=== PATIENT | male | born 1945 | race Caucasian/White ===

== ENCOUNTER 2016-12-24 11:57 | Inpatient (IN) | payer MEDICARE ==
[~2016-12-24] VITALS: Ht 180.3 cm; Wt 106.6 kg
[~2016-12-24 11:57] MED LIST: AMLO10TA2 PO; ASPI-630 PO; ATEN100T PO; ATOR20TA58 PO; CARB1TAB44 PO; GABA300S PO; HYDR12.53 PO; LISI40TA PO; SERT100T8 PO; TAMS0.4C2 PO; prilosec PO
[2016-12-24] MEDS ORDERED: MORPHINE SULFATE 10 MG/ML VIAL. IV ONE ×2 (12:30→13:45)
[2016-12-24] MEDS ORDERED: IV NORMAL SALINE 1000ML BAG 1,000 ML IV ONE (12:30)
[2016-12-24 12:38] LABS: BASO # 0.1 x10^3/uL (0.0-0.2); BASO % 1 % (0-3); EOS % 2 % (0-3); HEMATOCRIT 35.8 % (39.0-53.0); HEMOGLOBIN 11.5 g/dL (13.0-17.5); LYMPH # 2.2 x10^3/uL (1.0-4.8); LYMPH % 22 % (24-48); MEAN CORPUSCULAR HEMOGLOBIN 27 pg (25-35); MEAN CORPUSCULAR HGB CONC 32 g/dL (31-37); MEAN CORPUSCULAR VOLUME 83 fL (79-100); MONO % 3 % (0-9); NEUT % 72 % (31-73); PLATELET COUNT 135 x10^3/uL (140-400); RED BLOOD COUNT 4.31 x10^6/uL (4.30-5.70); RED CELL DISTRIBUTION WIDTH 16.3 % (11.5-14.5); WHITE BLOOD COUNT 9.9 x10^3/uL (4.0-11.0)
[2016-12-24 12:50] LABS: INR 1.1 (0.8-1.1); PROTHROMBIN TIME PATIENT 13.5 SEC (11.7-14.0)
[2016-12-24 12:51] LABS: CALCIUM 9.5 mg/dL (8.5-10.1); GFR 73.7; POTASSIUM 3.6 mmol/L (3.5-5.1)
--- NOTE | 2016-12-24 12:52 | PHYS DOC ---
Past Medical History Past Medical History: Cancer, Heart Disease Past Surgical History: Appendectomy, Cancer Surgery, Tonsillectomy Additional Past Surgical Histo: L UPPER LOBE REMOVED, BLADDER, SKIN CA, STENT PLACEMENT Alcohol Use: None Drug Use: None Adult General Chief Complaint Chief Complaint: MECHANICAL FALL HPI HPI Patient is a 71 year old male sustained home while trying to get up from bed to go to the bathroom he fell to his left side against a chair. Patient denies any head, neck, back trauma. His only complaint is pain at the left upper leg. Review of Systems Review of Systems Constitutional: Denies fever or chills [] HENT: Denies injury Respiratory: Denies cough or shortness of breath [] Cardiovascular: No chest pain or injury GI: Denies abdominal pain or injury Musculoskeletal: Pain at the left lower thigh Integument: Denies rash or skin lesions [] Neurologic: Denies headache, focal weakness or sensory changes [] All assistance reviewed and found to be negative unless as stated otherwise Current Medications Current Medications Current Medications Medications (Trade) Dose Ordered Sig/Alverto Start Time Stop Time Status Last Admin Dose Admin Morphine Sulfate 6 mg 1X ONCE 12/24/16 12:30 12/24/16 12:35 DC 12/24/16 12:43 6 MG Sodium Chloride 1,000 ml @ 1,000 mls/hr 1X ONCE 12/24/16 12:30 12/24/16 13:29 DC 12/24/16 12:44 1,000 MLS/HR Allergies Allergies Allergies Coded Allergies Type Severity Reaction Last Updated Verified No Known Drug Allergies 04/12/13 No Physical Exam Physical Exam Constitutional: Well developed, well nourished, mild distress, non-toxic appearance. [] HENT: Normocephalic, atraumatic, bilateral external ears normal, oropharynx dry , no oral exudates, nose normal. [] Eyes: EOMI, conjunctiva normal, no discharge. [] Neck: Normal range of motion, no tenderness, supple, no stridor. No midline tenderness, no step-offs Cardiovascular:Heart rate regular rhythm, no murmur, equal pulses, normal perfusion Lungs & Thorax: Bilateral breath sounds clear to auscultation, no tachypnea Abdomen: Bowel sounds normal, soft, no tenderness, no masses, no pulsatile masses. [] MSK: Deformity at the left lower thigh, no evidence of compartment syndrome, neurovascularly intact distally Skin: Warm, dry, no erythema, no rash. No evidence of open fracture Back: No tenderness, no CVA tenderness. No step-offs Extremities: No tenderness, no cyanosis, no clubbing, ROM intact except left lower extremity secondary to pain, no edema. [] Neurologic: Alert and oriented X 3, normal motor function, no focal deficits noted. [] Psychologic: Affect normal, judgement normal, mood normal. [] Current Patient Data Vital Signs Vital Signs Date Time Temp Pulse Resp B/P (MAP) Pulse Ox O2 Delivery O2 Flow Rate FiO2 12/24/16 12:43 20 94 12/24/16 12:35 62 Room Air 12/24/16 11:58 97.9 132/64 (86) 97.9 Lab Values Laboratory Tests Test 12/24/16 12:30 White Blood Count 9.9 x10^3/uL (4.0-11.0) Red Blood Count 4.31 x10^6/uL (4.30-5.70) Hemoglobin 11.5 g/dL (13.0-17.5) L Hematocrit 35.8 % (39.0-53.0) L Mean Corpuscular Volume 83 fL (79-100) Mean Corpuscular Hemoglobin 27 pg (25-35) Mean Corpuscular Hemoglobin Concent 32 g/dL (31-37) Red Cell Distribution Width 16.3 % (11.5-14.5) H Platelet Count 135 x10^3/uL (140-400) L Neutrophils (%) (Auto) 72 % (31-73) Lymphocytes (%) (Auto) 22 % (24-48) L Monocytes (%) (Auto) 3 % (0-9) Eosinophils (%) (Auto) 2 % (0-3) Basophils (%) (Auto) 1 % (0-3) Neutrophils # (Auto) 7.2 x10^3uL (1.8-7.7) Lymphocytes # (Auto) 2.2 x10^3/uL (1.0-4.8) Monocytes # (Auto) 0.3 x10^3/uL (0.0-1.1) Eosinophils # (Auto) 0.2 x10^3/uL (0.0-0.7) Basophils # (Auto) 0.1 x10^3/uL (0.0-0.2) Prothrombin Time 13.5 SEC (11.7-14.0) Prothrombin Time INR 1.1 (0.8-1.1) Sodium Level 143 mmol/L (136-145) Potassium Level 3.6 mmol/L (3.5-5.1) Chloride Level 106 mmol/L (98-107) Carbon Dioxide Level 29 mmol/L (21-32) Anion Gap 8 (6-14) Blood Urea Nitrogen 19 mg/dL (8-26) Creatinine 1.0 mg/dL (0.7-1.3) Estimated GFR (Cockcroft-Gault) 73.7 Glucose Level 138 mg/dL (70-99) H Calcium Level 9.5 mg/dL (8.5-10.1) Laboratory Tests 12/24/16 12:30 Laboratory Tests 12/24/16 12:30 EKG EKG [] Radiology/Procedures Radiology/Procedures distal femur fracture[] Course & Med Decision Making Course & Med Decision Making Pertinent Labs and Imaging studies reviewed. (See chart for details) 1335 patient and family informal results of imaging and plan for surgery. Patient Dr. Varela has reviewed the x-rays and agrees for need for admission and operational repair. Dr. Rob has been contacted and aware of the admission [] Dragon Disclaimer Dragon Disclaimer This electronic medical record was generated, in whole or in part, using a voice recognition dictation system. Departure Departure Impression: Primary Impression: Fracture, femur, distal Disposition: ADMITTED INPATIENT Admitting Physician: Other Condition: STABLE Referrals: COREEN CLARK MD (PCP) Dom SHABAZZ MD Dec 24, 2016 12:52
--- NOTE | 2016-12-24 13:25 | RAD ---
Examination: 2 views of the left hip History: History of trauma, fall Comparison: None available Findings: Moderate joint space loss identified in the left hip joint likely secondary to degeneration. Partially visualized displaced fracture of the left femoral shaft. Impression: 1. Partially visualized displaced fracture of the left femoral shaft. Graft. Moderate degenerative changes left hip joint.
--- NOTE | 2016-12-24 13:27 | RAD ---
EXAM: 1. Left hip 2 views. 2. Left femur 2 views. 3. Left knee 2 views. HISTORY: Trauma. COMPARISON: None. FINDINGS: There is a questionable nondisplaced fracture of the left superior pubic ramus versus artifact. No fracture is appreciated at the left hip. The joint spaces and alignment of the left hip appear maintained. Atherosclerotic calcifications are noted. There is a posteromedially displaced and anterolaterally angulated oblique fracture of the distal femur. It is shortened by 8 cm. No intra-articular extension of the fractures at the left knee. There is mild to moderate tricompartmental osteoarthritis with patellofemoral predominance. There is a small intra-articular osteophyte laterally. There is a small joint effusion. IMPRESSION: 1. Short and, displaced, angulated fracture of the left distal femur. 2. Questionable nondisplaced fracture of the left superior pubic ramus. 3. Mild to moderate tricompartmental left knee osteoarthritis.
[2016-12-24] MEDS ORDERED: ACETAMINOPHEN 325 MG TABLET. PO PRN (13:30)
[2016-12-24] MEDS ORDERED: ACET325T9 PO (14:07)
[2016-12-24] MEDS ORDERED: CLOP75TA57 PO (14:10)
[2016-12-24] MEDS ORDERED: FINA5TAB4 PO (14:10)
[2016-12-24] MEDS ORDERED: FURO20TA3 PO (14:11)
[2016-12-24] MEDS ORDERED: LANS15CA78 PO (14:13)
[2016-12-24] MEDS ORDERED: PRAM0.25 PO (14:15)
[2016-12-24] MEDS ORDERED: CARB15DR3 EACHEYE (14:16)
[2016-12-24] MEDS ORDERED: CARB1TAB5 PO (16:05)
[2016-12-24] MEDS ORDERED: LANS15CA5 PO (16:05)
[2016-12-24] MEDS ORDERED: GABA-586 PO (16:05)
[2016-12-24] MEDS: MORPHINE SULFATE 4 MG/ML DISP.SYRIN. IV PRN (16:38)
[2016-12-24 16:51] VITALS: BP 139/68
[2016-12-24] MEDS ORDERED: oxyCODONE/APAP 5/325 1 TAB TABLET PO PRN (17:45)
[2016-12-24] MEDS: oxyCODONE/APAP 10/325 1 TAB TABLET PO PRN (18:06)
[2016-12-24 19:20] VITALS: BP 98/55
[2016-12-24] MEDS ORDERED: INFLUENZA VAX SCREEN BY RX. MC PRN (20:15)
[2016-12-24] MEDS: TAMSULOSIN 0.4 MG CAP.ER.24H. PO SCH (21:26)
[2016-12-24] MEDS: PRAMIPEXOLE 0.25 MG TABLET. PO SCH (21:26)
[2016-12-24] MEDS: SERTRALINE 50 MG TABLET. PO SCH (21:26)
[2016-12-24] MEDS: ATENOLOL 50 MG TABLET. PO SCH (21:26)
[2016-12-24] MEDS: ACETAMINOPHEN 325 MG TABLET. PO SCH (21:27)
[2016-12-24] MEDS: CARBIDOPA/LEVODOPA CR 25/100MG TABLET.SA. PO SCH (21:27)
--- NOTE | 2016-12-24 22:04 | HP ---
ADMIT DATE: 12/24/2016 CHIEF COMPLAINT: Fall with femoral fracture. HISTORY OF PRESENT ILLNESS: The patient is a 71-year-old gentleman with history of Parkinson's as well as multiple cancers who presented to the Emergency Room after a trip and fall at home resulting in left-sided hip pain. He relates that he was trying to walk to the bathroom aided by his walker as well as his . Unfortunately, his leg got hung up on the armrest of his recliner and he lost balance, fell backwards, rolling towards his left side. He denies any loss of consciousness, denies any injury to his head or neck or back. His hip, however, is in significant pain even now. In the Emergency Room, x-rays of the femur, knee and hip revealed a short and displaced angulated fracture of the left distal femur, a questionable nondisplaced fracture of the left superior pubic ramus. PAST MEDICAL HISTORY: Parkinson's, lung cancer status post left upper lobe resection, bladder cancer, in remission; multiple skin cancers removed, coronary artery disease status post stent placement. He is status post appendectomy, tonsillectomy. FAMILY HISTORY: Positive for coronary artery disease. SOCIAL HISTORY: Lives with his . Quit smoking 30 years ago. No toxic habits. ALLERGIES: No known drug allergies. MEDICATIONS: MAR reconciled with home medications. REVIEW OF SYSTEMS: The patient still has significant pain. He denies any other areas of pain outside of his leg. Denies any nausea, vomiting, any shortness of breath or chest pain. Rest of organ system review is negative. PHYSICAL EXAMINATION: VITAL SIGNS: From today show a blood pressure of 139/68, heart rate of 70, respiratory rate at 16. He is afebrile. GENERAL: This is a 71-year-old ill-appearing gentleman, alert and oriented, although barely opening his eyes, in mild distress. HEENT: Shows no scleral icterus. NECK: Supple, revealing previous resection scars over neck as well as face and his cranium. LUNGS: Clear to auscultation bilaterally. HEART: Regular rate and rhythm. ABDOMEN: Has positive bowel sounds, soft, nontender. EXTREMITIES: Show no edema. Left thigh mildly swollen. SKIN: Warm, soft and dry. LABORATORY DATA: CBC with a WBC of 9.9, hemoglobin 11.5, platelets of 135. Chemistries with a BUN and creatinine of 19 and 1.0, normal electrolytes, glucose at 138. IMAGING: A comminuted fracture of the distal femur. ASSESSMENT AND PLAN: The patient is a 71-year-old gentleman with multiple medical issues, now presenting with a distal femoral fracture. Dr. Varela from Ortho has been consulted to evaluate for fixation. The patient has a history of heart disease, but no acute issues. Home medications will be continued. EKG will be obtained to evaluate for risk stratification. Pain at this time is poorly controlled. We will try and switch him to p.o. medications for now with Percocet 1-2 tabs, morphine as last resort intravenous. He will continue on all his home medications including medications for Parkinson's and restless leg syndrome as well as benign prostatic hypertrophy. CHAITANYA DOBBS MD DR: UR/nts JOB#: [id number] / [id number] Rekha Singh MD MTDD
[2016-12-24 23:16] VITALS: BP 117/65
[2016-12-25] VITALS (14 sets, daily range): BP systolic 94–123; BP diastolic 50–84
[2016-12-25] MEDS: ACETAMINOPHEN 325 MG TABLET. PO SCH ×6 (00:23→21:12)
[2016-12-25 06:46] LABS: BASO % 0 % (0-3); EOS % 1 % (0-3); HEMATOCRIT 33.3 % (39.0-53.0); LYMPH # 2.1 x10^3/uL (1.0-4.8); LYMPH % 19 % (24-48); MEAN CORPUSCULAR HEMOGLOBIN 27 pg (25-35); MEAN CORPUSCULAR HGB CONC 33 g/dL (31-37); MEAN CORPUSCULAR VOLUME 82 fL (79-100); MONO % 6 % (0-9); NEUT % 74 % (31-73); PLATELET COUNT 142 x10^3/uL (140-400); RED BLOOD COUNT 4.07 x10^6/uL (4.30-5.70); RED CELL DISTRIBUTION WIDTH 16.4 % (11.5-14.5); WHITE BLOOD COUNT 10.7 x10^3/uL (4.0-11.0)
[2016-12-25] MEDS ORDERED: PROCHLORPERAZINE 10 MG/2 ML VIAL. IV PRN (07:00)
[2016-12-25] MEDS ORDERED: fentaNYL PF VIAL 100 MCG/2 ML VIAL IV PRN ×2 (07:00)
[2016-12-25] MEDS ORDERED: IV RINGERS,LACTATED 1000ML 1,000 ML IV SCH (07:00)
[2016-12-25] MEDS ORDERED: ONDANSETRON PF 4 MG/2 ML VIAL. IV PRN (07:00)
[2016-12-25] MEDS ORDERED: LIDOCAINE 1% PF 2 ML VIAL. ID PRN (07:00)
[2016-12-25] MEDS ORDERED: MORPHINE SULFATE 4 MG/ML DISP.SYRIN. IV PRN (07:00)
[2016-12-25] MEDS ORDERED: HYDROmorphone 2 MG/ML VIAL IV PRN (07:00)
[2016-12-25 07:10] LABS: CALCIUM 8.9 mg/dL (8.5-10.1); CREATININE 0.9 mg/dL (0.7-1.3); GFR 83.2; POTASSIUM 3.5 mmol/L (3.5-5.1)
[2016-12-25] MEDS: MORPHINE SULFATE 4 MG/ML DISP.SYRIN. IV PRN (08:43)
[2016-12-25] MEDS ORDERED: FLU VACC QS2017-18 (36MOS+)/PF 0.5 ML SYRINGE. VAX IM ONE (09:00)
[2016-12-25] MEDS: amLODIPine BESYLATE 10 MG TABLET PO SCH (09:08)
[2016-12-25] MEDS: PANTOPRAZOLE 40 MG TABLET.DR. PO SCH (09:08)
[2016-12-25] MEDS: CARBIDOPA/LEVODOPA CR 25/100MG TABLET.SA. PO SCH ×4 (09:09→21:12)
[2016-12-25] MEDS: FUROSEMIDE 20 MG TABLET PO SCH (09:09)
[2016-12-25] MEDS: PRAMIPEXOLE 0.25 MG TABLET. PO SCH ×3 (09:09→21:12)
[2016-12-25] MEDS: ATORVASTATIN CALCIUM 20 MG TABLET PO SCH (09:21)
[2016-12-25] MEDS: CLOPIDOGREL BISULFATE 75 MG TABLET PO SCH (09:21)
[2016-12-25] MEDS: SERTRALINE 50 MG TABLET. PO SCH ×2 (09:21→21:12)
[2016-12-25] MEDS: FINASTERIDE 5 MG TABLET. PO SCH (09:21)
--- NOTE | 2016-12-25 11:56 | PDOC ---
PROGRESS NOTES Chief Complaint Chief Complaint L distal femur fx ASSESSMENT AND PLAN: 1. Femur fx: ortho following 2. Pain control: adequate. switch to PO post op. 3. CAD: no acute issues. continue 2ary prevention meds 4. Parkinson's: on Sinemet 5. RLS: has ropirinile 6. BPH: on alpha almaz 7. Prophylaxis: start lovenox in AM History of Present Illness History of Present Illness pain fairly well controlled. OR soon Vitals Vitals Vital Signs Date Time Temp Pulse Resp B/P (MAP) Pulse Ox O2 Delivery O2 Flow Rate FiO2 12/25/16 11:00 97.7 69 18 116/61 (79) 97 Room Air 97.7 12/25/16 07:50 2.0 Physical Exam General: Alert, Cooperative, No acute distress Heart: Regular rate Lungs: Clear Abdomen: Normal bowel sounds, No tenderness Extremities: No edema, Other Labs LABS Laboratory Tests Test 12/24/16 12:30 12/24/16 15:50 12/25/16 05:40 White Blood Count 9.9 x10^3/uL (4.0-11.0) 10.7 x10^3/uL (4.0-11.0) Red Blood Count 4.31 x10^6/uL (4.30-5.70) 4.07 x10^6/uL (4.30-5.70) Hemoglobin 11.5 g/dL (13.0-17.5) 11.0 g/dL (13.0-17.5) Hematocrit 35.8 % (39.0-53.0) 33.3 % (39.0-53.0) Mean Corpuscular Volume 83 fL (79-100) 82 fL (79-100) Mean Corpuscular Hemoglobin 27 pg (25-35) 27 pg (25-35) Mean Corpuscular Hemoglobin Concent 32 g/dL (31-37) 33 g/dL (31-37) Red Cell Distribution Width 16.3 % (11.5-14.5) 16.4 % (11.5-14.5) Platelet Count 135 x10^3/uL (140-400) 142 x10^3/uL (140-400) Neutrophils (%) (Auto) 72 % (31-73) 74 % (31-73) Lymphocytes (%) (Auto) 22 % (24-48) 19 % (24-48) Monocytes (%) (Auto) 3 % (0-9) 6 % (0-9) Eosinophils (%) (Auto) 2 % (0-3) 1 % (0-3) Basophils (%) (Auto) 1 % (0-3) 0 % (0-3) Neutrophils # (Auto) 7.2 x10^3uL (1.8-7.7) 8.0 x10^3uL (1.8-7.7) Lymphocytes # (Auto) 2.2 x10^3/uL (1.0-4.8) 2.1 x10^3/uL (1.0-4.8) Monocytes # (Auto) 0.3 x10^3/uL (0.0-1.1) 0.6 x10^3/uL (0.0-1.1) Eosinophils # (Auto) 0.2 x10^3/uL (0.0-0.7) 0.1 x10^3/uL (0.0-0.7) Basophils # (Auto) 0.1 x10^3/uL (0.0-0.2) 0.0 x10^3/uL (0.0-0.2) Prothrombin Time 13.5 SEC (11.7-14.0) Prothromb Time International Ratio 1.1 (0.8-1.1) Sodium Level 143 mmol/L (136-145) 143 mmol/L (136-145) Potassium Level 3.6 mmol/L (3.5-5.1) 3.5 mmol/L (3.5-5.1) Chloride Level 106 mmol/L (98-107) 107 mmol/L (98-107) Carbon Dioxide Level 29 mmol/L (21-32) 29 mmol/L (21-32) Anion Gap 8 (6-14) 7 (6-14) Blood Urea Nitrogen 19 mg/dL (8-26) 16 mg/dL (8-26) Creatinine 1.0 mg/dL (0.7-1.3) 0.9 mg/dL (0.7-1.3) Estimated GFR (Cockcroft-Gault) 73.7 83.2 Glucose Level 138 mg/dL (70-99) 103 mg/dL (70-99) Calcium Level 9.5 mg/dL (8.5-10.1) 8.9 mg/dL (8.5-10.1) Nasal Screen MRSA (PCR) Negative (Negative) CHAITANYA DOBBS MD Dec 25, 2016 11:56
[2016-12-25] MEDS ORDERED: FAMOTIDINE 20 MG/2 ML VIAL ONE (13:00)
[2016-12-25] MEDS ORDERED: ONDANSETRON PF 4 MG/2 ML VIAL. ONE (13:00)
[2016-12-25] MEDS ORDERED: PROPOFOL 20 ML IV ONE ×2 (13:00→14:08)
[2016-12-25] MEDS ORDERED: DEXAMETHASONE SOD PHOS 20 MG/5 ML VIAL. ONE (13:00)
[2016-12-25] MEDS ORDERED: LIDOCAINE 2% PF Vial for OR 5 ML VIAL. ONE (13:00)
[2016-12-25] MEDS ORDERED: MIDAZOLAM HCL/PF 2 MG/2 ML VIAL. ONE (13:15)
[2016-12-25] MEDS ORDERED: fentaNYL PF VIAL 100 MCG/2 ML VIAL ONE (13:16)
[2016-12-25] MEDS ORDERED: LIDOCAINE 1% PF 5 ML VIAL. ONE (14:08)
[2016-12-25] MEDS ORDERED: PHENYLEPHRINE in 0.9% NACL PF 1 MG/10 ML DISP.SYRIN. IV ONE (14:15)
[2016-12-25] MEDS ORDERED: SEVOFLURANE > 120 MINUTES. IH ONE (16:05)
--- NOTE | 2016-12-25 16:45 | PDOC4 ---
Operative Note Operative Note Date of surgery: 12/25/2016 Preoperative diagnosis displaced left distal femoral shaft fracture Postoperative diagnosis: Same Procedure: Open reduction internal fixation with plate and screw fixation of distal femoral shaft fracture Surgeon: Nichole Anesthesia: Gen. endotracheal Estimated blood loss 300 mL Complications: None Operative indications: Patient is a 71-year-old male sustained a left femur shaft fracture in a fall I gone over with the patient and his family operative and nonoperative treatment options, the immobility related concerns with nonoperative management and operative concerns of possibility of infection nerve or blood vessel damage medical or other anesthetic complications among others and the ability to do some gentle motion and mobilization without weightbearing. All family's questions were answered consent was obtained and they agree to proceed with operative evaluation and treatment. Operative text: Patient was identified procedure verified. After adequate amounts of general endotracheal anesthesia were administered the left lower extremity was prepped and draped in standard sterile fashion and after timeout was performed patient procedure identified and verified and incision was made over the lateral aspect of the distal femoral shaft dissection carried out subperiosteally and the comminuted fracture was reduced acceptably under fluoroscopic guidance. A Sylvia large fragment plate was contoured to the lateral femur which was reduced near anatomically with bone reduction forceps and bicortical screws were placed both across the fracture site and proximally and distally with acceptable reduction having been obtained there was some comminution preventing absolute anatomic reduction especially with the proximal edge of the distal fragment however except reduction verified under multiple fluoroscopic views as well as satisfactory hardware placement. Leg was clinically aligned as well thorough irrigation carried out normal saline solution fascia closure with #1 Vicryl in a running fashion subcutaneous closure with read Vicryl skin closure with natalia sterile soft dressings were applied patient was extubated transferred to postop holding in stable condition having tolerated procedure well BRENNAN STALEY MD Dec 25, 2016 16:45
[2016-12-25] MEDS: TAMSULOSIN 0.4 MG CAP.ER.24H. PO SCH (21:00)
[2016-12-25] MEDS: ATENOLOL 50 MG TABLET. PO SCH (21:11)
[2016-12-26 03:48] VITALS: BP 107/52
[2016-12-26] MEDS: ACETAMINOPHEN 325 MG TABLET. PO SCH ×7 (03:50→23:50)
[2016-12-26 05:04] LABS: BASO % 0 % (0-3); EOS % 0 % (0-3); HEMATOCRIT 29.1 % (39.0-53.0); HEMOGLOBIN 9.4 g/dL (13.0-17.5); LYMPH # 2.3 x10^3/uL (1.0-4.8); LYMPH % 19 % (24-48); MEAN CORPUSCULAR HEMOGLOBIN 27 pg (25-35); MEAN CORPUSCULAR HGB CONC 32 g/dL (31-37); MEAN CORPUSCULAR VOLUME 83 fL (79-100); MONO % 6 % (0-9); NEUT % 76 % (31-73); PLATELET COUNT 133 x10^3/uL (140-400); RED BLOOD COUNT 3.51 x10^6/uL (4.30-5.70); RED CELL DISTRIBUTION WIDTH 16.2 % (11.5-14.5); WHITE BLOOD COUNT 12.2 x10^3/uL (4.0-11.0)
[2016-12-26 05:20] LABS: CALCIUM 8.2 mg/dL (8.5-10.1); CREATININE 0.9 mg/dL (0.7-1.3); GFR 83.2; POTASSIUM 3.6 mmol/L (3.5-5.1)
[2016-12-26 07:00] VITALS: BP 123/60
[2016-12-26] MEDS: CLOPIDOGREL BISULFATE 75 MG TABLET PO SCH (09:06)
[2016-12-26] MEDS: CARBIDOPA/LEVODOPA CR 25/100MG TABLET.SA. PO SCH ×4 (09:06→20:53)
[2016-12-26] MEDS: FINASTERIDE 5 MG TABLET. PO SCH (09:07)
[2016-12-26] MEDS: SERTRALINE 50 MG TABLET. PO SCH ×2 (09:07→20:52)
[2016-12-26] MEDS: PANTOPRAZOLE 40 MG TABLET.DR. PO SCH (09:07)
[2016-12-26] MEDS: ATORVASTATIN CALCIUM 20 MG TABLET PO SCH (09:07)
[2016-12-26] MEDS: FUROSEMIDE 20 MG TABLET PO SCH (09:07)
[2016-12-26] MEDS: PRAMIPEXOLE 0.25 MG TABLET. PO SCH ×3 (09:07→20:52)
[2016-12-26] MEDS: amLODIPine BESYLATE 10 MG TABLET PO SCH (09:08)
[2016-12-26 11:00] VITALS: BP 97/60
--- NOTE | 2016-12-26 13:41 | PDOC ---
PROGRESS NOTES Chief Complaint Chief Complaint L distal femur fx ASSESSMENT AND PLAN: 1. Femur fx: POD # 1 (12/25/16) 2. Pain control: adequate. switch to PO post op. 3. CAD: no acute issues. continue 2ary prevention meds 4. Parkinson's: on Sinemet 5. RLS: has ropirinile 6. BPH: on alpha almaz 7. Prophylaxis: start lovenox in AM History of Present Illness History of Present Illness NO issues Left eye closed is old for him he says Needs SNU on dc LAbs post op is good NO overnight calls PLAN: SNU on Dc SW PT/OT SUpprtoive care Target dc wednesday to SNU Vitals Vitals Vital Signs Date Time Temp Pulse Resp B/P (MAP) Pulse Ox O2 Delivery O2 Flow Rate FiO2 12/26/16 11:00 97.6 69 22 97/60 (72) 99 Nasal Cannula 2.0 97.6 Physical Exam General: Alert, Cooperative, No acute distress Heart: Regular rate Lungs: Clear Abdomen: Normal bowel sounds, No tenderness Extremities: No edema, Other Labs LABS Laboratory Tests Test 12/26/16 04:15 White Blood Count 12.2 x10^3/uL (4.0-11.0) Red Blood Count 3.51 x10^6/uL (4.30-5.70) Hemoglobin 9.4 g/dL (13.0-17.5) Hematocrit 29.1 % (39.0-53.0) Mean Corpuscular Volume 83 fL (79-100) Mean Corpuscular Hemoglobin 27 pg (25-35) Mean Corpuscular Hemoglobin Concent 32 g/dL (31-37) Red Cell Distribution Width 16.2 % (11.5-14.5) Platelet Count 133 x10^3/uL (140-400) Neutrophils (%) (Auto) 76 % (31-73) Lymphocytes (%) (Auto) 19 % (24-48) Monocytes (%) (Auto) 6 % (0-9) Eosinophils (%) (Auto) 0 % (0-3) Basophils (%) (Auto) 0 % (0-3) Neutrophils # (Auto) 9.3 x10^3uL (1.8-7.7) Lymphocytes # (Auto) 2.3 x10^3/uL (1.0-4.8) Monocytes # (Auto) 0.7 x10^3/uL (0.0-1.1) Eosinophils # (Auto) 0.0 x10^3/uL (0.0-0.7) Basophils # (Auto) 0.0 x10^3/uL (0.0-0.2) Sodium Level 141 mmol/L (136-145) Potassium Level 3.6 mmol/L (3.5-5.1) Chloride Level 104 mmol/L (98-107) Carbon Dioxide Level 30 mmol/L (21-32) Anion Gap 7 (6-14) Blood Urea Nitrogen 14 mg/dL (8-26) Creatinine 0.9 mg/dL (0.7-1.3) Estimated GFR (Cockcroft-Gault) 83.2 Glucose Level 101 mg/dL (70-99) Calcium Level 8.2 mg/dL (8.5-10.1) Review of Systems Review of Systems denies 14 pt reviewed Comment Review of Relevant I have reviewed the following items patricia (where applicable) has been applied. Labs Laboratory Tests Test 12/24/16 15:50 12/25/16 05:40 12/26/16 04:15 Nasal Screen MRSA (PCR) Negative (Negative) White Blood Count 10.7 x10^3/uL (4.0-11.0) 12.2 x10^3/uL (4.0-11.0) Red Blood Count 4.07 x10^6/uL (4.30-5.70) 3.51 x10^6/uL (4.30-5.70) Hemoglobin 11.0 g/dL (13.0-17.5) 9.4 g/dL (13.0-17.5) Hematocrit 33.3 % (39.0-53.0) 29.1 % (39.0-53.0) Mean Corpuscular Volume 82 fL (79-100) 83 fL (79-100) Mean Corpuscular Hemoglobin 27 pg (25-35) 27 pg (25-35) Mean Corpuscular Hemoglobin Concent 33 g/dL (31-37) 32 g/dL (31-37) Red Cell Distribution Width 16.4 % (11.5-14.5) 16.2 % (11.5-14.5) Platelet Count 142 x10^3/uL (140-400) 133 x10^3/uL (140-400) Neutrophils (%) (Auto) 74 % (31-73) 76 % (31-73) Lymphocytes (%) (Auto) 19 % (24-48) 19 % (24-48) Monocytes (%) (Auto) 6 % (0-9) 6 % (0-9) Eosinophils (%) (Auto) 1 % (0-3) 0 % (0-3) Basophils (%) (Auto) 0 % (0-3) 0 % (0-3) Neutrophils # (Auto) 8.0 x10^3uL (1.8-7.7) 9.3 x10^3uL (1.8-7.7) Lymphocytes # (Auto) 2.1 x10^3/uL (1.0-4.8) 2.3 x10^3/uL (1.0-4.8) Monocytes # (Auto) 0.6 x10^3/uL (0.0-1.1) 0.7 x10^3/uL (0.0-1.1) Eosinophils # (Auto) 0.1 x10^3/uL (0.0-0.7) 0.0 x10^3/uL (0.0-0.7) Basophils # (Auto) 0.0 x10^3/uL (0.0-0.2) 0.0 x10^3/uL (0.0-0.2) Sodium Level 143 mmol/L (136-145) 141 mmol/L (136-145) Potassium Level 3.5 mmol/L (3.5-5.1) 3.6 mmol/L (3.5-5.1) Chloride Level 107 mmol/L (98-107) 104 mmol/L (98-107) Carbon Dioxide Level 29 mmol/L (21-32) 30 mmol/L (21-32) Anion Gap 7 (6-14) 7 (6-14) Blood Urea Nitrogen 16 mg/dL (8-26) 14 mg/dL (8-26) Creatinine 0.9 mg/dL (0.7-1.3) 0.9 mg/dL (0.7-1.3) Estimated GFR (Cockcroft-Gault) 83.2 83.2 Glucose Level 103 mg/dL (70-99) 101 mg/dL (70-99) Calcium Level 8.9 mg/dL (8.5-10.1) 8.2 mg/dL (8.5-10.1) Laboratory Tests Test 12/26/16 04:15 White Blood Count 12.2 x10^3/uL (4.0-11.0) Red Blood Count 3.51 x10^6/uL (4.30-5.70) Hemoglobin 9.4 g/dL (13.0-17.5) Hematocrit 29.1 % (39.0-53.0) Mean Corpuscular Volume 83 fL (79-100) Mean Corpuscular Hemoglobin 27 pg (25-35) Mean Corpuscular Hemoglobin Concent 32 g/dL (31-37) Red Cell Distribution Width 16.2 % (11.5-14.5) Platelet Count 133 x10^3/uL (140-400) Neutrophils (%) (Auto) 76 % (31-73) Lymphocytes (%) (Auto) 19 % (24-48) Monocytes (%) (Auto) 6 % (0-9) Eosinophils (%) (Auto) 0 % (0-3) Basophils (%) (Auto) 0 % (0-3) Neutrophils # (Auto) 9.3 x10^3uL (1.8-7.7) Lymphocytes # (Auto) 2.3 x10^3/uL (1.0-4.8) Monocytes # (Auto) 0.7 x10^3/uL (0.0-1.1) Eosinophils # (Auto) 0.0 x10^3/uL (0.0-0.7) Basophils # (Auto) 0.0 x10^3/uL (0.0-0.2) Sodium Level 141 mmol/L (136-145) Potassium Level 3.6 mmol/L (3.5-5.1) Chloride Level 104 mmol/L (98-107) Carbon Dioxide Level 30 mmol/L (21-32) Anion Gap 7 (6-14) Blood Urea Nitrogen 14 mg/dL (8-26) Creatinine 0.9 mg/dL (0.7-1.3) Estimated GFR (Cockcroft-Gault) 83.2 Glucose Level 101 mg/dL (70-99) Calcium Level 8.2 mg/dL (8.5-10.1) Medications Current Medications Morphine Sulfate 6 mg 1X ONCE IV Last administered on 12/24/16 12:43; Start 12/24/16 at 12:30; Stop 12/24/16 at 12:35; Status DC Sodium Chloride 1,000 ml @ 1,000 mls/hr 1X ONCE IV Last administered on 12:44; Start 12/24/16 at 12:30; Stop 12/24/16 at 13:29; Status DC Morphine Sulfate 2 mg PRN Q2HR PRN IV severe pain, 2nd choice Last administered on 12/25/16 08:43; Start 12/24/16 at 13:45 Acetaminophen (Tylenol) 650 mg PRN Q4HRS PRN PO FEVER; Start 12/24/16 at 13:30 ; Stop 12/25/16 at 13:29; Status DC Morphine Sulfate 6 mg 1X ONCE IV Last administered on 12/24/16 13:39; Start 12/24/16 at 13:45; Stop 12/24/16 at 13:46; Status DC Ondansetron HCl (Zofran) 4 mg PRN Q6HRS PRN IV NAUSEA/VOMITING; Start 12/25/16 at 07:00; Stop 12/26/16 at 06:59; Status DC Fentanyl Citrate (Fentanyl 2ml Vial) 25 mcg PRN Q5MIN PRN IV MILD PAIN; Start 12/25/16 at 07:00; Stop 12/25/16 at 07:00; Status DC Fentanyl Citrate (Fentanyl 2ml Vial) 50 mcg PRN Q5MIN PRN IV MODERATE PAIN; Start 12/25/16 at 07:00; Stop 12/25/16 at 07:00; Status DC Morphine Sulfate 1 mg PRN Q10MIN PRN IV SEVERE PAIN; Start 12/25/16 at 07:00; Stop 12/25/16 at 07:00; Status DC Ringer's Solution 1,000 ml @ 30 mls/hr Q24H IV Last administered on 12/25/16 12:36; Start 12/25/16 at 07:00; Stop 12/25/16 at 18:59; Status DC Lidocaine HCl (Xylocaine-Mpf 1% Vial) 2 ml PRN 1X PRN ID IV START; Start at 07:00; Stop 12/26/16 at 06:59; Status DC Hydromorphone HCl (Dilaudid) 0.5 mg PRN Q10MIN PRN IV SEV PAIN, Second choice; Start 12/25/16 at 07:00; Stop 12/26/16 at 06:59; Status DC Prochlorperazine Edisylate (Compazine) 5 mg PACU PRN PRN IV NAUSEA, MRX1; Start 12/25/16 at 07:00; Stop 12/26/16 at 06:59; Status DC Acetaminophen (Tylenol) 650 mg Q4HRS PO Last administered on 12/26/16 12:29; Start 12/24/16 at 20:00 Amlodipine Besylate (Norvasc) 10 mg DAILY PO Last administered on 12/26/16 09: 08; Start 12/25/16 at 09:00 Atorvastatin Calcium (Lipitor) 20 mg DAILY PO Last administered on 12/26/16 09 :07; Start 12/25/16 at 09:00 Clopidogrel Bisulfate (Plavix) 75 mg DAILY PO Last administered on 12/26/16 09 :06; Start 12/25/16 at 09:00 Finasteride (Proscar) 5 mg DAILY PO Last administered on 12/26/16 09:07; Start 12/25/16 at 09:00 Furosemide (Lasix) 20 mg DAILY PO Last administered on 12/26/16 09:07; Start 12/25/16 at 09:00 Pramipexole Dihydrochloride (miraPEX) 0.25 mg TID PO Last administered on 09:07; Start 12/24/16 at 21:00 Tamsulosin HCl (Flomax) 0.8 mg QHS PO Last administered on 12/25/16 21:00; Start 12/24/16 at 21:00 Atenolol (Tenormin) 100 mg HS PO Last administered on 12/25/16 21:11; Start at 21:00 Carbidopa/Levodopa (Sinemet Cr) 2 tab.sa QID PO Last administered on 12/26/16 12:31; Start 12/24/16 at 21:00 Pantoprazole Sodium (Protonix) 40 mg DAILYAC PO Last administered on 12/26/16 09:07; Start 12/25/16 at 07:30 Sertraline HCl (Zoloft) 100 mg BID PO Last administered on 12/26/16 09:07; Start 12/24/16 at 21:00 Oxycodone/ Acetaminophen (Percocet 5/325) 1 tab PRN Q4HRS PRN PO pain 5-7; Start 12/24/16 at 17:45 Oxycodone/ Acetaminophen (Percocet 10/325) 1 tab PRN Q4HRS PRN PO pain 8-10 Last administered on 12/24/16 18:06; Start 12/24/16 at 17:45 Info (Do NOT chart on this placeholder) 1 each PRN 1X PRN MC SEE COMMENTS; Start 12/24/16 at 20:15; Status UNV Influenza Virus Vaccine Quadrival (Fluarix Quad [id number] Syringe) 0.5 ml ONCE ONCE VAX IM Last administered on 12/26/16 09:11; Start 12/25/16 at 09:00; Stop 12/25/16 at 09:01; Status DC Cefazolin Sodium/ Dextrose 50 ml @ As Directed STK-MED ONCE IV ; Start 12/25/16 at 12:18; Stop 12/25/16 at 12:19; Status DC Cefazolin Sodium/ Dextrose 50 ml @ 100 mls/hr 1X PREOP IV Last administered on 12/25/16 14:14; Start 12/25/16 at 12:30 Propofol 20 ml @ As Directed STK-MED ONCE IV ; Start 12/25/16 at 13:00; Stop at 13:01; Status DC Dexamethasone Sodium Phosphate (Decadron) 20 mg STK-MED ONCE .ROUTE ; Start at 13:00; Stop 12/25/16 at 13:01; Status DC Famotidine (Pepcid) 20 mg STK-MED ONCE .ROUTE ; Start 12/25/16 at 13:00; Stop at 13:01; Status DC Lidocaine HCl (Lidocaine Pf 2% Vial) 5 ml STK-MED ONCE .ROUTE ; Start 12/25/16 at 13:00; Stop 12/25/16 at 13:01; Status DC Ondansetron HCl (Zofran) 4 mg STK-MED ONCE .ROUTE ; Start 12/25/16 at 13:00; Stop 12/25/16 at 13:01; Status DC Active Scripts Active Reported Gabapentin 300 Mg Capsule 600 Mg PO QHS Sinemet Cr 50-200 Tablet (Carbidopa/Levodopa) 1 Each Tablet.er 1 Tab PO QID Lansoprazole 15 Mg Capsule.dr 15 Mg PO QODAY Pramipexole Dihydrochloride (Pramipexole Di-Hcl) 0.25 Mg Tablet 0.25 Mg PO TID Furosemide 20 Mg Tablet 20 Mg PO DAILY Plavix (Clopidogrel Bisulfate) 75 Mg Tablet 75 Mg PO DAILY Finasteride 5 Mg Tablet 5 Mg PO DAILY Tylenol (Acetaminophen) 325 Mg Tablet 650 Mg PO Q4HRS Tamsulosin Hcl 0.4 Mg Cap.er.24h 0.8 Mg PO QHS Sertraline Hcl 100 Mg Tablet 100 Mg PO BID Amlodipine Besylate 10 Mg Tablet 10 Mg PO DAILY Atenolol 100 Mg Tablet 100 Mg PO QHS Atorvastatin Calcium 20 Mg Tablet 20 Mg PO DAILY Vitals/I & O Vital Sign - Last 24 Hours 12/25/16 12/25/16 12/25/16 12/25/16 16:14 16:14 16:30 16:45 Temp 98.1 98.1 Pulse 71 70 68 Resp 16 20 20 B/P (MAP) 90/56 89/54 97/48 Pulse Ox 96 96 92 O2 Delivery Simple Mask Mask Simple Mask Nasal Cannula O2 Flow Rate 10 10 10 2 12/25/16 12/25/16 12/25/16 12/25/16 17:00 17:15 17:45 17:49 Temp 98.8 98.8 Pulse 70 66 68 Resp 20 20 18 B/P (MAP) 89/46 89/46 99/51 (67) 94/55 (68) Pulse Ox 93 93 O2 Delivery Nasal Cannula Nasal Cannula Nasal Cannula Nasal Cannula O2 Flow Rate 3 3 3.0 3.0 12/25/16 12/25/16 12/25/16 12/25/16 18:00 18:15 18:30 19:00 Pulse 67 66 67 68 B/P (MAP) 100/54 (69) 103/53 (70) 100/54 (69) 109/50 (69) O2 Delivery Nasal Cannula Nasal Cannula Nasal Cannula Nasal Cannula O2 Flow Rate 3.0 3.0 3.0 3.0 12/25/16 12/25/16 12/25/16 12/25/16 19:25 19:30 19:45 20:00 Temp 98.0 98.0 Pulse 68 67 68 Resp 18 B/P (MAP) 108/53 (71) 100/54 (69) 113/56 (75) Pulse Ox 96 O2 Delivery Nasal Cannula Nasal Cannula Nasal Cannula Nasal Cannula O2 Flow Rate 3.0 3.0 3.0 12/25/16 12/25/16 12/25/16 12/26/16 21:00 21:11 23:21 03:48 Temp 98.6 97.9 98.6 97.9 Pulse 70 67 73 65 Resp 18 18 B/P (MAP) 110/57 (74) 100/54 107/84 (92) 107/52 (70) Pulse Ox 97 98 O2 Delivery Nasal Cannula Nasal Cannula Nasal Cannula O2 Flow Rate 3.0 3.0 3.0 12/26/16 12/26/16 12/26/16 12/26/16 07:00 07:40 09:08 11:00 Temp 97.9 97.6 97.9 97.6 Pulse 72 72 69 Resp 20 22 B/P (MAP) 123/60 (81) 123/60 97/60 (72) Pulse Ox 96 99 O2 Delivery Nasal Cannula Nasal Cannula O2 Flow Rate 3.0 2.0 Intake and Output 12/26/16 12/26/16 12/27/16 15:00 23:00 07:00 Intake Total 180 ml Balance 180 ml SANDRA JAMES MD Dec 26, 2016 13:41
--- NOTE | 2016-12-26 14:15 | CONS ---
DATE OF CONSULTATION: 12/25/2016 REQUESTING PHYSICIAN: Dr. Alysa Vines. REASON FOR CONSULTATION: Left femur fracture. HISTORY OF PRESENT ILLNESS: The patient is a 71-year-old male with Parkinson disease, tripped and fell at home resulting in left-sided thigh pain and inability to ambulate. His legs hung up on the armrest of his recliner, lost his balance, fell backwards and rolled on to his left side. Denies any loss of consciousness, but has significant pain, deformity, and inability to bear weight on his left lower extremity. PAST MEDICAL HISTORY: Significant for Parkinson disease and lung cancer, status post resection of his upper lobe, bladder cancer and multiple skin cancers, and coronary artery disease. PAST SURGICAL HISTORY: Includes left upper lobectomy, removal of skin cancers, a stent placement for coronary artery disease, appendectomy and tonsillectomy. FAMILY HISTORY: Significant for heart disease. SOCIAL HISTORY: Lives with his . Denies smoking, alcohol or drug use. He actually quit smoking about 30 years ago. ALLERGIES: He has no known drug allergies. MEDICATIONS: List is reviewed. REVIEW OF SYSTEMS: Significant for thigh pain with any motion. Denies any radiating pain, numbness, tingling, neck or back pain. No loss of consciousness or head injury. No visual changes. Denies any chest pain, shortness of breath, recent fever or chills. PHYSICAL EXAMINATION: GENERAL: Pleasant, cooperative 71-year-old male, alert and oriented, no acute distress. EXTREMITIES: Left thigh area has obvious deformity, pain with any motion of his hip and knee. No knee effusion on either side. He has normal motion and alignment stability of the contralateral right hip, knee and ankle. Normal motion in the left ankle as well with intact motor function, distal pulses, sensation in both lower extremities. IMAGING: X-rays show comminuted fracture of the distal femoral shaft. TREATMENT PLAN: I have gone over with the patient and his family operative and nonoperative treatment options, the immobility related concerns with nonoperative treatment options and the possibility of operative treatment with planned plate and screw fixation due to the obliquity of the fracture. Risks, benefits, postoperative course were reviewed with the family who wants to proceed with surgical evaluation and treatment, which will occur later today. BRENNAN STALEY MD DR: ANTONIO/calos JOB#: [id number] / [id number]
[2016-12-26 15:00] VITALS: BP 124/68
[2016-12-26 19:00] VITALS: BP 95/48
[2016-12-26] MEDS: TAMSULOSIN 0.4 MG CAP.ER.24H. PO SCH (20:52)
[2016-12-26] MEDS: ATENOLOL 50 MG TABLET. PO SCH (21:00)
[2016-12-26 23:00] VITALS: BP 96/52
[2016-12-27] MEDS: oxyCODONE/APAP 10/325 1 TAB TABLET PO PRN ×2 (02:54→04:22)
[2016-12-27 03:00] VITALS: BP 102/52
[2016-12-27] MEDS: ACETAMINOPHEN 325 MG TABLET. PO SCH ×5 (04:00→20:11)
[2016-12-27 07:00] VITALS: BP 124/59
[2016-12-27] MEDS: SERTRALINE 50 MG TABLET. PO SCH ×2 (08:44→21:29)
[2016-12-27] MEDS: amLODIPine BESYLATE 10 MG TABLET PO SCH (08:44)
[2016-12-27] MEDS: FINASTERIDE 5 MG TABLET. PO SCH (08:44)
[2016-12-27] MEDS: CLOPIDOGREL BISULFATE 75 MG TABLET PO SCH (08:44)
[2016-12-27] MEDS: PRAMIPEXOLE 0.25 MG TABLET. PO SCH ×3 (08:44→20:16)
[2016-12-27] MEDS: CARBIDOPA/LEVODOPA CR 25/100MG TABLET.SA. PO SCH ×4 (08:44→20:11)
[2016-12-27] MEDS: ATORVASTATIN CALCIUM 20 MG TABLET PO SCH (08:44)
[2016-12-27] MEDS: PANTOPRAZOLE 40 MG TABLET.DR. PO SCH (08:45)
[2016-12-27] MEDS: FUROSEMIDE 20 MG TABLET PO SCH (08:45)
[2016-12-27 11:21] LABS: BASO % 0 % (0-3); EOS % 1 % (0-3); HEMATOCRIT 28.8 % (39.0-53.0); HEMOGLOBIN 9.5 g/dL (13.0-17.5); LYMPH # 2.3 x10^3/uL (1.0-4.8); LYMPH % 21 % (24-48); MEAN CORPUSCULAR HEMOGLOBIN 27 pg (25-35); MEAN CORPUSCULAR HGB CONC 33 g/dL (31-37); MEAN CORPUSCULAR VOLUME 81 fL (79-100); MONO % 5 % (0-9); NEUT % 73 % (31-73); PLATELET COUNT 160 x10^3/uL (140-400); RED BLOOD COUNT 3.54 x10^6/uL (4.30-5.70); RED CELL DISTRIBUTION WIDTH 16.2 % (11.5-14.5); WHITE BLOOD COUNT 10.9 x10^3/uL (4.0-11.0)
[2016-12-27 11:24] VITALS: BP 93/46
[2016-12-27 11:36] LABS: CALCIUM 8.6 mg/dL (8.5-10.1); GFR 73.7; POTASSIUM 3.3 mmol/L (3.5-5.1)
--- NOTE | 2016-12-27 13:35 | PDOC ---
PROGRESS NOTES Chief Complaint Chief Complaint ASSESSMENT AND PLAN: 1. Femur fx: POD # 2 (12/25/16) 2. Hypokalemia 3. CAD: no acute issues. 4. Parkinson's: on Sinemet 5. RLS: has ropirinile 6. BPH: on alpha almaz 7. Geriatric, high fallr isk History of Present Illness History of Present Illness Up in chair PAin ok NO labs today so i did order K 3,3 rest of labs post hip fx - good PLAn: Wednesday SNU on dc Re[place K 40 x 1 now then start 20 PO qD- on lasix here Dc to SNU wednesday hopefully once bed ready Vitals Vitals Vital Signs Date Time Temp Pulse Resp B/P (MAP) Pulse Ox O2 Delivery O2 Flow Rate FiO2 12/27/16 11:24 97.9 80 20 93/46 (62) 97 Room Air 97.9 12/27/16 07:15 2.0 Physical Exam General: Alert, Cooperative, No acute distress Heart: Regular rate Lungs: Clear Abdomen: Normal bowel sounds, No tenderness Extremities: No edema, Other Labs LABS Laboratory Tests Test 12/27/16 10:50 White Blood Count 10.9 x10^3/uL (4.0-11.0) Red Blood Count 3.54 x10^6/uL (4.30-5.70) Hemoglobin 9.5 g/dL (13.0-17.5) Hematocrit 28.8 % (39.0-53.0) Mean Corpuscular Volume 81 fL (79-100) Mean Corpuscular Hemoglobin 27 pg (25-35) Mean Corpuscular Hemoglobin Concent 33 g/dL (31-37) Red Cell Distribution Width 16.2 % (11.5-14.5) Platelet Count 160 x10^3/uL (140-400) Neutrophils (%) (Auto) 73 % (31-73) Lymphocytes (%) (Auto) 21 % (24-48) Monocytes (%) (Auto) 5 % (0-9) Eosinophils (%) (Auto) 1 % (0-3) Basophils (%) (Auto) 0 % (0-3) Neutrophils # (Auto) 8.0 x10^3uL (1.8-7.7) Lymphocytes # (Auto) 2.3 x10^3/uL (1.0-4.8) Monocytes # (Auto) 0.5 x10^3/uL (0.0-1.1) Eosinophils # (Auto) 0.1 x10^3/uL (0.0-0.7) Basophils # (Auto) 0.0 x10^3/uL (0.0-0.2) Sodium Level 140 mmol/L (136-145) Potassium Level 3.3 mmol/L (3.5-5.1) Chloride Level 103 mmol/L (98-107) Carbon Dioxide Level 31 mmol/L (21-32) Anion Gap 6 (6-14) Blood Urea Nitrogen 16 mg/dL (8-26) Creatinine 1.0 mg/dL (0.7-1.3) Estimated GFR (Cockcroft-Gault) 73.7 Glucose Level 127 mg/dL (70-99) Calcium Level 8.6 mg/dL (8.5-10.1) Review of Systems Review of Systems denies 14 pt reviewed Comment Review of Relevant I have reviewed the following items patricia (where applicable) has been applied. Labs Laboratory Tests Test 12/26/16 04:15 12/27/16 10:50 White Blood Count 12.2 x10^3/uL (4.0-11.0) 10.9 x10^3/uL (4.0-11.0) Red Blood Count 3.51 x10^6/uL (4.30-5.70) 3.54 x10^6/uL (4.30-5.70) Hemoglobin 9.4 g/dL (13.0-17.5) 9.5 g/dL (13.0-17.5) Hematocrit 29.1 % (39.0-53.0) 28.8 % (39.0-53.0) Mean Corpuscular Volume 83 fL (79-100) 81 fL (79-100) Mean Corpuscular Hemoglobin 27 pg (25-35) 27 pg (25-35) Mean Corpuscular Hemoglobin Concent 32 g/dL (31-37) 33 g/dL (31-37) Red Cell Distribution Width 16.2 % (11.5-14.5) 16.2 % (11.5-14.5) Platelet Count 133 x10^3/uL (140-400) 160 x10^3/uL (140-400) Neutrophils (%) (Auto) 76 % (31-73) 73 % (31-73) Lymphocytes (%) (Auto) 19 % (24-48) 21 % (24-48) Monocytes (%) (Auto) 6 % (0-9) 5 % (0-9) Eosinophils (%) (Auto) 0 % (0-3) 1 % (0-3) Basophils (%) (Auto) 0 % (0-3) 0 % (0-3) Neutrophils # (Auto) 9.3 x10^3uL (1.8-7.7) 8.0 x10^3uL (1.8-7.7) Lymphocytes # (Auto) 2.3 x10^3/uL (1.0-4.8) 2.3 x10^3/uL (1.0-4.8) Monocytes # (Auto) 0.7 x10^3/uL (0.0-1.1) 0.5 x10^3/uL (0.0-1.1) Eosinophils # (Auto) 0.0 x10^3/uL (0.0-0.7) 0.1 x10^3/uL (0.0-0.7) Basophils # (Auto) 0.0 x10^3/uL (0.0-0.2) 0.0 x10^3/uL (0.0-0.2) Sodium Level 141 mmol/L (136-145) 140 mmol/L (136-145) Potassium Level 3.6 mmol/L (3.5-5.1) 3.3 mmol/L (3.5-5.1) Chloride Level 104 mmol/L (98-107) 103 mmol/L (98-107) Carbon Dioxide Level 30 mmol/L (21-32) 31 mmol/L (21-32) Anion Gap 7 (6-14) 6 (6-14) Blood Urea Nitrogen 14 mg/dL (8-26) 16 mg/dL (8-26) Creatinine 0.9 mg/dL (0.7-1.3) 1.0 mg/dL (0.7-1.3) Estimated GFR (Cockcroft-Gault) 83.2 73.7 Glucose Level 101 mg/dL (70-99) 127 mg/dL (70-99) Calcium Level 8.2 mg/dL (8.5-10.1) 8.6 mg/dL (8.5-10.1) Laboratory Tests Test 12/27/16 10:50 White Blood Count 10.9 x10^3/uL (4.0-11.0) Red Blood Count 3.54 x10^6/uL (4.30-5.70) Hemoglobin 9.5 g/dL (13.0-17.5) Hematocrit 28.8 % (39.0-53.0) Mean Corpuscular Volume 81 fL (79-100) Mean Corpuscular Hemoglobin 27 pg (25-35) Mean Corpuscular Hemoglobin Concent 33 g/dL (31-37) Red Cell Distribution Width 16.2 % (11.5-14.5) Platelet Count 160 x10^3/uL (140-400) Neutrophils (%) (Auto) 73 % (31-73) Lymphocytes (%) (Auto) 21 % (24-48) Monocytes (%) (Auto) 5 % (0-9) Eosinophils (%) (Auto) 1 % (0-3) Basophils (%) (Auto) 0 % (0-3) Neutrophils # (Auto) 8.0 x10^3uL (1.8-7.7) Lymphocytes # (Auto) 2.3 x10^3/uL (1.0-4.8) Monocytes # (Auto) 0.5 x10^3/uL (0.0-1.1) Eosinophils # (Auto) 0.1 x10^3/uL (0.0-0.7) Basophils # (Auto) 0.0 x10^3/uL (0.0-0.2) Sodium Level 140 mmol/L (136-145) Potassium Level 3.3 mmol/L (3.5-5.1) Chloride Level 103 mmol/L (98-107) Carbon Dioxide Level 31 mmol/L (21-32) Anion Gap 6 (6-14) Blood Urea Nitrogen 16 mg/dL (8-26) Creatinine 1.0 mg/dL (0.7-1.3) Estimated GFR (Cockcroft-Gault) 73.7 Glucose Level 127 mg/dL (70-99) Calcium Level 8.6 mg/dL (8.5-10.1) Medications Current Medications Morphine Sulfate 6 mg 1X ONCE IV Last administered on 12/24/16 12:43; Start 12/24/16 at 12:30; Stop 12/24/16 at 12:35; Status DC Sodium Chloride 1,000 ml @ 1,000 mls/hr 1X ONCE IV Last administered on 12:44; Start 12/24/16 at 12:30; Stop 12/24/16 at 13:29; Status DC Morphine Sulfate 2 mg PRN Q2HR PRN IV severe pain, 2nd choice Last administered on 12/25/16 08:43; Start 12/24/16 at 13:45 Acetaminophen (Tylenol) 650 mg PRN Q4HRS PRN PO FEVER; Start 12/24/16 at 13:30 ; Stop 12/25/16 at 13:29; Status DC Morphine Sulfate 6 mg 1X ONCE IV Last administered on 12/24/16 13:39; Start 12/24/16 at 13:45; Stop 12/24/16 at 13:46; Status DC Ondansetron HCl (Zofran) 4 mg PRN Q6HRS PRN IV NAUSEA/VOMITING; Start 12/25/16 at 07:00; Stop 12/26/16 at 06:59; Status DC Fentanyl Citrate (Fentanyl 2ml Vial) 25 mcg PRN Q5MIN PRN IV MILD PAIN; Start 12/25/16 at 07:00; Stop 12/25/16 at 07:00; Status DC Fentanyl Citrate (Fentanyl 2ml Vial) 50 mcg PRN Q5MIN PRN IV MODERATE PAIN; Start 12/25/16 at 07:00; Stop 12/25/16 at 07:00; Status DC Morphine Sulfate 1 mg PRN Q10MIN PRN IV SEVERE PAIN; Start 12/25/16 at 07:00; Stop 12/25/16 at 07:00; Status DC Ringer's Solution 1,000 ml @ 30 mls/hr Q24H IV Last administered on 12/25/16 12:36; Start 12/25/16 at 07:00; Stop 12/25/16 at 18:59; Status DC Lidocaine HCl (Xylocaine-Mpf 1% Vial) 2 ml PRN 1X PRN ID IV START; Start at 07:00; Stop 12/26/16 at 06:59; Status DC Hydromorphone HCl (Dilaudid) 0.5 mg PRN Q10MIN PRN IV SEV PAIN, Second choice; Start 12/25/16 at 07:00; Stop 12/26/16 at 06:59; Status DC Prochlorperazine Edisylate (Compazine) 5 mg PACU PRN PRN IV NAUSEA, MRX1; Start 12/25/16 at 07:00; Stop 12/26/16 at 06:59; Status DC Acetaminophen (Tylenol) 650 mg Q4HRS PO Last administered on 12/27/16 11:47; Start 12/24/16 at 20:00 Amlodipine Besylate (Norvasc) 10 mg DAILY PO Last administered on 12/27/16 08: 44; Start 12/25/16 at 09:00 Atorvastatin Calcium (Lipitor) 20 mg DAILY PO Last administered on 12/27/16 08 :44; Start 12/25/16 at 09:00 Clopidogrel Bisulfate (Plavix) 75 mg DAILY PO Last administered on 12/27/16 08 :44; Start 12/25/16 at 09:00 Finasteride (Proscar) 5 mg DAILY PO Last administered on 12/27/16 08:44; Start 12/25/16 at 09:00 Furosemide (Lasix) 20 mg DAILY PO Last administered on 12/27/16 08:45; Start 12/25/16 at 09:00 Pramipexole Dihydrochloride (miraPEX) 0.25 mg TID PO Last administered on 13:18; Start 12/24/16 at 21:00 Tamsulosin HCl (Flomax) 0.8 mg QHS PO Last administered on 12/26/16 20:52; Start 12/24/16 at 21:00 Atenolol (Tenormin) 100 mg HS PO Last administered on 12/25/16 21:11; Start at 21:00 Carbidopa/Levodopa (Sinemet Cr) 2 tab.sa QID PO Last administered on 12/27/16 13:18; Start 12/24/16 at 21:00 Pantoprazole Sodium (Protonix) 40 mg DAILYAC PO Last administered on 12/27/16 08:45; Start 12/25/16 at 07:30 Sertraline HCl (Zoloft) 100 mg BID PO Last administered on 12/27/16 08:44; Start 12/24/16 at 21:00 Oxycodone/ Acetaminophen (Percocet 5/325) 1 tab PRN Q4HRS PRN PO pain 5-7; Start 12/24/16 at 17:45 Oxycodone/ Acetaminophen (Percocet 10/325) 1 tab PRN Q4HRS PRN PO pain 8-10 Last administered on 12/27/16 02:54; Start 12/24/16 at 17:45 Info (Do NOT chart on this placeholder) 1 each PRN 1X PRN MC SEE COMMENTS; Start 12/24/16 at 20:15; Status UNV Influenza Virus Vaccine Quadrival (Fluarix Quad [id number] Syringe) 0.5 ml ONCE ONCE VAX IM Last administered on 12/26/16 09:11; Start 12/25/16 at 09:00; Stop 12/25/16 at 09:01; Status DC Cefazolin Sodium/ Dextrose 50 ml @ As Directed STK-MED ONCE IV ; Start 12/25/16 at 12:18; Stop 12/25/16 at 12:19; Status DC Cefazolin Sodium/ Dextrose 50 ml @ 100 mls/hr 1X PREOP IV Last administered on 12/25/16 14:14; Start 12/25/16 at 12:30 Propofol 20 ml @ As Directed STK-MED ONCE IV ; Start 12/25/16 at 13:00; Stop at 13:01; Status DC Dexamethasone Sodium Phosphate (Decadron) 20 mg STK-MED ONCE .ROUTE ; Start at 13:00; Stop 12/25/16 at 13:01; Status DC Famotidine (Pepcid) 20 mg STK-MED ONCE .ROUTE ; Start 12/25/16 at 13:00; Stop at 13:01; Status DC Lidocaine HCl (Lidocaine Pf 2% Vial) 5 ml STK-MED ONCE .ROUTE ; Start 12/25/16 at 13:00; Stop 12/25/16 at 13:01; Status DC Ondansetron HCl (Zofran) 4 mg STK-MED ONCE .ROUTE ; Start 12/25/16 at 13:00; Stop 12/25/16 at 13:01; Status DC Active Scripts Active Reported Gabapentin 300 Mg Capsule 600 Mg PO QHS Sinemet Cr 50-200 Tablet (Carbidopa/Levodopa) 1 Each Tablet.er 1 Tab PO QID Lansoprazole 15 Mg Capsule.dr 15 Mg PO QODAY Pramipexole Dihydrochloride (Pramipexole Di-Hcl) 0.25 Mg Tablet 0.25 Mg PO TID Furosemide 20 Mg Tablet 20 Mg PO DAILY Plavix (Clopidogrel Bisulfate) 75 Mg Tablet 75 Mg PO DAILY Finasteride 5 Mg Tablet 5 Mg PO DAILY Tylenol (Acetaminophen) 325 Mg Tablet 650 Mg PO Q4HRS Tamsulosin Hcl 0.4 Mg Cap.er.24h 0.8 Mg PO QHS Sertraline Hcl 100 Mg Tablet 100 Mg PO BID Amlodipine Besylate 10 Mg Tablet 10 Mg PO DAILY Atenolol 100 Mg Tablet 100 Mg PO QHS Atorvastatin Calcium 20 Mg Tablet 20 Mg PO DAILY Vitals/I & O Vital Sign - Last 24 Hours 12/26/16 12/26/16 12/26/16 12/26/16 15:00 19:00 20:00 21:00 Temp 97.8 97.7 97.8 97.7 Pulse 80 72 72 Resp 22 B/P (MAP) 124/68 (86) 95/48 (64) 95/48 Pulse Ox 96 94 O2 Delivery Room Air Nasal Cannula Nasal Cannula O2 Flow Rate 2.0 2.0 12/26/16 12/27/16 12/27/16 12/27/16 23:00 02:54 03:00 03:54 Temp 98.8 98.8 Pulse 75 77 Resp 24 20 20 18 B/P (MAP) 96/52 (67) 102/52 (69) Pulse Ox 88 92 97 97 O2 Delivery Room Air Nasal Cannula Nasal Cannula Nasal Cannula O2 Flow Rate 2.0 2.0 2.0 12/27/16 12/27/16 12/27/16 12/27/16 07:00 07:15 08:44 11:24 Temp 98.2 97.9 98.2 97.9 Pulse 73 73 80 Resp 22 20 B/P (MAP) 124/59 (80) 124/59 93/46 (62) Pulse Ox 98 97 O2 Delivery Nasal Cannula Nasal Cannula Room Air O2 Flow Rate 2.0 2.0 Intake and Output 12/27/16 12/27/16 12/28/16 15:00 23:00 07:00 Intake Total 520 ml Balance 520 ml SANDRA JAMES MD Dec 27, 2016 13:35
[2016-12-27] MEDS ORDERED: POTASSIUM CHLORIDE 20 MEQ TABLET.ER. PO ONE (13:45)
[2016-12-27 15:00] VITALS: BP 117/59
[2016-12-27 19:00] VITALS: BP 112/59
[2016-12-27] MEDS: TAMSULOSIN 0.4 MG CAP.ER.24H. PO SCH (20:11)
[2016-12-27] MEDS: ATENOLOL 50 MG TABLET. PO SCH (20:17)
[2016-12-27 23:00] VITALS: BP 119/43
[2016-12-28 03:20] VITALS: BP 109/37
[2016-12-28] MEDS: ACETAMINOPHEN 325 MG TABLET. PO SCH ×4 (04:00→11:53)
[2016-12-28] MEDS: PANTOPRAZOLE 40 MG TABLET.DR. PO SCH (06:21)
[2016-12-28 07:00] VITALS: BP 109/54
[2016-12-28] MEDS ORDERED: POTASSIUM CHLORIDE 20 MEQ TABLET.ER. PO SCH (08:00)
[2016-12-28] MEDS: SERTRALINE 50 MG TABLET. PO SCH (08:27)
[2016-12-28] MEDS: amLODIPine BESYLATE 10 MG TABLET PO SCH (08:27)
[2016-12-28] MEDS: FINASTERIDE 5 MG TABLET. PO SCH (08:27)
[2016-12-28] MEDS: PRAMIPEXOLE 0.25 MG TABLET. PO SCH (08:28)
[2016-12-28] MEDS: CLOPIDOGREL BISULFATE 75 MG TABLET PO SCH (08:28)
[2016-12-28] MEDS: FUROSEMIDE 20 MG TABLET PO SCH (08:28)
[2016-12-28] MEDS: ATORVASTATIN CALCIUM 20 MG TABLET PO SCH (08:28)
[2016-12-28] MEDS: CARBIDOPA/LEVODOPA CR 25/100MG TABLET.SA. PO SCH ×2 (08:28→11:53)
[2016-12-28 11:00] VITALS: BP 98/53
[2016-12-28] MEDS ORDERED: OXYC1TAB7 PO (13:54)
--- NOTE | 2016-12-28 13:57 | PDOC3 ---
Discharge Summary [facility] Date of Admission: Dec 24, 2016 Discharge Date: Dec 28, 2016 Admitting Diagnosis 1. Femur fx: P 2/p ORIF 12/25 2. Hypokalemia 3. CAD: no acute issues. 4. Parkinson's: on Sinemet 5. RLS: has ropirinile 6. BPH: on alpha almaz 7. Geriatric, high fall risk acute anemia expected post op Problems: CONSULTS dr. gomez Procedures ORIF Brief Hospital Course Mr. Lund is a 71 old M, fell, in ER was found left femur fx, s/p ORIF on 12/25 , stable. dc to rehab dvt ppx dc time 35min General: Alert, Cooperative, No acute distress Heart: Regular rate Lungs: Clear Abdomen: Normal bowel sounds, No tenderness Extremities: No edema, Other Problems: Disposition rehab CONDITION AT DISCHARGE: Improved Diet regular Scheduled Acetaminophen (Tylenol), 650 MG PO Q4HRS, (Reported) Amlodipine Besylate (Amlodipine Besylate), 10 MG PO DAILY, (Reported) Atenolol (Atenolol), 100 MG PO QHS, (Reported) Atorvastatin Calcium (Atorvastatin Calcium), 20 MG PO DAILY, (Reported) Carbidopa/Levodopa (Sinemet Cr 50-200 Tablet), 1 TAB PO QID, (Reported) Clopidogrel Bisulfate (Plavix), 75 MG PO DAILY, (Reported) Finasteride (Finasteride), 5 MG PO DAILY, (Reported) Furosemide (Furosemide), 20 MG PO DAILY, (Reported) Gabapentin (Gabapentin), 600 MG PO QHS, (Reported) Lansoprazole (Lansoprazole), 15 MG PO QODAY, (Reported) Pramipexole Di-Hcl (Pramipexole Dihydrochloride), 0.25 MG PO TID, (Reported) Sertraline Hcl (Sertraline Hcl), 100 MG PO BID, (Reported) Tamsulosin Hcl (Tamsulosin Hcl), 0.8 MG PO QHS, (Reported) Scheduled PRN Oxycodone Hcl/Acetaminophen (Oxycodone-Acetaminophen 5-325), 1 TAB PO PRN Q4HRS PRN for pain 5-7 Discontinued Medications Gabapentin (Gabapentin Oral Solution), 300 MG PO BID, (Reported) Discontinued Reason: DISCONTINU Hydrochlorothiazide (Hydrochlorothiazide Capsule ), 12.5 MG PO DAILY, ( Reported) Discontinued Reason: DISCOTINU [prilosec], PO every other day, (Reported) Discontinued Reason: DISCONTINU Follow Up ortho in 2 weeks JASWINDER SPICER MD Dec 28, 2016 13:57
== END 2016-12-28 16:49 | DRG 481 ==
LOC: ER 11:57 → 4 NORTH 13:25
PROVIDERS: ADMIT Internal Medicine Hematology & Oncology; ATTEND Internal Medicine Hematology & Oncology
PROC: 0QS904Z Reposition Left Femoral Shaft with Internal Fixation Device, Open Approach (ICD-10-PCS; principal; 2016-12-25 14:00)
DX: S72.302A Unspecified fracture of shaft of left femur, initial encounter for closed fracture (principal); D62 Acute posthemorrhagic anemia; G20 Parkinson's disease; E87.6 Hypokalemia; G25.81 Restless legs syndrome; I25.10 Atherosclerotic heart disease of native coronary artery without angina pectoris; N40.0 Benign prostatic hyperplasia without lower urinary tract symptoms; W01.0XXA Fall on same level from slipping, tripping and stumbling without subsequent striking against object, initial encounter; Z85.118 Personal history of other malignant neoplasm of bronchus and lung; Z85.51 Personal history of malignant neoplasm of bladder; Z85.828 Personal history of other malignant neoplasm of skin; Z87.891 Personal history of nicotine dependence; Z90.49 Acquired absence of other specified parts of digestive tract; Z95.5 Presence of coronary angioplasty implant and graft; Z90.89 Acquired absence of other organs; Y93.01 Activity, walking, marching and hiking; Y92.002 Bathroom of unspecified non-institutional (private) residence as the place of occurrence of the external cause; Y99.8 Other external cause status
CPT/HCPCS: 36415; 51702; 73502; 73552; 73560; 76000; 80048; 85025; 85610; 87641; 90686; 96361; 96374; 96376; J0690; J1100; J2250; J2270; J2370; J2405; J2704; J3010; J7030; J7120; S0028; 99285-25; J2001

== ENCOUNTER → 2017-01-05 | Outpatient (CLI) | payer MEDICARE ==
[2016-12-28 11:00] VITALS: BP 98/53
[~2017-01-05] MED LIST changes: +ACET325T9 PO; +CARB15DR3 EACHEYE; +CARB1TAB5 PO; +CLOP75TA57 PO; +FINA5TAB4 PO; +FURO20TA3 PO; +GABA-586 PO; +LANS15CA5 PO; +LANS15CA78 PO; +OXYC1TAB7 PO; +PRAM0.25 PO
== END | disposition home or self-care (01) ==
LOC: PMGWOUND 09:31
PROVIDERS: ATTEND Emergency Medicine Undersea and Hyperbaric Medicine
DX: L89.323 Pressure ulcer of left buttock, stage 3 (principal); I25.10 Atherosclerotic heart disease of native coronary artery without angina pectoris; G20 Parkinson's disease; Z85.51 Personal history of malignant neoplasm of bladder; Z85.118 Personal history of other malignant neoplasm of bronchus and lung; Z87.891 Personal history of nicotine dependence; Z90.49 Acquired absence of other specified parts of digestive tract
CPT/HCPCS: 99214

== ENCOUNTER 2017-01-10 11:10 | Inpatient (IN) | payer MEDICARE ==
[~2017-01-10] VITALS: Ht 177.8 cm; Wt 92.7 kg
[~2017-01-10 11:10] MED LIST changes: -ATRO2DRO3 SL; -CIPR250T30 PO; -ENOX40DI3 SQ; -FERR325T72 PO; -LORA2ORA7 SL; -METR500T PO; -OXYC20OR SL
--- NOTE | 2017-01-10 11:20 | PHYS DOC ---
Past Medical History Past Medical History: Cancer, Heart Disease Past Surgical History: Appendectomy, Cancer Surgery, Tonsillectomy Additional Past Surgical Histo: L UPPER LOBE REMOVED, BLADDER, SKIN CA, STENT PLACEMENT Alcohol Use: None Drug Use: None Adult General Chief Complaint Chief Complaint: falls and left leg pain with possible fracture [facility] HPI Patient is a 71 year old male who presents with falls at his rehabilitation facility. According to the facility and Dr. Sood who spoke with me this morning he's been having several falls at his rehabilitation facility and possibly has a distal femur fracture. He does complain about left leg pain. Family is at bedside states he's being more confused since his initial fall when he broke his leg over a week ago. Review of Systems Review of Systems Constitutional: Denies fever or chills [] Eyes: Denies change in visual acuity, redness, or eye pain [] HENT: Denies nasal congestion or sore throat [] Respiratory: Denies cough or shortness of breath [] Cardiovascular: No additional information not addressed in HPI [] GI: Denies abdominal pain, nausea, vomiting, bloody stools or diarrhea [] : Denies dysuria or hematuria [] Musculoskeletal: Denies back pain or joint pain [] Integument: Denies rash or skin lesions [] Neurologic: Denies headache, focal weakness or sensory changes [] Endocrine: Denies polyuria or polydipsia [] Allergies Allergies Allergies Coded Allergies Type Severity Reaction Last Updated Verified No Known Drug Allergies 04/12/13 No Physical Exam Physical Exam Constitutional: Well developed, well nourished, no acute distress, non-toxic appearance. HENT: Normocephalic, bilateral external ears normal, oropharynx moist, no oral exudates, nose normal. Ecchymosis over the left temporal area Eyes: PERRLA, EOMI, conjunctiva normal, no discharge. Neck: Normal range of motion, no tenderness, supple, no stridor. Cardiovascular:Heart rate regular rhythm, no murmur Lungs & Thorax: Bilateral breath sounds clear to auscultation Abdomen: Bowel sounds normal, soft, no tenderness, no masses, no pulsatile masses. Skin: Warm, dry, no erythema, no rash. Back: No tenderness, no CVA tenderness. Extremities: Tender to palpation over left distal femur, patient's unwilling to move extremity, dorsal pedis pulse intact distally, with sensation intact the same, no cyanosis, no clubbing, no edema. Neurologic: Alert and oriented X 3, normal motor function, normal sensory function, no focal deficits noted. Psychologic: Affect normal, judgement normal, mood normal. Current Patient Data Vital Signs Vital Signs Date Time Temp Pulse Resp B/P (MAP) Pulse Ox O2 Delivery O2 Flow Rate FiO2 01/10/17 12:30 70 18 128/58 (81) 96 Room Air 01/10/17 11:11 98.5 98.5 Lab Values Laboratory Tests Test 01/10/17 11:30 01/10/17 12:10 White Blood Count 11.1 x10^3/uL (4.0-11.0) H Red Blood Count 3.82 x10^6/uL (4.30-5.70) L Hemoglobin 10.0 g/dL (13.0-17.5) L Hematocrit 31.6 % (39.0-53.0) L Mean Corpuscular Volume 83 fL (79-100) Mean Corpuscular Hemoglobin 26 pg (25-35) Mean Corpuscular Hemoglobin Concent 32 g/dL (31-37) Red Cell Distribution Width 17.6 % (11.5-14.5) H Platelet Count 311 x10^3/uL (140-400) Neutrophils (%) (Auto) 70 % (31-73) Lymphocytes (%) (Auto) 24 % (24-48) Monocytes (%) (Auto) 4 % (0-9) Eosinophils (%) (Auto) 2 % (0-3) Basophils (%) (Auto) 0 % (0-3) Neutrophils # (Auto) 7.7 x10^3uL (1.8-7.7) Lymphocytes # (Auto) 2.7 x10^3/uL (1.0-4.8) Monocytes # (Auto) 0.4 x10^3/uL (0.0-1.1) Eosinophils # (Auto) 0.2 x10^3/uL (0.0-0.7) Basophils # (Auto) 0.0 x10^3/uL (0.0-0.2) Prothrombin Time 18.9 SEC (11.7-14.0) H Prothrombin Time INR 1.7 (0.8-1.1) H PTT 64 SEC (24-38) H Sodium Level 145 mmol/L (136-145) Potassium Level 2.9 mmol/L (3.5-5.1) *L Chloride Level 106 mmol/L (98-107) Carbon Dioxide Level 27 mmol/L (21-32) Anion Gap 12 (6-14) Blood Urea Nitrogen 20 mg/dL (8-26) Creatinine 0.9 mg/dL (0.7-1.3) Estimated GFR (Cockcroft-Gault) 83.2 Glucose Level 105 mg/dL (70-99) H Calcium Level 8.9 mg/dL (8.5-10.1) Magnesium Level 2.3 mg/dL (1.8-2.4) Total Bilirubin 0.8 mg/dL (0.2-1.0) Direct Bilirubin 0.2 mg/dL (0.0-0.2) Aspartate Amino Transferase (AST) 20 U/L (15-37) Alanine Aminotransferase (ALT) 12 U/L (16-63) L Alkaline Phosphatase 353 U/L (46-116) H Ammonia < 10 mcmol/L (11-34) L Creatine Kinase 51 U/L (39-308) Creatine Kinase MB (Mass) 1.0 ng/mL (0.0-3.6) Creatine Kinase MB Relative Index % (0-4) Troponin I Quantitative < 0.017 ng/mL (0.000-0.055) RD-Mjm-N-Type Natriuretic Peptide 1299 pg/mL (0-124) H Total Protein 7.1 g/dL (6.4-8.2) Albumin 2.8 g/dL (3.4-5.0) L Urine Collection Type U cath Urine Color Allie Urine Clarity Cloudy Urine pH 6.0 Urine Specific [place] 1.025 Urine Protein 30 mg/dL (NEG-TRACE) Urine Glucose (UA) Negative mg/dL (NEG) Urine Ketones (Stick) Trace mg/dL (NEG) Urine Blood Small (NEG) Urine Nitrite Negative (NEG) Urine Bilirubin Moderate (NEG) Urine Urobilinogen Dipstick 1.0 mg/dL (0.2 mg/dL) Urine Leukocyte Esterase Moderate (NEG) Urine RBC 11-20 /HPF (0-2) Urine WBC 20-40 /HPF (0-4) Urine Squamous Epithelial Cells Few /LPF Urine Renal Epithelial Cells Mod /LPF Urine Amorphous Sediment Present /HPF Urine Bacteria Few /HPF (0-FEW) Urine Mucus Marked /LPF Urine Opiates Screen Pos (NEG) Urine Methadone Screen Neg (NEG) Urine Barbiturates Neg (NEG) Urine Phencyclidine Screen Neg (NEG) Urine Amphetamine/Methamphetamine Neg (NEG) Urine Benzodiazepines Screen Neg (NEG) Urine Cocaine Screen Neg (NEG) Urine Cannabinoids Screen Neg (NEG) Urine Ethyl Alcohol Neg (NEG) Laboratory Tests 01/10/17 11:30 Laboratory Tests 01/10/17 11:30 Microbiology 01/10/17 Blood Culture - Preliminary, Resulted NO GROWTH AFTER 2 DAYS 01/10/17 Urine Culture - Final, Complete 01/10/17 Urine Culture Result 1 (ESTRELLA) - Final, Complete Microbiology 01/10/17 Blood Culture - Preliminary, Resulted NO GROWTH AFTER 2 DAYS 01/10/17 Urine Culture - Preliminary, Resulted 01/10/17 Urine Culture Result 1 (ESTRELLA) - Preliminary, Resulted EKG EKG EKG shows normal sinus rhythm with rate of 66 8 beats per minute without any ST elevations, left axis deviation noted, non-concerning T-wave inversions noted, QTC 457 ms, as interpreted by me. Radiology/Procedures Radiology/Procedures Radiology films located in the PACS shows a distal left femur fracture with previous hardware in place. [facility] [address] [place] [address] IMAGING REPORT Signed PATIENT: DENISHA SHANE ACCOUNT: [id number] : 1945 LOCATION: ER AGE: 71 SEX: M EXAM STATUS: REG ER ORD. PHYSICIAN: FAWN TRUJILLO MD REASON: fall with AMS PROCEDURE: CT CERVICAL SPINE WO CONTRAST CT STUDY OF THE CERVICAL SPINE WITHOUT CONTRAST History: Fall with altered mental status. Neck pain. Technique: Noncontrast helical CT scanning of the cervical spine was performed. Multiplanar 2-D reconstructions were generated. PQRS Compliance Statement: One or more of the following individualized dose reduction techniques were utilized for this examination: 1. Automated exposure control 2. Adjustment of the mA and/or kV according to patient size 3. Use of iterative reconstruction technique Findings: No acute fracture or discitis or osteolytic process or anterolisthesis is seen. The facets are normally aligned without perching. Degenerative facet arthropathy is evident. There is degenerative endplate spurring and disc space narrowing at C4-5 and C5-6 and C6-7. IMPRESSION: No acute fracture. Degenerative cervical spondylosis. DICTATED and SIGNED BY: BRYANNA HERNANDEZ MD DATE: 01/10/17 1224 [facility] [address] [place] [address] IMAGING REPORT Signed PATIENT: DENISHA SHANE ACCOUNT: [id number] : 1945 LOCATION: ER AGE: 71 SEX: M EXAM STATUS: PRE ER ORD. PHYSICIAN: FAWN TRUJILLO MD REASON: AMS PROCEDURE: PORTABLE CHEST 1V Portable semiupright chest x-ray performed at 1139 History: Altered mental status. Preoperative study. Femur fracture. Comparison: April 12, 2013. Findings: Right infrahilar lung infiltrate is seen. A left infrahilar lung infiltrate is seen. Findings may reflect aspiration pneumonitis or bilateral pneumonia. No pleural effusion or pneumothorax is seen. The heart size and mediastinum are stable. IMPRESSION: Bilateral lung infiltrates which could represent aspiration pneumonitis or pneumonia. DICTATED and SIGNED BY: BRYANNA HERNANDEZ MD DATE: 01/10/17 1213 CC: FAWN TRUJILLO MD; COREEN CLARK MD ~ PATIENT: DENISHA SHANE ACCOUNT: [id number] : 1945 LOCATION: ER AGE: 71 SEX: M EXAM STATUS: REG ER ORD. PHYSICIAN: FAWN TRUJILLO MD REASON: fall with AMS PROCEDURE: CT HEAD AND MAXILLOFACIAL WO Clinical indications: Fall with altered mental status. Facial injury and head injury.. NONCONTRAST HEAD CT Technique: Noncontrast axial cross sectional scanning of the head was performed. PQRS Compliance Statement: One or more of the following individualized dose reduction techniques were utilized for this examination: 1. Automated exposure control 2. Adjustment of the mA and/or kV according to patient size 3. Use of iterative reconstruction technique Comparison: None available. Findings: No acute intracranial hemorrhage or midline shift or mass-effect or hydrocephalus or extra-axial fluid collection is seen. No focal hypodense area or sulci effacement is seen to indicate an acute infarct or edema radiographically. No skull fracture or pneumocephalus is seen. No opacification of the mastoid sinuses or the middle ear cavities is seen. Impression: No acute intracranial abnormality is seen. NONCONTRAST MAXILLOFACIAL BONE CT Technique: Noncontrast helical CT scanning of the maxillofacial bones was performed. Multiplanar 2-D reconstructions were generated. PQRS Compliance Statement: One or more of the following individualized dose reduction techniques were utilized for this examination: 1. Automated exposure control 2. Adjustment of the mA and/or kV according to patient size 3. Use of iterative reconstruction technique Findings: The mandible is not completely seen in this study. The temporomandibular joints are normally aligned. The maxilla and pterygoid plates are intact. The nasal bones are intact. Moderate nasal septal deviation is seen with the convexity pointed towards the left side. The zygoma and zygomatic arch is intact on both sides. The orbits are intact on both sides. No orbital floor fracture is evident. No opacification or air-fluid levels are seen within the paranasal sinuses. IMPRESSION: The mandible is not completely seen in this study. No acute fracture of the facial bones is seen otherwise. DICTATED and SIGNED BY: BRYANNA HERNANDEZ MD DATE: 01/10/17 1217 CC: FAWN TRUJILLO MD; COREEN CLARK MD ~ Impressions: Left distal femur fracture Altered mental status UTI Course & Med Decision Making Course & Med Decision Making Pertinent Labs and Imaging studies reviewed. (See chart for details) Patient presents with worsening altered mental status over the last week. Basic labs performed, UA does show signs of possible UTI. He's been started on Rocephin. X-rays confirm a distal femur fracture with sensation pulses intact distally. Spoke with Dr. Varela regarding the new fracture. Patient is being admitted by . Patient's in stable condition at this time being admitted. Dragon Disclaimer Dragon Disclaimer This electronic medical record was generated, in whole or in part, using a voice recognition dictation system. Departure Departure Impression: Primary Impression: Fracture, femur, distal Disposition: ADMITTED INPATIENT Admitting Physician: Dayanna Winters Condition: STABLE Referrals: COREEN CLARK MD (PCP) Problem Qualifiers Primary Impression: Fracture, femur, distal Encounter type: initial encounter Fracture type: closed Fracture morphology : unspecified fracture morphology Laterality: left Qualified Codes: S72.402A - Unspecified fracture of lower end of left femur, initial encounter for closed fracture FAWN TRUJILLO MD Jan 10, 2017 11:20
[2017-01-10 11:51] LABS: BASO % 0 % (0-3); EOS % 2 % (0-3); HEMATOCRIT 31.6 % (39.0-53.0); LYMPH # 2.7 x10^3/uL (1.0-4.8); LYMPH % 24 % (24-48); MEAN CORPUSCULAR HEMOGLOBIN 26 pg (25-35); MEAN CORPUSCULAR HGB CONC 32 g/dL (31-37); MEAN CORPUSCULAR VOLUME 83 fL (79-100); MONO % 4 % (0-9); NEUT % 70 % (31-73); PLATELET COUNT 311 x10^3/uL (140-400); RED BLOOD COUNT 3.82 x10^6/uL (4.30-5.70); RED CELL DISTRIBUTION WIDTH 17.6 % (11.5-14.5); WHITE BLOOD COUNT 11.1 x10^3/uL (4.0-11.0)
--- NOTE | 2017-01-10 11:53 | EKG ---
[facility] [address] [place] [address] Test Date: 2017-01-10 Test Time: 11:25:34 Pat Name: DENISHA SHANE Department: Room: Gender: M [employer]: : 1945 Requested By: FAWN TRUJILLO Order Number: [id number] Reading MD: Conchita Martinez Measurements Intervals Kiana Rate: 68 P: 0 HI: 144 QRS: -22 QRSD: 94 T: 5 QT: 434 QTc: 467 Interpretive Statements SINUS RHYTHM LEFTWARD AXIS NON SPECIFIC ST T WAVE CHANGES Electronically Signed On 01-10-2017 19:37:57 CDT by Conchita Martinez
[2017-01-10 12:03] LABS: INR 1.7 (0.8-1.1); PROTHROMBIN TIME PATIENT 18.9 SEC (11.7-14.0)
[2017-01-10 12:05] LABS: ALBUMIN 2.8 g/dL (3.4-5.0); CALCIUM 8.9 mg/dL (8.5-10.1); CREATININE 0.9 mg/dL (0.7-1.3); DIRECT BILIRUBIN 0.2 mg/dL (0.0-0.2); GFR 83.2; MAGNESIUM 2.3 mg/dL (1.8-2.4); TOTAL BILIRUBIN 0.8 mg/dL (0.2-1.0); TOTAL PROTEIN 7.1 g/dL (6.4-8.2)
[2017-01-10 12:07] LABS: POTASSIUM 2.9 mmol/L (3.5-5.1)
[2017-01-10 12:11] LABS: CREATINE KINASE 51 U/L (39-308)
--- NOTE | 2017-01-10 12:17 | RAD ---
Portable semiupright chest x-ray performed at 1139 History: Altered mental status. Preoperative study. Femur fracture. Comparison: April 12, 2013. Findings: Right infrahilar lung infiltrate is seen. A left infrahilar lung infiltrate is seen. Findings may reflect aspiration pneumonitis or bilateral pneumonia. No pleural effusion or pneumothorax is seen. The heart size and mediastinum are stable. IMPRESSION: Bilateral lung infiltrates which could represent aspiration pneumonitis or pneumonia.
[2017-01-10 12:19] LABS: BILIRUBIN,URINE MODERATE (NEG); GLUCOSE,URINE NEGATIVE (NEG); NITRITE,URINE NEGATIVE (NEG); PROTEIN,URINE 30 mg/dL (NEG-TRACE)
--- NOTE | 2017-01-10 12:26 | RAD ---
Clinical indications: Fall with altered mental status. Facial injury and head injury.. NONCONTRAST HEAD CT Technique: Noncontrast axial cross sectional scanning of the head was performed. PQRS Compliance Statement: One or more of the following individualized dose reduction techniques were utilized for this examination: 1. Automated exposure control 2. Adjustment of the mA and/or kV according to patient size 3. Use of iterative reconstruction technique Comparison: None available. Findings: No acute intracranial hemorrhage or midline shift or mass-effect or hydrocephalus or extra-axial fluid collection is seen. No focal hypodense area or sulci effacement is seen to indicate an acute infarct or edema radiographically. No skull fracture or pneumocephalus is seen. No opacification of the mastoid sinuses or the middle ear cavities is seen. Impression: No acute intracranial abnormality is seen. NONCONTRAST MAXILLOFACIAL BONE CT Technique: Noncontrast helical CT scanning of the maxillofacial bones was performed. Multiplanar 2-D reconstructions were generated. PQRS Compliance Statement: One or more of the following individualized dose reduction techniques were utilized for this examination: 1. Automated exposure control 2. Adjustment of the mA and/or kV according to patient size 3. Use of iterative reconstruction technique Findings: The mandible is not completely seen in this study. The temporomandibular joints are normally aligned. The maxilla and pterygoid plates are intact. The nasal bones are intact. Moderate nasal septal deviation is seen with the convexity pointed towards the left side. The zygoma and zygomatic arch is intact on both sides. The orbits are intact on both sides. No orbital floor fracture is evident. No opacification or air-fluid levels are seen within the paranasal sinuses. IMPRESSION: The mandible is not completely seen in this study. No acute fracture of the facial bones is seen otherwise.
[2017-01-10 12:27] LABS: SQUAMOUS EPITHELIAL CELL,UR FEW /LPF
[2017-01-10 12:28] LABS: WBC,URINE 20-40 /HPF (0-4)
[2017-01-10 12:29] LABS: BACTERIA,URINE FEW /HPF (0-FEW)
[2017-01-10 12:32] LABS: BARBITURATES NEG (NEG); BENZODIAZEPINES NEG (NEG); CANNABINOIDS NEG (NEG); COCAINE NEG (NEG); METHADONE NEG (NEG); OPIATES POS (NEG); PHENCYCLIDINE NEG (NEG)
--- NOTE | 2017-01-10 12:33 | RAD ---
CT STUDY OF THE CERVICAL SPINE WITHOUT CONTRAST History: Fall with altered mental status. Neck pain. Technique: Noncontrast helical CT scanning of the cervical spine was performed. Multiplanar 2-D reconstructions were generated. PQRS Compliance Statement: One or more of the following individualized dose reduction techniques were utilized for this examination: 1. Automated exposure control 2. Adjustment of the mA and/or kV according to patient size 3. Use of iterative reconstruction technique Findings: No acute fracture or discitis or osteolytic process or anterolisthesis is seen. The facets are normally aligned without perching. Degenerative facet arthropathy is evident. There is degenerative endplate spurring and disc space narrowing at C4-5 and C5-6 and C6-7. IMPRESSION: No acute fracture. Degenerative cervical spondylosis.
[2017-01-10] MEDS ORDERED: fentaNYL PF VIAL 100 MCG/2 ML VIAL ONE (12:39)
[2017-01-10] MEDS ORDERED: fentaNYL PF VIAL 100 MCG/2 ML VIAL IV PRN (12:45)
[2017-01-10] MEDS: POTASSIUM CHLORIDE 10MEQ 100 ML IV SCH ×4 (13:06→16:32)
[2017-01-10 14:00] VITALS: BP 107/54
--- NOTE | 2017-01-10 14:55 | PDOC1 ---
History and Physical Date of Admission Date of Admission DATE: 01/10/17 TIME: 14:46 Identification/Chief Complaint Chief Complaint leg pain after a fall in SNU Problems: Source Source: Caregiver, Chart review, Patient History of Present Illness History of Present Illness 71 y.o male had fallen twice in the last 2 days since being at SNU [facility],. HE was here PMC 8 days ago for femur fx, operated on by Dr. Shukla, sent to U, HE is on Plavix for 1 stent in heart distant past,, HAd fallen twice th weekend, Today, leg xray same leg shows a new fracture DISTAL to the recent leg fx he had, HE is DNR DNI, Advanced parkinsonism, difficulty understanding his words, DNR DNI by family at bedside, CXR shows likely he has been chronically aspirating, ON dysphagia diet at SNU, Was trying to get toilet paper in SNU bathrooom today then he fall. Prior to the leg fx operated on recently, he could walk with a walker, NOw, mostly wheelchair bound, PArkinsons has advanced in a great deal in my opinion causing these FTT sxs, i,e , aspirating, falling many times. Family and pt not wanting PEG etc as of my initial encounter - which is also an appropriate decision, Awaiting ortho rounds, will hold plavix in meantime. Past Medical History Cardiovascular: HTN, Hyperlipidemia CENTRAL NERVOUS SYSTEM: Dementia, Other (parkinsons) Heme/Onc: Anemia NOS Psych: Depression Past Surgical History Past Surgical History: Other (leg sx 8 days ago) Family History Family History: No Significant Social History Smoke: No ALCOHOL: none Drugs: None Current Medications Current Medications Current Medications Fentanyl Citrate (Fentanyl 2ml Vial) 25 mcg PRN Q15MIN PRN IV PAIN GREATER THAN 3/10 Last administered on 01/10/17 12:42; Start 01/10/17 at 12:45; Stop 01/11/17 at 12:44 Fentanyl Citrate (Fentanyl 2ml Vial) 100 mcg STK-MED ONCE .ROUTE ; Start at 12:39; Stop 01/10/17 at 12:40; Status DC Potassium Chloride 100 ml @ 100 mls/hr Q1H IV Last administered on 01/10/17 13:06; Start 01/10/17 at 13:00; Stop 01/10/17 at 16:59 Ceftriaxone Sodium 50 ml @ 100 mls/hr 1X ONCE IV Last administered on t 13:03; Start 01/10/17 at 13:00; Stop 01/10/17 at 13:29; Status DC Fentanyl Citrate (Fentanyl 2ml Vial) 50 mcg PRN Q2HR PRN IV PAIN; Start at 14:45 Acetaminophen (Tylenol) 650 mg Q4HRS PO ; Start 01/10/17 at 16:00; Status UNV Amlodipine Besylate (Norvasc) 10 mg DAILY PO ; Start 01/10/17 at 15:00 Atorvastatin Calcium (Lipitor) 20 mg DAILY PO ; Start 01/10/17 at 15:00 Finasteride (Proscar) 5 mg DAILY PO ; Start 01/11/17 at 09:00 Furosemide (Lasix) 20 mg DAILY PO ; Start 01/10/17 at 15:00 Oxycodone/ Acetaminophen (Percocet 5/325) 1 tab PRN Q4HRS PRN PO pain 5-7; Start 01/10/17 at 14:45 Pramipexole Dihydrochloride (miraPEX) 0.25 mg TID PO ; Start 01/10/17 at 15:00 Tamsulosin HCl (Flomax) 0.8 mg QHS PO ; Start 01/10/17 at 21:00 Atenolol (Tenormin) 100 mg HS PO ; Start 01/10/17 at 21:00 Non-Formulary Medication 1 tab QID PO ; Start 01/10/17 at 17:00; Status UNV Gabapentin (Neurontin) 600 mg HS PO ; Start 01/10/17 at 21:00 Pantoprazole Sodium (Protonix) 40 mg QODAY PO ; Start 01/11/17 at 07:30 Sertraline HCl (Zoloft) 100 mg BID PO ; Start 01/10/17 at 21:00 Amino Acids/ Glycerin/ Electrolytes 1,000 ml @ 80 mls/hr [id number] IV ; Start at 15:00 Active Scripts Active Oxycodone-Acetaminophen 5-325 (Oxycodone Hcl/Acetaminophen) 1 Each Tablet 1 Tab PO PRN Q4HRS PRN Reported Gabapentin 300 Mg Capsule 600 Mg PO QHS Sinemet Cr 50-200 Tablet (Carbidopa/Levodopa) 1 Each Tablet.er 1 Tab PO QID Lansoprazole 15 Mg Capsule.dr 15 Mg PO QODAY Pramipexole Dihydrochloride (Pramipexole Di-Hcl) 0.25 Mg Tablet 0.25 Mg PO TID Furosemide 20 Mg Tablet 20 Mg PO DAILY Plavix (Clopidogrel Bisulfate) 75 Mg Tablet 75 Mg PO DAILY Finasteride 5 Mg Tablet 5 Mg PO DAILY Tylenol (Acetaminophen) 325 Mg Tablet 650 Mg PO Q4HRS Tamsulosin Hcl 0.4 Mg Cap.er.24h 0.8 Mg PO QHS Sertraline Hcl 100 Mg Tablet 100 Mg PO BID Amlodipine Besylate 10 Mg Tablet 10 Mg PO DAILY Atenolol 100 Mg Tablet 100 Mg PO QHS Atorvastatin Calcium 20 Mg Tablet 20 Mg PO DAILY Allergies Allergies: Coded Allergies: No Known Drug Allergies (Unverified , 04/12/13) ROS Review of System hard to get dementia, parkinons Physical Exam General: No acute distress, Other (mouth breather, shakes, ) HEENT: Atraumatic, EOMI Lungs: Normal air movement, Other (some cracakles right side, no wheezes) Heart: S1S2, RRR, no thrills, no gallops, no murmurs Cardiovascular: S1, S2 Breasts: Normal, Rt breast nml w/o mass, Lt breast nml w/o mass, Nipples normal Abdomen: Normal bowel sounds, Soft, No tenderness, No hepatosplenomegaly, No masses Rectal Exam: not examined Extremities: Other (RT leg straightened) Skin: No rashes, No breakdown, No significant lesion Neuro: Normal gait, Normal speech, Strength at 5/5 X4 ext, Normal tone, Sensation intact, Cranial nerves 3-12 NL, Reflexes 2+ Vitals Vitals Vital Signs Date Time Temp Pulse Resp B/P (MAP) Pulse Ox O2 Delivery O2 Flow Rate FiO2 01/10/17 13:30 72 16 118/58 (78) 99 Nasal Cannula 2.0 01/10/17 11:11 98.5 98.5 Labs Labs Laboratory Tests Test 01/10/17 11:30 01/10/17 12:10 White Blood Count 11.1 x10^3/uL (4.0-11.0) Red Blood Count 3.82 x10^6/uL (4.30-5.70) Hemoglobin 10.0 g/dL (13.0-17.5) Hematocrit 31.6 % (39.0-53.0) Mean Corpuscular Volume 83 fL (79-100) Mean Corpuscular Hemoglobin 26 pg (25-35) Mean Corpuscular Hemoglobin Concent 32 g/dL (31-37) Red Cell Distribution Width 17.6 % (11.5-14.5) Platelet Count 311 x10^3/uL (140-400) Neutrophils (%) (Auto) 70 % (31-73) Lymphocytes (%) (Auto) 24 % (24-48) Monocytes (%) (Auto) 4 % (0-9) Eosinophils (%) (Auto) 2 % (0-3) Basophils (%) (Auto) 0 % (0-3) Neutrophils # (Auto) 7.7 x10^3uL (1.8-7.7) Lymphocytes # (Auto) 2.7 x10^3/uL (1.0-4.8) Monocytes # (Auto) 0.4 x10^3/uL (0.0-1.1) Eosinophils # (Auto) 0.2 x10^3/uL (0.0-0.7) Basophils # (Auto) 0.0 x10^3/uL (0.0-0.2) Prothrombin Time 18.9 SEC (11.7-14.0) Prothromb Time International Ratio 1.7 (0.8-1.1) Activated Partial Thromboplast Time 64 SEC (24-38) Sodium Level 145 mmol/L (136-145) Potassium Level 2.9 mmol/L (3.5-5.1) Chloride Level 106 mmol/L (98-107) Carbon Dioxide Level 27 mmol/L (21-32) Anion Gap 12 (6-14) Blood Urea Nitrogen 20 mg/dL (8-26) Creatinine 0.9 mg/dL (0.7-1.3) Estimated GFR (Cockcroft-Gault) 83.2 Glucose Level 105 mg/dL (70-99) Calcium Level 8.9 mg/dL (8.5-10.1) Magnesium Level 2.3 mg/dL (1.8-2.4) Total Bilirubin 0.8 mg/dL (0.2-1.0) Direct Bilirubin 0.2 mg/dL (0.0-0.2) Aspartate Amino Transf (AST/SGOT) 20 U/L (15-37) Alanine Aminotransferase (ALT/SGPT) 12 U/L (16-63) Alkaline Phosphatase 353 U/L (46-116) Ammonia < 10 mcmol/L (11-34) Creatine Kinase 51 U/L (39-308) Creatine Kinase MB (Mass) 1.0 ng/mL (0.0-3.6) Creatine Kinase MB Relative Index % (0-4) Troponin I Quantitative < 0.017 ng/mL (0.000-0.055) SI-Mqq-T-Type Natriuretic Peptide 1299 pg/mL (0-124) Total Protein 7.1 g/dL (6.4-8.2) Albumin 2.8 g/dL (3.4-5.0) Urine Collection Type U cath Urine Color Allie Urine Clarity Cloudy Urine pH 6.0 Urine Specific [place] 1.025 Urine Protein 30 mg/dL (NEG-TRACE) Urine Glucose (UA) Negative mg/dL (NEG) Urine Ketones (Stick) Trace mg/dL (NEG) Urine Blood Small (NEG) Urine Nitrite Negative (NEG) Urine Bilirubin Moderate (NEG) Urine Urobilinogen Dipstick 1.0 mg/dL (0.2 mg/dL) Urine Leukocyte Esterase Moderate (NEG) Urine RBC 11-20 /HPF (0-2) Urine WBC 20-40 /HPF (0-4) Urine Squamous Epithelial Cells Few /LPF Urine Renal Epithelial Cells Mod /LPF Urine Amorphous Sediment Present /HPF Urine Bacteria Few /HPF (0-FEW) Urine Mucus Marked /LPF Urine Opiates Screen Pos (NEG) Urine Methadone Screen Neg (NEG) Urine Barbiturates Neg (NEG) Urine Phencyclidine Screen Neg (NEG) Urine Amphetamine/Methamphetamine Neg (NEG) Urine Benzodiazepines Screen Neg (NEG) Urine Cocaine Screen Neg (NEG) Urine Cannabinoids Screen Neg (NEG) Urine Ethyl Alcohol Neg (NEG) Laboratory Tests Test 01/10/17 11:30 01/10/17 12:10 White Blood Count 11.1 x10^3/uL (4.0-11.0) Red Blood Count 3.82 x10^6/uL (4.30-5.70) Hemoglobin 10.0 g/dL (13.0-17.5) Hematocrit 31.6 % (39.0-53.0) Mean Corpuscular Volume 83 fL (79-100) Mean Corpuscular Hemoglobin 26 pg (25-35) Mean Corpuscular Hemoglobin Concent 32 g/dL (31-37) Red Cell Distribution Width 17.6 % (11.5-14.5) Platelet Count 311 x10^3/uL (140-400) Neutrophils (%) (Auto) 70 % (31-73) Lymphocytes (%) (Auto) 24 % (24-48) Monocytes (%) (Auto) 4 % (0-9) Eosinophils (%) (Auto) 2 % (0-3) Basophils (%) (Auto) 0 % (0-3) Neutrophils # (Auto) 7.7 x10^3uL (1.8-7.7) Lymphocytes # (Auto) 2.7 x10^3/uL (1.0-4.8) Monocytes # (Auto) 0.4 x10^3/uL (0.0-1.1) Eosinophils # (Auto) 0.2 x10^3/uL (0.0-0.7) Basophils # (Auto) 0.0 x10^3/uL (0.0-0.2) Prothrombin Time 18.9 SEC (11.7-14.0) Prothromb Time International Ratio 1.7 (0.8-1.1) Activated Partial Thromboplast Time 64 SEC (24-38) Sodium Level 145 mmol/L (136-145) Potassium Level 2.9 mmol/L (3.5-5.1) Chloride Level 106 mmol/L (98-107) Carbon Dioxide Level 27 mmol/L (21-32) Anion Gap 12 (6-14) Blood Urea Nitrogen 20 mg/dL (8-26) Creatinine 0.9 mg/dL (0.7-1.3) Estimated GFR (Cockcroft-Gault) 83.2 Glucose Level 105 mg/dL (70-99) Calcium Level 8.9 mg/dL (8.5-10.1) Magnesium Level 2.3 mg/dL (1.8-2.4) Total Bilirubin 0.8 mg/dL (0.2-1.0) Direct Bilirubin 0.2 mg/dL (0.0-0.2) Aspartate Amino Transf (AST/SGOT) 20 U/L (15-37) Alanine Aminotransferase (ALT/SGPT) 12 U/L (16-63) Alkaline Phosphatase 353 U/L (46-116) Ammonia < 10 mcmol/L (11-34) Creatine Kinase 51 U/L (39-308) Creatine Kinase MB (Mass) 1.0 ng/mL (0.0-3.6) Creatine Kinase MB Relative Index % (0-4) Troponin I Quantitative < 0.017 ng/mL (0.000-0.055) PM-Dkq-I-Type Natriuretic Peptide 1299 pg/mL (0-124) Total Protein 7.1 g/dL (6.4-8.2) Albumin 2.8 g/dL (3.4-5.0) Urine Collection Type U cath Urine Color Allie Urine Clarity Cloudy Urine pH 6.0 Urine Specific [place] 1.025 Urine Protein 30 mg/dL (NEG-TRACE) Urine Glucose (UA) Negative mg/dL (NEG) Urine Ketones (Stick) Trace mg/dL (NEG) Urine Blood Small (NEG) Urine Nitrite Negative (NEG) Urine Bilirubin Moderate (NEG) Urine Urobilinogen Dipstick 1.0 mg/dL (0.2 mg/dL) Urine Leukocyte Esterase Moderate (NEG) Urine RBC 11-20 /HPF (0-2) Urine WBC 20-40 /HPF (0-4) Urine Squamous Epithelial Cells Few /LPF Urine Renal Epithelial Cells Mod /LPF Urine Amorphous Sediment Present /HPF Urine Bacteria Few /HPF (0-FEW) Urine Mucus Marked /LPF Urine Opiates Screen Pos (NEG) Urine Methadone Screen Neg (NEG) Urine Barbiturates Neg (NEG) Urine Phencyclidine Screen Neg (NEG) Urine Amphetamine/Methamphetamine Neg (NEG) Urine Benzodiazepines Screen Neg (NEG) Urine Cocaine Screen Neg (NEG) Urine Cannabinoids Screen Neg (NEG) Urine Ethyl Alcohol Neg (NEG) VTE Prophylaxis Ordered VTE Prophylaxis Devices: Yes VTE Pharmacological Prophylaxi: Yes Assessment/Plan Assessment/Plan 1. Distal femur fx, left 2. Advanced parkinsons with dementia 3. Acute on Chronic aspiration 4. Dysphagia on dyasphagia diet in SNU 5. Severe PCM 6. HX CAD with 1 stent on plavix 7. Easy bruisability 8. 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
[2017-01-10 15:00] VITALS: BP 107/54
[2017-01-10] MEDS: amLODIPine BESYLATE 10 MG TABLET PO SCH (15:00)
[2017-01-10] MEDS: FUROSEMIDE 20 MG TABLET PO SCH (15:00)
[2017-01-10] MEDS: ENOXAPARIN 40 MG/0.4 ML SYRINGE. SQ SCH (15:00)
[2017-01-10] MEDS ORDERED: PRAMIPEXOLE 0.25 MG TABLET. PO SCH (15:00)
[2017-01-10] MEDS: ATORVASTATIN CALCIUM 20 MG TABLET PO SCH (15:00)
[2017-01-10] MEDS ORDERED: ACETAMINOPHEN 325 MG TABLET. PO SCH (16:00)
[2017-01-10] MEDS: AMINO AC 3%/ELECTROLYTE/GLYCER 1,000 ML IV SCH (16:20)
[2017-01-10] MEDS: fentaNYL PF VIAL 100 MCG/2 ML VIAL IV PRN ×2 (16:30→20:18)
--- NOTE | 2017-01-10 16:49 | PDOC2 ---
NEUROLOGY CONSULT Date of Admission Date of Admission DATE: 01/10/17 TIME: 16:24 Reason for Consult Reason for Consult: IMPRESSION: PD, worsening Metabolic encephalopathy. Bilateral pulmonary infiltrates. HTN HLD CAD s/p stent placement. Left distal femur fracture in 12/13. Bladder cancer? Skin cancer. Dementia features. RECOMMENDATIONS/PLAN: Continue Sinemet 50/200 mg q6h. Increase Pramipexole to 0.375 mg tid. Treat medical and surgical diseases. Nutrition support. OT/PT. Discussed with his and other family members at bedside HISTORY OF THE PRESENT ILLNESS: 71-y-old male patient with PD and above medical diseases had left distal femur fracture and was hospitalized in 11/2016. His PD has become worse since. He has beenhaving PD first noted about 10 years rivas and has been treated. Pramipexole was addred recently which helped in some degree per his . His stated that the tremors in his hands and stiffness all became worse. Past Medical History Cardiovascular: HTN, Hyperlipidemia CENTRAL NERVOUS SYSTEM: Dementia, Other (parkinsons) Heme/Onc: Anemia NOS Psych: Depression Past Surgical History Left LE surgery 8 days ago. Skin surgery for cancer. Family History No Significant Social History Smoke: No ALCOHOL: none Drugs: None ALLERGY: Reviewed. MEDICATIONS: Refer to MAR REVIEW OF SYSTEMS: Constitutional: Dementia features. Head: No traumatic brain or head injury. Skin: No edema, or rash. Ear: No infection.. Eyes: No vision loss or color blindness. Nose: No bleeding or purulent discharges. Hearing: Hearing decrease. Neck: No injury. Cardiac: CAD, s/p stents placement, HTN, HLD. Pulmonary: Left upper lobe cancer?. GI: No GI ulcer, GI bleeding. Urinary/genital: UTI. Endocrinologic: No cousin face, craniofacial dysmorphism, polydactyly,. Skeletomuscular: Generalized weakness. Neurological: see HP. Psychiatric: Denies drug use/abuse. Otherwise, not [id number] review of systems. PHYSICAL EXAMINATION: General appearance is in subacute distress. HEENT: Multiple scalp scars from skin cancer surgeries. Eyes, nose, ears, and throat are unremarkable. Neck is supple. No lymphadenopathy. No crepitus. Cardiovascular: S1, S2, regular rate and rhythm. Pulmonary: Mildly decreased to auscultation bilaterally. Abdomen: Bowel sounds are positive. Extremities: No rash, lesions, or edema. Left LE restriction of range of motion due to fracture. NEUROLOGICAL EXAMINATION: Sleepiness but arousable. Not oriented to time, place and person. PERRL. EOMI. CN: no focal findings. Muscle tone: increased in al extremities. Muscle strength: 4+ UE and right LE. Left LE fracture. DTR: 2 UE, 1 at knee. Plantar reflex: Neutral response bilaterally Gait: Unable to walk. Sensory exam: no abnormal findings. Not able to access cerebellar signs due to not follow commands.. F-T-N test not operformed due to not follow commands. Current Medications Current Medications Current Medications Fentanyl Citrate (Fentanyl 2ml Vial) 25 mcg PRN Q15MIN PRN IV PAIN GREATER THAN 3/10 Last administered on 01/10/17 12:42; Start 01/10/17 at 12:45; Stop 01/11/17 at 12:44 Fentanyl Citrate (Fentanyl 2ml Vial) 100 mcg STK-MED ONCE .ROUTE ; Start at 12:39; Stop 01/10/17 at 12:40; Status DC Potassium Chloride 100 ml @ 100 mls/hr Q1H IV Last administered on 01/10/17 13:06; Start 01/10/17 at 13:00; Stop 01/10/17 at 16:59 Ceftriaxone Sodium 50 ml @ 100 mls/hr 1X ONCE IV Last administered on 13:03; Start 01/10/17 at 13:00; Stop 01/10/17 at 13:29; Status DC Fentanyl Citrate (Fentanyl 2ml Vial) 50 mcg PRN Q2HR PRN IV PAIN; Start at 14:45 Acetaminophen (Tylenol) 650 mg Q4HRS PO ; Start 01/10/17 at 16:00; Status UNV Amlodipine Besylate (Norvasc) 10 mg DAILY PO ; Start 01/10/17 at 15:00 Atorvastatin Calcium (Lipitor) 20 mg DAILY PO ; Start 01/10/17 at 15:00 Finasteride (Proscar) 5 mg DAILY PO ; Start 01/11/17 at 09:00 Furosemide (Lasix) 20 mg DAILY PO ; Start 01/10/17 at 15:00 Oxycodone/ Acetaminophen (Percocet 5/325) 1 tab PRN Q4HRS PRN PO pain 5-7; Start 01/10/17 at 14:45 Pramipexole Dihydrochloride (miraPEX) 0.25 mg TID PO ; Start 01/10/17 at 15:00 Tamsulosin HCl (Flomax) 0.8 mg QHS PO ; Start 01/10/17 at 21:00 Atenolol (Tenormin) 100 mg HS PO ; Start 01/10/17 at 21:00 Non-Formulary Medication 1 tab QID PO ; Start 01/10/17 at 17:00; Status UNV Gabapentin (Neurontin) 600 mg HS PO ; Start 01/10/17 at 21:00 Pantoprazole Sodium (Protonix) 40 mg QODAY PO ; Start 01/11/17 at 07:30 Sertraline HCl (Zoloft) 100 mg BID PO ; Start 01/10/17 at 21:00 Amino Acids/ Glycerin/ Electrolytes 1,000 ml @ 80 mls/hr [id number] IV ; Start at 15:00 Enoxaparin Sodium (Lovenox 40mg Syringe) 40 mg Q24H SQ ; Start 01/10/17 at 15: 00 Famotidine (Pepcid) 20 mg QHS IVP ; Start 01/10/17 at 21:00 Active Scripts Active Oxycodone-Acetaminophen 5-325 (Oxycodone Hcl/Acetaminophen) 1 Each Tablet 1 Tab PO PRN Q4HRS PRN Reported Gabapentin 300 Mg Capsule 600 Mg PO QHS Sinemet Cr 50-200 Tablet (Carbidopa/Levodopa) 1 Each Tablet.er 1 Tab PO QID Lansoprazole 15 Mg Capsule.dr 15 Mg PO QODAY Pramipexole Dihydrochloride (Pramipexole Di-Hcl) 0.25 Mg Tablet 0.25 Mg PO TID Furosemide 20 Mg Tablet 20 Mg PO DAILY Plavix (Clopidogrel Bisulfate) 75 Mg Tablet 75 Mg PO DAILY Finasteride 5 Mg Tablet 5 Mg PO DAILY Tylenol (Acetaminophen) 325 Mg Tablet 650 Mg PO Q4HRS Tamsulosin Hcl 0.4 Mg Cap.er.24h 0.8 Mg PO QHS Sertraline Hcl 100 Mg Tablet 100 Mg PO BID Amlodipine Besylate 10 Mg Tablet 10 Mg PO DAILY Atenolol 100 Mg Tablet 100 Mg PO QHS Atorvastatin Calcium 20 Mg Tablet 20 Mg PO DAILY Allergies Allergies: Coded Allergies: No Known Drug Allergies (Unverified , 04/12/13) Vitals VITALS Vital Signs Date Time Temp Pulse Resp B/P (MAP) Pulse Ox O2 Delivery O2 Flow Rate FiO2 01/10/17 15:00 72 118/58 01/10/17 14:25 99 Room Air 2.0 01/10/17 13:30 16 01/10/17 11:11 98.5 98.5 Labs Labs Laboratory Tests Test 01/10/17 11:30 01/10/17 12:10 White Blood Count 11.1 x10^3/uL (4.0-11.0) Red Blood Count 3.82 x10^6/uL (4.30-5.70) Hemoglobin 10.0 g/dL (13.0-17.5) Hematocrit 31.6 % (39.0-53.0) Mean Corpuscular Volume 83 fL (79-100) Mean Corpuscular Hemoglobin 26 pg (25-35) Mean Corpuscular Hemoglobin Concent 32 g/dL (31-37) Red Cell Distribution Width 17.6 % (11.5-14.5) Platelet Count 311 x10^3/uL (140-400) Neutrophils (%) (Auto) 70 % (31-73) Lymphocytes (%) (Auto) 24 % (24-48) Monocytes (%) (Auto) 4 % (0-9) Eosinophils (%) (Auto) 2 % (0-3) Basophils (%) (Auto) 0 % (0-3) Neutrophils # (Auto) 7.7 x10^3uL (1.8-7.7) Lymphocytes # (Auto) 2.7 x10^3/uL (1.0-4.8) Monocytes # (Auto) 0.4 x10^3/uL (0.0-1.1) Eosinophils # (Auto) 0.2 x10^3/uL (0.0-0.7) Basophils # (Auto) 0.0 x10^3/uL (0.0-0.2) Prothrombin Time 18.9 SEC (11.7-14.0) Prothromb Time International Ratio 1.7 (0.8-1.1) Activated Partial Thromboplast Time 64 SEC (24-38) Sodium Level 145 mmol/L (136-145) Potassium Level 2.9 mmol/L (3.5-5.1) Chloride Level 106 mmol/L (98-107) Carbon Dioxide Level 27 mmol/L (21-32) Anion Gap 12 (6-14) Blood Urea Nitrogen 20 mg/dL (8-26) Creatinine 0.9 mg/dL (0.7-1.3) Estimated GFR (Cockcroft-Gault) 83.2 Glucose Level 105 mg/dL (70-99) Calcium Level 8.9 mg/dL (8.5-10.1) Magnesium Level 2.3 mg/dL (1.8-2.4) Total Bilirubin 0.8 mg/dL (0.2-1.0) Direct Bilirubin 0.2 mg/dL (0.0-0.2) Aspartate Amino Transf (AST/SGOT) 20 U/L (15-37) Alanine Aminotransferase (ALT/SGPT) 12 U/L (16-63) Alkaline Phosphatase 353 U/L (46-116) Ammonia < 10 mcmol/L (11-34) Creatine Kinase 51 U/L (39-308) Creatine Kinase MB (Mass) 1.0 ng/mL (0.0-3.6) Creatine Kinase MB Relative Index % (0-4) Troponin I Quantitative < 0.017 ng/mL (0.000-0.055) OH-Lqm-K-Type Natriuretic Peptide 1299 pg/mL (0-124) Total Protein 7.1 g/dL (6.4-8.2) Albumin 2.8 g/dL (3.4-5.0) Urine Collection Type U cath Urine Color Allie Urine Clarity Cloudy Urine pH 6.0 Urine Specific [place] 1.025 Urine Protein 30 mg/dL (NEG-TRACE) Urine Glucose (UA) Negative mg/dL (NEG) Urine Ketones (Stick) Trace mg/dL (NEG) Urine Blood Small (NEG) Urine Nitrite Negative (NEG) Urine Bilirubin Moderate (NEG) Urine Urobilinogen Dipstick 1.0 mg/dL (0.2 mg/dL) Urine Leukocyte Esterase Moderate (NEG) Urine RBC 11-20 /HPF (0-2) Urine WBC 20-40 /HPF (0-4) Urine Squamous Epithelial Cells Few /LPF Urine Renal Epithelial Cells Mod /LPF Urine Amorphous Sediment Present /HPF Urine Bacteria Few /HPF (0-FEW) Urine Mucus Marked /LPF Urine Opiates Screen Pos (NEG) Urine Methadone Screen Neg (NEG) Urine Barbiturates Neg (NEG) Urine Phencyclidine Screen Neg (NEG) Urine Amphetamine/Methamphetamine Neg (NEG) Urine Benzodiazepines Screen Neg (NEG) Urine Cocaine Screen Neg (NEG) Urine Cannabinoids Screen Neg (NEG) Urine Ethyl Alcohol Neg (NEG) Laboratory Tests Test 01/10/17 11:30 01/10/17 12:10 White Blood Count 11.1 x10^3/uL (4.0-11.0) Red Blood Count 3.82 x10^6/uL (4.30-5.70) Hemoglobin 10.0 g/dL (13.0-17.5) Hematocrit 31.6 % (39.0-53.0) Mean Corpuscular Volume 83 fL (79-100) Mean Corpuscular Hemoglobin 26 pg (25-35) Mean Corpuscular Hemoglobin Concent 32 g/dL (31-37) Red Cell Distribution Width 17.6 % (11.5-14.5) Platelet Count 311 x10^3/uL (140-400) Neutrophils (%) (Auto) 70 % (31-73) Lymphocytes (%) (Auto) 24 % (24-48) Monocytes (%) (Auto) 4 % (0-9) Eosinophils (%) (Auto) 2 % (0-3) Basophils (%) (Auto) 0 % (0-3) Neutrophils # (Auto) 7.7 x10^3uL (1.8-7.7) Lymphocytes # (Auto) 2.7 x10^3/uL (1.0-4.8) Monocytes # (Auto) 0.4 x10^3/uL (0.0-1.1) Eosinophils # (Auto) 0.2 x10^3/uL (0.0-0.7) Basophils # (Auto) 0.0 x10^3/uL (0.0-0.2) Prothrombin Time 18.9 SEC (11.7-14.0) Prothromb Time International Ratio 1.7 (0.8-1.1) Activated Partial Thromboplast Time 64 SEC (24-38) Sodium Level 145 mmol/L (136-145) Potassium Level 2.9 mmol/L (3.5-5.1) Chloride Level 106 mmol/L (98-107) Carbon Dioxide Level 27 mmol/L (21-32) Anion Gap 12 (6-14) Blood Urea Nitrogen 20 mg/dL (8-26) Creatinine 0.9 mg/dL (0.7-1.3) Estimated GFR (Cockcroft-Gault) 83.2 Glucose Level 105 mg/dL (70-99) Calcium Level 8.9 mg/dL (8.5-10.1) Magnesium Level 2.3 mg/dL (1.8-2.4) Total Bilirubin 0.8 mg/dL (0.2-1.0) Direct Bilirubin 0.2 mg/dL (0.0-0.2) Aspartate Amino Transf (AST/SGOT) 20 U/L (15-37) Alanine Aminotransferase (ALT/SGPT) 12 U/L (16-63) Alkaline Phosphatase 353 U/L (46-116) Ammonia < 10 mcmol/L (11-34) Creatine Kinase 51 U/L (39-308) Creatine Kinase MB (Mass) 1.0 ng/mL (0.0-3.6) Creatine Kinase MB Relative Index % (0-4) Troponin I Quantitative < 0.017 ng/mL (0.000-0.055) ZL-Kkn-B-Type Natriuretic Peptide 1299 pg/mL (0-124) Total Protein 7.1 g/dL (6.4-8.2) Albumin 2.8 g/dL (3.4-5.0) Urine Collection Type U cath Urine Color Allie Urine Clarity Cloudy Urine pH 6.0 Urine Specific [place] 1.025 Urine Protein 30 mg/dL (NEG-TRACE) Urine Glucose (UA) Negative mg/dL (NEG) Urine Ketones (Stick) Trace mg/dL (NEG) Urine Blood Small (NEG) Urine Nitrite Negative (NEG) Urine Bilirubin Moderate (NEG) Urine Urobilinogen Dipstick 1.0 mg/dL (0.2 mg/dL) Urine Leukocyte Esterase Moderate (NEG) Urine RBC 11-20 /HPF (0-2) Urine WBC 20-40 /HPF (0-4) Urine Squamous Epithelial Cells Few /LPF Urine Renal Epithelial Cells Mod /LPF Urine Amorphous Sediment Present /HPF Urine Bacteria Few /HPF (0-FEW) Urine Mucus Marked /LPF Urine Opiates Screen Pos (NEG) Urine Methadone Screen Neg (NEG) Urine Barbiturates Neg (NEG) Urine Phencyclidine Screen Neg (NEG) Urine Amphetamine/Methamphetamine Neg (NEG) Urine Benzodiazepines Screen Neg (NEG) Urine Cocaine Screen Neg (NEG) Urine Cannabinoids Screen Neg (NEG) Urine Ethyl Alcohol Neg (NEG) LOUANN PITTMAN MD Jan 10, 2017 16:49
[2017-01-10] MEDS ORDERED: LEVODOPA PO SCH (17:00)
[2017-01-10] MEDS ORDERED: CARBIDOPA PO SCH (17:00)
[2017-01-10] MEDS: CARBIDOPA/LEVODOPA 25/100MG TABLET PO SCH ×2 (18:00→23:36)
[2017-01-10 19:20] VITALS: BP 132/67
[2017-01-10] MEDS: FAMOTIDINE 20 MG/2 ML VIAL IVP SCH (20:20)
[2017-01-10] MEDS: ATENOLOL 50 MG TABLET. PO SCH (21:00)
[2017-01-10] MEDS: SERTRALINE 50 MG TABLET. PO SCH (21:00)
[2017-01-10] MEDS: PRAMIPEXOLE 0.25 MG TABLET. PO SCH (21:00)
[2017-01-10] MEDS: TAMSULOSIN 0.4 MG CAP.ER.24H. PO SCH (21:00)
[2017-01-10] MEDS: GABAPENTIN 300 MG CAPSULE. PO SCH (21:00)
[2017-01-10 23:17] VITALS: BP 130/68
[2017-01-11] MEDS: fentaNYL PF VIAL 100 MCG/2 ML VIAL IV PRN ×4 (01:11→23:52)
[2017-01-11 03:17] VITALS: BP 132/68
[2017-01-11] MEDS: AMINO AC 3%/ELECTROLYTE/GLYCER 1,000 ML IV SCH ×2 (04:40→16:32)
[2017-01-11 05:02] LABS: BASO % 0 % (0-3); EOS % 2 % (0-3); HEMATOCRIT 28.7 % (39.0-53.0); HEMOGLOBIN 9.2 g/dL (13.0-17.5); LYMPH # 2.3 x10^3/uL (1.0-4.8); LYMPH % 20 % (24-48); MEAN CORPUSCULAR HEMOGLOBIN 26 pg (25-35); MEAN CORPUSCULAR HGB CONC 32 g/dL (31-37); MEAN CORPUSCULAR VOLUME 82 fL (79-100); MONO % 5 % (0-9); NEUT % 74 % (31-73); PLATELET COUNT 276 x10^3/uL (140-400); RED BLOOD COUNT 3.52 x10^6/uL (4.30-5.70); RED CELL DISTRIBUTION WIDTH 17.6 % (11.5-14.5); WHITE BLOOD COUNT 11.4 x10^3/uL (4.0-11.0)
[2017-01-11 05:14] LABS: CALCIUM 8.6 mg/dL (8.5-10.1); CREATININE 0.8 mg/dL (0.7-1.3); GFR 95.3; POTASSIUM 3.2 mmol/L (3.5-5.1)
[2017-01-11] MEDS: CARBIDOPA/LEVODOPA 25/100MG TABLET PO SCH ×4 (06:00→23:51)
[2017-01-11 07:00] VITALS: BP 137/71
[2017-01-11] MEDS: PANTOPRAZOLE 40 MG TABLET.DR. PO SCH ×2 (07:30→09:00)
[2017-01-11] MEDS: amLODIPine BESYLATE 10 MG TABLET PO SCH (09:00)
[2017-01-11] MEDS: FINASTERIDE 5 MG TABLET. PO SCH (09:00)
[2017-01-11] MEDS: PRAMIPEXOLE 0.25 MG TABLET. PO SCH ×3 (09:00→20:56)
[2017-01-11] MEDS: SERTRALINE 50 MG TABLET. PO SCH ×2 (09:00→20:56)
[2017-01-11] MEDS: FUROSEMIDE 20 MG TABLET PO SCH (09:00)
[2017-01-11] MEDS: ATORVASTATIN CALCIUM 20 MG TABLET PO SCH (09:00)
[2017-01-11] MEDS: POTASSIUM CHLORIDE 10MEQ 100 ML IV SCH ×4 (09:36→13:11)
--- NOTE | 2017-01-11 10:24 | PDOC ---
PROGRESS NOTES Chief Complaint Chief Complaint 1. Distal femur fx, left 2. Advanced parkinsons with dementia 3. Acute on Chronic aspiration 4. Dysphagia on dyasphagia diet in SNU 5. Severe PCM 6. HX CAD with 1 stent on plavix 7. Easy bruisability 8. DNR DNI History of Present Illness History of Present Illness Was just turned by RN so not too good when I visited [facility] ok DNR DNI Ortho plans to talk to family re surgical vs surgical given over all prognosis and current condition of pt\ LOoks like he is chronically aspirating, NPO for now till [facility] Was on dysphagia diet in [facility]: Await family meet Palliative consulted over weekend Family not inclining to PEG etc and seems very realistic SUpprotive care DNR DNI Vitals Vitals Vital Signs Date Time Temp Pulse Resp B/P (MAP) Pulse Ox O2 Delivery O2 Flow Rate FiO2 01/11/17 09:39 93 Nasal Cannula 2.0 01/11/17 09:00 75 137/71 01/11/17 07:00 99.0 18 99.0 Physical Exam General: No acute distress, Other (mouth breather, shakes, ) Lungs: Clear Abdomen: Normal bowel sounds, Soft, No tenderness, No hepatosplenomegaly, No masses Extremities: Other (RT leg straightened) Skin: No rashes, No breakdown, No significant lesion Labs LABS Laboratory Tests Test 01/10/17 11:30 01/10/17 12:10 01/11/17 04:30 White Blood Count 11.1 x10^3/uL (4.0-11.0) 11.4 x10^3/uL (4.0-11.0) Red Blood Count 3.82 x10^6/uL (4.30-5.70) 3.52 x10^6/uL (4.30-5.70) Hemoglobin 10.0 g/dL (13.0-17.5) 9.2 g/dL (13.0-17.5) Hematocrit 31.6 % (39.0-53.0) 28.7 % (39.0-53.0) Mean Corpuscular Volume 83 fL (79-100) 82 fL (79-100) Mean Corpuscular Hemoglobin 26 pg (25-35) 26 pg (25-35) Mean Corpuscular Hemoglobin Concent 32 g/dL (31-37) 32 g/dL (31-37) Red Cell Distribution Width 17.6 % (11.5-14.5) 17.6 % (11.5-14.5) Platelet Count 311 x10^3/uL (140-400) 276 x10^3/uL (140-400) Neutrophils (%) (Auto) 70 % (31-73) 74 % (31-73) Lymphocytes (%) (Auto) 24 % (24-48) 20 % (24-48) Monocytes (%) (Auto) 4 % (0-9) 5 % (0-9) Eosinophils (%) (Auto) 2 % (0-3) 2 % (0-3) Basophils (%) (Auto) 0 % (0-3) 0 % (0-3) Neutrophils # (Auto) 7.7 x10^3uL (1.8-7.7) 8.4 x10^3uL (1.8-7.7) Lymphocytes # (Auto) 2.7 x10^3/uL (1.0-4.8) 2.3 x10^3/uL (1.0-4.8) Monocytes # (Auto) 0.4 x10^3/uL (0.0-1.1) 0.5 x10^3/uL (0.0-1.1) Eosinophils # (Auto) 0.2 x10^3/uL (0.0-0.7) 0.2 x10^3/uL (0.0-0.7) Basophils # (Auto) 0.0 x10^3/uL (0.0-0.2) 0.0 x10^3/uL (0.0-0.2) Prothrombin Time 18.9 SEC (11.7-14.0) Prothromb Time International Ratio 1.7 (0.8-1.1) Activated Partial Thromboplast Time 64 SEC (24-38) Sodium Level 145 mmol/L (136-145) 144 mmol/L (136-145) Potassium Level 2.9 mmol/L (3.5-5.1) 3.2 mmol/L (3.5-5.1) Chloride Level 106 mmol/L (98-107) 109 mmol/L (98-107) Carbon Dioxide Level 27 mmol/L (21-32) 24 mmol/L (21-32) Anion Gap 12 (6-14) 11 (6-14) Blood Urea Nitrogen 20 mg/dL (8-26) 19 mg/dL (8-26) Creatinine 0.9 mg/dL (0.7-1.3) 0.8 mg/dL (0.7-1.3) Estimated GFR (Cockcroft-Gault) 83.2 95.3 Glucose Level 105 mg/dL (70-99) 109 mg/dL (70-99) Calcium Level 8.9 mg/dL (8.5-10.1) 8.6 mg/dL (8.5-10.1) Magnesium Level 2.3 mg/dL (1.8-2.4) Total Bilirubin 0.8 mg/dL (0.2-1.0) Direct Bilirubin 0.2 mg/dL (0.0-0.2) Aspartate Amino Transf (AST/SGOT) 20 U/L (15-37) Alanine Aminotransferase (ALT/SGPT) 12 U/L (16-63) Alkaline Phosphatase 353 U/L (46-116) Ammonia < 10 mcmol/L (11-34) Creatine Kinase 51 U/L (39-308) Creatine Kinase MB (Mass) 1.0 ng/mL (0.0-3.6) Creatine Kinase MB Relative Index % (0-4) Troponin I Quantitative < 0.017 ng/mL (0.000-0.055) BX-[id number]-[id number]-Type Natriuretic Peptide 1299 pg/mL (0-124) Total Protein 7.1 g/dL (6.4-8.2) Albumin 2.8 g/dL (3.4-5.0) Urine Collection Type U cath Urine Color Allie Urine Clarity Cloudy Urine pH 6.0 Urine Specific [place] 1.025 Urine Protein 30 mg/dL (NEG-TRACE) Urine Glucose (UA) Negative mg/dL (NEG) Urine Ketones (Stick) Trace mg/dL (NEG) Urine Blood Small (NEG) Urine Nitrite Negative (NEG) Urine Bilirubin Moderate (NEG) Urine Urobilinogen Dipstick 1.0 mg/dL (0.2 mg/dL) Urine Leukocyte Esterase Moderate (NEG) Urine RBC 11-20 /HPF (0-2) Urine WBC 20-40 /HPF (0-4) Urine Squamous Epithelial Cells Few /LPF Urine Renal Epithelial Cells Mod /LPF Urine Amorphous Sediment Present /HPF Urine Bacteria Few /HPF (0-FEW) Urine Mucus Marked /LPF Urine Opiates Screen Pos (NEG) Urine Methadone Screen Neg (NEG) Urine Barbiturates Neg (NEG) Urine Phencyclidine Screen Neg (NEG) Urine Amphetamine/Methamphetamine Neg (NEG) Urine Benzodiazepines Screen Neg (NEG) Urine Cocaine Screen Neg (NEG) Urine Cannabinoids Screen Neg (NEG) Urine Ethyl Alcohol Neg (NEG) Review of Systems Review of Systems dementia, advanced from advanced parkinsons Comment Review of Relevant I have reviewed the following items patricia (where applicable) has been applied. Labs Laboratory Tests Test 01/10/17 11:30 01/10/17 12:10 01/11/17 04:30 White Blood Count 11.1 x10^3/uL (4.0-11.0) 11.4 x10^3/uL (4.0-11.0) Red Blood Count 3.82 x10^6/uL (4.30-5.70) 3.52 x10^6/uL (4.30-5.70) Hemoglobin 10.0 g/dL (13.0-17.5) 9.2 g/dL (13.0-17.5) Hematocrit 31.6 % (39.0-53.0) 28.7 % (39.0-53.0) Mean Corpuscular Volume 83 fL (79-100) 82 fL (79-100) Mean Corpuscular Hemoglobin 26 pg (25-35) 26 pg (25-35) Mean Corpuscular Hemoglobin Concent 32 g/dL (31-37) 32 g/dL (31-37) Red Cell Distribution Width 17.6 % (11.5-14.5) 17.6 % (11.5-14.5) Platelet Count 311 x10^3/uL (140-400) 276 x10^3/uL (140-400) Neutrophils (%) (Auto) 70 % (31-73) 74 % (31-73) Lymphocytes (%) (Auto) 24 % (24-48) 20 % (24-48) Monocytes (%) (Auto) 4 % (0-9) 5 % (0-9) Eosinophils (%) (Auto) 2 % (0-3) 2 % (0-3) Basophils (%) (Auto) 0 % (0-3) 0 % (0-3) Neutrophils # (Auto) 7.7 x10^3uL (1.8-7.7) 8.4 x10^3uL (1.8-7.7) Lymphocytes # (Auto) 2.7 x10^3/uL (1.0-4.8) 2.3 x10^3/uL (1.0-4.8) Monocytes # (Auto) 0.4 x10^3/uL (0.0-1.1) 0.5 x10^3/uL (0.0-1.1) Eosinophils # (Auto) 0.2 x10^3/uL (0.0-0.7) 0.2 x10^3/uL (0.0-0.7) Basophils # (Auto) 0.0 x10^3/uL (0.0-0.2) 0.0 x10^3/uL (0.0-0.2) Prothrombin Time 18.9 SEC (11.7-14.0) Prothromb Time International Ratio 1.7 (0.8-1.1) Activated Partial Thromboplast Time 64 SEC (24-38) Sodium Level 145 mmol/L (136-145) 144 mmol/L (136-145) Potassium Level 2.9 mmol/L (3.5-5.1) 3.2 mmol/L (3.5-5.1) Chloride Level 106 mmol/L (98-107) 109 mmol/L (98-107) Carbon Dioxide Level 27 mmol/L (21-32) 24 mmol/L (21-32) Anion Gap 12 (6-14) 11 (6-14) Blood Urea Nitrogen 20 mg/dL (8-26) 19 mg/dL (8-26) Creatinine 0.9 mg/dL (0.7-1.3) 0.8 mg/dL (0.7-1.3) Estimated GFR (Cockcroft-Gault) 83.2 95.3 Glucose Level 105 mg/dL (70-99) 109 mg/dL (70-99) Calcium Level 8.9 mg/dL (8.5-10.1) 8.6 mg/dL (8.5-10.1) Magnesium Level 2.3 mg/dL (1.8-2.4) Total Bilirubin 0.8 mg/dL (0.2-1.0) Direct Bilirubin 0.2 mg/dL (0.0-0.2) Aspartate Amino Transf (AST/SGOT) 20 U/L (15-37) Alanine Aminotransferase (ALT/SGPT) 12 U/L (16-63) Alkaline Phosphatase 353 U/L (46-116) Ammonia < 10 mcmol/L (11-34) Creatine Kinase 51 U/L (39-308) Creatine Kinase MB (Mass) 1.0 ng/mL (0.0-3.6) Creatine Kinase MB Relative Index % (0-4) Troponin I Quantitative < 0.017 ng/mL (0.000-0.055) WQ-Qib-G-Type Natriuretic Peptide 1299 pg/mL (0-124) Total Protein 7.1 g/dL (6.4-8.2) Albumin 2.8 g/dL (3.4-5.0) Urine Collection Type U cath Urine Color Allie Urine Clarity Cloudy Urine pH 6.0 Urine Specific [place] 1.025 Urine Protein 30 mg/dL (NEG-TRACE) Urine Glucose (UA) Negative mg/dL (NEG) Urine Ketones (Stick) Trace mg/dL (NEG) Urine Blood Small (NEG) Urine Nitrite Negative (NEG) Urine Bilirubin Moderate (NEG) Urine Urobilinogen Dipstick 1.0 mg/dL (0.2 mg/dL) Urine Leukocyte Esterase Moderate (NEG) Urine RBC 11-20 /HPF (0-2) Urine WBC 20-40 /HPF (0-4) Urine Squamous Epithelial Cells Few /LPF Urine Renal Epithelial Cells Mod /LPF Urine Amorphous Sediment Present /HPF Urine Bacteria Few /HPF (0-FEW) Urine Mucus Marked /LPF Urine Opiates Screen Pos (NEG) Urine Methadone Screen Neg (NEG) Urine Barbiturates Neg (NEG) Urine Phencyclidine Screen Neg (NEG) Urine Amphetamine/Methamphetamine Neg (NEG) Urine Benzodiazepines Screen Neg (NEG) Urine Cocaine Screen Neg (NEG) Urine Cannabinoids Screen Neg (NEG) Urine Ethyl Alcohol Neg (NEG) Laboratory Tests Test 01/10/17 11:30 01/10/17 12:10 01/11/17 04:30 White Blood Count 11.1 x10^3/uL (4.0-11.0) 11.4 x10^3/uL (4.0-11.0) Red Blood Count 3.82 x10^6/uL (4.30-5.70) 3.52 x10^6/uL (4.30-5.70) Hemoglobin 10.0 g/dL (13.0-17.5) 9.2 g/dL (13.0-17.5) Hematocrit 31.6 % (39.0-53.0) 28.7 % (39.0-53.0) Mean Corpuscular Volume 83 fL (79-100) 82 fL (79-100) Mean Corpuscular Hemoglobin 26 pg (25-35) 26 pg (25-35) Mean Corpuscular Hemoglobin Concent 32 g/dL (31-37) 32 g/dL (31-37) Red Cell Distribution Width 17.6 % (11.5-14.5) 17.6 % (11.5-14.5) Platelet Count 311 x10^3/uL (140-400) 276 x10^3/uL (140-400) Neutrophils (%) (Auto) 70 % (31-73) 74 % (31-73) Lymphocytes (%) (Auto) 24 % (24-48) 20 % (24-48) Monocytes (%) (Auto) 4 % (0-9) 5 % (0-9) Eosinophils (%) (Auto) 2 % (0-3) 2 % (0-3) Basophils (%) (Auto) 0 % (0-3) 0 % (0-3) Neutrophils # (Auto) 7.7 x10^3uL (1.8-7.7) 8.4 x10^3uL (1.8-7.7) Lymphocytes # (Auto) 2.7 x10^3/uL (1.0-4.8) 2.3 x10^3/uL (1.0-4.8) Monocytes # (Auto) 0.4 x10^3/uL (0.0-1.1) 0.5 x10^3/uL (0.0-1.1) Eosinophils # (Auto) 0.2 x10^3/uL (0.0-0.7) 0.2 x10^3/uL (0.0-0.7) Basophils # (Auto) 0.0 x10^3/uL (0.0-0.2) 0.0 x10^3/uL (0.0-0.2) Prothrombin Time 18.9 SEC (11.7-14.0) Prothromb Time International Ratio 1.7 (0.8-1.1) Activated Partial Thromboplast Time 64 SEC (24-38) Sodium Level 145 mmol/L (136-145) 144 mmol/L (136-145) Potassium Level 2.9 mmol/L (3.5-5.1) 3.2 mmol/L (3.5-5.1) Chloride Level 106 mmol/L (98-107) 109 mmol/L (98-107) Carbon Dioxide Level 27 mmol/L (21-32) 24 mmol/L (21-32) Anion Gap 12 (6-14) 11 (6-14) Blood Urea Nitrogen 20 mg/dL (8-26) 19 mg/dL (8-26) Creatinine 0.9 mg/dL (0.7-1.3) 0.8 mg/dL (0.7-1.3) Estimated GFR (Cockcroft-Gault) 83.2 95.3 Glucose Level 105 mg/dL (70-99) 109 mg/dL (70-99) Calcium Level 8.9 mg/dL (8.5-10.1) 8.6 mg/dL (8.5-10.1) Magnesium Level 2.3 mg/dL (1.8-2.4) Total Bilirubin 0.8 mg/dL (0.2-1.0) Direct Bilirubin 0.2 mg/dL (0.0-0.2) Aspartate Amino Transf (AST/SGOT) 20 U/L (15-37) Alanine Aminotransferase (ALT/SGPT) 12 U/L (16-63) Alkaline Phosphatase 353 U/L (46-116) Ammonia < 10 mcmol/L (11-34) Creatine Kinase 51 U/L (39-308) Creatine Kinase MB (Mass) 1.0 ng/mL (0.0-3.6) Creatine Kinase MB Relative Index % (0-4) Troponin I Quantitative < 0.017 ng/mL (0.000-0.055) TY-Bvq-Q-Type Natriuretic Peptide 1299 pg/mL (0-124) Total Protein 7.1 g/dL (6.4-8.2) Albumin 2.8 g/dL (3.4-5.0) Urine Collection Type U cath Urine Color Allie Urine Clarity Cloudy Urine pH 6.0 Urine Specific [place] 1.025 Urine Protein 30 mg/dL (NEG-TRACE) Urine Glucose (UA) Negative mg/dL (NEG) Urine Ketones (Stick) Trace mg/dL (NEG) Urine Blood Small (NEG) Urine Nitrite Negative (NEG) Urine Bilirubin Moderate (NEG) Urine Urobilinogen Dipstick 1.0 mg/dL (0.2 mg/dL) Urine Leukocyte Esterase Moderate (NEG) Urine RBC 11-20 /HPF (0-2) Urine WBC 20-40 /HPF (0-4) Urine Squamous Epithelial Cells Few /LPF Urine Renal Epithelial Cells Mod /LPF Urine Amorphous Sediment Present /HPF Urine Bacteria Few /HPF (0-FEW) Urine Mucus Marked /LPF Urine Opiates Screen Pos (NEG) Urine Methadone Screen Neg (NEG) Urine Barbiturates Neg (NEG) Urine Phencyclidine Screen Neg (NEG) Urine Amphetamine/Methamphetamine Neg (NEG) Urine Benzodiazepines Screen Neg (NEG) Urine Cocaine Screen Neg (NEG) Urine Cannabinoids Screen Neg (NEG) Urine Ethyl Alcohol Neg (NEG) Medications Current Medications Fentanyl Citrate (Fentanyl 2ml Vial) 25 mcg PRN Q15MIN PRN IV PAIN GREATER THAN 3/10 Last administered on 01/10/17 12:42; Start 01/10/17 at 12:45; Stop 01/11/17 at 12:44 Fentanyl Citrate (Fentanyl 2ml Vial) 100 mcg STK-MED ONCE .ROUTE ; Start at 12:39; Stop 01/10/17 at 12:40; Status DC Potassium Chloride 100 ml @ 100 mls/hr Q1H IV Last administered on 01/10/17 16:32; Start 01/10/17 at 13:00; Stop 01/10/17 at 16:59; Status DC Ceftriaxone Sodium 50 ml @ 100 mls/hr 1X ONCE IV Last administered on 13:03; Start 01/10/17 at 13:00; Stop 01/10/17 at 13:29; Status DC Fentanyl Citrate (Fentanyl 2ml Vial) 50 mcg PRN Q2HR PRN IV PAIN Last administered on 01/11/17 09:39; Start 01/10/17 at 14:45 Acetaminophen (Tylenol) 650 mg Q4HRS PO ; Start 01/10/17 at 16:00; Status UNV Amlodipine Besylate (Norvasc) 10 mg DAILY PO ; Start 01/10/17 at 15:00 Atorvastatin Calcium (Lipitor) 20 mg DAILY PO ; Start 01/10/17 at 15:00 Finasteride (Proscar) 5 mg DAILY PO ; Start 01/11/17 at 09:00 Furosemide (Lasix) 20 mg DAILY PO ; Start 01/10/17 at 15:00 Oxycodone/ Acetaminophen (Percocet 5/325) 1 tab PRN Q4HRS PRN PO pain 5-7; Start 01/10/17 at 14:45 Pramipexole Dihydrochloride (miraPEX) 0.25 mg TID PO ; Start 01/10/17 at 15:00 ; Stop 01/10/17 at 16:31; Status DC Tamsulosin HCl (Flomax) 0.8 mg QHS PO ; Start 01/10/17 at 21:00 Atenolol (Tenormin) 100 mg HS PO ; Start 01/10/17 at 21:00 Non-Formulary Medication 1 tab QID PO ; Start 01/10/17 at 17:00; Status UNV Gabapentin (Neurontin) 600 mg HS PO ; Start 01/10/17 at 21:00 Pantoprazole Sodium (Protonix) 40 mg QODAY PO ; Start 01/11/17 at 07:30 Sertraline HCl (Zoloft) 100 mg BID PO ; Start 01/10/17 at 21:00 Amino Acids/ Glycerin/ Electrolytes 1,000 ml @ 80 mls/hr [id number] IV Last administered on 01/11/17 04:40; Start 01/10/17 at 15:00 Enoxaparin Sodium (Lovenox 40mg Syringe) 40 mg Q24H SQ ; Start 01/10/17 at 15: 00 Famotidine (Pepcid) 20 mg QHS IVP Last administered on 01/10/17 20:20; Start 01/10/17 at 21:00 Pramipexole Dihydrochloride (miraPEX) 0.375 mg TID PO ; Start 01/10/17 at 21:00 Carbidopa/Levodopa (Sinemet 25/100) 2 tab [id number] PO ; Start 01/10/17 at 18: 00 Potassium Chloride 100 ml @ 100 mls/hr Q1H IV Last administered on 01/11/17t 09:36; Start 01/11/17 at 09:30; Stop 01/11/17 at 13:29 Active Scripts Active Oxycodone-Acetaminophen 5-325 (Oxycodone Hcl/Acetaminophen) 1 Each Tablet 1 Tab PO PRN Q4HRS PRN Reported Gabapentin 300 Mg Capsule 600 Mg PO QHS Sinemet Cr 50-200 Tablet (Carbidopa/Levodopa) 1 Each Tablet.er 1 Tab PO QID Lansoprazole 15 Mg Capsule.dr 15 Mg PO QODAY Pramipexole Dihydrochloride (Pramipexole Di-Hcl) 0.25 Mg Tablet 0.25 Mg PO TID Furosemide 20 Mg Tablet 20 Mg PO DAILY Plavix (Clopidogrel Bisulfate) 75 Mg Tablet 75 Mg PO DAILY Finasteride 5 Mg Tablet 5 Mg PO DAILY Tylenol (Acetaminophen) 325 Mg Tablet 650 Mg PO Q4HRS Tamsulosin Hcl 0.4 Mg Cap.er.24h 0.8 Mg PO QHS Sertraline Hcl 100 Mg Tablet 100 Mg PO BID Amlodipine Besylate 10 Mg Tablet 10 Mg PO DAILY Atenolol 100 Mg Tablet 100 Mg PO QHS Atorvastatin Calcium 20 Mg Tablet 20 Mg PO DAILY Vitals/I & O Vital Sign - Last 24 Hours 01/10/17 01/10/17 01/10/17 01/10/17 11:11 11:18 11:26 11:30 Temp 98.5 98.5 Pulse 66 71 67 66 Resp 18 20 18 18 B/P (MAP) 117/60 (79) 118/62 (80) 106/57 (73) Pulse Ox 96 96 96 O2 Delivery Room Air Room Air Room Air 01/10/17 01/10/17 01/10/17 01/10/17 11:53 12:00 12:15 12:30 Pulse 66 74 72 70 Resp 20 20 18 18 B/P (MAP) 114/56 (75) 108/57 (74) 117/61 (79) 128/58 (81) Pulse Ox 95 95 96 96 O2 Delivery Room Air Room Air 01/10/17 01/10/17 01/10/17 01/10/17 12:42 12:45 13:00 13:30 Pulse 70 70 72 Resp 20 16 16 16 B/P (MAP) 117/58 (77) 131/58 (82) 118/58 (78) Pulse Ox 97 97 99 99 O2 Delivery Nasal Cannula Nasal Cannula Nasal Cannula Nasal Cannula O2 Flow Rate 2.0 2.0 2.0 2.0 01/10/17 01/10/17 01/10/17 01/10/17 14:00 14:25 15:00 15:00 Temp 98.1 98.1 98.1 98.1 Pulse 71 72 71 Resp 16 16 B/P (MAP) 107/54 (71) 118/58 107/54 (71) Pulse Ox 97 99 97 O2 Delivery Nasal Cannula Room Air Nasal Cannula O2 Flow Rate 2.0 2.0 2.0 01/10/17 01/10/17 01/10/17 01/10/17 16:30 19:20 20:00 20:18 Temp 98.4 98.4 Pulse 81 Resp 18 20 B/P (MAP) 132/67 (88) Pulse Ox 99 97 99 O2 Delivery Room Air Nasal Cannula Nasal Cannula Room Air O2 Flow Rate 2.0 2.0 2.0 2.0 01/10/17 01/10/17 01/11/17 01/11/17 21:00 23:17 01:11 01:41 Temp 98.4 98.4 Pulse 80 80 Resp 18 20 18 B/P (MAP) 130/68 130/68 (88) Pulse Ox 98 98 98 O2 Delivery Room Air Nasal Cannula Nasal Cannula O2 Flow Rate 2.0 2.0 2.0 01/11/17 01/11/17 01/11/17 01/11/17 03:17 07:00 09:00 09:39 Temp 98.4 99.0 98.4 99.0 Pulse 78 75 75 Resp 18 18 B/P (MAP) 132/68 (89) 137/71 (93) 137/71 Pulse Ox 98 93 93 O2 Delivery Nasal Cannula Nasal Cannula Nasal Cannula O2 Flow Rate 2.0 2.0 2.0 SANDRA JAMES MD Jan 11, 2017 10:24
[2017-01-11 11:00] VITALS: BP 141/69
--- NOTE | 2017-01-11 11:13 | PDOC ---
PROGRESS NOTES Assessment PD, worsening. I have followed him in the office for 5 years. He also has diabetic neuropathy Metabolic encephalopathy. Bilateral pulmonary infiltrates. HTN HLD CAD s/p stent placement. Left distal femur fracture in 12/13. Bladder cancer? Skin cancer. Dementia features. Plan Continue Sinemet 50/200 mg q6h. Increased Pramipexole to 0.375 mg tid. Treat medical and surgical diseases. Nutrition support. OT/PT. Subjective None Objective Vital Signs Date Time Temp Pulse Resp B/P (MAP) Pulse Ox O2 Delivery O2 Flow Rate FiO2 01/11/17 10:09 93 Nasal Cannula 2.0 01/11/17 09:00 75 137/71 01/11/17 07:00 99.0 18 99.0 PHYSICAL EXAM Alert. Speech is not intelligible, does follow some commands PERRL. EOMI. CN: no focal findings. Muscle tone: normal. No tremors noted Muscle strength: 4/5, has left lower extremity fracture DTR: 1+ Plantar reflex: flexor Gait: not examined in bed. Sensory exam: no abnormal findings. No cerebellar signs elicited. Review of Relevant I have reviewed the following items patricia (where applicable) has been applied. Labs Laboratory Tests Test 01/10/17 11:30 01/10/17 12:10 01/11/17 04:30 White Blood Count 11.1 x10^3/uL (4.0-11.0) 11.4 x10^3/uL (4.0-11.0) Red Blood Count 3.82 x10^6/uL (4.30-5.70) 3.52 x10^6/uL (4.30-5.70) Hemoglobin 10.0 g/dL (13.0-17.5) 9.2 g/dL (13.0-17.5) Hematocrit 31.6 % (39.0-53.0) 28.7 % (39.0-53.0) Mean Corpuscular Volume 83 fL (79-100) 82 fL (79-100) Mean Corpuscular Hemoglobin 26 pg (25-35) 26 pg (25-35) Mean Corpuscular Hemoglobin Concent 32 g/dL (31-37) 32 g/dL (31-37) Red Cell Distribution Width 17.6 % (11.5-14.5) 17.6 % (11.5-14.5) Platelet Count 311 x10^3/uL (140-400) 276 x10^3/uL (140-400) Neutrophils (%) (Auto) 70 % (31-73) 74 % (31-73) Lymphocytes (%) (Auto) 24 % (24-48) 20 % (24-48) Monocytes (%) (Auto) 4 % (0-9) 5 % (0-9) Eosinophils (%) (Auto) 2 % (0-3) 2 % (0-3) Basophils (%) (Auto) 0 % (0-3) 0 % (0-3) Neutrophils # (Auto) 7.7 x10^3uL (1.8-7.7) 8.4 x10^3uL (1.8-7.7) Lymphocytes # (Auto) 2.7 x10^3/uL (1.0-4.8) 2.3 x10^3/uL (1.0-4.8) Monocytes # (Auto) 0.4 x10^3/uL (0.0-1.1) 0.5 x10^3/uL (0.0-1.1) Eosinophils # (Auto) 0.2 x10^3/uL (0.0-0.7) 0.2 x10^3/uL (0.0-0.7) Basophils # (Auto) 0.0 x10^3/uL (0.0-0.2) 0.0 x10^3/uL (0.0-0.2) Prothrombin Time 18.9 SEC (11.7-14.0) Prothromb Time International Ratio 1.7 (0.8-1.1) Activated Partial Thromboplast Time 64 SEC (24-38) Sodium Level 145 mmol/L (136-145) 144 mmol/L (136-145) Potassium Level 2.9 mmol/L (3.5-5.1) 3.2 mmol/L (3.5-5.1) Chloride Level 106 mmol/L (98-107) 109 mmol/L (98-107) Carbon Dioxide Level 27 mmol/L (21-32) 24 mmol/L (21-32) Anion Gap 12 (6-14) 11 (6-14) Blood Urea Nitrogen 20 mg/dL (8-26) 19 mg/dL (8-26) Creatinine 0.9 mg/dL (0.7-1.3) 0.8 mg/dL (0.7-1.3) Estimated GFR (Cockcroft-Gault) 83.2 95.3 Glucose Level 105 mg/dL (70-99) 109 mg/dL (70-99) Calcium Level 8.9 mg/dL (8.5-10.1) 8.6 mg/dL (8.5-10.1) Magnesium Level 2.3 mg/dL (1.8-2.4) Total Bilirubin 0.8 mg/dL (0.2-1.0) Direct Bilirubin 0.2 mg/dL (0.0-0.2) Aspartate Amino Transf (AST/SGOT) 20 U/L (15-37) Alanine Aminotransferase (ALT/SGPT) 12 U/L (16-63) Alkaline Phosphatase 353 U/L (46-116) Ammonia < 10 mcmol/L (11-34) Creatine Kinase 51 U/L (39-308) Creatine Kinase MB (Mass) 1.0 ng/mL (0.0-3.6) Creatine Kinase MB Relative Index % (0-4) Troponin I Quantitative < 0.017 ng/mL (0.000-0.055) FZ-Osd-H-Type Natriuretic Peptide 1299 pg/mL (0-124) Total Protein 7.1 g/dL (6.4-8.2) Albumin 2.8 g/dL (3.4-5.0) Urine Collection Type U cath Urine Color Allie Urine Clarity Cloudy Urine pH 6.0 Urine Specific [place] 1.025 Urine Protein 30 mg/dL (NEG-TRACE) Urine Glucose (UA) Negative mg/dL (NEG) Urine Ketones (Stick) Trace mg/dL (NEG) Urine Blood Small (NEG) Urine Nitrite Negative (NEG) Urine Bilirubin Moderate (NEG) Urine Urobilinogen Dipstick 1.0 mg/dL (0.2 mg/dL) Urine Leukocyte Esterase Moderate (NEG) Urine RBC 11-20 /HPF (0-2) Urine WBC 20-40 /HPF (0-4) Urine Squamous Epithelial Cells Few /LPF Urine Renal Epithelial Cells Mod /LPF Urine Amorphous Sediment Present /HPF Urine Bacteria Few /HPF (0-FEW) Urine Mucus Marked /LPF Urine Opiates Screen Pos (NEG) Urine Methadone Screen Neg (NEG) Urine Barbiturates Neg (NEG) Urine Phencyclidine Screen Neg (NEG) Urine Amphetamine/Methamphetamine Neg (NEG) Urine Benzodiazepines Screen Neg (NEG) Urine Cocaine Screen Neg (NEG) Urine Cannabinoids Screen Neg (NEG) Urine Ethyl Alcohol Neg (NEG) Laboratory Tests Test 01/10/17 11:30 01/10/17 12:10 01/11/17 04:30 White Blood Count 11.1 x10^3/uL (4.0-11.0) 11.4 x10^3/uL (4.0-11.0) Red Blood Count 3.82 x10^6/uL (4.30-5.70) 3.52 x10^6/uL (4.30-5.70) Hemoglobin 10.0 g/dL (13.0-17.5) 9.2 g/dL (13.0-17.5) Hematocrit 31.6 % (39.0-53.0) 28.7 % (39.0-53.0) Mean Corpuscular Volume 83 fL (79-100) 82 fL (79-100) Mean Corpuscular Hemoglobin 26 pg (25-35) 26 pg (25-35) Mean Corpuscular Hemoglobin Concent 32 g/dL (31-37) 32 g/dL (31-37) Red Cell Distribution Width 17.6 % (11.5-14.5) 17.6 % (11.5-14.5) Platelet Count 311 x10^3/uL (140-400) 276 x10^3/uL (140-400) Neutrophils (%) (Auto) 70 % (31-73) 74 % (31-73) Lymphocytes (%) (Auto) 24 % (24-48) 20 % (24-48) Monocytes (%) (Auto) 4 % (0-9) 5 % (0-9) Eosinophils (%) (Auto) 2 % (0-3) 2 % (0-3) Basophils (%) (Auto) 0 % (0-3) 0 % (0-3) Neutrophils # (Auto) 7.7 x10^3uL (1.8-7.7) 8.4 x10^3uL (1.8-7.7) Lymphocytes # (Auto) 2.7 x10^3/uL (1.0-4.8) 2.3 x10^3/uL (1.0-4.8) Monocytes # (Auto) 0.4 x10^3/uL (0.0-1.1) 0.5 x10^3/uL (0.0-1.1) Eosinophils # (Auto) 0.2 x10^3/uL (0.0-0.7) 0.2 x10^3/uL (0.0-0.7) Basophils # (Auto) 0.0 x10^3/uL (0.0-0.2) 0.0 x10^3/uL (0.0-0.2) Prothrombin Time 18.9 SEC (11.7-14.0) Prothromb Time International Ratio 1.7 (0.8-1.1) Activated Partial Thromboplast Time 64 SEC (24-38) Sodium Level 145 mmol/L (136-145) 144 mmol/L (136-145) Potassium Level 2.9 mmol/L (3.5-5.1) 3.2 mmol/L (3.5-5.1) Chloride Level 106 mmol/L (98-107) 109 mmol/L (98-107) Carbon Dioxide Level 27 mmol/L (21-32) 24 mmol/L (21-32) Anion Gap 12 (6-14) 11 (6-14) Blood Urea Nitrogen 20 mg/dL (8-26) 19 mg/dL (8-26) Creatinine 0.9 mg/dL (0.7-1.3) 0.8 mg/dL (0.7-1.3) Estimated GFR (Cockcroft-Gault) 83.2 95.3 Glucose Level 105 mg/dL (70-99) 109 mg/dL (70-99) Calcium Level 8.9 mg/dL (8.5-10.1) 8.6 mg/dL (8.5-10.1) Magnesium Level 2.3 mg/dL (1.8-2.4) Total Bilirubin 0.8 mg/dL (0.2-1.0) Direct Bilirubin 0.2 mg/dL (0.0-0.2) Aspartate Amino Transf (AST/SGOT) 20 U/L (15-37) Alanine Aminotransferase (ALT/SGPT) 12 U/L (16-63) Alkaline Phosphatase 353 U/L (46-116) Ammonia < 10 mcmol/L (11-34) Creatine Kinase 51 U/L (39-308) Creatine Kinase MB (Mass) 1.0 ng/mL (0.0-3.6) Creatine Kinase MB Relative Index % (0-4) Troponin I Quantitative < 0.017 ng/mL (0.000-0.055) BK-Ceq-K-Type Natriuretic Peptide 1299 pg/mL (0-124) Total Protein 7.1 g/dL (6.4-8.2) Albumin 2.8 g/dL (3.4-5.0) Urine Collection Type U cath Urine Color Allie Urine Clarity Cloudy Urine pH 6.0 Urine Specific [place] 1.025 Urine Protein 30 mg/dL (NEG-TRACE) Urine Glucose (UA) Negative mg/dL (NEG) Urine Ketones (Stick) Trace mg/dL (NEG) Urine Blood Small (NEG) Urine Nitrite Negative (NEG) Urine Bilirubin Moderate (NEG) Urine Urobilinogen Dipstick 1.0 mg/dL (0.2 mg/dL) Urine Leukocyte Esterase Moderate (NEG) Urine RBC 11-20 /HPF (0-2) Urine WBC 20-40 /HPF (0-4) Urine Squamous Epithelial Cells Few /LPF Urine Renal Epithelial Cells Mod /LPF Urine Amorphous Sediment Present /HPF Urine Bacteria Few /HPF (0-FEW) Urine Mucus Marked /LPF Urine Opiates Screen Pos (NEG) Urine Methadone Screen Neg (NEG) Urine Barbiturates Neg (NEG) Urine Phencyclidine Screen Neg (NEG) Urine Amphetamine/Methamphetamine Neg (NEG) Urine Benzodiazepines Screen Neg (NEG) Urine Cocaine Screen Neg (NEG) Urine Cannabinoids Screen Neg (NEG) Urine Ethyl Alcohol Neg (NEG) Medications Current Medications Fentanyl Citrate (Fentanyl 2ml Vial) 25 mcg PRN Q15MIN PRN IV PAIN GREATER THAN 3/10 Last administered on 01/10/17t 12:42; Start 01/10/17 at 12:45; Stop 01/11/17 at 12:44 Fentanyl Citrate (Fentanyl 2ml Vial) 100 mcg STK-MED ONCE .ROUTE ; Start at 12:39; Stop 01/10/17 at 12:40; Status DC Potassium Chloride 100 ml @ 100 mls/hr Q1H IV Last administered on 01/10/17 16:32; Start 01/10/17 at 13:00; Stop 01/10/17 at 16:59; Status DC Ceftriaxone Sodium 50 ml @ 100 mls/hr 1X ONCE IV Last administered on 13:03; Start 01/10/17 at 13:00; Stop 01/10/17 at 13:29; Status DC Fentanyl Citrate (Fentanyl 2ml Vial) 50 mcg PRN Q2HR PRN IV PAIN Last administered on 01/11/17 09:39; Start 01/10/17 at 14:45 Acetaminophen (Tylenol) 650 mg Q4HRS PO ; Start 01/10/17 at 16:00; Status UNV Amlodipine Besylate (Norvasc) 10 mg DAILY PO ; Start 01/10/17 at 15:00 Atorvastatin Calcium (Lipitor) 20 mg DAILY PO ; Start 01/10/17 at 15:00 Finasteride (Proscar) 5 mg DAILY PO ; Start 01/11/17 at 09:00 Furosemide (Lasix) 20 mg DAILY PO ; Start 01/10/17 at 15:00 Oxycodone/ Acetaminophen (Percocet 5/325) 1 tab PRN Q4HRS PRN PO pain 5-7; Start 01/10/17 at 14:45 Pramipexole Dihydrochloride (miraPEX) 0.25 mg TID PO ; Start 01/10/17 at 15:00 ; Stop 01/10/17 at 16:31; Status DC Tamsulosin HCl (Flomax) 0.8 mg QHS PO ; Start 01/10/17 at 21:00 Atenolol (Tenormin) 100 mg HS PO ; Start 01/10/17 at 21:00 Non-Formulary Medication 1 tab QID PO ; Start 01/10/17 at 17:00; Status UNV Gabapentin (Neurontin) 600 mg HS PO ; Start 01/10/17 at 21:00 Pantoprazole Sodium (Protonix) 40 mg QODAY PO ; Start 01/11/17 at 07:30 Sertraline HCl (Zoloft) 100 mg BID PO ; Start 01/10/17 at 21:00 Amino Acids/ Glycerin/ Electrolytes 1,000 ml @ 80 mls/hr [id number] IV Last administered on 01/11/17 04:40; Start 01/10/17 at 15:00 Enoxaparin Sodium (Lovenox 40mg Syringe) 40 mg Q24H SQ ; Start 01/10/17 at 15: 00 Famotidine (Pepcid) 20 mg QHS IVP Last administered on 01/10/17 20:20; Start 01/10/17 at 21:00 Pramipexole Dihydrochloride (miraPEX) 0.375 mg TID PO ; Start 01/10/17 at 21:00 Carbidopa/Levodopa (Sinemet 25/100) 2 tab [id number] PO ; Start 01/10/17 at 18: 00 Potassium Chloride 100 ml @ 100 mls/hr Q1H IV Last administered on 01/11/17 09:36; Start 01/11/17 at 09:30; Stop 01/11/17 at 13:29 Active Scripts Active Oxycodone-Acetaminophen 5-325 (Oxycodone Hcl/Acetaminophen) 1 Each Tablet 1 Tab PO PRN Q4HRS PRN Reported Gabapentin 300 Mg Capsule 600 Mg PO QHS Sinemet Cr 50-200 Tablet (Carbidopa/Levodopa) 1 Each Tablet.er 1 Tab PO QID Lansoprazole 15 Mg Capsule.dr 15 Mg PO QODAY Pramipexole Dihydrochloride (Pramipexole Di-Hcl) 0.25 Mg Tablet 0.25 Mg PO TID Furosemide 20 Mg Tablet 20 Mg PO DAILY Plavix (Clopidogrel Bisulfate) 75 Mg Tablet 75 Mg PO DAILY Finasteride 5 Mg Tablet 5 Mg PO DAILY Tylenol (Acetaminophen) 325 Mg Tablet 650 Mg PO Q4HRS Tamsulosin Hcl 0.4 Mg Cap.er.24h 0.8 Mg PO QHS Sertraline Hcl 100 Mg Tablet 100 Mg PO BID Amlodipine Besylate 10 Mg Tablet 10 Mg PO DAILY Atenolol 100 Mg Tablet 100 Mg PO QHS Atorvastatin Calcium 20 Mg Tablet 20 Mg PO DAILY Vitals/I & O Vital Sign - Last 24 Hours 01/10/17 01/10/17 01/10/17 01/10/17 11:11 11:18 11:26 11:30 Temp 98.5 98.5 Pulse 66 71 67 66 Resp 18 20 18 18 B/P (MAP) 117/60 (79) 118/62 (80) 106/57 (73) Pulse Ox 96 96 96 O2 Delivery Room Air Room Air Room Air 01/10/17 01/10/17 01/10/17 01/10/17 11:53 12:00 12:15 12:30 Pulse 66 74 72 70 Resp 20 20 18 18 B/P (MAP) 114/56 (75) 108/57 (74) 117/61 (79) 128/58 (81) Pulse Ox 95 95 96 96 O2 Delivery Room Air Room Air 01/10/17 01/10/17 01/10/17 01/10/17 12:42 12:45 13:00 13:30 Pulse 70 70 72 Resp 20 16 16 16 B/P (MAP) 117/58 (77) 131/58 (82) 118/58 (78) Pulse Ox 97 97 99 99 O2 Delivery Nasal Cannula Nasal Cannula Nasal Cannula Nasal Cannula O2 Flow Rate 2.0 2.0 2.0 2.0 01/10/17 01/10/17 01/10/17 01/10/17 14:00 14:25 15:00 15:00 Temp 98.1 98.1 98.1 98.1 Pulse 71 72 71 Resp 16 16 B/P (MAP) 107/54 (71) 118/58 107/54 (71) Pulse Ox 97 99 97 O2 Delivery Nasal Cannula Room Air Nasal Cannula O2 Flow Rate 2.0 2.0 2.0 01/10/17 01/10/17 01/10/17 01/10/17 16:30 19:20 20:00 20:18 Temp 98.4 98.4 Pulse 81 Resp 18 20 B/P (MAP) 132/67 (88) Pulse Ox 99 97 99 O2 Delivery Room Air Nasal Cannula Nasal Cannula Room Air O2 Flow Rate 2.0 2.0 2.0 2.0 01/10/17 01/10/17 01/11/17 01/11/17 21:00 23:17 01:11 01:41 Temp 98.4 98.4 Pulse 80 80 Resp 18 20 18 B/P (MAP) 130/68 130/68 (88) Pulse Ox 98 98 O2 Delivery Room Air Nasal Cannula O2 Flow Rate 2.0 2.0 01/11/17 01/11/17 01/11/17/16/17 03:17 07:00 09:00 09:39 Temp 98.4 99.0 98.4 99.0 Pulse 78 75 75 Resp 18 18 B/P (MAP) 132/68 (89) 137/71 (93) 137/71 Pulse Ox 98 93 93 O2 Delivery Nasal Cannula Nasal Cannula Nasal Cannula O2 Flow Rate 2.0 2.0 2.0 01/11/17 10:09 Pulse Ox 93 O2 Delivery Nasal Cannula O2 Flow Rate 2.[address] Comparison: None available. Findings: No acute intracranial hemorrhage or midline shift or mass-effect or hydrocephalus or extra-axial fluid collection is seen. No focal hypodense area or sulci effacement is seen to indicate an acute infarct or edema radiographically. No skull fracture or pneumocephalus is seen. No opacification of the mastoid sinuses or the middle ear cavities is seen. Impression: No acute intracranial abnormality is seen. NONCONTRAST MAXILLOFACIAL BONE CT Findings: The mandible is not completely seen in this study. The temporomandibular joints are normally aligned. The maxilla and pterygoid plates are intact. The nasal bones are intact. Moderate nasal septal deviation is seen with the convexity pointed towards the left side. The zygoma and zygomatic arch is intact on both sides. The orbits are intact on both sides. No orbital floor fracture is evident. No opacification or air-fluid levels are seen within the paranasal sinuses. IMPRESSION: The mandible is not completely seen in this study. No acute fracture of the facial bones is seen otherwise. CT STUDY OF THE CERVICAL SPINE WITHOUT CONTRAST History: Fall with altered mental status. Neck pain. Technique: Noncontrast helical CT scanning of the cervical spine was performed. Multiplanar 2-D reconstructions were generated. Findings: No acute fracture or discitis or osteolytic process or anterolisthesis is seen. The facets are normally aligned without perching. Degenerative facet arthropathy is evident. There is degenerative endplate spurring and disc space narrowing at C4-5 and C5-6 and C6-7. IMPRESSION: No acute fracture. Degenerative cervical spondylosis. AURE BURDICK MD Jan 11, 2017 11:13
[2017-01-11 15:00] VITALS: BP 132/62
[2017-01-11] MEDS: ENOXAPARIN 40 MG/0.4 ML SYRINGE. SQ SCH (15:00)
--- NOTE | 2017-01-11 17:35 | PDOC2 ---
PALLIATIVE CARE Palliative Care Note Palliative Care Consult requested by Dr. Winters to address goals of care. Information obtained from medical record, . [facility]. post-op fracture femur ORIF Diagnosis: Distal femur fracture left; Advanced Parkinson Disease with Dementia ; Dysphagia--A/C aspiration; CAD with 1 stent; Code Status; DNR/DNI Patient awake-did not participate in conversation Per --plan surgery to repair distal fracture of femur tomorrow afternoon. Plan Meeting on Wednesday STEPHANY BUSTAMANTE Jan 11, 2017 17:35
[2017-01-11 19:00] VITALS: BP 135/59
[2017-01-11] MEDS: GABAPENTIN 300 MG CAPSULE. PO SCH (20:56)
[2017-01-11] MEDS: TAMSULOSIN 0.4 MG CAP.ER.24H. PO SCH (20:56)
[2017-01-11] MEDS: ATENOLOL 50 MG TABLET. PO SCH (20:56)
[2017-01-11] MEDS: FAMOTIDINE 20 MG/2 ML VIAL IVP SCH (21:26)
[2017-01-11 23:00] VITALS: BP 137/68
[2017-01-12] VITALS (13 sets, daily range): BP systolic 101–144; BP diastolic 58–72
[2017-01-12] MEDS: AMINO AC 3%/ELECTROLYTE/GLYCER 1,000 ML IV SCH ×2 (04:38→18:39)
[2017-01-12] MEDS: fentaNYL PF VIAL 100 MCG/2 ML VIAL IV PRN (04:39)
[2017-01-12 05:16] LABS: BASO % 0 % (0-3); EOS % 2 % (0-3); HEMATOCRIT 30.6 % (39.0-53.0); HEMOGLOBIN 9.8 g/dL (13.0-17.5); LYMPH # 2.5 x10^3/uL (1.0-4.8); LYMPH % 21 % (24-48); MEAN CORPUSCULAR HEMOGLOBIN 26 pg (25-35); MEAN CORPUSCULAR HGB CONC 32 g/dL (31-37); MEAN CORPUSCULAR VOLUME 82 fL (79-100); MONO % 5 % (0-9); NEUT % 71 % (31-73); PLATELET COUNT 289 x10^3/uL (140-400); RED BLOOD COUNT 3.75 x10^6/uL (4.30-5.70); RED CELL DISTRIBUTION WIDTH 17.4 % (11.5-14.5)
[2017-01-12] MEDS: CARBIDOPA/LEVODOPA 25/100MG TABLET PO SCH ×3 (05:39→18:40)
[2017-01-12 05:46] LABS: CALCIUM 8.7 mg/dL (8.5-10.1); CREATININE 0.8 mg/dL (0.7-1.3); GFR 95.3
[2017-01-12] MEDS ORDERED: ONDANSETRON PF 4 MG/2 ML VIAL. IV PRN (07:00)
[2017-01-12] MEDS ORDERED: IV RINGERS,LACTATED 1000ML 1,000 ML IV SCH (07:00)
[2017-01-12] MEDS ORDERED: LIDOCAINE 1% PF 2 ML VIAL. ID PRN (07:00)
[2017-01-12] MEDS ORDERED: HYDROmorphone 2 MG/ML VIAL IV PRN (07:00)
[2017-01-12] MEDS ORDERED: fentaNYL PF VIAL 100 MCG/2 ML VIAL IV PRN ×2 (07:00)
[2017-01-12] MEDS ORDERED: PROCHLORPERAZINE 10 MG/2 ML VIAL. IV PRN (07:00)
[2017-01-12] MEDS ORDERED: MORPHINE SULFATE 2 MG/ML DISP.SYRIN. IV PRN (07:00)
--- NOTE | 2017-01-12 08:33 | CONS ---
DATE OF CONSULTATION: 01/11/2017 REASON FOR CONSULTATION: Left femur fracture. HISTORY OF PRESENT ILLNESS: The patient is a 71-year-old male who underwent recent ORIF of an oblique comminuted left distal femoral shaft fracture little over about 2 weeks ago. He was in rehabilitation facility and apparently was on the commode, reached forward and tumbled to the floor. He was put back on the commode and fell off again this time with the sudden onset of pain and deformity to his left leg that had nonweightbearing instructions. Unfortunately, x-rays showed a fracture distal to the area of fixation and initially on his admission was noted to have severe mental status changes and was concerning for aspiration and is therefore n.p.o. at the time of examination with TPN. PAST MEDICAL HISTORY: Significant for hypertension, hyperlipidemia, and Parkinson's, also with dementia, anemia and depression. PAST SURGICAL HISTORY: Significant for the previous ORIF of the left femur fracture. FAMILY HISTORY: No significant family history. SOCIAL HISTORY: Again, was at a nursing facility. Denies smoking, alcohol or drug use. Family is at his bedside currently. MEDICATIONS: List is reviewed. ALLERGIES: He has no known drug allergies. REVIEW OF SYSTEMS: At this point, he seems much more alert than previously reported and is pleasant, conversational, sometimes not completely understandable but does complain of severe left leg pain with any movement, is otherwise comfortable. He denies any neck or back pain, numbness, tingling in the extremities or radiating pain. I am not able to get much more out of him than that in terms of review of systems, however. PHYSICAL EXAMINATION: GENERAL: This is a 71-year-old male, again is pleasant, cooperative, conversational. HEENT: Clearly hit the left side of his head, has some swelling. He is able to open his eyes and track. MUSCULOSKELETAL: There is no neck pain or back pain on palpation over the midline, has obvious deformity to the left distal femur. He can wiggle his toes, but has pain again with any attempted range of motion of the leg, even in the current immobilizer. No tenderness over the hip or ankle. Normal examination of the contralateral right hip, knee and ankle. He moves his shoulder, elbow and wrist spontaneously with no evidence of swelling, tenderness on palpation or instability. IMAGING: X-rays of the left femur show a fracture distal to the previous site of fixation. No intraarticular extension is noted. IMPRESSION: 1. Distal femur fracture. 2. History of previous plate fixation of a more proximal femur fracture. TREATMENT PLAN: I went over with the patient and his family the treatment options. Nonoperative treatment makes control of the fracture difficult and introduces immobility concerns, in addition to pain with any movement and even minimal daily activities. Surgical fixation would require removal of the current plate as the fracture is just distal to the current plate and some type of internal fixation I would prefer, probably plate fixation given his recent surgery and the need to come in to take out the current plate anyway. All their questions were answered. He does wish to proceed with surgical fixation of the fracture despite the current DNR status selected and the palliative care evaluation that was performed. All of his questions again were answered regarding this process and we did discuss possibility of nonhealing, medical or other anesthetic complications among others. Surgery is expected to occur tomorrow. BRENNAN STALEY MD DR: ANTONIO/calos JOB#: [id number] / [id number]
[2017-01-12] MEDS: SERTRALINE 50 MG TABLET. PO SCH ×2 (09:00→21:54)
[2017-01-12] MEDS: FUROSEMIDE 20 MG TABLET PO SCH (09:00)
[2017-01-12] MEDS: FINASTERIDE 5 MG TABLET. PO SCH (09:00)
[2017-01-12] MEDS: ATORVASTATIN CALCIUM 20 MG TABLET PO SCH (09:00)
[2017-01-12] MEDS: PRAMIPEXOLE 0.25 MG TABLET. PO SCH ×3 (09:00→21:52)
[2017-01-12] MEDS: amLODIPine BESYLATE 10 MG TABLET PO SCH (09:00)
--- NOTE | 2017-01-12 10:10 | PDOC ---
PROGRESS NOTES Assessment PD, worsening. I have followed him in the office for 5 years. Swallowing evaluation noted He also has diabetic neuropathy Metabolic encephalopathy. Bilateral pulmonary infiltrates. HTN HLD CAD s/p stent placement. Left distal femur fracture in 12/13. Bladder cancer? Skin cancer. Dementia features. Plan I ordered a Dobhoff tube to to give medication Continue Sinemet and Pramipexole to 0.375 mg tid. Treat medical and surgical diseases. Nutrition support. Subjective Denies pain Objective Vital Signs Date Time Temp Pulse Resp B/P (MAP) Pulse Ox O2 Delivery O2 Flow Rate FiO2 01/12/17 07:00 98.0 88 20 144/66 (92) 96 Room Air 98.0 01/12/17 05:10 2.0 PHYSICAL EXAM Alert. Speech clearer, does follow commands PERRL. EOMI. CN: no focal findings. Muscle tone: normal. No tremors noted Muscle strength: 4/5, has left lower extremity fracture DTR: 1+ Plantar reflex: flexor Gait: not examined in bed. Sensory exam: no abnormal findings. No cerebellar signs elicited. Review of Relevant I have reviewed the following items patricia (where applicable) has been applied. Labs Laboratory Tests Test 01/10/17 11:30 01/10/17 12:10 01/10/17 20:40 01/11/17 04:30 White Blood Count 11.1 x10^3/uL (4.0-11.0) 11.4 x10^3/uL (4.0-11.0) Red Blood Count 3.82 x10^6/uL (4.30-5.70) 3.52 x10^6/uL (4.30-5.70) Hemoglobin 10.0 g/dL (13.0-17.5) 9.2 g/dL (13.0-17.5) Hematocrit 31.6 % (39.0-53.0) 28.7 % (39.0-53.0) Mean Corpuscular Volume 83 fL (79-100) 82 fL (79-100) Mean Corpuscular Hemoglobin 26 pg (25-35) 26 pg (25-35) Mean Corpuscular Hemoglobin Concent 32 g/dL (31-37) 32 g/dL (31-37) Red Cell Distribution Width 17.6 % (11.5-14.5) 17.6 % (11.5-14.5) Platelet Count 311 x10^3/uL (140-400) 276 x10^3/uL (140-400) Neutrophils (%) (Auto) 70 % (31-73) 74 % (31-73) Lymphocytes (%) (Auto) 24 % (24-48) 20 % (24-48) Monocytes (%) (Auto) 4 % (0-9) 5 % (0-9) Eosinophils (%) (Auto) 2 % (0-3) 2 % (0-3) Basophils (%) (Auto) 0 % (0-3) 0 % (0-3) Neutrophils # (Auto) 7.7 x10^3uL (1.8-7.7) 8.4 x10^3uL (1.8-7.7) Lymphocytes # (Auto) 2.7 x10^3/uL (1.0-4.8) 2.3 x10^3/uL (1.0-4.8) Monocytes # (Auto) 0.4 x10^3/uL (0.0-1.1) 0.5 x10^3/uL (0.0-1.1) Eosinophils # (Auto) 0.2 x10^3/uL (0.0-0.7) 0.2 x10^3/uL (0.0-0.7) Basophils # (Auto) 0.0 x10^3/uL (0.0-0.2) 0.0 x10^3/uL (0.0-0.2) Prothrombin Time 18.9 SEC (11.7-14.0) Prothromb Time International Ratio 1.7 (0.8-1.1) Activated Partial Thromboplast Time 64 SEC (24-38) Sodium Level 145 mmol/L (136-145) 144 mmol/L (136-145) Potassium Level 2.9 mmol/L (3.5-5.1) 3.2 mmol/L (3.5-5.1) Chloride Level 106 mmol/L (98-107) 109 mmol/L (98-107) Carbon Dioxide Level 27 mmol/L (21-32) 24 mmol/L (21-32) Anion Gap 12 (6-14) 11 (6-14) Blood Urea Nitrogen 20 mg/dL (8-26) 19 mg/dL (8-26) Creatinine 0.9 mg/dL (0.7-1.3) 0.8 mg/dL (0.7-1.3) Estimated GFR (Cockcroft-Gault) 83.2 95.3 Glucose Level 105 mg/dL (70-99) 109 mg/dL (70-99) Calcium Level 8.9 mg/dL (8.5-10.1) 8.6 mg/dL (8.5-10.1) Magnesium Level 2.3 mg/dL (1.8-2.4) Total Bilirubin 0.8 mg/dL (0.2-1.0) Direct Bilirubin 0.2 mg/dL (0.0-0.2) Aspartate Amino Transf (AST/SGOT) 20 U/L (15-37) Alanine Aminotransferase (ALT/SGPT) 12 U/L (16-63) Alkaline Phosphatase 353 U/L (46-116) Ammonia < 10 mcmol/L (11-34) Creatine Kinase 51 U/L (39-308) Creatine Kinase MB (Mass) 1.0 ng/mL (0.0-3.6) Creatine Kinase MB Relative Index % (0-4) Troponin I Quantitative < 0.017 ng/mL (0.000-0.055) XN-Bhk-G-Type Natriuretic Peptide 1299 pg/mL (0-124) Total Protein 7.1 g/dL (6.4-8.2) Albumin 2.8 g/dL (3.4-5.0) Urine Collection Type U cath Urine Color Allie Urine Clarity Cloudy Urine pH 6.0 Urine Specific [place] 1.025 Urine Protein 30 mg/dL (NEG-TRACE) Urine Glucose (UA) Negative mg/dL (NEG) Urine Ketones (Stick) Trace mg/dL (NEG) Urine Blood Small (NEG) Urine Nitrite Negative (NEG) Urine Bilirubin Moderate (NEG) Urine Urobilinogen Dipstick 1.0 mg/dL (0.2 mg/dL) Urine Leukocyte Esterase Moderate (NEG) Urine RBC 11-20 /HPF (0-2) Urine WBC 20-40 /HPF (0-4) Urine Squamous Epithelial Cells Few /LPF Urine Renal Epithelial Cells Mod /LPF Urine Amorphous Sediment Present /HPF Urine Bacteria Few /HPF (0-FEW) Urine Mucus Marked /LPF Urine Opiates Screen Pos (NEG) Urine Methadone Screen Neg (NEG) Urine Barbiturates Neg (NEG) Urine Phencyclidine Screen Neg (NEG) Urine Amphetamine/Methamphetamine Neg (NEG) Urine Benzodiazepines Screen Neg (NEG) Urine Cocaine Screen Neg (NEG) Urine Cannabinoids Screen Neg (NEG) Urine Ethyl Alcohol Neg (NEG) Nasal Screen MRSA (PCR) Negative (Negative) Test 01/12/17 04:20 White Blood Count 12.0 x10^3/uL (4.0-11.0) Red Blood Count 3.75 x10^6/uL (4.30-5.70) Hemoglobin 9.8 g/dL (13.0-17.5) Hematocrit 30.6 % (39.0-53.0) Mean Corpuscular Volume 82 fL (79-100) Mean Corpuscular Hemoglobin 26 pg (25-35) Mean Corpuscular Hemoglobin Concent 32 g/dL (31-37) Red Cell Distribution Width 17.4 % (11.5-14.5) Platelet Count 289 x10^3/uL (140-400) Neutrophils (%) (Auto) 71 % (31-73) Lymphocytes (%) (Auto) 21 % (24-48) Monocytes (%) (Auto) 5 % (0-9) Eosinophils (%) (Auto) 2 % (0-3) Basophils (%) (Auto) 0 % (0-3) Neutrophils # (Auto) 8.6 x10^3uL (1.8-7.7) Lymphocytes # (Auto) 2.5 x10^3/uL (1.0-4.8) Monocytes # (Auto) 0.6 x10^3/uL (0.0-1.1) Eosinophils # (Auto) 0.2 x10^3/uL (0.0-0.7) Basophils # (Auto) 0.0 x10^3/uL (0.0-0.2) Sodium Level 143 mmol/L (136-145) Potassium Level 4.0 mmol/L (3.5-5.1) Chloride Level 108 mmol/L (98-107) Carbon Dioxide Level 25 mmol/L (21-32) Anion Gap 10 (6-14) Blood Urea Nitrogen 19 mg/dL (8-26) Creatinine 0.8 mg/dL (0.7-1.3) Estimated GFR (Cockcroft-Gault) 95.3 Glucose Level 106 mg/dL (70-99) Calcium Level 8.7 mg/dL (8.5-10.1) Laboratory Tests Test 01/12/17 04:20 White Blood Count 12.0 x10^3/uL (4.0-11.0) Red Blood Count 3.75 x10^6/uL (4.30-5.70) Hemoglobin 9.8 g/dL (13.0-17.5) Hematocrit 30.6 % (39.0-53.0) Mean Corpuscular Volume 82 fL (79-100) Mean Corpuscular Hemoglobin 26 pg (25-35) Mean Corpuscular Hemoglobin Concent 32 g/dL (31-37) Red Cell Distribution Width 17.4 % (11.5-14.5) Platelet Count 289 x10^3/uL (140-400) Neutrophils (%) (Auto) 71 % (31-73) Lymphocytes (%) (Auto) 21 % (24-48) Monocytes (%) (Auto) 5 % (0-9) Eosinophils (%) (Auto) 2 % (0-3) Basophils (%) (Auto) 0 % (0-3) Neutrophils # (Auto) 8.6 x10^3uL (1.8-7.7) Lymphocytes # (Auto) 2.5 x10^3/uL (1.0-4.8) Monocytes # (Auto) 0.6 x10^3/uL (0.0-1.1) Eosinophils # (Auto) 0.2 x10^3/uL (0.0-0.7) Basophils # (Auto) 0.0 x10^3/uL (0.0-0.2) Sodium Level 143 mmol/L (136-145) Potassium Level 4.0 mmol/L (3.5-5.1) Chloride Level 108 mmol/L (98-107) Carbon Dioxide Level 25 mmol/L (21-32) Anion Gap 10 (6-14) Blood Urea Nitrogen 19 mg/dL (8-26) Creatinine 0.8 mg/dL (0.7-1.3) Estimated GFR (Cockcroft-Gault) 95.3 Glucose Level 106 mg/dL (70-99) Calcium Level 8.7 mg/dL (8.5-10.1) Microbiology 01/10/17 Blood Culture - Preliminary, Resulted NO GROWTH AFTER 1 DAY 01/10/17 Urine Culture - Preliminary, Resulted 01/10/17 Urine Culture Result 1 (ESTRELLA) - Preliminary, Resulted Medications Current Medications Fentanyl Citrate (Fentanyl 2ml Vial) 25 mcg PRN Q15MIN PRN IV PAIN GREATER THAN 3/10 Last administered on 01/10/17 12:42; Start 01/10/17 at 12:45; Stop 01/11/17 at 12:44; Status DC Fentanyl Citrate (Fentanyl 2ml Vial) 100 mcg STK-MED ONCE .ROUTE ; Start at 12:39; Stop 01/10/17 at 12:40; Status DC Potassium Chloride 100 ml @ 100 mls/hr Q1H IV Last administered on 01/10/17 16:32; Start 01/10/17 at 13:00; Stop 01/10/17 at 16:59; Status DC Ceftriaxone Sodium 50 ml @ 100 mls/hr 1X ONCE IV Last administered on 13:03; Start 01/10/17 at 13:00; Stop 01/10/17 at 13:29; Status DC Fentanyl Citrate (Fentanyl 2ml Vial) 50 mcg PRN Q2HR PRN IV PAIN Last administered on 01/12/17 04:39; Start 01/10/17 at 14:45 Acetaminophen (Tylenol) 650 mg Q4HRS PO ; Start 01/10/17 at 16:00; Status UNV Amlodipine Besylate (Norvasc) 10 mg DAILY PO ; Start 01/10/17 at 15:00 Atorvastatin Calcium (Lipitor) 20 mg DAILY PO ; Start 01/10/17 at 15:00 Finasteride (Proscar) 5 mg DAILY PO ; Start 01/11/17 at 09:00 Furosemide (Lasix) 20 mg DAILY PO ; Start 01/10/17 at 15:00 Oxycodone/ Acetaminophen (Percocet 5/325) 1 tab PRN Q4HRS PRN PO pain 5-7; Start 01/10/17 at 14:45 Pramipexole Dihydrochloride (miraPEX) 0.25 mg TID PO ; Start 01/10/17 at 15:00 ; Stop 01/10/17 at 16:31; Status DC Tamsulosin HCl (Flomax) 0.8 mg QHS PO ; Start 01/10/17 at 21:00 Atenolol (Tenormin) 100 mg HS PO ; Start 01/10/17 at 21:00 Non-Formulary Medication 1 tab QID PO ; Start 01/10/17 at 17:00; Status UNV Gabapentin (Neurontin) 600 mg HS PO ; Start 01/10/17 at 21:00 Pantoprazole Sodium (Protonix) 40 mg QODAY PO ; Start 01/11/17 at 07:30 Sertraline HCl (Zoloft) 100 mg BID PO ; Start 01/10/17 at 21:00 Amino Acids/ Glycerin/ Electrolytes 1,000 ml @ 80 mls/hr [id number] IV Last administered on 01/12/17 04:38; Start 01/10/17 at 15:00 Enoxaparin Sodium (Lovenox 40mg Syringe) 40 mg Q24H SQ ; Start 01/10/17 at 15: 00 Famotidine (Pepcid) 20 mg QHS IVP Last administered on 01/11/17 21:26; Start 01/10/17 at 21:00 Pramipexole Dihydrochloride (miraPEX) 0.375 mg TID PO ; Start 01/10/17 at 21:00 Carbidopa/Levodopa (Sinemet 25/100) 2 tab [id number] PO ; Start 01/10/17 at 18: 00 Potassium Chloride 100 ml @ 100 mls/hr Q1H IV Last administered on 01/11/17 13:11; Start 01/11/17 at 09:30; Stop 01/11/17 at 13:29; Status DC Ondansetron HCl (Zofran) 4 mg PRN Q6HRS PRN IV NAUSEA/VOMITING; Start at 07:00; Stop 01/13/17 at 06:59 Fentanyl Citrate (Fentanyl 2ml Vial) 25 mcg PRN Q5MIN PRN IV MILD PAIN; Start 01/12/17 at 07:00; Stop 01/13/17 at 06:59 Fentanyl Citrate (Fentanyl 2ml Vial) 50 mcg PRN Q5MIN PRN IV MODERATE PAIN; Start 01/12/17 at 07:00; Stop 01/13/17 at 06:59 Morphine Sulfate 1 mg PRN Q10MIN PRN IV SEVERE PAIN; Start 01/12/17 at 07:00; Stop 01/13/17 at 06:59 Ringer's Solution 1,000 ml @ 30 mls/hr Q24H IV ; Start 01/12/17 at 07:00; Stop 01/12/17 at 18:59 Lidocaine HCl (Xylocaine-Mpf 1% Vial) 2 ml PRN 1X PRN ID IV START; Start 01/12 at 07:00; Stop 01/13/17 at 06:59 Hydromorphone HCl (Dilaudid) 0.5 mg PRN Q10MIN PRN IV SEV PAIN, Second choice; Start 01/12/17 at 07:00; Stop 01/13/17 at 06:59 Prochlorperazine Edisylate (Compazine) 5 mg PACU PRN PRN IV NAUSEA, MRX1; Start 01/12/17 at 07:00; Stop 01/13/17 at 06:59 Active Scripts Active Oxycodone-Acetaminophen 5-325 (Oxycodone Hcl/Acetaminophen) 1 Each Tablet 1 Tab PO PRN Q4HRS PRN Reported Gabapentin 300 Mg Capsule 600 Mg PO QHS Sinemet Cr 50-200 Tablet (Carbidopa/Levodopa) 1 Each Tablet.er 1 Tab PO QID Lansoprazole 15 Mg Capsule.dr 15 Mg PO QODAY Pramipexole Dihydrochloride (Pramipexole Di-Hcl) 0.25 Mg Tablet 0.25 Mg PO TID Furosemide 20 Mg Tablet 20 Mg PO DAILY Plavix (Clopidogrel Bisulfate) 75 Mg Tablet 75 Mg PO DAILY Finasteride 5 Mg Tablet 5 Mg PO DAILY Tylenol (Acetaminophen) 325 Mg Tablet 650 Mg PO Q4HRS Tamsulosin Hcl 0.4 Mg Cap.er.24h 0.8 Mg PO QHS Sertraline Hcl 100 Mg Tablet 100 Mg PO BID Amlodipine Besylate 10 Mg Tablet 10 Mg PO DAILY Atenolol 100 Mg Tablet 100 Mg PO QHS Atorvastatin Calcium 20 Mg Tablet 20 Mg PO DAILY Vitals/I & O Vital Sign - Last 24 Hours 01/11/17 01/11/17 01/11/17 01/11/17 11:00 15:00 16:36 19:00 Temp 98.9 98.8 99.6 98.9 98.8 99.6 Pulse 69 78 79 Resp 18 18 20 B/P (MAP) 141/69 (93) 132/62 (85) 135/59 (84) Pulse Ox 94 95 95 90 O2 Delivery Nasal Cannula Room Air Nasal Cannula Room Air O2 Flow Rate 2.0 2.0 01/11/17 01/11/17 01/11/17 01/11/17 20:00 20:56 23:00 23:52 Temp 99.0 99.0 Pulse 79 83 Resp 22 20 B/P (MAP) 135/59 137/68 (91) Pulse Ox 95 95 O2 Delivery Nasal Cannula Nasal Cannula Nasal Cannula O2 Flow Rate 2.0 2.0 2.0 01/12/17 01/12/17 01/12/17 01/12/17 03:00 04:39 05:10 07:00 Temp 99.1 98.0 99.1 98.0 Pulse 79 88 Resp 22 20 20 20 B/P (MAP) 131/72 (91) 144/66 (92) Pulse Ox 95 95 95 96 O2 Delivery Nasal Cannula Nasal Cannula Nasal Cannula Room Air O2 Flow Rate 2.0 2.0 2.0 AURE BURDICK MD Jan 12, 2017 10:10
--- NOTE | 2017-01-12 11:21 | PDOC ---
PROGRESS NOTES Chief Complaint Chief Complaint 1. Distal femur fx, left 2. Advanced parkinsons with dementia 3. Acute on Chronic aspiration 4. Dysphagia on dyasphagia diet in SNU 5. Severe PCM 6. HX CAD with 1 stent on plavix 7. Easy bruisability 8. DNR DNI History of Present Illness History of Present Illness For OR later today 6;30 PM NEuro has ordered tc so he wont miss his parkinson's pills PPLace will not take back tc pts Famly in my 2 meets was not wanting PEG - unsure of this decision will change with the decision to tc him PAlliative on case Dw RN Em PT otherwise has no complaints PLAN: Will touch base with palliative re the above Vitals Vitals Vital Signs Date Time Temp Pulse Resp B/P (MAP) Pulse Ox O2 Delivery O2 Flow Rate FiO2 01/12/17 07:00 98.0 88 20 144/66 (92) 96 Room Air 98.0 01/12/17 05:10 2.0 Physical Exam General: No acute distress, Other (mouth breather, shakes, ) Lungs: Clear Abdomen: Normal bowel sounds, Soft, No tenderness, No hepatosplenomegaly, No masses Extremities: Other (RT leg straightened) Skin: No rashes, No breakdown, No significant lesion Labs LABS Laboratory Tests Test 01/12/17 04:20 White Blood Count 12.0 x10^3/uL (4.0-11.0) Red Blood Count 3.75 x10^6/uL (4.30-5.70) Hemoglobin 9.8 g/dL (13.0-17.5) Hematocrit 30.6 % (39.0-53.0) Mean Corpuscular Volume 82 fL (79-100) Mean Corpuscular Hemoglobin 26 pg (25-35) Mean Corpuscular Hemoglobin Concent 32 g/dL (31-37) Red Cell Distribution Width 17.4 % (11.5-14.5) Platelet Count 289 x10^3/uL (140-400) Neutrophils (%) (Auto) 71 % (31-73) Lymphocytes (%) (Auto) 21 % (24-48) Monocytes (%) (Auto) 5 % (0-9) Eosinophils (%) (Auto) 2 % (0-3) Basophils (%) (Auto) 0 % (0-3) Neutrophils # (Auto) 8.6 x10^3uL (1.8-7.7) Lymphocytes # (Auto) 2.5 x10^3/uL (1.0-4.8) Monocytes # (Auto) 0.6 x10^3/uL (0.0-1.1) Eosinophils # (Auto) 0.2 x10^3/uL (0.0-0.7) Basophils # (Auto) 0.0 x10^3/uL (0.0-0.2) Sodium Level 143 mmol/L (136-145) Potassium Level 4.0 mmol/L (3.5-5.1) Chloride Level 108 mmol/L (98-107) Carbon Dioxide Level 25 mmol/L (21-32) Anion Gap 10 (6-14) Blood Urea Nitrogen 19 mg/dL (8-26) Creatinine 0.8 mg/dL (0.7-1.3) Estimated GFR (Cockcroft-Gault) 95.3 Glucose Level 106 mg/dL (70-99) Calcium Level 8.7 mg/dL (8.5-10.1) Review of Systems Review of Systems shakes,leg pains, no cp, soa, diarrhea, emesis Comment Review of Relevant I have reviewed the following items patricia (where applicable) has been applied. Labs Laboratory Tests Test 01/10/17 11:30 01/10/17 12:10 01/10/17 20:40 01/11/17 04:30 White Blood Count 11.1 x10^3/uL (4.0-11.0) 11.4 x10^3/uL (4.0-11.0) Red Blood Count 3.82 x10^6/uL (4.30-5.70) 3.52 x10^6/uL (4.30-5.70) Hemoglobin 10.0 g/dL (13.0-17.5) 9.2 g/dL (13.0-17.5) Hematocrit 31.6 % (39.0-53.0) 28.7 % (39.0-53.0) Mean Corpuscular Volume 83 fL (79-100) 82 fL (79-100) Mean Corpuscular Hemoglobin 26 pg (25-35) 26 pg (25-35) Mean Corpuscular Hemoglobin Concent 32 g/dL (31-37) 32 g/dL (31-37) Red Cell Distribution Width 17.6 % (11.5-14.5) 17.6 % (11.5-14.5) Platelet Count 311 x10^3/uL (140-400) 276 x10^3/uL (140-400) Neutrophils (%) (Auto) 70 % (31-73) 74 % (31-73) Lymphocytes (%) (Auto) 24 % (24-48) 20 % (24-48) Monocytes (%) (Auto) 4 % (0-9) 5 % (0-9) Eosinophils (%) (Auto) 2 % (0-3) 2 % (0-3) Basophils (%) (Auto) 0 % (0-3) 0 % (0-3) Neutrophils # (Auto) 7.7 x10^3uL (1.8-7.7) 8.4 x10^3uL (1.8-7.7) Lymphocytes # (Auto) 2.7 x10^3/uL (1.0-4.8) 2.3 x10^3/uL (1.0-4.8) Monocytes # (Auto) 0.4 x10^3/uL (0.0-1.1) 0.5 x10^3/uL (0.0-1.1) Eosinophils # (Auto) 0.2 x10^3/uL (0.0-0.7) 0.2 x10^3/uL (0.0-0.7) Basophils # (Auto) 0.0 x10^3/uL (0.0-0.2) 0.0 x10^3/uL (0.0-0.2) Prothrombin Time 18.9 SEC (11.7-14.0) Prothromb Time International Ratio 1.7 (0.8-1.1) Activated Partial Thromboplast Time 64 SEC (24-38) Sodium Level 145 mmol/L (136-145) 144 mmol/L (136-145) Potassium Level 2.9 mmol/L (3.5-5.1) 3.2 mmol/L (3.5-5.1) Chloride Level 106 mmol/L (98-107) 109 mmol/L (98-107) Carbon Dioxide Level 27 mmol/L (21-32) 24 mmol/L (21-32) Anion Gap 12 (6-14) 11 (6-14) Blood Urea Nitrogen 20 mg/dL (8-26) 19 mg/dL (8-26) Creatinine 0.9 mg/dL (0.7-1.3) 0.8 mg/dL (0.7-1.3) Estimated GFR (Cockcroft-Gault) 83.2 95.3 Glucose Level 105 mg/dL (70-99) 109 mg/dL (70-99) Calcium Level 8.9 mg/dL (8.5-10.1) 8.6 mg/dL (8.5-10.1) Magnesium Level 2.3 mg/dL (1.8-2.4) Total Bilirubin 0.8 mg/dL (0.2-1.0) Direct Bilirubin 0.2 mg/dL (0.0-0.2) Aspartate Amino Transf (AST/SGOT) 20 U/L (15-37) Alanine Aminotransferase (ALT/SGPT) 12 U/L (16-63) Alkaline Phosphatase 353 U/L (46-116) Ammonia < 10 mcmol/L (11-34) Creatine Kinase 51 U/L (39-308) Creatine Kinase MB (Mass) 1.0 ng/mL (0.0-3.6) Creatine Kinase MB Relative Index % (0-4) Troponin I Quantitative < 0.017 ng/mL (0.000-0.055) RO-Gto-T-Type Natriuretic Peptide 1299 pg/mL (0-124) Total Protein 7.1 g/dL (6.4-8.2) Albumin 2.8 g/dL (3.4-5.0) Urine Collection Type U cath Urine Color Allie Urine Clarity Cloudy Urine pH 6.0 Urine Specific [place] 1.025 Urine Protein 30 mg/dL (NEG-TRACE) Urine Glucose (UA) Negative mg/dL (NEG) Urine Ketones (Stick) Trace mg/dL (NEG) Urine Blood Small (NEG) Urine Nitrite Negative (NEG) Urine Bilirubin Moderate (NEG) Urine Urobilinogen Dipstick 1.0 mg/dL (0.2 mg/dL) Urine Leukocyte Esterase Moderate (NEG) Urine RBC 11-20 /HPF (0-2) Urine WBC 20-40 /HPF (0-4) Urine Squamous Epithelial Cells Few /LPF Urine Renal Epithelial Cells Mod /LPF Urine Amorphous Sediment Present /HPF Urine Bacteria Few /HPF (0-FEW) Urine Mucus Marked /LPF Urine Opiates Screen Pos (NEG) Urine Methadone Screen Neg (NEG) Urine Barbiturates Neg (NEG) Urine Phencyclidine Screen Neg (NEG) Urine Amphetamine/Methamphetamine Neg (NEG) Urine Benzodiazepines Screen Neg (NEG) Urine Cocaine Screen Neg (NEG) Urine Cannabinoids Screen Neg (NEG) Urine Ethyl Alcohol Neg (NEG) Nasal Screen MRSA (PCR) Negative (Negative) Test 01/12/17 04:20 White Blood Count 12.0 x10^3/uL (4.0-11.0) Red Blood Count 3.75 x10^6/uL (4.30-5.70) Hemoglobin 9.8 g/dL (13.0-17.5) Hematocrit 30.6 % (39.0-53.0) Mean Corpuscular Volume 82 fL (79-100) Mean Corpuscular Hemoglobin 26 pg (25-35) Mean Corpuscular Hemoglobin Concent 32 g/dL (31-37) Red Cell Distribution Width 17.4 % (11.5-14.5) Platelet Count 289 x10^3/uL (140-400) Neutrophils (%) (Auto) 71 % (31-73) Lymphocytes (%) (Auto) 21 % (24-48) Monocytes (%) (Auto) 5 % (0-9) Eosinophils (%) (Auto) 2 % (0-3) Basophils (%) (Auto) 0 % (0-3) Neutrophils # (Auto) 8.6 x10^3uL (1.8-7.7) Lymphocytes # (Auto) 2.5 x10^3/uL (1.0-4.8) Monocytes # (Auto) 0.6 x10^3/uL (0.0-1.1) Eosinophils # (Auto) 0.2 x10^3/uL (0.0-0.7) Basophils # (Auto) 0.0 x10^3/uL (0.0-0.2) Sodium Level 143 mmol/L (136-145) Potassium Level 4.0 mmol/L (3.5-5.1) Chloride Level 108 mmol/L (98-107) Carbon Dioxide Level 25 mmol/L (21-32) Anion Gap 10 (6-14) Blood Urea Nitrogen 19 mg/dL (8-26) Creatinine 0.8 mg/dL (0.7-1.3) Estimated GFR (Cockcroft-Gault) 95.3 Glucose Level 106 mg/dL (70-99) Calcium Level 8.7 mg/dL (8.5-10.1) Laboratory Tests Test 01/12/17 04:20 White Blood Count 12.0 x10^3/uL (4.0-11.0) Red Blood Count 3.75 x10^6/uL (4.30-5.70) Hemoglobin 9.8 g/dL (13.0-17.5) Hematocrit 30.6 % (39.0-53.0) Mean Corpuscular Volume 82 fL (79-100) Mean Corpuscular Hemoglobin 26 pg (25-35) Mean Corpuscular Hemoglobin Concent 32 g/dL (31-37) Red Cell Distribution Width 17.4 % (11.5-14.5) Platelet Count 289 x10^3/uL (140-400) Neutrophils (%) (Auto) 71 % (31-73) Lymphocytes (%) (Auto) 21 % (24-48) Monocytes (%) (Auto) 5 % (0-9) Eosinophils (%) (Auto) 2 % (0-3) Basophils (%) (Auto) 0 % (0-3) Neutrophils # (Auto) 8.6 x10^3uL (1.8-7.7) Lymphocytes # (Auto) 2.5 x10^3/uL (1.0-4.8) Monocytes # (Auto) 0.6 x10^3/uL (0.0-1.1) Eosinophils # (Auto) 0.2 x10^3/uL (0.0-0.7) Basophils # (Auto) 0.0 x10^3/uL (0.0-0.2) Sodium Level 143 mmol/L (136-145) Potassium Level 4.0 mmol/L (3.5-5.1) Chloride Level 108 mmol/L (98-107) Carbon Dioxide Level 25 mmol/L (21-32) Anion Gap 10 (6-14) Blood Urea Nitrogen 19 mg/dL (8-26) Creatinine 0.8 mg/dL (0.7-1.3) Estimated GFR (Cockcroft-Gault) 95.3 Glucose Level 106 mg/dL (70-99) Calcium Level 8.7 mg/dL (8.5-10.1) Microbiology 01/10/17 Blood Culture - Preliminary, Resulted NO GROWTH AFTER 1 DAY 01/10/17 Urine Culture - Preliminary, Resulted 01/10/17 Urine Culture Result 1 (ESTRELLA) - Preliminary, Resulted Medications Current Medications Fentanyl Citrate (Fentanyl 2ml Vial) 25 mcg PRN Q15MIN PRN IV PAIN GREATER THAN 3/10 Last administered on 01/10/17 12:42; Start 01/10/17 at 12:45; Stop 01/11/17 at 12:44; Status DC Fentanyl Citrate (Fentanyl 2ml Vial) 100 mcg STK-MED ONCE .ROUTE ; Start at 12:39; Stop 01/10/17 at 12:40; Status DC Potassium Chloride 100 ml @ 100 mls/hr Q1H IV Last administered on 01/10/17 16:32; Start 01/10/17 at 13:00; Stop 01/10/17 at 16:59; Status DC Ceftriaxone Sodium 50 ml @ 100 mls/hr 1X ONCE IV Last administered on 13:03; Start 01/10/17 at 13:00; Stop 01/10/17 at 13:29; Status DC Fentanyl Citrate (Fentanyl 2ml Vial) 50 mcg PRN Q2HR PRN IV PAIN Last administered on 01/12/17 04:39; Start 01/10/17 at 14:45 Acetaminophen (Tylenol) 650 mg Q4HRS PO ; Start 01/10/17 at 16:00; Status UNV Amlodipine Besylate (Norvasc) 10 mg DAILY PO ; Start 01/10/17 at 15:00 Atorvastatin Calcium (Lipitor) 20 mg DAILY PO ; Start 01/10/17 at 15:00 Finasteride (Proscar) 5 mg DAILY PO ; Start 01/11/17 at 09:00 Furosemide (Lasix) 20 mg DAILY PO ; Start 01/10/17 at 15:00 Oxycodone/ Acetaminophen (Percocet 5/325) 1 tab PRN Q4HRS PRN PO pain 5-7; Start 01/10/17 at 14:45 Pramipexole Dihydrochloride (miraPEX) 0.25 mg TID PO ; Start 01/10/17 at 15:00 ; Stop 01/10/17 at 16:31; Status DC Tamsulosin HCl (Flomax) 0.8 mg QHS PO ; Start 01/10/17 at 21:00 Atenolol (Tenormin) 100 mg HS PO ; Start 01/10/17 at 21:00 Non-Formulary Medication 1 tab QID PO ; Start 01/10/17 at 17:00; Status UNV Gabapentin (Neurontin) 600 mg HS PO ; Start 01/10/17 at 21:00 Pantoprazole Sodium (Protonix) 40 mg QODAY PO ; Start 01/11/17 at 07:30 Sertraline HCl (Zoloft) 100 mg BID PO ; Start 01/10/17 at 21:00 Amino Acids/ Glycerin/ Electrolytes 1,000 ml @ 80 mls/hr [id number] IV Last administered on 01/12/17 04:38; Start 01/10/17 at 15:00 Enoxaparin Sodium (Lovenox 40mg Syringe) 40 mg Q24H SQ ; Start 01/10/17 at 15: 00 Famotidine (Pepcid) 20 mg QHS IVP Last administered on 01/11/17 21:26; Start 01/10/17 at 21:00 Pramipexole Dihydrochloride (miraPEX) 0.375 mg TID PO ; Start 01/10/17 at 21:00 Carbidopa/Levodopa (Sinemet 25/100) 2 tab [id number] PO ; Start 01/10/17 at 18: 00 Potassium Chloride 100 ml @ 100 mls/hr Q1H IV Last administered on 01/11/17 13:11; Start 01/11/17 at 09:30; Stop 01/11/17 at 13:29; Status DC Ondansetron HCl (Zofran) 4 mg PRN Q6HRS PRN IV NAUSEA/VOMITING; Start at 07:00; Stop 01/13/17 at 06:59 Fentanyl Citrate (Fentanyl 2ml Vial) 25 mcg PRN Q5MIN PRN IV MILD PAIN; Start 01/12/17 at 07:00; Stop 01/13/17 at 06:59 Fentanyl Citrate (Fentanyl 2ml Vial) 50 mcg PRN Q5MIN PRN IV MODERATE PAIN; Start 01/12/17 at 07:00; Stop 01/13/17 at 06:59 Morphine Sulfate 1 mg PRN Q10MIN PRN IV SEVERE PAIN; Start 01/12/17 at 07:00; Stop 01/13/17 at 06:59 Ringer's Solution 1,000 ml @ 30 mls/hr Q24H IV ; Start 01/12/17 at 07:00; Stop 01/12/17 at 18:59 Lidocaine HCl (Xylocaine-Mpf 1% Vial) 2 ml PRN 1X PRN ID IV START; Start 01/12 at 07:00; Stop 01/13/17 at 06:59 Hydromorphone HCl (Dilaudid) 0.5 mg PRN Q10MIN PRN IV SEV PAIN, Second choice; Start 01/12/17 at 07:00; Stop 01/13/17 at 06:59 Prochlorperazine Edisylate (Compazine) 5 mg PACU PRN PRN IV NAUSEA, MRX1; Start 01/12/17 at 07:00; Stop 01/13/17 at 06:59 Active Scripts Active Oxycodone-Acetaminophen 5-325 (Oxycodone Hcl/Acetaminophen) 1 Each Tablet 1 Tab PO PRN Q4HRS PRN Reported Gabapentin 300 Mg Capsule 600 Mg PO QHS Sinemet Cr 50-200 Tablet (Carbidopa/Levodopa) 1 Each Tablet.er 1 Tab PO QID Lansoprazole 15 Mg Capsule.dr 15 Mg PO QODAY Pramipexole Dihydrochloride (Pramipexole Di-Hcl) 0.25 Mg Tablet 0.25 Mg PO TID Furosemide 20 Mg Tablet 20 Mg PO DAILY Plavix (Clopidogrel Bisulfate) 75 Mg Tablet 75 Mg PO DAILY Finasteride 5 Mg Tablet 5 Mg PO DAILY Tylenol (Acetaminophen) 325 Mg Tablet 650 Mg PO Q4HRS Tamsulosin Hcl 0.4 Mg Cap.er.24h 0.8 Mg PO QHS Sertraline Hcl 100 Mg Tablet 100 Mg PO BID Amlodipine Besylate 10 Mg Tablet 10 Mg PO DAILY Atenolol 100 Mg Tablet 100 Mg PO QHS Atorvastatin Calcium 20 Mg Tablet 20 Mg PO DAILY Vitals/I & O Vital Sign - Last 24 Hours 01/11/17 01/11/17 01/11/17 01/11/17 15:00 16:36 19:00 20:00 Temp 98.8 99.6 98.8 99.6 Pulse 78 79 Resp 18 20 B/P (MAP) 132/62 (85) 135/59 (84) Pulse Ox 95 95 90 O2 Delivery Room Air Nasal Cannula Room Air Nasal Cannula O2 Flow Rate 2.0 2.0 01/11/17 01/11/17 01/11/17 01/12/17 20:56 23:00 23:52 03:00 Temp 99.0 99.1 99.0 99.1 Pulse 79 83 79 Resp 22 20 22 B/P (MAP) 135/59 137/68 (91) 131/72 (91) Pulse Ox 95 95 95 O2 Delivery Nasal Cannula Nasal Cannula Nasal Cannula O2 Flow Rate 2.0 2.0 2.0 01/12/17 01/12/17 01/12/17 04:39 05:10 07:00 Temp 98.0 98.0 Pulse 88 Resp 20 20 20 B/P (MAP) 144/66 (92) Pulse Ox 95 95 96 O2 Delivery Nasal Cannula Nasal Cannula Room Air O2 Flow Rate 2.0 2.0 Nutrition Consultation Dietary Evaluation: Recommendations by RD: Increase Calorie Intake, Protein supplementation, PPN/ TPN Comments: REC diet per [employer], possible need for halfway tube feedings would continue ppn for short term nutrition at this time Expected Outcomes/Goals: to meet > 75% est nutr needs Interpretation of weight loss: >5% in 1 month Malnutrition Findings: Weight Status: Underweight SANDRA JAMES MD Jan 12, 2017 11:21
--- NOTE | 2017-01-12 11:59 | RAD ---
Indication assess Dobbhoff feeding tube placement. A single view of the abdomen was obtained. The abdominal gas pattern has a nonobstructive appearance. Some gas and minimally dilated loops of small bowel is nonspecific. A Dobbhoff feeding tube has its tip in the body and fundus of the stomach. IMPRESSION: Dobbhoff feeding tube in the stomach
[2017-01-12] MEDS ORDERED: PROPOFOL 20 ML IV ONE (12:54)
[2017-01-12] MEDS ORDERED: fentaNYL PF VIAL 100 MCG/2 ML VIAL ONE (12:54)
[2017-01-12] MEDS ORDERED: LIDOCAINE 2% PF Vial for OR 5 ML VIAL. ONE (12:54)
[2017-01-12] MEDS ORDERED: DEXAMETHASONE SOD PHOS 20 MG/5 ML VIAL. ONE (12:54)
[2017-01-12] MEDS ORDERED: DESFLURANE 61 TO 120 MINUTES IH ONE (12:54)
[2017-01-12] MEDS ORDERED: ONDANSETRON PF 4 MG/2 ML VIAL. ONE (13:12)
[2017-01-12] MEDS ORDERED: METOPROLOL TARTRATE 5 MG/5 ML VIAL. ONE (13:30)
[2017-01-12] MEDS ORDERED: ALBUMIN HUMAN 5% 500 ML IV ONE (13:34)
[2017-01-12] MEDS: ENOXAPARIN 40 MG/0.4 ML SYRINGE. SQ SCH (13:35)
[2017-01-12] MEDS ORDERED: MORPHINE SULFATE 10 MG/ML VIAL. ONE (13:54)
[2017-01-12] MEDS ORDERED: NEOSTIGMINE METHYLSULFATE 5 MG/5 ML SYRINGE. ONE (14:50)
[2017-01-12] MEDS ORDERED: GLYCOPYRROLATE 1 MG/5 ML VIAL. ONE (14:50)
--- NOTE | 2017-01-12 15:35 | PDOC4 ---
Operative Note Operative Note Date of surgery: 01/12/2017 Preoperative diagnosis: Distal femur fracture below previous fixation Postoperative diagnosis: Same Operative procedure: Removal plate and screws with open reduction and placement long distal femoral locking plate with cable and cerclage fixation Surgeon: Nichole Assist: Lisa Anesthesia: Gen. endotracheal Estimated blood loss: 300 mL plus hematoma at fracture site Complications: None Operative indications: Patient is a 71-year-old male who underwent previous fixation of a femur fracture and was in rehabilitation and apparently fell off the commode sustaining a fracture distal to his previous fixation. I had covered with the patient and his family different treatment options at length in his formal consultation and he agrees to proceed with surgical evaluation and treatment. He is aware of the risks of possible nonhealing infection medical or other anesthetic complications among others and the need for strict nonweightbearing. Operative text patient was identified procedure verified patient placed in supine position on the operating table after adequate amounts of general endotracheal anesthesia were administered the left lower extremity was prepped and draped in standard sterile fashion. After timeout was performed patient procedure identified and verified, and incision was carried out along the previous suture line and subperiosteal dissection carried out to the femoral shaft and fracture site. Previous hardware was removed was well fixed proximally and for all but the most distal screw. A 12 hole Sylvia distal femoral locking plate was placed under fluoroscopic guidance and a single screw placed through the epicondylar axis and with the plate aligned proximally on the femoral shaft a cerclage wire was placed to provide adequate reduction at the most comminuted portion of the fracture site. A single fixation screw placed in the proximal femoral shaft and screws were placed under fluoroscopic guidance in the distal femur along the proximal femoral shaft and in areas where reasonable fixation could be carried out based on the comminution and fracture fragment pattern. Acceptable near anatomic reduction was carried out under multiple fluoroscopic views which checked hardware length and placement. Good alignment stability was preserved of the knee. Thorough irrigation was carried out with pulse lavage normal saline solution deep tissue was closed with #1 Vicryl in a buried fashion and reinforced with #1 PDS strata fix. Subcutaneous closure with buried 2-0 Vicryl skin closure with natalia sterile dressings were applied patient was returned recovery room in stable condition having tolerated procedure well BRENNAN STALEY MD Jan 12, 2017 15:33
[2017-01-12] MEDS: FAMOTIDINE 20 MG/2 ML VIAL IVP SCH (21:51)
[2017-01-12] MEDS: TAMSULOSIN 0.4 MG CAP.ER.24H. PO SCH (21:51)
[2017-01-12] MEDS: GABAPENTIN 300 MG CAPSULE. PO SCH (21:53)
[2017-01-12] MEDS: ATENOLOL 50 MG TABLET. PO SCH (21:53)
[2017-01-12] MEDS ORDERED: ACETAMINOPHEN 650 MG SUPP.RECT. PR PRN (22:45)
[2017-01-13] MEDS: CARBIDOPA/LEVODOPA 25/100MG TABLET PO SCH ×6 (00:28→22:54)
[2017-01-13 03:00] VITALS: BP 117/66
[2017-01-13 05:44] LABS: BASO % 0 % (0-3); EOS % 0 % (0-3); HEMATOCRIT 23.2 % (39.0-53.0); HEMOGLOBIN 7.3 g/dL (13.0-17.5); LYMPH # 2.7 x10^3/uL (1.0-4.8); LYMPH % 23 % (24-48); MEAN CORPUSCULAR HEMOGLOBIN 26 pg (25-35); MEAN CORPUSCULAR HGB CONC 32 g/dL (31-37); MEAN CORPUSCULAR VOLUME 81 fL (79-100); MONO % 5 % (0-9); NEUT % 71 % (31-73); PLATELET COUNT 236 x10^3/uL (140-400); RED BLOOD COUNT 2.87 x10^6/uL (4.30-5.70); RED CELL DISTRIBUTION WIDTH 17.5 % (11.5-14.5); WHITE BLOOD COUNT 11.7 x10^3/uL (4.0-11.0)
[2017-01-13] MEDS: AMINO AC 3%/ELECTROLYTE/GLYCER 1,000 ML IV SCH ×2 (06:02→13:51)
[2017-01-13 06:06] LABS: CALCIUM 8.3 mg/dL (8.5-10.1); CREATININE 0.7 mg/dL (0.7-1.3); GFR 111.2; POTASSIUM 4.2 mmol/L (3.5-5.1)
[2017-01-13 07:00] VITALS: BP 114/59
[2017-01-13 10:30] VITALS: BP 101/52
--- NOTE | 2017-01-13 10:52 | PDOC ---
PROGRESS NOTES Assessment PD, worsening. I have followed him in the office for 5 years. Swallowing evaluation noted He also has diabetic neuropathy Metabolic encephalopathy. Bilateral pulmonary infiltrates. HTN HLD CAD s/p stent placement. Left distal femur fracture in 12/13, had surgery 01/12. Bladder cancer? Skin cancer. Dementia features. Plan Dobhoff tube to to give medication Continue Sinemet and Pramipexole Treat medical and surgical diseases. Nutrition support. Subjective Feels better Objective Vital Signs Date Time Temp Pulse Resp B/P (MAP) Pulse Ox O2 Delivery O2 Flow Rate FiO2 01/13/17 07:00 98.7 71 20 114/59 (77) 94 Nasal Cannula 4.0 98.7 PHYSICAL EXAM Alert. Speech clear, does follow commands PERRL. EOMI. CN: no focal findings. Muscle tone: normal. No tremors noted Muscle strength: 4/5, has left lower extremity fracture DTR: 1+ Plantar reflex: flexor Gait: not examined in bed. Sensory exam: no abnormal findings. No cerebellar signs elicited. Review of Relevant I have reviewed the following items patricia (where applicable) has been applied. Labs Laboratory Tests Test 01/12/17 04:20 01/13/17 04:10 White Blood Count 12.0 x10^3/uL (4.0-11.0) 11.7 x10^3/uL (4.0-11.0) Red Blood Count 3.75 x10^6/uL (4.30-5.70) 2.87 x10^6/uL (4.30-5.70) Hemoglobin 9.8 g/dL (13.0-17.5) 7.3 g/dL (13.0-17.5) Hematocrit 30.6 % (39.0-53.0) 23.2 % (39.0-53.0) Mean Corpuscular Volume 82 fL (79-100) 81 fL (79-100) Mean Corpuscular Hemoglobin 26 pg (25-35) 26 pg (25-35) Mean Corpuscular Hemoglobin Concent 32 g/dL (31-37) 32 g/dL (31-37) Red Cell Distribution Width 17.4 % (11.5-14.5) 17.5 % (11.5-14.5) Platelet Count 289 x10^3/uL (140-400) 236 x10^3/uL (140-400) Neutrophils (%) (Auto) 71 % (31-73) 71 % (31-73) Lymphocytes (%) (Auto) 21 % (24-48) 23 % (24-48) Monocytes (%) (Auto) 5 % (0-9) 5 % (0-9) Eosinophils (%) (Auto) 2 % (0-3) 0 % (0-3) Basophils (%) (Auto) 0 % (0-3) 0 % (0-3) Neutrophils # (Auto) 8.6 x10^3uL (1.8-7.7) 8.3 x10^3uL (1.8-7.7) Lymphocytes # (Auto) 2.5 x10^3/uL (1.0-4.8) 2.7 x10^3/uL (1.0-4.8) Monocytes # (Auto) 0.6 x10^3/uL (0.0-1.1) 0.6 x10^3/uL (0.0-1.1) Eosinophils # (Auto) 0.2 x10^3/uL (0.0-0.7) 0.0 x10^3/uL (0.0-0.7) Basophils # (Auto) 0.0 x10^3/uL (0.0-0.2) 0.0 x10^3/uL (0.0-0.2) Sodium Level 143 mmol/L (136-145) 142 mmol/L (136-145) Potassium Level 4.0 mmol/L (3.5-5.1) 4.2 mmol/L (3.5-5.1) Chloride Level 108 mmol/L (98-107) 108 mmol/L (98-107) Carbon Dioxide Level 25 mmol/L (21-32) 27 mmol/L (21-32) Anion Gap 10 (6-14) 7 (6-14) Blood Urea Nitrogen 19 mg/dL (8-26) 22 mg/dL (8-26) Creatinine 0.8 mg/dL (0.7-1.3) 0.7 mg/dL (0.7-1.3) Estimated GFR (Cockcroft-Gault) 95.3 111.2 Glucose Level 106 mg/dL (70-99) 104 mg/dL (70-99) Calcium Level 8.7 mg/dL (8.5-10.1) 8.3 mg/dL (8.5-10.1) Laboratory Tests Test 01/13/17 04:10 White Blood Count 11.7 x10^3/uL (4.0-11.0) Red Blood Count 2.87 x10^6/uL (4.30-5.70) Hemoglobin 7.3 g/dL (13.0-17.5) Hematocrit 23.2 % (39.0-53.0) Mean Corpuscular Volume 81 fL (79-100) Mean Corpuscular Hemoglobin 26 pg (25-35) Mean Corpuscular Hemoglobin Concent 32 g/dL (31-37) Red Cell Distribution Width 17.5 % (11.5-14.5) Platelet Count 236 x10^3/uL (140-400) Neutrophils (%) (Auto) 71 % (31-73) Lymphocytes (%) (Auto) 23 % (24-48) Monocytes (%) (Auto) 5 % (0-9) Eosinophils (%) (Auto) 0 % (0-3) Basophils (%) (Auto) 0 % (0-3) Neutrophils # (Auto) 8.3 x10^3uL (1.8-7.7) Lymphocytes # (Auto) 2.7 x10^3/uL (1.0-4.8) Monocytes # (Auto) 0.6 x10^3/uL (0.0-1.1) Eosinophils # (Auto) 0.0 x10^3/uL (0.0-0.7) Basophils # (Auto) 0.0 x10^3/uL (0.0-0.2) Sodium Level 142 mmol/L (136-145) Potassium Level 4.2 mmol/L (3.5-5.1) Chloride Level 108 mmol/L (98-107) Carbon Dioxide Level 27 mmol/L (21-32) Anion Gap 7 (6-14) Blood Urea Nitrogen 22 mg/dL (8-26) Creatinine 0.7 mg/dL (0.7-1.3) Estimated GFR (Cockcroft-Gault) 111.2 Glucose Level 104 mg/dL (70-99) Calcium Level 8.3 mg/dL (8.5-10.1) Microbiology 01/10/17 Blood Culture - Preliminary, Resulted NO GROWTH AFTER 2 DAYS 01/10/17 Urine Culture - Final, Complete 01/10/17 Urine Culture Result 1 (ESTRELLA) - Final, Complete Medications Current Medications Fentanyl Citrate (Fentanyl 2ml Vial) 25 mcg PRN Q15MIN PRN IV PAIN GREATER THAN 3/10 Last administered on 01/10/17 12:42; Start 01/10/17 at 12:45; Stop 01/11/17 at 12:44; Status DC Fentanyl Citrate (Fentanyl 2ml Vial) 100 mcg STK-MED ONCE .ROUTE ; Start at 12:39; Stop 01/10/17 at 12:40; Status DC Potassium Chloride 100 ml @ 100 mls/hr Q1H IV Last administered on 01/10/17 16:32; Start 01/10/17 at 13:00; Stop 01/10/17 at 16:59; Status DC Ceftriaxone Sodium 50 ml @ 100 mls/hr 1X ONCE IV Last administered on 13:03; Start 01/10/17 at 13:00; Stop 01/10/17 at 13:29; Status DC Fentanyl Citrate (Fentanyl 2ml Vial) 50 mcg PRN Q2HR PRN IV PAIN Last administered on 01/12/17 04:39; Start 01/10/17 at 14:45 Acetaminophen (Tylenol) 650 mg Q4HRS PO ; Start 01/10/17 at 16:00; Status UNV Amlodipine Besylate (Norvasc) 10 mg DAILY PO ; Start 01/10/17 at 15:00 Atorvastatin Calcium (Lipitor) 20 mg DAILY PO ; Start 01/10/17 at 15:00; Stop 01/13/17 at 10:02; Status DC Finasteride (Proscar) 5 mg DAILY PO ; Start 01/11/17 at 09:00 Furosemide (Lasix) 20 mg DAILY PO ; Start 01/10/17 at 15:00 Oxycodone/ Acetaminophen (Percocet 5/325) 1 tab PRN Q4HRS PRN PO pain 5-7; Start 01/10/17 at 14:45 Pramipexole Dihydrochloride (miraPEX) 0.25 mg TID PO ; Start 01/10/17 at 15:00 ; Stop 01/10/17 at 16:31; Status DC Tamsulosin HCl (Flomax) 0.8 mg QHS PO Last administered on 01/12/17 21:51; Start 01/10/17 at 21:00 Atenolol (Tenormin) 100 mg HS PO Last administered on 01/12/17 21:53; Start 01/10/17 at 21:00 Non-Formulary Medication 1 tab QID PO ; Start 01/10/17 at 17:00; Status UNV Gabapentin (Neurontin) 600 mg HS PO Last administered on 01/12/17 21:53; Start 01/10/17 at 21:00 Pantoprazole Sodium (Protonix) 40 mg QODAY PO ; Start 01/11/17 at 07:30 Sertraline HCl (Zoloft) 100 mg BID PO Last administered on 01/12/17 21:54; Start 01/10/17 at 21:00 Amino Acids/ Glycerin/ Electrolytes 1,000 ml @ 80 mls/hr [id number] IV Last administered on 01/12/17 18:39; Start 01/10/17 at 15:00 Enoxaparin Sodium (Lovenox 40mg Syringe) 40 mg Q24H SQ ; Start 01/10/17 at 15: 00 Famotidine (Pepcid) 20 mg QHS IVP Last administered on 01/12/17 21:51; Start 01/10/17 at 21:00 Pramipexole Dihydrochloride (miraPEX) 0.375 mg TID PO Last administered on 21:52; Start 01/10/17 at 21:00 Carbidopa/Levodopa (Sinemet 25/100) 2 tab [id number] PO Last administered on 18:40; Start 01/10/17 at 18:00 Potassium Chloride 100 ml @ 100 mls/hr Q1H IV Last administered on 01/11/17 13:11; Start 01/11/17 at 09:30; Stop 01/11/17 at 13:29; Status DC Ondansetron HCl (Zofran) 4 mg PRN Q6HRS PRN IV NAUSEA/VOMITING; Start at 07:00; Stop 01/13/17 at 06:59; Status DC Fentanyl Citrate (Fentanyl 2ml Vial) 25 mcg PRN Q5MIN PRN IV MILD PAIN; Start 01/12/17 at 07:00; Stop 01/13/17 at 06:59; Status DC Fentanyl Citrate (Fentanyl 2ml Vial) 50 mcg PRN Q5MIN PRN IV MODERATE PAIN; Start 01/12/17 at 07:00; Stop 01/13/17 at 06:59; Status DC Morphine Sulfate 1 mg PRN Q10MIN PRN IV SEVERE PAIN; Start 01/12/17 at 07:00; Stop 01/13/17 at 06:59; Status DC Ringer's Solution 1,000 ml @ 30 mls/hr Q24H IV ; Start 01/12/17 at 07:00; Stop 01/12/17 at 18:59; Status DC Lidocaine HCl (Xylocaine-Mpf 1% Vial) 2 ml PRN 1X PRN ID IV START; Start 01/12 at 07:00; Stop 01/13/17 at 06:59; Status DC Hydromorphone HCl (Dilaudid) 0.5 mg PRN Q10MIN PRN IV SEV PAIN, Second choice; Start 01/12/17 at 07:00; Stop 01/13/17 at 06:59; Status DC Prochlorperazine Edisylate (Compazine) 5 mg PACU PRN PRN IV NAUSEA, MRX1; Start 01/12/17 at 07:00; Stop 01/13/17 at 06:59; Status DC Cefazolin Sodium/ Dextrose 50 ml @ As Directed STK-MED ONCE IV ; Start at 12:32; Stop 01/12/17 at 12:33; Status DC Propofol 20 ml @ As Directed STK-MED ONCE IV ; Start 01/12/17 at 12:54; Stop 01/12/17 at 12:55; Status DC Dexamethasone Sodium Phosphate (Decadron) 20 mg STK-MED ONCE .ROUTE ; Start at 12:54; Stop 01/12/17 at 12:55; Status DC Lidocaine HCl (Lidocaine Pf 2% Vial) 5 ml STK-MED ONCE .ROUTE ; Start 01/12/17 at 12:54; Stop 01/12/17 at 12:55; Status DC Desflurane (Suprane) 60 ml STK-MED ONCE IH ; Start 01/12/17 at 12:54; Stop at 12:55; Status DC Fentanyl Citrate (Fentanyl 2ml Vial) 100 mcg STK-MED ONCE .ROUTE ; Start at 12:54; Stop 01/12/17 at 12:55; Status DC Ondansetron HCl (Zofran) 4 mg STK-MED ONCE .ROUTE ; Start 01/12/17 at 13:12; Stop 01/12/17 at 13:13; Status DC Metoprolol Tartrate (Lopressor) 5 mg STK-MED ONCE .ROUTE ; Start 01/12/17 at 13 :30; Stop 01/12/17 at 13:31; Status DC Albumin Human 500 ml @ As Directed STK-MED ONCE IV ; Start 01/12/17 at 13:34; Stop 01/12/17 at 13:35; Status DC Morphine Sulfate 10 mg STK-MED ONCE .ROUTE ; Start 01/12/17 at 13:54; Stop at 13:55; Status DC Neostigmine Methylsulfate 5 mg STK-MED ONCE .ROUTE ; Start 01/12/17 at 14:50; Stop 01/12/17 at 14:51; Status DC Glycopyrrolate (Robinul) 1 mg STK-MED ONCE .ROUTE ; Start 01/12/17 at 14:50; Stop 01/12/17 at 14:51; Status DC Acetaminophen (Acetaminophen Supp) 650 mg PRN Q6HRS PRN [place] MILD PAIN / TEMP Last administered on 01/12/17t 23:20; Start 01/12/17 at 22:45 Atorvastatin Calcium (Lipitor) 20 mg QHS PO ; Start 01/13/17 at 21:00 Active Scripts Active Oxycodone-Acetaminophen 5-325 (Oxycodone Hcl/Acetaminophen) 1 Each Tablet 1 Tab PO PRN Q4HRS PRN Reported Gabapentin 300 Mg Capsule 600 Mg PO QHS Sinemet Cr 50-200 Tablet (Carbidopa/Levodopa) 1 Each Tablet.er 1 Tab PO QID Lansoprazole 15 Mg Capsule.dr 15 Mg PO QODAY Pramipexole Dihydrochloride (Pramipexole Di-Hcl) 0.25 Mg Tablet 0.25 Mg PO TID Furosemide 20 Mg Tablet 20 Mg PO DAILY Plavix (Clopidogrel Bisulfate) 75 Mg Tablet 75 Mg PO DAILY Finasteride 5 Mg Tablet 5 Mg PO DAILY Tylenol (Acetaminophen) 325 Mg Tablet 650 Mg PO Q4HRS Tamsulosin Hcl 0.4 Mg Cap.er.24h 0.8 Mg PO QHS Sertraline Hcl 100 Mg Tablet 100 Mg PO BID Amlodipine Besylate 10 Mg Tablet 10 Mg PO DAILY Atenolol 100 Mg Tablet 100 Mg PO QHS Atorvastatin Calcium 20 Mg Tablet 20 Mg PO DAILY Vitals/I & O Vital Sign - Last 24 Hours 01/12/17 01/12/17 01/12/17 01/12/17 11:00 12:32 15:26 15:26 Temp 98.6 97.4 98.6 97.4 Pulse 92 86 82 Resp 20 16 22 B/P (MAP) 101/68 (79) 127/63 109/59 Pulse Ox 94 94 92 O2 Delivery Nasal Cannula Mask Simple Mask O2 Flow Rate 3.0 2 10 10 01/12/17 01/12/17 01/12/17 01/12/17 15:40 15:55 16:12 16:27 Temp 99.5 99.5 Pulse 86 82 84 84 Resp 20 20 20 20 B/P (MAP) 103/81 122/67 109/59 115/65 Pulse Ox 97 97 90 O2 Delivery Simple Mask Nasal Cannula Nasal Cannula Nasal Cannula O2 Flow Rate 10 3 2 4 01/12/17 01/12/17 01/12/17 01/12/17 17:16 17:30 17:45 18:00 Temp 98.5 98.5 Pulse 84 83 84 84 Resp 16 16 B/P (MAP) 106/62 (77) 102/62 (75) 107/62 (77) 113/64 (80) Pulse Ox 96 97 97 O2 Delivery Nasal Cannula Nasal Cannula Nasal Cannula Nasal Cannula O2 Flow Rate 4.0 4.0 4.0 4.0 01/12/17 01/12/17 01/12/17 01/12/17 18:15 18:30 19:00 20:00 Temp 98.1 98.1 Pulse 83 78 84 Resp 16 18 18 B/P (MAP) 101/58 (72) 107/61 (76) 112/67 (82) 116/64 (81) Pulse Ox 99 99 90 O2 Delivery Nasal Cannula Nasal Cannula Nasal Cannula O2 Flow Rate 4.0 4.0 4.0 01/12/17 01/12/17 01/12/17 01/12/17 20:00 21:00 21:53 23:00 Temp 100.9 100.9 Pulse 78 83 80 Resp 18 18 B/P (MAP) 107/65 (79) 107/61 113/67 (82) Pulse Ox 90 97 O2 Delivery Nasal Cannula Nasal Cannula Nasal Cannula O2 Flow Rate 2.0 4.0 4.0 01/13/17 01/13/17 03:00 07:00 Temp 97.8 98.7 97.8 98.7 Pulse 72 71 Resp 18 20 B/P (MAP) 117/66 (83) 114/59 (77) Pulse Ox 96 94 O2 Delivery Nasal Cannula Nasal Cannula O2 Flow Rate 4.0 4.0 AURE BURDICK MD Jan 13, 2017 10:52
--- NOTE | 2017-01-13 11:12 | PDOC ---
PROGRESS NOTES Chief Complaint Chief Complaint 1. Distal femur fx, left s/p sx (01/12) 2. Advanced parkinsons with dementia 3. Acute on Chronic aspiration 4. Dysphagia on dyasphagia diet in SNU 5. Severe PCM 6. HX CAD with 1 stent on plavix 7. Easy bruisability 8. DNR DNI 9,. SIRS Post op, reactive? History of Present Illness History of Present Illness Awake post op! 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 1 with honey thickened - dw Denise PLAN: LIkely will be able to dc hoof Dysphagia 1 with honey thick REcheck labs tmr Transfuse if hgb further drops IS PT/OT Will go back to pplace on DC Vitals Vitals Vital Signs Date Time Temp Pulse Resp B/P (MAP) Pulse Ox O2 Delivery O2 Flow Rate FiO2 01/13/17 07:00 98.7 71 20 114/59 (77) 94 Nasal Cannula 4.0 98.7 Physical Exam General: Alert, No acute distress, Other (mouth breather, shakes, ) Heart: Regular rate Lungs: Clear Abdomen: Normal bowel sounds, Soft, No tenderness, No hepatosplenomegaly, No masses Extremities: Other (RT leg straightened) Skin: No rashes, No breakdown, No significant lesion Labs LABS Laboratory Tests Test 01/13/17 04:10 White Blood Count 11.7 x10^3/uL (4.0-11.0) Red Blood Count 2.87 x10^6/uL (4.30-5.70) Hemoglobin 7.3 g/dL (13.0-17.5) Hematocrit 23.2 % (39.0-53.0) Mean Corpuscular Volume 81 fL (79-100) Mean Corpuscular Hemoglobin 26 pg (25-35) Mean Corpuscular Hemoglobin Concent 32 g/dL (31-37) Red Cell Distribution Width 17.5 % (11.5-14.5) Platelet Count 236 x10^3/uL (140-400) Neutrophils (%) (Auto) 71 % (31-73) Lymphocytes (%) (Auto) 23 % (24-48) Monocytes (%) (Auto) 5 % (0-9) Eosinophils (%) (Auto) 0 % (0-3) Basophils (%) (Auto) 0 % (0-3) Neutrophils # (Auto) 8.3 x10^3uL (1.8-7.7) Lymphocytes # (Auto) 2.7 x10^3/uL (1.0-4.8) Monocytes # (Auto) 0.6 x10^3/uL (0.0-1.1) Eosinophils # (Auto) 0.0 x10^3/uL (0.0-0.7) Basophils # (Auto) 0.0 x10^3/uL (0.0-0.2) Sodium Level 142 mmol/L (136-145) Potassium Level 4.2 mmol/L (3.5-5.1) Chloride Level 108 mmol/L (98-107) Carbon Dioxide Level 27 mmol/L (21-32) Anion Gap 7 (6-14) Blood Urea Nitrogen 22 mg/dL (8-26) Creatinine 0.7 mg/dL (0.7-1.3) Estimated GFR (Cockcroft-Gault) 111.2 Glucose Level 104 mg/dL (70-99) Calcium Level 8.3 mg/dL (8.5-10.1) Review of Systems Review of Systems post op pain an dleg swelling, no CP, SOA, abd pain Comment Review of Relevant I have reviewed the following items patricia (where applicable) has been applied. Labs Laboratory Tests Test 01/12/17 04:20 01/13/17 04:10 White Blood Count 12.0 x10^3/uL (4.0-11.0) 11.7 x10^3/uL (4.0-11.0) Red Blood Count 3.75 x10^6/uL (4.30-5.70) 2.87 x10^6/uL (4.30-5.70) Hemoglobin 9.8 g/dL (13.0-17.5) 7.3 g/dL (13.0-17.5) Hematocrit 30.6 % (39.0-53.0) 23.2 % (39.0-53.0) Mean Corpuscular Volume 82 fL (79-100) 81 fL (79-100) Mean Corpuscular Hemoglobin 26 pg (25-35) 26 pg (25-35) Mean Corpuscular Hemoglobin Concent 32 g/dL (31-37) 32 g/dL (31-37) Red Cell Distribution Width 17.4 % (11.5-14.5) 17.5 % (11.5-14.5) Platelet Count 289 x10^3/uL (140-400) 236 x10^3/uL (140-400) Neutrophils (%) (Auto) 71 % (31-73) 71 % (31-73) Lymphocytes (%) (Auto) 21 % (24-48) 23 % (24-48) Monocytes (%) (Auto) 5 % (0-9) 5 % (0-9) Eosinophils (%) (Auto) 2 % (0-3) 0 % (0-3) Basophils (%) (Auto) 0 % (0-3) 0 % (0-3) Neutrophils # (Auto) 8.6 x10^3uL (1.8-7.7) 8.3 x10^3uL (1.8-7.7) Lymphocytes # (Auto) 2.5 x10^3/uL (1.0-4.8) 2.7 x10^3/uL (1.0-4.8) Monocytes # (Auto) 0.6 x10^3/uL (0.0-1.1) 0.6 x10^3/uL (0.0-1.1) Eosinophils # (Auto) 0.2 x10^3/uL (0.0-0.7) 0.0 x10^3/uL (0.0-0.7) Basophils # (Auto) 0.0 x10^3/uL (0.0-0.2) 0.0 x10^3/uL (0.0-0.2) Sodium Level 143 mmol/L (136-145) 142 mmol/L (136-145) Potassium Level 4.0 mmol/L (3.5-5.1) 4.2 mmol/L (3.5-5.1) Chloride Level 108 mmol/L (98-107) 108 mmol/L (98-107) Carbon Dioxide Level 25 mmol/L (21-32) 27 mmol/L (21-32) Anion Gap 10 (6-14) 7 (6-14) Blood Urea Nitrogen 19 mg/dL (8-26) 22 mg/dL (8-26) Creatinine 0.8 mg/dL (0.7-1.3) 0.7 mg/dL (0.7-1.3) Estimated GFR (Cockcroft-Gault) 95.3 111.2 Glucose Level 106 mg/dL (70-99) 104 mg/dL (70-99) Calcium Level 8.7 mg/dL (8.5-10.1) 8.3 mg/dL (8.5-10.1) Laboratory Tests Test 01/13/17 04:10 White Blood Count 11.7 x10^3/uL (4.0-11.0) Red Blood Count 2.87 x10^6/uL (4.30-5.70) Hemoglobin 7.3 g/dL (13.0-17.5) Hematocrit 23.2 % (39.0-53.0) Mean Corpuscular Volume 81 fL (79-100) Mean Corpuscular Hemoglobin 26 pg (25-35) Mean Corpuscular Hemoglobin Concent 32 g/dL (31-37) Red Cell Distribution Width 17.5 % (11.5-14.5) Platelet Count 236 x10^3/uL (140-400) Neutrophils (%) (Auto) 71 % (31-73) Lymphocytes (%) (Auto) 23 % (24-48) Monocytes (%) (Auto) 5 % (0-9) Eosinophils (%) (Auto) 0 % (0-3) Basophils (%) (Auto) 0 % (0-3) Neutrophils # (Auto) 8.3 x10^3uL (1.8-7.7) Lymphocytes # (Auto) 2.7 x10^3/uL (1.0-4.8) Monocytes # (Auto) 0.6 x10^3/uL (0.0-1.1) Eosinophils # (Auto) 0.0 x10^3/uL (0.0-0.7) Basophils # (Auto) 0.0 x10^3/uL (0.0-0.2) Sodium Level 142 mmol/L (136-145) Potassium Level 4.2 mmol/L (3.5-5.1) Chloride Level 108 mmol/L (98-107) Carbon Dioxide Level 27 mmol/L (21-32) Anion Gap 7 (6-14) Blood Urea Nitrogen 22 mg/dL (8-26) Creatinine 0.7 mg/dL (0.7-1.3) Estimated GFR (Cockcroft-Gault) 111.2 Glucose Level 104 mg/dL (70-99) Calcium Level 8.3 mg/dL (8.5-10.1) Microbiology 01/10/17 Blood Culture - Preliminary, Resulted NO GROWTH AFTER 2 DAYS 01/10/17 Urine Culture - Final, Complete 01/10/17 Urine Culture Result 1 (ESTRELLA) - Final, Complete Medications Current Medications Fentanyl Citrate (Fentanyl 2ml Vial) 25 mcg PRN Q15MIN PRN IV PAIN GREATER THAN 3/10 Last administered on 01/10/17 12:42; Start 01/10/17 at 12:45; Stop 01/11/17 at 12:44; Status DC Fentanyl Citrate (Fentanyl 2ml Vial) 100 mcg STK-MED ONCE .ROUTE ; Start at 12:39; Stop 01/10/17 at 12:40; Status DC Potassium Chloride 100 ml @ 100 mls/hr Q1H IV Last administered on 01/10/17 16:32; Start 01/10/17 at 13:00; Stop 01/10/17 at 16:59; Status DC Ceftriaxone Sodium 50 ml @ 100 mls/hr 1X ONCE IV Last administered on 13:03; Start 01/10/17 at 13:00; Stop 01/10/17 at 13:29; Status DC Fentanyl Citrate (Fentanyl 2ml Vial) 50 mcg PRN Q2HR PRN IV PAIN Last administered on 01/12/17 04:39; Start 01/10/17 at 14:45 Acetaminophen (Tylenol) 650 mg Q4HRS PO ; Start 01/10/17 at 16:00; Status UNV Amlodipine Besylate (Norvasc) 10 mg DAILY PO ; Start 01/10/17 at 15:00 Atorvastatin Calcium (Lipitor) 20 mg DAILY PO ; Start 01/10/17 at 15:00; Stop 01/13/17 at 10:02; Status DC Finasteride (Proscar) 5 mg DAILY PO ; Start 01/11/17 at 09:00 Furosemide (Lasix) 20 mg DAILY PO ; Start 01/10/17 at 15:00 Oxycodone/ Acetaminophen (Percocet 5/325) 1 tab PRN Q4HRS PRN PO pain 5-7; Start 01/10/17 at 14:45 Pramipexole Dihydrochloride (miraPEX) 0.25 mg TID PO ; Start 01/10/17 at 15:00 ; Stop 01/10/17 at 16:31; Status DC Tamsulosin HCl (Flomax) 0.8 mg QHS PO Last administered on 01/12/17 21:51; Start 01/10/17 at 21:00 Atenolol (Tenormin) 100 mg HS PO Last administered on 01/12/17 21:53; Start 01/10/17 at 21:00 Non-Formulary Medication 1 tab QID PO ; Start 01/10/17 at 17:00; Status UNV Gabapentin (Neurontin) 600 mg HS PO Last administered on 01/12/17 21:53; Start 01/10/17 at 21:00 Pantoprazole Sodium (Protonix) 40 mg QODAY PO ; Start 01/11/17 at 07:30 Sertraline HCl (Zoloft) 100 mg BID PO Last administered on 01/12/17 21:54; Start 01/10/17 at 21:00 Amino Acids/ Glycerin/ Electrolytes 1,000 ml @ 80 mls/hr [id number] IV Last administered on 01/12/17 18:39; Start 01/10/17 at 15:00 Enoxaparin Sodium (Lovenox 40mg Syringe) 40 mg Q24H SQ ; Start 01/10/17 at 15: 00 Famotidine (Pepcid) 20 mg QHS IVP Last administered on 01/12/17 21:51; Start 01/10/17 at 21:00 Pramipexole Dihydrochloride (miraPEX) 0.375 mg TID PO Last administered on 21:52; Start 01/10/17 at 21:00 Carbidopa/Levodopa (Sinemet 25/100) 2 tab [id number] PO Last administered on 18:40; Start 01/10/17 at 18:00 Potassium Chloride 100 ml @ 100 mls/hr Q1H IV Last administered on 10/16/17at 13:11; Start 01/11/17 at 09:30; Stop 01/11/17 at 13:29; Status DC Ondansetron HCl (Zofran) 4 mg PRN Q6HRS PRN IV NAUSEA/VOMITING; Start at 07:00; Stop 01/13/17 at 06:59; Status DC Fentanyl Citrate (Fentanyl 2ml Vial) 25 mcg PRN Q5MIN PRN IV MILD PAIN; Start 01/12/17 at 07:00; Stop 01/13/17 at 06:59; Status DC Fentanyl Citrate (Fentanyl 2ml Vial) 50 mcg PRN Q5MIN PRN IV MODERATE PAIN; Start 01/12/17 at 07:00; Stop 01/13/17 at 06:59; Status DC Morphine Sulfate 1 mg PRN Q10MIN PRN IV SEVERE PAIN; Start 01/12/17 at 07:00; Stop 01/13/17 at 06:59; Status DC Ringer's Solution 1,000 ml @ 30 mls/hr Q24H IV ; Start 01/12/17 at 07:00; Stop 01/12/17 at 18:59; Status DC Lidocaine HCl (Xylocaine-Mpf 1% Vial) 2 ml PRN 1X PRN ID IV START; Start 01/12 at 07:00; Stop 01/13/17 at 06:59; Status DC Hydromorphone HCl (Dilaudid) 0.5 mg PRN Q10MIN PRN IV SEV PAIN, Second choice; Start 01/12/17 at 07:00; Stop 01/13/17 at 06:59; Status DC Prochlorperazine Edisylate (Compazine) 5 mg PACU PRN PRN IV NAUSEA, MRX1; Start 01/12/17 at 07:00; Stop 01/13/17 at 06:59; Status DC Cefazolin Sodium/ Dextrose 50 ml @ As Directed STK-MED ONCE IV ; Start at 12:32; Stop 01/12/17 at 12:33; Status DC Propofol 20 ml @ As Directed STK-MED ONCE IV ; Start 01/12/17 at 12:54; Stop 01/12/17 at 12:55; Status DC Dexamethasone Sodium Phosphate (Decadron) 20 mg STK-MED ONCE .ROUTE ; Start at 12:54; Stop 01/12/17 at 12:55; Status DC Lidocaine HCl (Lidocaine Pf 2% Vial) 5 ml STK-MED ONCE .ROUTE ; Start 01/12/17 at 12:54; Stop 01/12/17 at 12:55; Status DC Desflurane (Suprane) 60 ml STK-MED ONCE IH ; Start 01/12/17 at 12:54; Stop at 12:55; Status DC Fentanyl Citrate (Fentanyl 2ml Vial) 100 mcg STK-MED ONCE .ROUTE ; Start at 12:54; Stop 01/12/17 at 12:55; Status DC Ondansetron HCl (Zofran) 4 mg STK-MED ONCE .ROUTE ; Start 01/12/17 at 13:12; Stop 01/12/17 at 13:13; Status DC Metoprolol Tartrate (Lopressor) 5 mg STK-MED ONCE .ROUTE ; Start 01/12/17 at 13 :30; Stop 01/12/17 at 13:31; Status DC Albumin Human 500 ml @ As Directed STK-MED ONCE IV ; Start 01/12/17 at 13:34; Stop 01/12/17 at 13:35; Status DC Morphine Sulfate 10 mg STK-MED ONCE .ROUTE ; Start 01/12/17 at 13:54; Stop at 13:55; Status DC Neostigmine Methylsulfate 5 mg STK-MED ONCE .ROUTE ; Start 01/12/17 at 14:50; Stop 01/12/17 at 14:51; Status DC Glycopyrrolate (Robinul) 1 mg STK-MED ONCE .ROUTE ; Start 01/12/17 at 14:50; Stop 01/12/17 at 14:51; Status DC Acetaminophen (Acetaminophen Supp) 650 mg PRN Q6HRS PRN AL MILD PAIN / TEMP Last administered on 01/12/17t 23:20; Start 01/12/17 at 22:45 Atorvastatin Calcium (Lipitor) 20 mg QHS PO ; Start 01/13/17 at 21:00 Active Scripts Active Oxycodone-Acetaminophen 5-325 (Oxycodone Hcl/Acetaminophen) 1 Each Tablet 1 Tab PO PRN Q4HRS PRN Reported Gabapentin 300 Mg Capsule 600 Mg PO QHS Sinemet Cr 50-200 Tablet (Carbidopa/Levodopa) 1 Each Tablet.er 1 Tab PO QID Lansoprazole 15 Mg Capsule.dr 15 Mg PO QODAY Pramipexole Dihydrochloride (Pramipexole Di-Hcl) 0.25 Mg Tablet 0.25 Mg PO TID Furosemide 20 Mg Tablet 20 Mg PO DAILY Plavix (Clopidogrel Bisulfate) 75 Mg Tablet 75 Mg PO DAILY Finasteride 5 Mg Tablet 5 Mg PO DAILY Tylenol (Acetaminophen) 325 Mg Tablet 650 Mg PO Q4HRS Tamsulosin Hcl 0.4 Mg Cap.er.24h 0.8 Mg PO QHS Sertraline Hcl 100 Mg Tablet 100 Mg PO BID Amlodipine Besylate 10 Mg Tablet 10 Mg PO DAILY Atenolol 100 Mg Tablet 100 Mg PO QHS Atorvastatin Calcium 20 Mg Tablet 20 Mg PO DAILY Vitals/I & O Vital Sign - Last 24 Hours 01/12/17 01/12/17 01/12/17 01/12/17 12:32 15:26 15:26 15:40 Temp 97.4 97.4 Pulse 86 82 86 Resp 16 22 20 B/P (MAP) 127/63 109/59 103/81 Pulse Ox 94 92 97 O2 Delivery Mask Simple Mask Simple Mask O2 Flow Rate 2 10 10 10 01/12/17 01/12/17 01/12/17 01/12/17 15:55 16:12 16:27 17:16 Temp 99.5 98.5 99.5 98.5 Pulse 82 84 84 84 Resp 20 20 20 16 B/P (MAP) 122/67 109/59 115/65 106/62 (77) Pulse Ox 97 90 96 O2 Delivery Nasal Cannula Nasal Cannula Nasal Cannula Nasal Cannula O2 Flow Rate 3 2 4 4.0 01/12/17 01/12/17 01/12/17 01/12/17 17:30 17:45 18:00 18:15 Pulse 83 84 84 Resp 16 16 16 B/P (MAP) 102/62 (75) 107/62 (77) 113/64 (80) 101/58 (72) Pulse Ox 97 97 O2 Delivery Nasal Cannula Nasal Cannula Nasal Cannula O2 Flow Rate 4.0 4.0 4.0 01/12/17 01/12/17 01/12/17 01/12/17 18:30 19:00 20:00 20:00 Temp 98.1 98.1 Pulse 83 78 84 Resp 16 18 18 B/P (MAP) 107/61 (76) 112/67 (82) 116/64 (81) Pulse Ox 99 99 90 O2 Delivery Nasal Cannula Nasal Cannula Nasal Cannula Nasal Cannula O2 Flow Rate 4.0 4.0 4.0 2.0 01/12/17 01/12/17 01/12/17 01/13/17 21:00 21:53 23:00 03:00 Temp 100.9 97.8 100.9 97.8 Pulse 78 83 80 72 Resp 18 18 18 B/P (MAP) 107/65 (79) 107/61 113/67 (82) 117/66 (83) Pulse Ox 90 97 96 O2 Delivery Nasal Cannula Nasal Cannula Nasal Cannula O2 Flow Rate 4.0 4.0 4.0 01/13/17 07:00 Temp 98.7 98.7 Pulse 71 Resp 20 B/P (MAP) 114/59 (77) Pulse Ox 94 O2 Delivery Nasal Cannula O2 Flow Rate 4.0 Nutrition Consultation Dietary Evaluation: Recommendations by RD: Increase Calorie Intake, Protein supplementation, PPN/ TPN Comments: 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
[2017-01-13] MEDS: FINASTERIDE 5 MG TABLET. PO SCH (13:08)
[2017-01-13] MEDS: FUROSEMIDE 20 MG TABLET PO SCH (13:08)
[2017-01-13] MEDS: amLODIPine BESYLATE 10 MG TABLET PO SCH (13:09)
[2017-01-13] MEDS: oxyCODONE/APAP 5/325 1 TAB TABLET PO PRN ×2 (13:10→22:55)
[2017-01-13] MEDS: SERTRALINE 50 MG TABLET. PO SCH ×2 (13:10→22:54)
[2017-01-13] MEDS: PANTOPRAZOLE 40 MG TABLET.DR. PO SCH (13:10)
[2017-01-13] MEDS: PRAMIPEXOLE 0.25 MG TABLET. PO SCH ×3 (13:11→22:54)
[2017-01-13] MEDS: fentaNYL PF VIAL 100 MCG/2 ML VIAL IV PRN (13:13)
[2017-01-13 15:00] VITALS: BP 101/55
--- NOTE | 2017-01-13 16:21 | PDOC2 ---
PALLIATIVE CARE Palliative Care Note Palliative Care Patient alert. Asking for "pop" Swallow evaluation completed. Honey thickened liquids. Met with Sangita and daughter Tahira. Tim/son unable to attend. Reviewed medical condition: distal femur fracture repair; Parkinson disease; dementia; dysphagia states patient has AD. Requested copy for record. Patient has been adamant about not wanting to prolong suffering or be put on machines to keep him alive. No PEG, No Dialysis; Code Status: DNR/DNI Prior to first admission with fx. femur patient was using mobile chair. Able to transfer. Fair appetite. Patient enjoys carving wood and going outside. Mary: Important to patient [employer]-- Mary Discussed disease progression and likely will need Hospice as he declines. Patient has had falls at home. understands she will need more help and facility as he declines. requests that she be notified of any falls or incidence that occurs while at the Nursing Facility. would like to return to [facility] to continue rehabilitation. [facility] is not functioning; will remove prior to transfer. Patient is able to take meds with Honey Thickened Liquids. Plan:: [facility] when discharged. DNR/DNI signed. will need physician signature. STEPHANY BUSTAMANTE Jan 13, 2017 16:21
[2017-01-13] MEDS: ENOXAPARIN 40 MG/0.4 ML SYRINGE. SQ SCH (18:10)
[2017-01-13 19:10] VITALS: BP 104/58
[2017-01-13] MEDS: ATENOLOL 50 MG TABLET. PO SCH (21:00)
[2017-01-13] MEDS: ATORVASTATIN CALCIUM 20 MG TABLET PO SCH (22:54)
[2017-01-13] MEDS: FAMOTIDINE 20 MG/2 ML VIAL IVP SCH (22:54)
[2017-01-13] MEDS: TAMSULOSIN 0.4 MG CAP.ER.24H. PO SCH (22:55)
[2017-01-13] MEDS: GABAPENTIN 300 MG CAPSULE. PO SCH (22:55)
[2017-01-13 23:05] VITALS: BP 105/58
[2017-01-14 03:16] VITALS: BP 104/58
[2017-01-14] MEDS: AMINO AC 3%/ELECTROLYTE/GLYCER 1,000 ML IV SCH ×2 (03:41→17:20)
[2017-01-14 04:49] LABS: BASO % 0 % (0-3); EOS % 2 % (0-3); HEMATOCRIT 22.2 % (39.0-53.0); HEMOGLOBIN 7.2 g/dL (13.0-17.5); LYMPH # 2.5 x10^3/uL (1.0-4.8); LYMPH % 25 % (24-48); MEAN CORPUSCULAR HEMOGLOBIN 26 pg (25-35); MEAN CORPUSCULAR HGB CONC 32 g/dL (31-37); MEAN CORPUSCULAR VOLUME 81 fL (79-100); MONO % 6 % (0-9); NEUT % 67 % (31-73); PLATELET COUNT 222 x10^3/uL (140-400); RED BLOOD COUNT 2.74 x10^6/uL (4.30-5.70); RED CELL DISTRIBUTION WIDTH 17.7 % (11.5-14.5); WHITE BLOOD COUNT 10.2 x10^3/uL (4.0-11.0)
[2017-01-14 05:14] LABS: CALCIUM 8.2 mg/dL (8.5-10.1); CREATININE 0.7 mg/dL (0.7-1.3); GFR 111.2; POTASSIUM 3.8 mmol/L (3.5-5.1)
[2017-01-14 07:00] VITALS: BP 108/58
--- NOTE | 2017-01-14 08:54 | PDOC ---
PROGRESS NOTES Assessment Parkinson's disease, worsening. I have followed him in the office for 5 years. Swallowing evaluation noted He also has diabetic neuropathy Metabolic encephalopathy. Bilateral pulmonary infiltrates. HTN HLD CAD s/p stent placement. Left distal femur fracture in 12/13, had surgery 01/12. Bladder cancer? Skin cancer. Dementia Plan Dobhoff was discontinued, taking orally Continue Sinemet and Pramipexole, current doses SNU Subjective no complaints, denies pain Objective Vital Signs Date Time Temp Pulse Resp B/P (MAP) Pulse Ox O2 Delivery O2 Flow Rate FiO2 01/14/17 07:00 98.7 75 20 108/58 (75) 95 Nasal Cannula 4.0 98.7 PHYSICAL EXAM Alert. Speech clear, does follow commands PERRL. EOMI. CN: no focal findings. Muscle tone: cogwheel on right, mild tremor Muscle strength: 4/5, has left lower extremity fracture DTR: 1+ Plantar reflex: flexor Gait: not examined in bed. Sensory exam: no abnormal findings. No cerebellar signs elicited. Review of Relevant I have reviewed the following items patricia (where applicable) has been applied. Labs Laboratory Tests Test 01/13/17 04:10 01/14/17 04:40 White Blood Count 11.7 x10^3/uL (4.0-11.0) 10.2 x10^3/uL (4.0-11.0) Red Blood Count 2.87 x10^6/uL (4.30-5.70) 2.74 x10^6/uL (4.30-5.70) Hemoglobin 7.3 g/dL (13.0-17.5) 7.2 g/dL (13.0-17.5) Hematocrit 23.2 % (39.0-53.0) 22.2 % (39.0-53.0) Mean Corpuscular Volume 81 fL (79-100) 81 fL (79-100) Mean Corpuscular Hemoglobin 26 pg (25-35) 26 pg (25-35) Mean Corpuscular Hemoglobin Concent 32 g/dL (31-37) 32 g/dL (31-37) Red Cell Distribution Width 17.5 % (11.5-14.5) 17.7 % (11.5-14.5) Platelet Count 236 x10^3/uL (140-400) 222 x10^3/uL (140-400) Neutrophils (%) (Auto) 71 % (31-73) 67 % (31-73) Lymphocytes (%) (Auto) 23 % (24-48) 25 % (24-48) Monocytes (%) (Auto) 5 % (0-9) 6 % (0-9) Eosinophils (%) (Auto) 0 % (0-3) 2 % (0-3) Basophils (%) (Auto) 0 % (0-3) 0 % (0-3) Neutrophils # (Auto) 8.3 x10^3uL (1.8-7.7) 6.9 x10^3uL (1.8-7.7) Lymphocytes # (Auto) 2.7 x10^3/uL (1.0-4.8) 2.5 x10^3/uL (1.0-4.8) Monocytes # (Auto) 0.6 x10^3/uL (0.0-1.1) 0.6 x10^3/uL (0.0-1.1) Eosinophils # (Auto) 0.0 x10^3/uL (0.0-0.7) 0.2 x10^3/uL (0.0-0.7) Basophils # (Auto) 0.0 x10^3/uL (0.0-0.2) 0.0 x10^3/uL (0.0-0.2) Sodium Level 142 mmol/L (136-145) 141 mmol/L (136-145) Potassium Level 4.2 mmol/L (3.5-5.1) 3.8 mmol/L (3.5-5.1) Chloride Level 108 mmol/L (98-107) 107 mmol/L (98-107) Carbon Dioxide Level 27 mmol/L (21-32) 26 mmol/L (21-32) Anion Gap 7 (6-14) 8 (6-14) Blood Urea Nitrogen 22 mg/dL (8-26) 21 mg/dL (8-26) Creatinine 0.7 mg/dL (0.7-1.3) 0.7 mg/dL (0.7-1.3) Estimated GFR (Cockcroft-Gault) 111.2 111.2 Glucose Level 104 mg/dL (70-99) 101 mg/dL (70-99) Calcium Level 8.3 mg/dL (8.5-10.1) 8.2 mg/dL (8.5-10.1) Laboratory Tests Test 01/14/17 04:40 White Blood Count 10.2 x10^3/uL (4.0-11.0) Red Blood Count 2.74 x10^6/uL (4.30-5.70) Hemoglobin 7.2 g/dL (13.0-17.5) Hematocrit 22.2 % (39.0-53.0) Mean Corpuscular Volume 81 fL (79-100) Mean Corpuscular Hemoglobin 26 pg (25-35) Mean Corpuscular Hemoglobin Concent 32 g/dL (31-37) Red Cell Distribution Width 17.7 % (11.5-14.5) Platelet Count 222 x10^3/uL (140-400) Neutrophils (%) (Auto) 67 % (31-73) Lymphocytes (%) (Auto) 25 % (24-48) Monocytes (%) (Auto) 6 % (0-9) Eosinophils (%) (Auto) 2 % (0-3) Basophils (%) (Auto) 0 % (0-3) Neutrophils # (Auto) 6.9 x10^3uL (1.8-7.7) Lymphocytes # (Auto) 2.5 x10^3/uL (1.0-4.8) Monocytes # (Auto) 0.6 x10^3/uL (0.0-1.1) Eosinophils # (Auto) 0.2 x10^3/uL (0.0-0.7) Basophils # (Auto) 0.0 x10^3/uL (0.0-0.2) Sodium Level 141 mmol/L (136-145) Potassium Level 3.8 mmol/L (3.5-5.1) Chloride Level 107 mmol/L (98-107) Carbon Dioxide Level 26 mmol/L (21-32) Anion Gap 8 (6-14) Blood Urea Nitrogen 21 mg/dL (8-26) Creatinine 0.7 mg/dL (0.7-1.3) Estimated GFR (Cockcroft-Gault) 111.2 Glucose Level 101 mg/dL (70-99) Calcium Level 8.2 mg/dL (8.5-10.1) Microbiology 01/10/17 Blood Culture - Preliminary, Resulted NO GROWTH AFTER 3 DAYS 01/10/17 Urine Culture - Final, Complete 01/10/17 Urine Culture Result 1 (ESTRELLA) - Final, Complete Medications Current Medications Fentanyl Citrate (Fentanyl 2ml Vial) 25 mcg PRN Q15MIN PRN IV PAIN GREATER THAN 3/10 Last administered on 01/10/17 12:42; Start 01/10/17 at 12:45; Stop 01/11/17 at 12:44; Status DC Fentanyl Citrate (Fentanyl 2ml Vial) 100 mcg STK-MED ONCE .ROUTE ; Start at 12:39; Stop 01/10/17 at 12:40; Status DC Potassium Chloride 100 ml @ 100 mls/hr Q1H IV Last administered on 01/10/17 16:32; Start 01/10/17 at 13:00; Stop 01/10/17 at 16:59; Status DC Ceftriaxone Sodium 50 ml @ 100 mls/hr 1X ONCE IV Last administered on 13:03; Start 01/10/17 at 13:00; Stop 01/10/17 at 13:29; Status DC Fentanyl Citrate (Fentanyl 2ml Vial) 50 mcg PRN Q2HR PRN IV PAIN Last administered on 01/13/17 13:13; Start 01/10/17 at 14:45 Acetaminophen (Tylenol) 650 mg Q4HRS PO ; Start 01/10/17 at 16:00; Status UNV Amlodipine Besylate (Norvasc) 10 mg DAILY PO Last administered on 01/13/17 13 :09; Start 01/10/17 at 15:00 Atorvastatin Calcium (Lipitor) 20 mg DAILY PO ; Start 01/10/17 at 15:00; Stop 01/13/17 at 10:02; Status DC Finasteride (Proscar) 5 mg DAILY PO Last administered on 01/13/17 13:08; Start 01/11/17 at 09:00 Furosemide (Lasix) 20 mg DAILY PO Last administered on 01/13/17 13:08; Start 01/10/17 at 15:00 Oxycodone/ Acetaminophen (Percocet 5/325) 1 tab PRN Q4HRS PRN PO pain 5-7 Last administered on 01/13/17 22:55; Start 01/10/17 at 14:45 Pramipexole Dihydrochloride (miraPEX) 0.25 mg TID PO ; Start 01/10/17 at 15:00 ; Stop 01/10/17 at 16:31; Status DC Tamsulosin HCl (Flomax) 0.8 mg QHS PO Last administered on 01/13/17 22:55; Start 01/10/17 at 21:00 Atenolol (Tenormin) 100 mg HS PO Last administered on 01/12/17 21:53; Start 01/10/17 at 21:00 Non-Formulary Medication 1 tab QID PO ; Start 01/10/17 at 17:00; Status UNV Gabapentin (Neurontin) 600 mg HS PO Last administered on 01/13/17 22:55; Start 01/10/17 at 21:00 Pantoprazole Sodium (Protonix) 40 mg QODAY PO Last administered on 01/13/17 13:10; Start 01/11/17 at 07:30 Sertraline HCl (Zoloft) 100 mg BID PO Last administered on 01/13/17 22:54; Start 01/10/17 at 21:00 Amino Acids/ Glycerin/ Electrolytes 1,000 ml @ 80 mls/hr [id number] IV Last administered on 01/14/17 03:41; Start 01/10/17 at 15:00 Enoxaparin Sodium (Lovenox 40mg Syringe) 40 mg Q24H SQ Last administered on 18:10; Start 01/10/17 at 15:00 Famotidine (Pepcid) 20 mg QHS IVP Last administered on 01/13/17 22:54; Start 01/10/17 at 21:00 Pramipexole Dihydrochloride (miraPEX) 0.375 mg TID PO Last administered on 22:54; Start 01/10/17 at 21:00 Carbidopa/Levodopa (Sinemet 25/100) 2 tab [id number] PO Last administered on 22:54; Start 01/10/17 at 18:00 Potassium Chloride 100 ml @ 100 mls/hr Q1H IV Last administered on 01/11/17t 13:11; Start 01/11/17 at 09:30; Stop 01/11/17 at 13:29; Status DC Ondansetron HCl (Zofran) 4 mg PRN Q6HRS PRN IV NAUSEA/VOMITING; Start at 07:00; Stop 01/13/17 at 06:59; Status DC Fentanyl Citrate (Fentanyl 2ml Vial) 25 mcg PRN Q5MIN PRN IV MILD PAIN; Start 01/12/17 at 07:00; Stop 01/13/17 at 06:59; Status DC Fentanyl Citrate (Fentanyl 2ml Vial) 50 mcg PRN Q5MIN PRN IV MODERATE PAIN; Start 01/12/17 at 07:00; Stop 01/13/17 at 06:59; Status DC Morphine Sulfate 1 mg PRN Q10MIN PRN IV SEVERE PAIN; Start 01/12/17 at 07:00; Stop 01/13/17 at 06:59; Status DC Ringer's Solution 1,000 ml @ 30 mls/hr Q24H IV ; Start 01/12/17 at 07:00; Stop 01/12/17 at 18:59; Status DC Lidocaine HCl (Xylocaine-Mpf 1% Vial) 2 ml PRN 1X PRN ID IV START; Start 01/12 at 07:00; Stop 01/13/17 at 06:59; Status DC Hydromorphone HCl (Dilaudid) 0.5 mg PRN Q10MIN PRN IV SEV PAIN, Second choice; Start 01/12/17 at 07:00; Stop 01/13/17 at 06:59; Status DC Prochlorperazine Edisylate (Compazine) 5 mg PACU PRN PRN IV NAUSEA, MRX1; Start 01/12/17 at 07:00; Stop 01/13/17 at 06:59; Status DC Cefazolin Sodium/ Dextrose 50 ml @ As Directed STK-MED ONCE IV ; Start at 12:32; Stop 01/12/17 at 12:33; Status DC Propofol 20 ml @ As Directed STK-MED ONCE IV ; Start 01/12/17 at 12:54; Stop 01/12/17 at 12:55; Status DC Dexamethasone Sodium Phosphate (Decadron) 20 mg STK-MED ONCE .ROUTE ; Start at 12:54; Stop 01/12/17 at 12:55; Status DC Lidocaine HCl (Lidocaine Pf 2% Vial) 5 ml STK-MED ONCE .ROUTE ; Start 01/12/17 at 12:54; Stop 01/12/17 at 12:55; Status DC Desflurane (Suprane) 60 ml STK-MED ONCE IH ; Start 01/12/17 at 12:54; Stop at 12:55; Status DC Fentanyl Citrate (Fentanyl 2ml Vial) 100 mcg STK-MED ONCE .ROUTE ; Start at 12:54; Stop 01/12/17 at 12:55; Status DC Ondansetron HCl (Zofran) 4 mg STK-MED ONCE .ROUTE ; Start 01/12/17 at 13:12; Stop 01/12/17 at 13:13; Status DC Metoprolol Tartrate (Lopressor) 5 mg STK-MED ONCE .ROUTE ; Start 01/12/17 at 13 :30; Stop 01/12/17 at 13:31; Status DC Albumin Human 500 ml @ As Directed STK-MED ONCE IV ; Start 01/12/17 at 13:34; Stop 01/12/17 at 13:35; Status DC Morphine Sulfate 10 mg STK-MED ONCE .ROUTE ; Start 01/12/17 at 13:54; Stop at 13:55; Status DC Neostigmine Methylsulfate 5 mg STK-MED ONCE .ROUTE ; Start 01/12/17 at 14:50; Stop 01/12/17 at 14:51; Status DC Glycopyrrolate (Robinul) 1 mg STK-MED ONCE .ROUTE ; Start 01/12/17 at 14:50; Stop 01/12/17 at 14:51; Status DC Acetaminophen (Acetaminophen Supp) 650 mg PRN Q6HRS PRN [place] MILD PAIN / TEMP Last administered on 01/12/17t 23:20; Start 01/12/17 at 22:45 Atorvastatin Calcium (Lipitor) 20 mg QHS PO Last administered on 01/13/17t 22: 54; Start 01/13/17 at 21:00 Active Scripts Active Oxycodone-Acetaminophen 5-325 (Oxycodone Hcl/Acetaminophen) 1 Each Tablet 1 Tab PO PRN Q4HRS PRN Reported Gabapentin 300 Mg Capsule 600 Mg PO QHS Sinemet Cr 50-200 Tablet (Carbidopa/Levodopa) 1 Each Tablet.er 1 Tab PO QID Lansoprazole 15 Mg Capsule.dr 15 Mg PO QODAY Pramipexole Dihydrochloride (Pramipexole Di-Hcl) 0.25 Mg Tablet 0.25 Mg PO TID Furosemide 20 Mg Tablet 20 Mg PO DAILY Plavix (Clopidogrel Bisulfate) 75 Mg Tablet 75 Mg PO DAILY Finasteride 5 Mg Tablet 5 Mg PO DAILY Tylenol (Acetaminophen) 325 Mg Tablet 650 Mg PO Q4HRS Tamsulosin Hcl 0.4 Mg Cap.er.24h 0.8 Mg PO QHS Sertraline Hcl 100 Mg Tablet 100 Mg PO BID Amlodipine Besylate 10 Mg Tablet 10 Mg PO DAILY Atenolol 100 Mg Tablet 100 Mg PO QHS Atorvastatin Calcium 20 Mg Tablet 20 Mg PO DAILY Vitals/I & O Vital Sign - Last 24 Hours 01/13/17 01/13/17 01/13/17 01/13/17 10:30 13:09 13:10 13:13 Temp 97.9 97.9 Pulse 74 74 Resp 22 14 12 B/P (MAP) 101/52 (68) 101/52 Pulse Ox 92 94 93 O2 Delivery Nasal Cannula Nasal Cannula Nasal Cannula O2 Flow Rate 4.0 2.0 2.0 01/13/17 01/13/17 01/13/17 01/13/17 13:43 14:10 15:00 19:10 Temp 98.0 98.1 98.0 98.1 Pulse 76 77 Resp 14 18 B/P (MAP) 101/55 (70) 104/58 (73) Pulse Ox 93 94 97 97 O2 Delivery Nasal Cannula Nasal Cannula Nasal Cannula O2 Flow Rate 2.0 2.0 4.0 01/13/17 01/13/17 01/13/17 01/13/17 20:02 22:55 23:05 23:58 Temp 99.0 99.0 Pulse 78 Resp 18 18 18 B/P (MAP) 105/58 (74) Pulse Ox 97 O2 Delivery Nasal Cannula Nasal Cannula Nasal Cannula Nasal Cannula O2 Flow Rate 2.0 2.0 4.0 2.0 01/14/17 01/14/17 03:16 07:00 Temp 98.9 98.7 98.9 98.7 Pulse 73 75 Resp 20 20 B/P (MAP) 104/58 (73) 108/58 (75) Pulse Ox 96 95 O2 Delivery Nasal Cannula Nasal Cannula O2 Flow Rate 4.0 4.0 AURE BURDICK MD Jan 14, 2017 08:54
[2017-01-14] MEDS: fentaNYL PF VIAL 100 MCG/2 ML VIAL IV PRN (10:13)
[2017-01-14] MEDS: CARBIDOPA/LEVODOPA 25/100MG TABLET PO SCH ×3 (10:14→17:19)
[2017-01-14] MEDS: amLODIPine BESYLATE 10 MG TABLET PO SCH (10:14)
[2017-01-14] MEDS: FINASTERIDE 5 MG TABLET. PO SCH (10:14)
[2017-01-14] MEDS: SERTRALINE 50 MG TABLET. PO SCH ×2 (10:14→22:45)
[2017-01-14] MEDS: FUROSEMIDE 20 MG TABLET PO SCH (10:14)
[2017-01-14] MEDS: PRAMIPEXOLE 0.25 MG TABLET. PO SCH ×3 (10:15→22:42)
[2017-01-14 11:00] VITALS: BP 105/58
--- NOTE | 2017-01-14 12:26 | PDOC ---
PROGRESS NOTES Chief Complaint Chief Complaint 1. Distal femur fx, left s/p sx (01/12) 2. Advanced parkinsons with dementia 3. Acute on Chronic aspiration 4. Dysphagia on dyasphagia 1 diet in SNU 5. Severe PCM 6. HX CAD with 1 stent on plavix 7. Easy bruisability 8. DNR DNI 9,. SIRS Post op, reactive? ACUTE anemia expected post op plan: fu with ortho, neuro cont po parkinson dz meds nutrition consult, on PPN dvt ppx PTOT transfuse if HB <7 pat CONSULTed, not ready for hospice, but DNR dc back to [facility] tmr with lovenox daily for dvt ppx, cont PTOT, hope eats at least 20% or cont PPN History of Present Illness History of Present Illness ROS: no fever, chills, sob or chest pain cont severe demented, answer my questions, but aaox1 to person only on dysphagia 1 diet with honey thickend liquid PAT consulted, DNR, but family not ready for hospice Hb 7.2 low po intake, 20%, on PPN NC 2 L Vitals Vitals Vital Signs Date Time Temp Pulse Resp B/P (MAP) Pulse Ox O2 Delivery O2 Flow Rate FiO2 01/14/17 11:00 98.2 82 18 105/58 (74) 95 Nasal Cannula 4.0 98.2 Physical Exam Physical Exam AAOX1 General: Alert, No acute distress, Other (mouth breather, shakes, ) Heart: Regular rate, Normal S1, Normal S2 Lungs: Clear Abdomen: Normal bowel sounds, Soft, No tenderness, No hepatosplenomegaly, No masses Extremities: No clubbing, Other (RT leg straightened,LEFT thigh has dressing on ) Skin: No rashes, No breakdown, No significant lesion Labs LABS Laboratory Tests Test 01/14/17 04:40 White Blood Count 10.2 x10^3/uL (4.0-11.0) Red Blood Count 2.74 x10^6/uL (4.30-5.70) Hemoglobin 7.2 g/dL (13.0-17.5) Hematocrit 22.2 % (39.0-53.0) Mean Corpuscular Volume 81 fL (79-100) Mean Corpuscular Hemoglobin 26 pg (25-35) Mean Corpuscular Hemoglobin Concent 32 g/dL (31-37) Red Cell Distribution Width 17.7 % (11.5-14.5) Platelet Count 222 x10^3/uL (140-400) Neutrophils (%) (Auto) 67 % (31-73) Lymphocytes (%) (Auto) 25 % (24-48) Monocytes (%) (Auto) 6 % (0-9) Eosinophils (%) (Auto) 2 % (0-3) Basophils (%) (Auto) 0 % (0-3) Neutrophils # (Auto) 6.9 x10^3uL (1.8-7.7) Lymphocytes # (Auto) 2.5 x10^3/uL (1.0-4.8) Monocytes # (Auto) 0.6 x10^3/uL (0.0-1.1) Eosinophils # (Auto) 0.2 x10^3/uL (0.0-0.7) Basophils # (Auto) 0.0 x10^3/uL (0.0-0.2) Sodium Level 141 mmol/L (136-145) Potassium Level 3.8 mmol/L (3.5-5.1) Chloride Level 107 mmol/L (98-107) Carbon Dioxide Level 26 mmol/L (21-32) Anion Gap 8 (6-14) Blood Urea Nitrogen 21 mg/dL (8-26) Creatinine 0.7 mg/dL (0.7-1.3) Estimated GFR (Cockcroft-Gault) 111.2 Glucose Level 101 mg/dL (70-99) Calcium Level 8.2 mg/dL (8.5-10.1) Comment Review of Relevant I have reviewed the following items patricia (where applicable) has been applied. Labs Laboratory Tests Test 01/13/17 04:10 01/14/17 04:40 White Blood Count 11.7 x10^3/uL (4.0-11.0) 10.2 x10^3/uL (4.0-11.0) Red Blood Count 2.87 x10^6/uL (4.30-5.70) 2.74 x10^6/uL (4.30-5.70) Hemoglobin 7.3 g/dL (13.0-17.5) 7.2 g/dL (13.0-17.5) Hematocrit 23.2 % (39.0-53.0) 22.2 % (39.0-53.0) Mean Corpuscular Volume 81 fL (79-100) 81 fL (79-100) Mean Corpuscular Hemoglobin 26 pg (25-35) 26 pg (25-35) Mean Corpuscular Hemoglobin Concent 32 g/dL (31-37) 32 g/dL (31-37) Red Cell Distribution Width 17.5 % (11.5-14.5) 17.7 % (11.5-14.5) Platelet Count 236 x10^3/uL (140-400) 222 x10^3/uL (140-400) Neutrophils (%) (Auto) 71 % (31-73) 67 % (31-73) Lymphocytes (%) (Auto) 23 % (24-48) 25 % (24-48) Monocytes (%) (Auto) 5 % (0-9) 6 % (0-9) Eosinophils (%) (Auto) 0 % (0-3) 2 % (0-3) Basophils (%) (Auto) 0 % (0-3) 0 % (0-3) Neutrophils # (Auto) 8.3 x10^3uL (1.8-7.7) 6.9 x10^3uL (1.8-7.7) Lymphocytes # (Auto) 2.7 x10^3/uL (1.0-4.8) 2.5 x10^3/uL (1.0-4.8) Monocytes # (Auto) 0.6 x10^3/uL (0.0-1.1) 0.6 x10^3/uL (0.0-1.1) Eosinophils # (Auto) 0.0 x10^3/uL (0.0-0.7) 0.2 x10^3/uL (0.0-0.7) Basophils # (Auto) 0.0 x10^3/uL (0.0-0.2) 0.0 x10^3/uL (0.0-0.2) Sodium Level 142 mmol/L (136-145) 141 mmol/L (136-145) Potassium Level 4.2 mmol/L (3.5-5.1) 3.8 mmol/L (3.5-5.1) Chloride Level 108 mmol/L (98-107) 107 mmol/L (98-107) Carbon Dioxide Level 27 mmol/L (21-32) 26 mmol/L (21-32) Anion Gap 7 (6-14) 8 (6-14) Blood Urea Nitrogen 22 mg/dL (8-26) 21 mg/dL (8-26) Creatinine 0.7 mg/dL (0.7-1.3) 0.7 mg/dL (0.7-1.3) Estimated GFR (Cockcroft-Gault) 111.2 111.2 Glucose Level 104 mg/dL (70-99) 101 mg/dL (70-99) Calcium Level 8.3 mg/dL (8.5-10.1) 8.2 mg/dL (8.5-10.1) Laboratory Tests Test 01/14/17 04:40 White Blood Count 10.2 x10^3/uL (4.0-11.0) Red Blood Count 2.74 x10^6/uL (4.30-5.70) Hemoglobin 7.2 g/dL (13.0-17.5) Hematocrit 22.2 % (39.0-53.0) Mean Corpuscular Volume 81 fL (79-100) Mean Corpuscular Hemoglobin 26 pg (25-35) Mean Corpuscular Hemoglobin Concent 32 g/dL (31-37) Red Cell Distribution Width 17.7 % (11.5-14.5) Platelet Count 222 x10^3/uL (140-400) Neutrophils (%) (Auto) 67 % (31-73) Lymphocytes (%) (Auto) 25 % (24-48) Monocytes (%) (Auto) 6 % (0-9) Eosinophils (%) (Auto) 2 % (0-3) Basophils (%) (Auto) 0 % (0-3) Neutrophils # (Auto) 6.9 x10^3uL (1.8-7.7) Lymphocytes # (Auto) 2.5 x10^3/uL (1.0-4.8) Monocytes # (Auto) 0.6 x10^3/uL (0.0-1.1) Eosinophils # (Auto) 0.2 x10^3/uL (0.0-0.7) Basophils # (Auto) 0.0 x10^3/uL (0.0-0.2) Sodium Level 141 mmol/L (136-145) Potassium Level 3.8 mmol/L (3.5-5.1) Chloride Level 107 mmol/L (98-107) Carbon Dioxide Level 26 mmol/L (21-32) Anion Gap 8 (6-14) Blood Urea Nitrogen 21 mg/dL (8-26) Creatinine 0.7 mg/dL (0.7-1.3) Estimated GFR (Cockcroft-Gault) 111.2 Glucose Level 101 mg/dL (70-99) Calcium Level 8.2 mg/dL (8.5-10.1) Microbiology 01/10/17 Blood Culture - Preliminary, Resulted NO GROWTH AFTER 4 DAYS 01/10/17 Urine Culture - Final, Complete 01/10/17 Urine Culture Result 1 (ESTRELLA) - Final, Complete Medications Current Medications Fentanyl Citrate (Fentanyl 2ml Vial) 25 mcg PRN Q15MIN PRN IV PAIN GREATER THAN 3/10 Last administered on 01/10/17 12:42; Start 01/10/17 at 12:45; Stop 01/11/17 at 12:44; Status DC Fentanyl Citrate (Fentanyl 2ml Vial) 100 mcg STK-MED ONCE .ROUTE ; Start at 12:39; Stop 01/10/17 at 12:40; Status DC Potassium Chloride 100 ml @ 100 mls/hr Q1H IV Last administered on 01/10/17 16:32; Start 01/10/17 at 13:00; Stop 01/10/17 at 16:59; Status DC Ceftriaxone Sodium 50 ml @ 100 mls/hr 1X ONCE IV Last administered on 13:03; Start 01/10/17 at 13:00; Stop 01/10/17 at 13:29; Status DC Fentanyl Citrate (Fentanyl 2ml Vial) 50 mcg PRN Q2HR PRN IV PAIN Last administered on 01/14/17 10:13; Start 01/10/17 at 14:45 Acetaminophen (Tylenol) 650 mg Q4HRS PO ; Start 01/10/17 at 16:00; Status UNV Amlodipine Besylate (Norvasc) 10 mg DAILY PO Last administered on 01/14/17 10 :14; Start 01/10/17 at 15:00 Atorvastatin Calcium (Lipitor) 20 mg DAILY PO ; Start 01/10/17 at 15:00; Stop 01/13/17 at 10:02; Status DC Finasteride (Proscar) 5 mg DAILY PO Last administered on 01/14/17 10:14; Start 01/11/17 at 09:00 Furosemide (Lasix) 20 mg DAILY PO Last administered on 01/14/17 10:14; Start 01/10/17 at 15:00 Oxycodone/ Acetaminophen (Percocet 5/325) 1 tab PRN Q4HRS PRN PO pain 5-7 Last administered on 01/13/17 22:55; Start 01/10/17 at 14:45 Pramipexole Dihydrochloride (miraPEX) 0.25 mg TID PO ; Start 01/10/17 at 15:00 ; Stop 01/10/17 at 16:31; Status DC Tamsulosin HCl (Flomax) 0.8 mg QHS PO Last administered on 01/13/17 22:55; Start 01/10/17 at 21:00 Atenolol (Tenormin) 100 mg HS PO Last administered on 01/12/17 21:53; Start 01/10/17 at 21:00 Non-Formulary Medication 1 tab QID PO ; Start 01/10/17 at 17:00; Status UNV Gabapentin (Neurontin) 600 mg HS PO Last administered on 01/13/17 22:55; Start 01/10/17 at 21:00 Pantoprazole Sodium (Protonix) 40 mg QODAY PO Last administered on 01/13/17 13:10; Start 01/11/17 at 07:30 Sertraline HCl (Zoloft) 100 mg BID PO Last administered on 01/14/17 10:14; Start 01/10/17 at 21:00 Amino Acids/ Glycerin/ Electrolytes 1,000 ml @ 80 mls/hr [id number] IV Last administered on 01/14/17 03:41; Start 01/10/17 at 15:00 Enoxaparin Sodium (Lovenox 40mg Syringe) 40 mg Q24H SQ Last administered on 18:10; Start 01/10/17 at 15:00 Famotidine (Pepcid) 20 mg QHS IVP Last administered on 01/13/17 22:54; Start 01/10/17 at 21:00; Stop 01/14/17 at 10:09; Status DC Pramipexole Dihydrochloride (miraPEX) 0.375 mg TID PO Last administered on 10:15; Start 01/10/17 at 21:00 Carbidopa/Levodopa (Sinemet 25/100) 2 tab [id number] PO Last administered on 10:14; Start 01/10/17 at 18:00 Potassium Chloride 100 ml @ 100 mls/hr Q1H IV Last administered on 01/11/17 13:11; Start 01/11/17 at 09:30; Stop 01/11/17 at 13:29; Status DC Ondansetron HCl (Zofran) 4 mg PRN Q6HRS PRN IV NAUSEA/VOMITING; Start at 07:00; Stop 01/13/17 at 06:59; Status DC Fentanyl Citrate (Fentanyl 2ml Vial) 25 mcg PRN Q5MIN PRN IV MILD PAIN; Start 01/12/17 at 07:00; Stop 01/13/17 at 06:59; Status DC Fentanyl Citrate (Fentanyl 2ml Vial) 50 mcg PRN Q5MIN PRN IV MODERATE PAIN; Start 01/12/17 at 07:00; Stop 01/13/17 at 06:59; Status DC Morphine Sulfate 1 mg PRN Q10MIN PRN IV SEVERE PAIN; Start 01/12/17 at 07:00; Stop 01/13/17 at 06:59; Status DC Ringer's Solution 1,000 ml @ 30 mls/hr Q24H IV ; Start 01/12/17 at 07:00; Stop 01/12/17 at 18:59; Status DC Lidocaine HCl (Xylocaine-Mpf 1% Vial) 2 ml PRN 1X PRN ID IV START; Start 01/12 at 07:00; Stop 01/13/17 at 06:59; Status DC Hydromorphone HCl (Dilaudid) 0.5 mg PRN Q10MIN PRN IV SEV PAIN, Second choice; Start 01/12/17 at 07:00; Stop 01/13/17 at 06:59; Status DC Prochlorperazine Edisylate (Compazine) 5 mg PACU PRN PRN IV NAUSEA, MRX1; Start 01/12/17 at 07:00; Stop 01/13/17 at 06:59; Status DC Cefazolin Sodium/ Dextrose 50 ml @ As Directed STK-MED ONCE IV ; Start at 12:32; Stop 01/12/17 at 12:33; Status DC Propofol 20 ml @ As Directed STK-MED ONCE IV ; Start 01/12/17 at 12:54; Stop 01/12/17 at 12:55; Status DC Dexamethasone Sodium Phosphate (Decadron) 20 mg STK-MED ONCE .ROUTE ; Start at 12:54; Stop 01/12/17 at 12:55; Status DC Lidocaine HCl (Lidocaine Pf 2% Vial) 5 ml STK-MED ONCE .ROUTE ; Start 01/12/17 at 12:54; Stop 01/12/17 at 12:55; Status DC Desflurane (Suprane) 60 ml STK-MED ONCE IH ; Start 01/12/17 at 12:54; Stop at 12:55; Status DC Fentanyl Citrate (Fentanyl 2ml Vial) 100 mcg STK-MED ONCE .ROUTE ; Start at 12:54; Stop 01/12/17 at 12:55; Status DC Ondansetron HCl (Zofran) 4 mg STK-MED ONCE .ROUTE ; Start 01/12/17 at 13:12; Stop 01/12/17 at 13:13; Status DC Metoprolol Tartrate (Lopressor) 5 mg STK-MED ONCE .ROUTE ; Start 01/12/17 at 13 :30; Stop 01/12/17 at 13:31; Status DC Albumin Human 500 ml @ As Directed STK-MED ONCE IV ; Start 01/12/17 at 13:34; Stop 01/12/17 at 13:35; Status DC Morphine Sulfate 10 mg STK-MED ONCE .ROUTE ; Start 01/12/17 at 13:54; Stop at 13:55; Status DC Neostigmine Methylsulfate 5 mg STK-MED ONCE .ROUTE ; Start 01/12/17 at 14:50; Stop 01/12/17 at 14:51; Status DC Glycopyrrolate (Robinul) 1 mg STK-MED ONCE .ROUTE ; Start 01/12/17 at 14:50; Stop 01/12/17 at 14:51; Status DC Acetaminophen (Acetaminophen Supp) 650 mg PRN Q6HRS PRN [place] MILD PAIN / TEMP Last administered on 01/12/17 23:20; Start 01/12/17 at 22:45 Atorvastatin Calcium (Lipitor) 20 mg QHS PO Last administered on 01/13/17t 22: 54; Start 01/13/17 at 21:00 Famotidine (Pepcid) 20 mg QHS PO ; Start 01/14/17 at 21:00 Active Scripts Active Oxycodone-Acetaminophen 5-325 (Oxycodone Hcl/Acetaminophen) 1 Each Tablet 1 Tab PO PRN Q4HRS PRN Reported Gabapentin 300 Mg Capsule 600 Mg PO QHS Sinemet Cr 50-200 Tablet (Carbidopa/Levodopa) 1 Each Tablet.er 1 Tab PO QID Lansoprazole 15 Mg Capsule.dr 15 Mg PO QODAY Pramipexole Dihydrochloride (Pramipexole Di-Hcl) 0.25 Mg Tablet 0.25 Mg PO TID Furosemide 20 Mg Tablet 20 Mg PO DAILY Plavix (Clopidogrel Bisulfate) 75 Mg Tablet 75 Mg PO DAILY Finasteride 5 Mg Tablet 5 Mg PO DAILY Tylenol (Acetaminophen) 325 Mg Tablet 650 Mg PO Q4HRS Tamsulosin Hcl 0.4 Mg Cap.er.24h 0.8 Mg PO QHS Sertraline Hcl 100 Mg Tablet 100 Mg PO BID Amlodipine Besylate 10 Mg Tablet 10 Mg PO DAILY Atenolol 100 Mg Tablet 100 Mg PO QHS Atorvastatin Calcium 20 Mg Tablet 20 Mg PO DAILY Vitals/I & O Vital Sign - Last 24 Hours 01/13/17 01/13/17 01/13/17 01/13/17 13:09 13:10 13:13 13:43 Pulse 74 Resp 14 12 14 B/P (MAP) 101/52 Pulse Ox 94 93 93 O2 Delivery Nasal Cannula Nasal Cannula Nasal Cannula O2 Flow Rate 2.0 2.0 2.0 01/13/17 01/13/17 01/13/17 01/13/17 14:10 15:00 19:10 20:02 Temp 98.0 98.1 98.0 98.1 Pulse 76 77 Resp 14 18 B/P (MAP) 101/55 (70) 104/58 (73) Pulse Ox 94 97 97 O2 Delivery Nasal Cannula Nasal Cannula Nasal Cannula O2 Flow Rate 2.0 4.0 2.0 01/13/17 01/13/17 01/13/17 01/14/17 22:55 23:05 23:58 03:16 Temp 99.0 98.9 99.0 98.9 Pulse 78 73 Resp 18 18 18 20 B/P (MAP) 105/58 (74) 104/58 (73) Pulse Ox 97 96 O2 Delivery Nasal Cannula Nasal Cannula Nasal Cannula Nasal Cannula O2 Flow Rate 2.0 4.0 2.0 4.0 01/14/17 01/14/17 01/14/17 01/14/17 07:00 10:13 10:14 11:00 Temp 98.7 98.2 98.7 98.2 Pulse 75 75 82 Resp 20 14 18 B/P (MAP) 108/58 (75) 108/58 105/58 (74) Pulse Ox 95 94 95 O2 Delivery Nasal Cannula BiPAP/CPAP Nasal Cannula O2 Flow Rate 4.0 2.0 4.0 Nutrition Consultation Dietary Evaluation: Recommendations by RD: Increase Calorie Intake, Protein supplementation, PPN/ TPN Comments: REC diet per ZIGZAGGER, possible need for termite control servicer tube feedings would continue ppn for short term nutrition at this time Expected Outcomes/Goals: to meet > 75% est nutr needs Interpretation of weight loss: >5% in 1 month Malnutrition Findings: Weight Status: Underweight JASWINDER SPICER MD Jan 14, 2017 12:26
[2017-01-14 15:00] VITALS: BP 114/62
[2017-01-14] MEDS: ENOXAPARIN 40 MG/0.4 ML SYRINGE. SQ SCH (15:45)
[2017-01-14 19:30] VITALS: BP 113/69
[2017-01-14] MEDS ORDERED: FAMOTIDINE 20 MG TABLET. PO SCH (21:00)
[2017-01-14] MEDS: ATENOLOL 50 MG TABLET. PO SCH (21:00)
[2017-01-14] MEDS: ATORVASTATIN CALCIUM 20 MG TABLET PO SCH (22:43)
[2017-01-14] MEDS: GABAPENTIN 300 MG CAPSULE. PO SCH (22:43)
[2017-01-14] MEDS: TAMSULOSIN 0.4 MG CAP.ER.24H. PO SCH (22:44)
[2017-01-14 23:30] VITALS: BP 122/62
[2017-01-15] MEDS: CARBIDOPA/LEVODOPA 25/100MG TABLET PO SCH ×3 (00:48→12:11)
[2017-01-15 03:24] VITALS: BP 122/62
[2017-01-15] MEDS: AMINO AC 3%/ELECTROLYTE/GLYCER 1,000 ML IV SCH (06:33)
[2017-01-15 07:00] VITALS: BP 110/66
--- NOTE | 2017-01-15 09:05 | PDOC ---
PROGRESS NOTES Assessment Parkinson's disease, worsening. I have followed him in the office for 5 years. Swallowing evaluation noted He also has diabetic neuropathy Metabolic encephalopathy. Bilateral pulmonary infiltrates. HTN HLD CAD s/p stent placement. Left distal femur fracture in 12/13, had surgery 01/12. Bladder cancer? Skin cancer. Dementia Plan Continue Sinemet and Pramipexole, current doses SNU Subjective No complaints Objective Vital Signs Date Time Temp Pulse Resp B/P (MAP) Pulse Ox O2 Delivery O2 Flow Rate FiO2 01/15/17 07:00 98.6 18 110/66 (81) Nasal Cannula 2.0 98.6 01/15/17 03:24 88 99 PHYSICAL EXAM Alert. Speech clear, does follow commands. Knows location, month, year PERRL. EOMI. CN: no focal findings. Muscle tone: minimal cogwheel on right, no tremor Muscle strength: 4/5, has left lower extremity fracture DTR: 1+ Plantar reflex: flexor Gait: not examined in bed. Sensory exam: no abnormal findings. No cerebellar signs elicited. Review of Relevant I have reviewed the following items patricia (where applicable) has been applied. Labs Laboratory Tests Test 01/14/17 04:40 White Blood Count 10.2 x10^3/uL (4.0-11.0) Red Blood Count 2.74 x10^6/uL (4.30-5.70) Hemoglobin 7.2 g/dL (13.0-17.5) Hematocrit 22.2 % (39.0-53.0) Mean Corpuscular Volume 81 fL (79-100) Mean Corpuscular Hemoglobin 26 pg (25-35) Mean Corpuscular Hemoglobin Concent 32 g/dL (31-37) Red Cell Distribution Width 17.7 % (11.5-14.5) Platelet Count 222 x10^3/uL (140-400) Neutrophils (%) (Auto) 67 % (31-73) Lymphocytes (%) (Auto) 25 % (24-48) Monocytes (%) (Auto) 6 % (0-9) Eosinophils (%) (Auto) 2 % (0-3) Basophils (%) (Auto) 0 % (0-3) Neutrophils # (Auto) 6.9 x10^3uL (1.8-7.7) Lymphocytes # (Auto) 2.5 x10^3/uL (1.0-4.8) Monocytes # (Auto) 0.6 x10^3/uL (0.0-1.1) Eosinophils # (Auto) 0.2 x10^3/uL (0.0-0.7) Basophils # (Auto) 0.0 x10^3/uL (0.0-0.2) Sodium Level 141 mmol/L (136-145) Potassium Level 3.8 mmol/L (3.5-5.1) Chloride Level 107 mmol/L (98-107) Carbon Dioxide Level 26 mmol/L (21-32) Anion Gap 8 (6-14) Blood Urea Nitrogen 21 mg/dL (8-26) Creatinine 0.7 mg/dL (0.7-1.3) Estimated GFR (Cockcroft-Gault) 111.2 Glucose Level 101 mg/dL (70-99) Calcium Level 8.2 mg/dL (8.5-10.1) Microbiology 01/10/17 Blood Culture - Preliminary, Resulted NO GROWTH AFTER 4 DAYS 01/10/17 Urine Culture - Final, Complete 01/10/17 Urine Culture Result 1 (ESTRELLA) - Final, Complete Medications Current Medications Fentanyl Citrate (Fentanyl 2ml Vial) 25 mcg PRN Q15MIN PRN IV PAIN GREATER THAN 3/10 Last administered on 01/10/17 12:42; Start 01/10/17 at 12:45; Stop 01/11/17 at 12:44; Status DC Fentanyl Citrate (Fentanyl 2ml Vial) 100 mcg STK-MED ONCE .ROUTE ; Start at 12:39; Stop 01/10/17 at 12:40; Status DC Potassium Chloride 100 ml @ 100 mls/hr Q1H IV Last administered on 01/10/17 16:32; Start 01/10/17 at 13:00; Stop 01/10/17 at 16:59; Status DC Ceftriaxone Sodium 50 ml @ 100 mls/hr 1X ONCE IV Last administered on 13:03; Start 01/10/17 at 13:00; Stop 01/10/17 at 13:29; Status DC Fentanyl Citrate (Fentanyl 2ml Vial) 50 mcg PRN Q2HR PRN IV PAIN Last administered on 01/14/17 10:13; Start 01/10/17 at 14:45 Acetaminophen (Tylenol) 650 mg Q4HRS PO ; Start 01/10/17 at 16:00; Status UNV Amlodipine Besylate (Norvasc) 10 mg DAILY PO Last administered on 01/14/17 10 :14; Start 01/10/17 at 15:00 Atorvastatin Calcium (Lipitor) 20 mg DAILY PO ; Start 01/10/17 at 15:00; Stop 01/13/17 at 10:02; Status DC Finasteride (Proscar) 5 mg DAILY PO Last administered on 01/14/17 10:14; Start 01/11/17 at 09:00 Furosemide (Lasix) 20 mg DAILY PO Last administered on 01/14/17 10:14; Start 01/10/17 at 15:00 Oxycodone/ Acetaminophen (Percocet 5/325) 1 tab PRN Q4HRS PRN PO pain 5-7 Last administered on 01/13/17 22:55; Start 01/10/17 at 14:45 Pramipexole Dihydrochloride (miraPEX) 0.25 mg TID PO ; Start 01/10/17 at 15:00 ; Stop 01/10/17 at 16:31; Status DC Tamsulosin HCl (Flomax) 0.8 mg QHS PO Last administered on 01/14/17 22:44; Start 01/10/17 at 21:00 Atenolol (Tenormin) 100 mg HS PO Last administered on 01/12/17 21:53; Start 01/10/17 at 21:00 Non-Formulary Medication 1 tab QID PO ; Start 01/10/17 at 17:00; Status UNV Gabapentin (Neurontin) 600 mg HS PO Last administered on 01/14/17 22:43; Start 01/10/17 at 21:00 Pantoprazole Sodium (Protonix) 40 mg QODAY PO Last administered on 01/13/17 13:10; Start 01/11/17 at 07:30 Sertraline HCl (Zoloft) 100 mg BID PO Last administered on 01/14/17 22:45; Start 01/10/17 at 21:00 Amino Acids/ Glycerin/ Electrolytes 1,000 ml @ 80 mls/hr [id number] IV Last administered on 01/15/17 06:33; Start 01/10/17 at 15:00 Enoxaparin Sodium (Lovenox 40mg Syringe) 40 mg Q24H SQ Last administered on 15:45; Start 01/10/17 at 15:00 Famotidine (Pepcid) 20 mg QHS IVP Last administered on 01/13/17 22:54; Start 01/10/17 at 21:00; Stop 01/14/17 at 10:09; Status DC Pramipexole Dihydrochloride (miraPEX) 0.375 mg TID PO Last administered on 22:42; Start 01/10/17 at 21:00 Carbidopa/Levodopa (Sinemet 25/100) 2 tab [id number] PO Last administered on 06:28; Start 01/10/17 at 18:00 Potassium Chloride 100 ml @ 100 mls/hr Q1H IV Last administered on 01/11/17 13:11; Start 01/11/17 at 09:30; Stop 01/11/17 at 13:29; Status DC Ondansetron HCl (Zofran) 4 mg PRN Q6HRS PRN IV NAUSEA/VOMITING; Start at 07:00; Stop 01/13/17 at 06:59; Status DC Fentanyl Citrate (Fentanyl 2ml Vial) 25 mcg PRN Q5MIN PRN IV MILD PAIN; Start 01/12/17 at 07:00; Stop 01/13/17 at 06:59; Status DC Fentanyl Citrate (Fentanyl 2ml Vial) 50 mcg PRN Q5MIN PRN IV MODERATE PAIN; Start 01/12/17 at 07:00; Stop 01/13/17 at 06:59; Status DC Morphine Sulfate 1 mg PRN Q10MIN PRN IV SEVERE PAIN; Start 01/12/17 at 07:00; Stop 01/13/17 at 06:59; Status DC Ringer's Solution 1,000 ml @ 30 mls/hr Q24H IV ; Start 01/12/17 at 07:00; Stop 01/12/17 at 18:59; Status DC Lidocaine HCl (Xylocaine-Mpf 1% Vial) 2 ml PRN 1X PRN ID IV START; Start 01/12 at 07:00; Stop 01/13/17 at 06:59; Status DC Hydromorphone HCl (Dilaudid) 0.5 mg PRN Q10MIN PRN IV SEV PAIN, Second choice; Start 01/12/17 at 07:00; Stop 01/13/17 at 06:59; Status DC Prochlorperazine Edisylate (Compazine) 5 mg PACU PRN PRN IV NAUSEA, MRX1; Start 01/12/17 at 07:00; Stop 01/13/17 at 06:59; Status DC Cefazolin Sodium/ Dextrose 50 ml @ As Directed STK-MED ONCE IV ; Start at 12:32; Stop 01/12/17 at 12:33; Status DC Propofol 20 ml @ As Directed STK-MED ONCE IV ; Start 01/12/17 at 12:54; Stop 01/12/17 at 12:55; Status DC Dexamethasone Sodium Phosphate (Decadron) 20 mg STK-MED ONCE .ROUTE ; Start at 12:54; Stop 01/12/17 at 12:55; Status DC Lidocaine HCl (Lidocaine Pf 2% Vial) 5 ml STK-MED ONCE .ROUTE ; Start 01/12/17 at 12:54; Stop 01/12/17 at 12:55; Status DC Desflurane (Suprane) 60 ml STK-MED ONCE IH ; Start 01/12/17 at 12:54; Stop at 12:55; Status DC Fentanyl Citrate (Fentanyl 2ml Vial) 100 mcg STK-MED ONCE .ROUTE ; Start at 12:54; Stop 01/12/17 at 12:55; Status DC Ondansetron HCl (Zofran) 4 mg STK-MED ONCE .ROUTE ; Start 01/12/17 at 13:12; Stop 01/12/17 at 13:13; Status DC Metoprolol Tartrate (Lopressor) 5 mg STK-MED ONCE .ROUTE ; Start 01/12/17 at 13 :30; Stop 01/12/17 at 13:31; Status DC Albumin Human 500 ml @ As Directed STK-MED ONCE IV ; Start 01/12/17 at 13:34; Stop 01/12/17 at 13:35; Status DC Morphine Sulfate 10 mg STK-MED ONCE .ROUTE ; Start 01/12/17 at 13:54; Stop at 13:55; Status DC Neostigmine Methylsulfate 5 mg STK-MED ONCE .ROUTE ; Start 01/12/17 at 14:50; Stop 01/12/17 at 14:51; Status DC Glycopyrrolate (Robinul) 1 mg STK-MED ONCE .ROUTE ; Start 01/12/17 at 14:50; Stop 01/12/17 at 14:51; Status DC Acetaminophen (Acetaminophen Supp) 650 mg PRN Q6HRS PRN AL MILD PAIN / TEMP Last administered on 01/12/17 23:20; Start 01/12/17 at 22:45 Atorvastatin Calcium (Lipitor) 20 mg QHS PO Last administered on 01/14/17 22: 43; Start 01/13/17 at 21:00 Famotidine (Pepcid) 20 mg QHS PO Last administered on 01/14/17 22:42; Start 01/14/17 at 21:00 Active Scripts Active Oxycodone-Acetaminophen 5-325 (Oxycodone Hcl/Acetaminophen) 1 Each Tablet 1 Tab PO PRN Q4HRS PRN Reported Gabapentin 300 Mg Capsule 600 Mg PO QHS Sinemet Cr 50-200 Tablet (Carbidopa/Levodopa) 1 Each Tablet.er 1 Tab PO QID Lansoprazole 15 Mg Capsule.dr 15 Mg PO QODAY Pramipexole Dihydrochloride (Pramipexole Di-Hcl) 0.25 Mg Tablet 0.25 Mg PO TID Furosemide 20 Mg Tablet 20 Mg PO DAILY Plavix (Clopidogrel Bisulfate) 75 Mg Tablet 75 Mg PO DAILY Finasteride 5 Mg Tablet 5 Mg PO DAILY Tylenol (Acetaminophen) 325 Mg Tablet 650 Mg PO Q4HRS Tamsulosin Hcl 0.4 Mg Cap.er.24h 0.8 Mg PO QHS Sertraline Hcl 100 Mg Tablet 100 Mg PO BID Amlodipine Besylate 10 Mg Tablet 10 Mg PO DAILY Atenolol 100 Mg Tablet 100 Mg PO QHS Atorvastatin Calcium 20 Mg Tablet 20 Mg PO DAILY Vitals/I & O Vital Sign - Last 24 Hours 01/14/17 01/14/17 01/14/17 01/14/17 10:13 10:14 10:43 11:00 Temp 98.2 98.2 Pulse 75 82 Resp 14 14 18 B/P (MAP) 108/58 105/58 (74) Pulse Ox 94 93 95 O2 Delivery BiPAP/CPAP Nasal Cannula Nasal Cannula O2 Flow Rate 2.0 2.0 4.0 01/14/17 01/14/17 01/14/17 01/14/17 15:00 19:30 20:00 21:00 Temp 98.3 98.3 98.3 98.3 Pulse 80 87 87 Resp 18 B/P (MAP) 114/62 (79) 113/69 (84) 113/69 Pulse Ox 96 100 O2 Delivery Nasal Cannula Nasal Cannula Nasal Cannula O2 Flow Rate 4.0 2.0 01/14/17 01/15/17 01/15/17 23:30 03:24 07:00 Temp 98.1 98.1 98.6 98.1 98.1 98.6 Pulse 88 88 Resp 18 18 18 B/P (MAP) 122/62 (82) 122/62 (82) 110/66 (81) Pulse Ox 99 99 O2 Delivery Nasal Cannula Nasal Cannula Nasal Cannula O2 Flow Rate 2.0 2.0 2.0 AURE BURDICK MD Jan 15, 2017 09:05
[2017-01-15] MEDS: amLODIPine BESYLATE 10 MG TABLET PO SCH (09:26)
[2017-01-15] MEDS: FUROSEMIDE 20 MG TABLET PO SCH (09:27)
[2017-01-15] MEDS: FINASTERIDE 5 MG TABLET. PO SCH (09:28)
[2017-01-15] MEDS: PRAMIPEXOLE 0.25 MG TABLET. PO SCH ×2 (09:28→12:11)
[2017-01-15] MEDS: SERTRALINE 50 MG TABLET. PO SCH (09:29)
[2017-01-15] MEDS: PANTOPRAZOLE 40 MG TABLET.DR. PO SCH (09:29)
[2017-01-15] MEDS ORDERED: ENOX40DI3 SQ (09:39)
[2017-01-15] MEDS ORDERED: FERR325T72 PO (09:46)
[2017-01-15] MEDS ORDERED: FERROUS SULFATE 325 MG TABLET. PO SCH (10:00)
--- NOTE | 2017-01-15 11:19 | PDOC2 ---
PALLIATIVE CARE Palliative Care Note Palliative Care Patient more alert today. Oriented to self and place. Ate most of hot cereal and thickened juice Plan discharge to today. [facility] called. Message regarding plan for discharge at 1500. Spoke with daughter Tahira. Aware of discharge plan STEPHANY BUSTAMANTE Jan 15, 2017 11:19
--- NOTE | 2017-01-15 11:28 | PDOC3 ---
Discharge Summary [facility] Date of Admission: Jan 10, 2017 Discharge Date: Jan 15, 2017 Admitting Diagnosis 1. Distal femur fx, left s/p sx (01/12) 2. Advanced parkinsons with dementia 3. Acute on Chronic aspiration 4. Dysphagia on dyasphagia 1 diet in SNU 5. Severe PCM 6. HX CAD with 1 stent on plavix 7. Easy bruisability 8. DNR DNI 9,. SIRS Post op, reactive? ACUTE anemia expected post op Problems: CONSULTS ortho Procedures left fem fx sx Brief Hospital Course Mr. Lund is a 71 old M, advanced parkinson dz with severe dementia, recent SNF resident, was sent post fall with left leg pain, was found left distal femur fx, got sx 01/12. pt cont baseline confusing, aaox1, can answer some questions, on dysphagia 1 diet, low appetite, only eats 20% of meal, on PPN. dc to SNF , cont PPN, if eat >50% food, may dc PPN, DNR, family not ready for hospice yet. if eating not improving, family will consider hospice. PAT consulted. dc time 40min Physical Exam AAOX1 General: Alert, No acute distress, Other (mouth breather, shakes, ) Heart: Regular rate, Normal S1, Normal S2 Lungs: Clear Abdomen: Normal bowel sounds, Soft, No tenderness, No hepatosplenomegaly, No masses Extremities: No clubbing, Other (RT leg straightened,LEFT thigh has dressing on ) Skin: No rashes, No breakdown, No significant lesion Problems: Disposition SNF CONDITION AT DISCHARGE: Improved Diet dysphagia 1 Scheduled Acetaminophen (Tylenol), 650 MG PO Q4HRS, (Reported) Atenolol (Atenolol), 100 MG PO QHS, (Reported) Atorvastatin Calcium (Atorvastatin Calcium), 20 MG PO DAILY, (Reported) Carbidopa/Levodopa (Sinemet Cr 50-200 Tablet), 1 TAB PO QID, (Reported) Clopidogrel Bisulfate (Plavix), 75 MG PO DAILY, (Reported) Enoxaparin Sodium (Enoxaparin Sodium), 40 MG SQ Q24H Ferrous Sulfate (Feosol), 325 MG PO DAILYWBKFT Finasteride (Finasteride), 5 MG PO DAILY, (Reported) Furosemide (Furosemide), 20 MG PO DAILY, (Reported) Gabapentin (Gabapentin), 600 MG PO QHS, (Reported) Lansoprazole (Lansoprazole), 15 MG PO QODAY, (Reported) Pramipexole Di-Hcl (Pramipexole Dihydrochloride), 0.25 MG PO TID, (Reported) Sertraline Hcl (Sertraline Hcl), 100 MG PO BID, (Reported) Tamsulosin Hcl (Tamsulosin Hcl), 0.8 MG PO QHS, (Reported) Scheduled PRN Oxycodone Hcl/Acetaminophen (Oxycodone-Acetaminophen 5-325), 1 TAB PO PRN Q4HRS PRN for pain 5-7 Discontinued Medications Amlodipine Besylate (Amlodipine Besylate), 10 MG PO DAILY, (Reported) Follow Up ortho in 2 weeks JASWINDER SPICER MD Jan 15, 2017 11:28
[2017-01-15] MEDS: ENOXAPARIN 40 MG/0.4 ML SYRINGE. SQ SCH (12:17)
[2017-01-15 15:00] VITALS: BP 109/69
== END 2017-01-15 18:22 | DRG 480 ==
LOC: ER 11:10 → 4 NORTH 12:30
PROVIDERS: ADMIT Internal Medicine; ATTEND Internal Medicine
PROC: 0QSC04Z Reposition Left Lower Femur with Internal Fixation Device, Open Approach (ICD-10-PCS; principal; 2017-01-12 18:30)
DX: S72.92XA Unspecified fracture of left femur, initial encounter for closed fracture (principal); E43 Unspecified severe protein-calorie malnutrition; G93.41 Metabolic encephalopathy; E11.40 Type 2 diabetes mellitus with diabetic neuropathy, unspecified; R65.10 Systemic inflammatory response syndrome (SIRS) of non-infectious origin without acute organ dysfunction; D64.9 Anemia, unspecified; G20 Parkinson's disease; R13.10 Dysphagia, unspecified; F02.80 Dementia in other diseases classified elsewhere, unspecified severity, without behavioral disturbance, psychotic disturbance, mood disturbance, and anxiety; C44.90 Unspecified malignant neoplasm of skin, unspecified; E78.5 Hyperlipidemia, unspecified; I10 Essential (primary) hypertension; I25.10 Atherosclerotic heart disease of native coronary artery without angina pectoris; M47.812 Spondylosis without myelopathy or radiculopathy, cervical region; R62.7 Adult failure to thrive; Z66 Do not resuscitate; Z90.49 Acquired absence of other specified parts of digestive tract; Z95.5 Presence of coronary angioplasty implant and graft; F32.9 Major depressive disorder, single episode, unspecified; Z85.9 Personal history of malignant neoplasm, unspecified; Z90.89 Acquired absence of other organs; Z99.3 Dependence on wheelchair; R91.8 Other nonspecific abnormal finding of lung field; Z51.5 Encounter for palliative care; Z68.29 Body mass index [BMI] 29.0-29.9, adult
CPT/HCPCS: 36415; 51702; 70450; 70486; 71010; 72125; 73502; 73552; 74000; 76000; 80048; 80076; 80307; 81001; 82140; 82553; 83735; 83880; 84484; 85025; 85610; 85730; 87040; 87086; 87641; 93005; 96365; 96375; C1713; J0690; J1100; J1650; J2270; J2405; J2704; J2710; J3010; J3480; J3490; J7030; J7120; P9045; S0028; 92526; 92610; 97110; 97116; 99285-25; G0479; J2001

== ENCOUNTER → 2017-01-10 | Outpatient (CLI) | payer MEDICARE ==
[2016-12-28 11:00] VITALS: BP 98/53
[~2017-01-10] MED LIST changes: +ATRO2DRO3 SL; +CIPR250T30 PO; +ENOX40DI3 SQ; +FERR325T72 PO; +LORA2ORA7 SL; +METR500T PO; +OXYC20OR SL
--- NOTE | 2017-01-10 09:38 | RAD ---
Two-view left femur study History: Fell yesterday. Pain and limited range of motion. Comparison: December 24, 2016. Intraoperative study dated December 25, 2016. Findings: Again seen is ORIF of comminuted fracture of distal left femur. The metallic surgical hardware is displaced along with the shaft of the left femur posteriorly and medially as result of a new fracture. IMPRESSION: Refracture and displacement of the distal left femoral shaft. There is a new butterfly fragment posteriorly and medially.
--- NOTE | 2017-01-10 09:39 | RAD ---
Two-view study of the left hip History: Fell yesterday. Left hip pain. Findings: No acute fracture or dislocation or osteolytic process is seen. IMPRESSION: No acute fracture.
== END | disposition home or self-care (01) ==
PROVIDERS: ATTEND Internal Medicine
DX: M25.552 Pain in left hip (principal); M25.652 Stiffness of left hip, not elsewhere classified
CPT/HCPCS: 73502; 73552

== ENCOUNTER 2017-01-17 19:57 | Inpatient (IN) | payer MEDICARE ==
[~2017-01-17] VITALS: Ht 177.8 cm; Wt 90.9 kg
[~2017-01-17 19:57] MED LIST changes: +ENOX40DI3 SQ; +FERR325T72 PO
[2017-01-17] MEDS ORDERED: IV NORMAL SALINE 1000ML BAG 1,000 ML IV ONE ×2 (21:00)
[2017-01-17 21:08] LABS: BASO % 0 % (0-3); EOS % 1 % (0-3); HEMATOCRIT 23.7 % (39.0-53.0); HEMOGLOBIN 7.5 g/dL (13.0-17.5); LYMPH # 4.1 x10^3/uL (1.0-4.8); LYMPH % 30 % (24-48); MEAN CORPUSCULAR HEMOGLOBIN 25 pg (25-35); MEAN CORPUSCULAR HGB CONC 32 g/dL (31-37); MEAN CORPUSCULAR VOLUME 81 fL (79-100); MONO % 3 % (0-9); NEUT % 65 % (31-73); PLATELET COUNT 272 x10^3/uL (140-400); RED BLOOD COUNT 2.94 x10^6/uL (4.30-5.70); RED CELL DISTRIBUTION WIDTH 17.5 % (11.5-14.5); WHITE BLOOD COUNT 13.6 x10^3/uL (4.0-11.0)
[2017-01-17 21:09] LABS: BILIRUBIN,URINE SMALL (NEG); GLUCOSE,URINE NEGATIVE (NEG); NITRITE,URINE NEGATIVE (NEG); PROTEIN,URINE NEGATIVE (NEG-TRACE)
[2017-01-17 21:18] LABS: BACTERIA,URINE FEW /HPF (0-FEW); SQUAMOUS EPITHELIAL CELL,UR FEW /LPF
[2017-01-17 21:19] LABS: CALCIUM 8.5 mg/dL (8.5-10.1); CREATININE 0.7 mg/dL (0.7-1.3); GFR 111.2; POTASSIUM 3.8 mmol/L (3.5-5.1)
[2017-01-17 21:25] LABS: ALBUMIN 2.1 g/dL (3.4-5.0); ALBUMIN/GLOBULIN RATIO 0.5 (1.0-1.7); MAGNESIUM 2.2 mg/dL (1.8-2.4); TOTAL BILIRUBIN 0.7 mg/dL (0.2-1.0); TOTAL PROTEIN 6.2 g/dL (6.4-8.2)
[2017-01-17] MEDS ORDERED: ONDANSETRON PF 4 MG/2 ML VIAL. IV PRN (22:15)
--- NOTE | 2017-01-17 22:31 | PHYS DOC ---
Past Medical History Past Medical History: CAD Additional Past Medical Histor: Parkinson's, GERD, dysphagia, skin cancer Past Surgical History: Other Additional Past Surgical Histo: unknown Alcohol Use: None Drug Use: None Social History Narrative: patient is poor historian Adult General Chief Complaint Chief Complaint: ALTERED MENTAL STATUS HPI HPI Patient is a 71 year old male who presents to the emergency department by EMS for evaluation of combative behavior and altered mental status. Patient was brought to the emergency department from [facility] after staff reports that the patient became combative and altered. The patient has history of Parkinson's disease and was being cared for due to a recent femur fracture that had been repaired while being hospitalized on January 10. Patient was discharged on January 15. Staff states that throughout the day the patient has been more combative. On arrival in the emergency department the patient was calm and is cooperative at this time. He states that the staff was causing him to get agitated which is what made him become combative. The patient states that he did not feel like he was being taken care of. The patient denies any complaints currently. Review of Systems Review of Systems Constitutional: Denies fever or chills [] Eyes: Denies change in visual acuity, redness, or eye pain [] HENT: Denies nasal congestion or sore throat [] Respiratory: Denies cough or shortness of breath [] Cardiovascular: Denies chest pain or edema[] GI: Denies abdominal pain, nausea, vomiting, bloody stools or diarrhea [] : Denies dysuria or hematuria [] Musculoskeletal: Denies back pain or joint pain [] Integument: Denies rash or skin lesions [] Neurologic: Denies headache, focal weakness or sensory changes [] Current Medications Current Medications Current Medications Medications (Trade) Dose Ordered Sig/Alverto Start Time Stop Time Status Last Admin Dose Admin Sodium Chloride 1,000 ml @ 1,000 mls/hr 1X ONCE 01/17/17 21:00 01/17/17 21:59 DC 01/17/17 21:00 1,000 MLS/HR Allergies Allergies Allergies Coded Allergies Type Severity Reaction Last Updated Verified No Known Drug Allergies 04/12/13 No Physical Exam Physical Exam Constitutional: Alert, afebrile, appears in chronically poor health. [] HENT: Normocephalic, atraumatic, bilateral external ears normal, oropharynx dry , no oral exudates, nose normal. [] Eyes: PERRLA, EOMI, conjunctiva normal, no discharge. [] Neck: Normal range of motion, no tenderness, supple, no stridor. [] Cardiovascular:Heart rate regular rhythm, no murmur [] Lungs & Thorax: Bilateral breath sounds clear to auscultation [] Abdomen: Bowel sounds normal, soft, no tenderness, no masses, no pulsatile masses. [] Skin: Warm, dry, no erythema, no rash. [] Back: End-stage 2 cm Sacral decubitus ulcer with tunneling, foul-smelling drainage present, mild surrounding erythema. [] Extremities: Left hip surgical incision is clean, dry, and intact, limited range of motion and left lower show any secondary to pain, pulses 2+ distally. [ ] Current Patient Data Vital Signs Vital Signs Date Time Temp Pulse Resp B/P (MAP) Pulse Ox O2 Delivery O2 Flow Rate FiO2 01/17/17 20:10 98.0 82 18 120/61 (80) 96 Nasal Cannula 2.0 98.0 Lab Values Laboratory Tests Test 01/17/17 20:17 White Blood Count 13.6 x10^3/uL (4.0-11.0) H Red Blood Count 2.94 x10^6/uL (4.30-5.70) L Hemoglobin 7.5 g/dL (13.0-17.5) L Hematocrit 23.7 % (39.0-53.0) L Mean Corpuscular Volume 81 fL (79-100) Mean Corpuscular Hemoglobin 25 pg (25-35) Mean Corpuscular Hemoglobin Concent 32 g/dL (31-37) Red Cell Distribution Width 17.5 % (11.5-14.5) H Platelet Count 272 x10^3/uL (140-400) Neutrophils (%) (Auto) 65 % (31-73) Lymphocytes (%) (Auto) 30 % (24-48) Monocytes (%) (Auto) 3 % (0-9) Eosinophils (%) (Auto) 1 % (0-3) Basophils (%) (Auto) 0 % (0-3) Neutrophils # (Auto) 8.9 x10^3uL (1.8-7.7) H Lymphocytes # (Auto) 4.1 x10^3/uL (1.0-4.8) Monocytes # (Auto) 0.5 x10^3/uL (0.0-1.1) Eosinophils # (Auto) 0.1 x10^3/uL (0.0-0.7) Basophils # (Auto) 0.0 x10^3/uL (0.0-0.2) Urine Collection Type U cath Urine Color Dk yellow Urine Clarity Clear Urine pH 6.0 Urine Specific [place] 1.020 Urine Protein Negative mg/dL (NEG-TRACE) Urine Glucose (UA) Negative mg/dL (NEG) Urine Ketones (Stick) Trace mg/dL (NEG) Urine Blood Small (NEG) Urine Nitrite Negative (NEG) Urine Bilirubin Small (NEG) Urine Urobilinogen Dipstick 1.0 mg/dL (0.2 mg/dL) Urine Leukocyte Esterase Moderate (NEG) Urine RBC 6-10 /HPF (0-2) Urine WBC 11-20 /HPF (0-4) Urine Squamous Epithelial Cells Few /LPF Urine Transitional Epithelial Cells Few /LPF Urine Bacteria Few /HPF (0-FEW) Urine Mucus Marked /LPF Sodium Level 139 mmol/L (136-145) Potassium Level 3.8 mmol/L (3.5-5.1) Chloride Level 102 mmol/L (98-107) Carbon Dioxide Level 24 mmol/L (21-32) Anion Gap 13 (6-14) Blood Urea Nitrogen 18 mg/dL (8-26) Creatinine 0.7 mg/dL (0.7-1.3) Estimated GFR (Cockcroft-Gault) 111.2 BUN/Creatinine Ratio 26 (6-20) H Glucose Level 99 mg/dL (70-99) Calcium Level 8.5 mg/dL (8.5-10.1) Magnesium Level 2.2 mg/dL (1.8-2.4) Total Bilirubin 0.7 mg/dL (0.2-1.0) Aspartate Amino Transferase (AST) 46 U/L (15-37) H Alanine Aminotransferase (ALT) 12 U/L (16-63) L Alkaline Phosphatase 421 U/L (46-116) H Total Protein 6.2 g/dL (6.4-8.2) L Albumin 2.1 g/dL (3.4-5.0) L Albumin/Globulin Ratio 0.5 (1.0-1.7) L Laboratory Tests 01/17/17 20:17 Laboratory Tests 01/17/17 20:17 EKG EKG Not performed[] Radiology/Procedures Radiology/Procedures One view AP chest x-ray interpreted by me: No acute infiltrates, no effusions, normal cardiac silhouette[] Course & Med Decision Making Course & Med Decision Making Pertinent Labs and Imaging studies reviewed. (See chart for details) Patient clinically appears dry on exam and patient was started on IV fluids for hydration. The patient patient's sacral decubitus ulcer appears to have possible acute infection. Patient started on vancomycin. Patient also has evidence of urinary tract infection and started on IV Rocephin for treatment. Patient will be admitted for further treatment. I spoke with Dr. Russo who accepted care patient in hospital. Dragon Disclaimer Dragon Disclaimer This electronic medical record was generated, in whole or in part, using a voice recognition dictation system. Departure Departure Impression: Primary Impression: Dehydration Additional Impressions: Infected decubitus ulcer Urinary tract infection Chronic anemia Severe protein-calorie malnutrition Parkinsons disease Combative behavior Disposition: ADMITTED INPATIENT Admitting Physician: Carla Russo Condition: STABLE Referrals: COREEN CLARK MD (PCP) Problem Qualifiers Additional Impressions: Infected decubitus ulcer Pressure ulcer stage: unstageable Qualified Codes: L89.95 - Pressure ulcer of unspecified site, unstageable; L08.9 - Local infection of the skin and subcutaneous tissue, unspecified Urinary tract infection Urinary tract infection type: site unspecified Hematuria presence: without hematuria Qualified Codes: N39.0 - Urinary tract infection, site not specified RENE PERALTA MD Jan 17, 2017 22:30
[2017-01-17] MEDS ORDERED: VANCOMYCIN 2 GM in IV DEXTROSE 5% 500 ML IV ONE (23:00)
[2017-01-17 23:05] VITALS: BP 133/63
[2017-01-17] MEDS: IV NORMAL SALINE 1000ML BAG 1,000 ML IV SCH (23:16)
--- NOTE | 2017-01-17 23:16 | PDOC1 ---
History and Physical Date of Admission Date of Admission DATE: 01/17/17 TIME: 23:16 History of Present Illness History of Present Illness Mr. Lund is a 71 year old male kept pullign his IV out at SNU today, then became combative behavior and altered mental status. to Er from SNU for combative and altered bevaior. was there for weakness, skin ulcer adn poor nutrition, related to history of Parkinson's disease and was being cared for due to a recent femur fracture that had been repaired while being hospitalized on January 10. was DC to SNU January 15. report of agitation and combative at SNU, He was calm and is cooperative at this time. The patient states that he did not feel like he was being taken care of at SNU no pain or nausea, poor recent PO intake Past Medical History Cardiovascular: HTN, Hyperlipidemia CENTRAL NERVOUS SYSTEM: Dementia, Other Heme/Onc: Anemia NOS Psych: Depression Past Surgical History Past Surgical History: Other Family History Family History: Hypertension Social History ALCOHOL: none Drugs: None Current Problem List Problem List Problems Medical Problems: (1) Chronic anemia Status: Acute (2) Combative behavior Status: Acute (3) Dehydration Status: Acute (4) Infected decubitus ulcer Status: Acute (5) Parkinsons disease Status: Acute (6) Severe protein-calorie malnutrition Status: Acute (7) Urinary tract infection Status: Acute Problems: Current Medications Current Medications Current Medications Sodium Chloride 1,000 ml @ 125 mls/hr 1X ONCE IV Last administered on 21:54; Start 01/17/17 at 21:00; Stop 01/18/17 at 04:59 Sodium Chloride 1,000 ml @ 1,000 mls/hr 1X ONCE IV Last administered on 01/17 21:00; Start 01/17/17 at 21:00; Stop 01/17/17 at 21:59; Status DC Ondansetron HCl (Zofran) 4 mg PRN Q8HRS PRN IV NAUSEA/VOMITING; Start at 22:15; Stop 01/18/17 at 22:14 Sodium Chloride 1,000 ml @ 125 mls/hr Q8H IV ; Start 01/17/17 at 22:15; Stop 01/18/17 at 22:14 Vancomycin HCl (Vanco Per Pharmacy) 1 each PRN DAILY PRN MC SEE COMMENTS; Start 01/17/17 at 22:15; Status UNV Ceftriaxone Sodium 1 gm/ Dextrose 50 ml @ 100 mls/hr Q24H IV ; Start 01/17/17 at 22:30; Stop 01/17/17 at 22:30; Status DC Ceftriaxone Sodium 1 gm/ Sodium Chloride 50 ml @ 100 mls/hr Q24H IV ; Start at 22:30 Vancomycin HCl 2 gm/Dextrose 500 ml @ 250 mls/hr 1X ONCE IV ; Start 01/17/17 at 23:00; Stop 01/18/17 at 00:59 Active Scripts Active Feosol (Ferrous Sulfate) 325 Mg Tablet 325 Mg PO DAILYWBKFT 30 Days Enoxaparin Sodium 40 Mg/0.4 Ml Disp.syrin 40 Mg SQ Q24H 28 Days Oxycodone-Acetaminophen 5-325 (Oxycodone Hcl/Acetaminophen) 1 Each Tablet 1 Tab PO PRN Q4HRS PRN Reported Gabapentin 300 Mg Capsule 600 Mg PO QHS Sinemet Cr 50-200 Tablet (Carbidopa/Levodopa) 1 Each Tablet.er 1 Tab PO QID Lansoprazole 15 Mg Capsule.dr 15 Mg PO QODAY Pramipexole Dihydrochloride (Pramipexole Di-Hcl) 0.25 Mg Tablet 0.25 Mg PO TID Furosemide 20 Mg Tablet 20 Mg PO DAILY Plavix (Clopidogrel Bisulfate) 75 Mg Tablet 75 Mg PO DAILY Finasteride 5 Mg Tablet 5 Mg PO DAILY Tylenol (Acetaminophen) 325 Mg Tablet 650 Mg PO Q4HRS Tamsulosin Hcl 0.4 Mg Cap.er.24h 0.8 Mg PO QHS Sertraline Hcl 100 Mg Tablet 100 Mg PO BID Atenolol 100 Mg Tablet 100 Mg PO QHS Atorvastatin Calcium 20 Mg Tablet 20 Mg PO DAILY Allergies Allergies: Coded Allergies: No Known Drug Allergies (Unverified , 04/12/13) ROS Review of System confused General: YES: Fatigue, Malaise PSYCHOLOGICAL ROS: No: Anxiety, Behavioral Disorder, Concentration difficultie , Decreased libido, Depression, Disorientation, Hallucinations, Hostility, Irritablity, Memory difficulties, Mood Swings, Obsessive thoughts, Physical abuse, Sexual abuse, Sleep disturbances, Suicidal ideation, Other Eyes: No Blurry vision, No Decreased vision, No Double vision, No Dry eyes, No Excessive tearing, No Eye Pain, No Itchy Eyes, No Loss of vision, No Photophobia , No Scotomata, No Uses contacts, No Uses glasses, No Other HEENT: No: Heacaches, Visual Changes, Hearing change, Nasal congestion, Nasal discharge, Oral lesions, Sinus pain, Sore Throat, Epistaxis, Sneezing, Snoring, Tinnitus, Vertigo, Vocal changes, Other Respiratory: No: Cough, Hemoptysis, Orthopnea, Pleuritic Pain, Shortness of breath, SOB with excertion, Sputum Changes, Stridor, Tachypnea, Wheezing, Other Cardiovascular: No Chest Pain, No Palpitations, No Orthopnea, No Paroxysmal Noc. Dyspnea, No Edema, No Lt Headedness, No Other Gastrointestinal: No Nausea, No Vomiting, No Abdominal Pain, No Diarrhea, No Constipation, No Melena, No Hematochezia, No Other Musculoskeletal: Yes Joint Pain, Yes Joint Stiffness Neurological: Yes Gait Disturbance Skin: Yes Dry Skin Physical Exam General: Alert, Cooperative, No acute distress, Other (oriented 3/4, ) HEENT: EOMI, Mucous membr. moist/pink Lungs: Normal air movement Heart: no gallops, no murmurs Abdomen: Normal bowel sounds, Soft Extremities: No edema Neuro: Normal speech, Normal tone Psych/Mental Status: Mood NL Vitals Vitals Vital Signs Date Time Temp Pulse Resp B/P (MAP) Pulse Ox O2 Delivery O2 Flow Rate FiO2 01/17/17 20:10 98.0 82 18 120/61 (80) 96 Nasal Cannula 2.0 98.0 Labs Labs Laboratory Tests Test 01/17/17 20:17 White Blood Count 13.6 x10^3/uL (4.0-11.0) Red Blood Count 2.94 x10^6/uL (4.30-5.70) Hemoglobin 7.5 g/dL (13.0-17.5) Hematocrit 23.7 % (39.0-53.0) Mean Corpuscular Volume 81 fL (79-100) Mean Corpuscular Hemoglobin 25 pg (25-35) Mean Corpuscular Hemoglobin Concent 32 g/dL (31-37) Red Cell Distribution Width 17.5 % (11.5-14.5) Platelet Count 272 x10^3/uL (140-400) Neutrophils (%) (Auto) 65 % (31-73) Lymphocytes (%) (Auto) 30 % (24-48) Monocytes (%) (Auto) 3 % (0-9) Eosinophils (%) (Auto) 1 % (0-3) Basophils (%) (Auto) 0 % (0-3) Neutrophils # (Auto) 8.9 x10^3uL (1.8-7.7) Lymphocytes # (Auto) 4.1 x10^3/uL (1.0-4.8) Monocytes # (Auto) 0.5 x10^3/uL (0.0-1.1) Eosinophils # (Auto) 0.1 x10^3/uL (0.0-0.7) Basophils # (Auto) 0.0 x10^3/uL (0.0-0.2) Urine Collection Type U cath Urine Color Dk yellow Urine Clarity Clear Urine pH 6.0 Urine Specific [place] 1.020 Urine Protein Negative mg/dL (NEG-TRACE) Urine Glucose (UA) Negative mg/dL (NEG) Urine Ketones (Stick) Trace mg/dL (NEG) Urine Blood Small (NEG) Urine Nitrite Negative (NEG) Urine Bilirubin Small (NEG) Urine Urobilinogen Dipstick 1.0 mg/dL (0.2 mg/dL) Urine Leukocyte Esterase Moderate (NEG) Urine RBC 6-10 /HPF (0-2) Urine WBC 11-20 /HPF (0-4) Urine Squamous Epithelial Cells Few /LPF Urine Transitional Epithelial Cells Few /LPF Urine Bacteria Few /HPF (0-FEW) Urine Mucus Marked /LPF Sodium Level 139 mmol/L (136-145) Potassium Level 3.8 mmol/L (3.5-5.1) Chloride Level 102 mmol/L (98-107) Carbon Dioxide Level 24 mmol/L (21-32) Anion Gap 13 (6-14) Blood Urea Nitrogen 18 mg/dL (8-26) Creatinine 0.7 mg/dL (0.7-1.3) Estimated GFR (Cockcroft-Gault) 111.2 BUN/Creatinine Ratio 26 (6-20) Glucose Level 99 mg/dL (70-99) Calcium Level 8.5 mg/dL (8.5-10.1) Magnesium Level 2.2 mg/dL (1.8-2.4) Total Bilirubin 0.7 mg/dL (0.2-1.0) Aspartate Amino Transf (AST/SGOT) 46 U/L (15-37) Alanine Aminotransferase (ALT/SGPT) 12 U/L (16-63) Alkaline Phosphatase 421 U/L (46-116) Total Protein 6.2 g/dL (6.4-8.2) Albumin 2.1 g/dL (3.4-5.0) Albumin/Globulin Ratio 0.5 (1.0-1.7) Laboratory Tests Test 01/17/17 20:17 White Blood Count 13.6 x10^3/uL (4.0-11.0) Red Blood Count 2.94 x10^6/uL (4.30-5.70) Hemoglobin 7.5 g/dL (13.0-17.5) Hematocrit 23.7 % (39.0-53.0) Mean Corpuscular Volume 81 fL (79-100) Mean Corpuscular Hemoglobin 25 pg (25-35) Mean Corpuscular Hemoglobin Concent 32 g/dL (31-37) Red Cell Distribution Width 17.5 % (11.5-14.5) Platelet Count 272 x10^3/uL (140-400) Neutrophils (%) (Auto) 65 % (31-73) Lymphocytes (%) (Auto) 30 % (24-48) Monocytes (%) (Auto) 3 % (0-9) Eosinophils (%) (Auto) 1 % (0-3) Basophils (%) (Auto) 0 % (0-3) Neutrophils # (Auto) 8.9 x10^3uL (1.8-7.7) Lymphocytes # (Auto) 4.1 x10^3/uL (1.0-4.8) Monocytes # (Auto) 0.5 x10^3/uL (0.0-1.1) Eosinophils # (Auto) 0.1 x10^3/uL (0.0-0.7) Basophils # (Auto) 0.0 x10^3/uL (0.0-0.2) Urine Collection Type U cath Urine Color Dk yellow Urine Clarity Clear Urine pH 6.0 Urine Specific [place] 1.020 Urine Protein Negative mg/dL (NEG-TRACE) Urine Glucose (UA) Negative mg/dL (NEG) Urine Ketones (Stick) Trace mg/dL (NEG) Urine Blood Small (NEG) Urine Nitrite Negative (NEG) Urine Bilirubin Small (NEG) Urine Urobilinogen Dipstick 1.0 mg/dL (0.2 mg/dL) Urine Leukocyte Esterase Moderate (NEG) Urine RBC 6-10 /HPF (0-2) Urine WBC 11-20 /HPF (0-4) Urine Squamous Epithelial Cells Few /LPF Urine Transitional Epithelial Cells Few /LPF Urine Bacteria Few /HPF (0-FEW) Urine Mucus Marked /LPF Sodium Level 139 mmol/L (136-145) Potassium Level 3.8 mmol/L (3.5-5.1) Chloride Level 102 mmol/L (98-107) Carbon Dioxide Level 24 mmol/L (21-32) Anion Gap 13 (6-14) Blood Urea Nitrogen 18 mg/dL (8-26) Creatinine 0.7 mg/dL (0.7-1.3) Estimated GFR (Cockcroft-Gault) 111.2 BUN/Creatinine Ratio 26 (6-20) Glucose Level 99 mg/dL (70-99) Calcium Level 8.5 mg/dL (8.5-10.1) Magnesium Level 2.2 mg/dL (1.8-2.4) Total Bilirubin 0.7 mg/dL (0.2-1.0) Aspartate Amino Transf (AST/SGOT) 46 U/L (15-37) Alanine Aminotransferase (ALT/SGPT) 12 U/L (16-63) Alkaline Phosphatase 421 U/L (46-116) Total Protein 6.2 g/dL (6.4-8.2) Albumin 2.1 g/dL (3.4-5.0) Albumin/Globulin Ratio 0.5 (1.0-1.7) VTE Prophylaxis Ordered VTE Prophylaxis Devices: No VTE Pharmacological Prophylaxi: Yes Assessment/Plan Assessment/Plan sacral ulcer, appears infected cellulitis, Abx started leukocytosis, tachycardia, sepis encephalopathy, toxic from cellultis likely parkinsons disease, cont home meds anemia, microcytic, recent disease, poor nutrition, check iron moderate/severe malnutrition admit MAXX CASTILLO MD Jan 17, 2017 23:16
[2017-01-17] MEDS: VANCOMYCIN PER PHARMACY MC PRN ×2 (23:34→23:40)
[2017-01-17] MEDS ORDERED: oxyCODONE/APAP 5/325 1 TAB TABLET PO PRN (23:45)
[2017-01-18 03:00] VITALS: BP 122/55
[2017-01-18] MEDS: ACETAMINOPHEN 325 MG TABLET. PO SCH ×6 (03:58→20:00)
[2017-01-18 04:59] LABS: BASO % 0 % (0-3); EOS % 1 % (0-3); HEMATOCRIT 24.8 % (39.0-53.0); HEMOGLOBIN 7.8 g/dL (13.0-17.5); LYMPH # 6.3 x10^3/uL (1.0-4.8); LYMPH % 34 % (24-48); MEAN CORPUSCULAR HEMOGLOBIN 26 pg (25-35); MEAN CORPUSCULAR HGB CONC 32 g/dL (31-37); MEAN CORPUSCULAR VOLUME 81 fL (79-100); MONO % 4 % (0-9); NEUT % 61 % (31-73); PLATELET COUNT 336 x10^3/uL (140-400); RED BLOOD COUNT 3.04 x10^6/uL (4.30-5.70); RED CELL DISTRIBUTION WIDTH 17.5 % (11.5-14.5); WHITE BLOOD COUNT 18.5 x10^3/uL (4.0-11.0)
[2017-01-18] MEDS: IV NORMAL SALINE 1000ML BAG 1,000 ML IV SCH ×2 (05:18→13:31)
[2017-01-18 05:47] LABS: CALCIUM 8.2 mg/dL (8.5-10.1); CREATININE 0.8 mg/dL (0.7-1.3); GFR 95.3; POTASSIUM 3.7 mmol/L (3.5-5.1)
[2017-01-18 06:05] LABS: % SAT IRON 15 % (15-34); IRON,SERUM 36 ug/dL (65-175)
[2017-01-18 07:00] VITALS: BP 140/60
[2017-01-18] MEDS: FERROUS SULFATE 325 MG TABLET. PO SCH (08:00)
[2017-01-18] MEDS: PRAMIPEXOLE 0.25 MG TABLET. PO SCH ×3 (09:00→20:34)
[2017-01-18] MEDS: CLOPIDOGREL BISULFATE 75 MG TABLET PO SCH (09:00)
[2017-01-18] MEDS: FUROSEMIDE 20 MG TABLET PO SCH (09:00)
[2017-01-18] MEDS: SERTRALINE 50 MG TABLET. PO SCH ×2 (09:00→20:44)
[2017-01-18] MEDS: FINASTERIDE 5 MG TABLET. PO SCH (09:00)
[2017-01-18] MEDS: CARBIDOPA/LEVODOPA CR 25/100MG TABLET.SA. PO SCH ×4 (09:00→20:34)
--- NOTE | 2017-01-18 09:00 | RAD ---
INDICATION: altered mental status, rule out acute cardiopulmonary abnormality COMPARISON: 01/10/2017 FINDINGS: Single view of chest obtained. Patchy opacities are again seen within the bilateral lungs. Overall appears slightly increased from prior. Hypoexpanded exam with elevated left hemidiaphragm. IMPRESSION: 1. Patchy opacities in bilateral lower lungs which appear slightly increased from prior. Could be secondary to atelectasis, infiltrate or aspiration but follow-up could be obtained after treatment to ensure this resolves to exclude neoplastic causes
--- NOTE | 2017-01-18 10:58 | PDOC ---
PROGRESS NOTES Chief Complaint Chief Complaint sacral ulcer, appears infected , cellulitis, leukocytosis, tachycardia, sepis encephalopathy, toxic parkinsons disease, w/ dementia anemia, microcytic, recent disease, poor nutrition, moderate/severe malnutrition History of Present Illness History of Present Illness wound care to see pt well known to palliative care, DNR, on dysphagia, honey thick diet, he asked for OOB to chair, will order PT and OT cont current nutrition consult and meal supplements Vitals Vitals Vital Signs Date Time Temp Pulse Resp B/P (MAP) Pulse Ox O2 Delivery O2 Flow Rate FiO2 01/18/17 10:19 Nasal Cannula 2.0 01/18/17 07:00 97.9 79 20 140/60 (86) 94 97.9 Physical Exam General: Alert, Cooperative, No acute distress, Other (oriented 3/4, ) Lungs: Clear Abdomen: Normal bowel sounds, Soft Extremities: No edema Skin: No rashes Labs LABS Laboratory Tests Test 01/17/17 20:17 01/18/17 04:37 White Blood Count 13.6 x10^3/uL (4.0-11.0) 18.5 x10^3/uL (4.0-11.0) Red Blood Count 2.94 x10^6/uL (4.30-5.70) 3.04 x10^6/uL (4.30-5.70) Hemoglobin 7.5 g/dL (13.0-17.5) 7.8 g/dL (13.0-17.5) Hematocrit 23.7 % (39.0-53.0) 24.8 % (39.0-53.0) Mean Corpuscular Volume 81 fL (79-100) 81 fL (79-100) Mean Corpuscular Hemoglobin 25 pg (25-35) 26 pg (25-35) Mean Corpuscular Hemoglobin Concent 32 g/dL (31-37) 32 g/dL (31-37) Red Cell Distribution Width 17.5 % (11.5-14.5) 17.5 % (11.5-14.5) Platelet Count 272 x10^3/uL (140-400) 336 x10^3/uL (140-400) Neutrophils (%) (Auto) 65 % (31-73) 61 % (31-73) Lymphocytes (%) (Auto) 30 % (24-48) 34 % (24-48) Monocytes (%) (Auto) 3 % (0-9) 4 % (0-9) Eosinophils (%) (Auto) 1 % (0-3) 1 % (0-3) Basophils (%) (Auto) 0 % (0-3) 0 % (0-3) Neutrophils # (Auto) 8.9 x10^3uL (1.8-7.7) 11.2 x10^3uL (1.8-7.7) Lymphocytes # (Auto) 4.1 x10^3/uL (1.0-4.8) 6.3 x10^3/uL (1.0-4.8) Monocytes # (Auto) 0.5 x10^3/uL (0.0-1.1) 0.7 x10^3/uL (0.0-1.1) Eosinophils # (Auto) 0.1 x10^3/uL (0.0-0.7) 0.2 x10^3/uL (0.0-0.7) Basophils # (Auto) 0.0 x10^3/uL (0.0-0.2) 0.0 x10^3/uL (0.0-0.2) Urine Collection Type U cath Urine Color Dk yellow Urine Clarity Clear Urine pH 6.0 Urine Specific [place] 1.020 Urine Protein Negative mg/dL (NEG-TRACE) Urine Glucose (UA) Negative mg/dL (NEG) Urine Ketones (Stick) Trace mg/dL (NEG) Urine Blood Small (NEG) Urine Nitrite Negative (NEG) Urine Bilirubin Small (NEG) Urine Urobilinogen Dipstick 1.0 mg/dL (0.2 mg/dL) Urine Leukocyte Esterase Moderate (NEG) Urine RBC 6-10 /HPF (0-2) Urine WBC 11-20 /HPF (0-4) Urine Squamous Epithelial Cells Few /LPF Urine Transitional Epithelial Cells Few /LPF Urine Bacteria Few /HPF (0-FEW) Urine Mucus Marked /LPF Sodium Level 139 mmol/L (136-145) 136 mmol/L (136-145) Potassium Level 3.8 mmol/L (3.5-5.1) 3.7 mmol/L (3.5-5.1) Chloride Level 102 mmol/L (98-107) 103 mmol/L (98-107) Carbon Dioxide Level 24 mmol/L (21-32) 19 mmol/L (21-32) Anion Gap 13 (6-14) 14 (6-14) Blood Urea Nitrogen 18 mg/dL (8-26) 15 mg/dL (8-26) Creatinine 0.7 mg/dL (0.7-1.3) 0.8 mg/dL (0.7-1.3) Estimated GFR (Cockcroft-Gault) 111.2 95.3 BUN/Creatinine Ratio 26 (6-20) Glucose Level 99 mg/dL (70-99) 99 mg/dL (70-99) Calcium Level 8.5 mg/dL (8.5-10.1) 8.2 mg/dL (8.5-10.1) Magnesium Level 2.2 mg/dL (1.8-2.4) Total Bilirubin 0.7 mg/dL (0.2-1.0) Aspartate Amino Transf (AST/SGOT) 46 U/L (15-37) Alanine Aminotransferase (ALT/SGPT) 12 U/L (16-63) Alkaline Phosphatase 421 U/L (46-116) Total Protein 6.2 g/dL (6.4-8.2) Albumin 2.1 g/dL (3.4-5.0) Albumin/Globulin Ratio 0.5 (1.0-1.7) Iron Level 36 ug/dL (65-175) Total Iron Binding Capacity 236 ug/dL (250-450) Iron Saturation 15 % (15-34) Review of Systems Review of Systems wants to get up to chair no n..v no pain Assessment and Plan Assessmemt and Plan Problems Medical Problems: (1) Chronic anemia Status: Acute (2) Combative behavior Status: Acute (3) Dehydration Status: Acute (4) Infected decubitus ulcer Status: Acute (5) Parkinsons disease Status: Acute (6) Severe protein-calorie malnutrition Status: Acute (7) Urinary tract infection Status: Acute Problems: Comment Review of Relevant I have reviewed the following items patricia (where applicable) has been applied. Labs Laboratory Tests Test 01/17/17 20:17 01/18/17 04:37 White Blood Count 13.6 x10^3/uL (4.0-11.0) 18.5 x10^3/uL (4.0-11.0) Red Blood Count 2.94 x10^6/uL (4.30-5.70) 3.04 x10^6/uL (4.30-5.70) Hemoglobin 7.5 g/dL (13.0-17.5) 7.8 g/dL (13.0-17.5) Hematocrit 23.7 % (39.0-53.0) 24.8 % (39.0-53.0) Mean Corpuscular Volume 81 fL (79-100) 81 fL (79-100) Mean Corpuscular Hemoglobin 25 pg (25-35) 26 pg (25-35) Mean Corpuscular Hemoglobin Concent 32 g/dL (31-37) 32 g/dL (31-37) Red Cell Distribution Width 17.5 % (11.5-14.5) 17.5 % (11.5-14.5) Platelet Count 272 x10^3/uL (140-400) 336 x10^3/uL (140-400) Neutrophils (%) (Auto) 65 % (31-73) 61 % (31-73) Lymphocytes (%) (Auto) 30 % (24-48) 34 % (24-48) Monocytes (%) (Auto) 3 % (0-9) 4 % (0-9) Eosinophils (%) (Auto) 1 % (0-3) 1 % (0-3) Basophils (%) (Auto) 0 % (0-3) 0 % (0-3) Neutrophils # (Auto) 8.9 x10^3uL (1.8-7.7) 11.2 x10^3uL (1.8-7.7) Lymphocytes # (Auto) 4.1 x10^3/uL (1.0-4.8) 6.3 x10^3/uL (1.0-4.8) Monocytes # (Auto) 0.5 x10^3/uL (0.0-1.1) 0.7 x10^3/uL (0.0-1.1) Eosinophils # (Auto) 0.1 x10^3/uL (0.0-0.7) 0.2 x10^3/uL (0.0-0.7) Basophils # (Auto) 0.0 x10^3/uL (0.0-0.2) 0.0 x10^3/uL (0.0-0.2) Urine Collection Type U cath Urine Color Dk yellow Urine Clarity Clear Urine pH 6.0 Urine Specific [place] 1.020 Urine Protein Negative mg/dL (NEG-TRACE) Urine Glucose (UA) Negative mg/dL (NEG) Urine Ketones (Stick) Trace mg/dL (NEG) Urine Blood Small (NEG) Urine Nitrite Negative (NEG) Urine Bilirubin Small (NEG) Urine Urobilinogen Dipstick 1.0 mg/dL (0.2 mg/dL) Urine Leukocyte Esterase Moderate (NEG) Urine RBC 6-10 /HPF (0-2) Urine WBC 11-20 /HPF (0-4) Urine Squamous Epithelial Cells Few /LPF Urine Transitional Epithelial Cells Few /LPF Urine Bacteria Few /HPF (0-FEW) Urine Mucus Marked /LPF Sodium Level 139 mmol/L (136-145) 136 mmol/L (136-145) Potassium Level 3.8 mmol/L (3.5-5.1) 3.7 mmol/L (3.5-5.1) Chloride Level 102 mmol/L (98-107) 103 mmol/L (98-107) Carbon Dioxide Level 24 mmol/L (21-32) 19 mmol/L (21-32) Anion Gap 13 (6-14) 14 (6-14) Blood Urea Nitrogen 18 mg/dL (8-26) 15 mg/dL (8-26) Creatinine 0.7 mg/dL (0.7-1.3) 0.8 mg/dL (0.7-1.3) Estimated GFR (Cockcroft-Gault) 111.2 95.3 BUN/Creatinine Ratio 26 (6-20) Glucose Level 99 mg/dL (70-99) 99 mg/dL (70-99) Calcium Level 8.5 mg/dL (8.5-10.1) 8.2 mg/dL (8.5-10.1) Magnesium Level 2.2 mg/dL (1.8-2.4) Total Bilirubin 0.7 mg/dL (0.2-1.0) Aspartate Amino Transf (AST/SGOT) 46 U/L (15-37) Alanine Aminotransferase (ALT/SGPT) 12 U/L (16-63) Alkaline Phosphatase 421 U/L (46-116) Total Protein 6.2 g/dL (6.4-8.2) Albumin 2.1 g/dL (3.4-5.0) Albumin/Globulin Ratio 0.5 (1.0-1.7) Iron Level 36 ug/dL (65-175) Total Iron Binding Capacity 236 ug/dL (250-450) Iron Saturation 15 % (15-34) Laboratory Tests Test 01/17/17 20:17 01/18/17 04:37 White Blood Count 13.6 x10^3/uL (4.0-11.0) 18.5 x10^3/uL (4.0-11.0) Red Blood Count 2.94 x10^6/uL (4.30-5.70) 3.04 x10^6/uL (4.30-5.70) Hemoglobin 7.5 g/dL (13.0-17.5) 7.8 g/dL (13.0-17.5) Hematocrit 23.7 % (39.0-53.0) 24.8 % (39.0-53.0) Mean Corpuscular Volume 81 fL (79-100) 81 fL (79-100) Mean Corpuscular Hemoglobin 25 pg (25-35) 26 pg (25-35) Mean Corpuscular Hemoglobin Concent 32 g/dL (31-37) 32 g/dL (31-37) Red Cell Distribution Width 17.5 % (11.5-14.5) 17.5 % (11.5-14.5) Platelet Count 272 x10^3/uL (140-400) 336 x10^3/uL (140-400) Neutrophils (%) (Auto) 65 % (31-73) 61 % (31-73) Lymphocytes (%) (Auto) 30 % (24-48) 34 % (24-48) Monocytes (%) (Auto) 3 % (0-9) 4 % (0-9) Eosinophils (%) (Auto) 1 % (0-3) 1 % (0-3) Basophils (%) (Auto) 0 % (0-3) 0 % (0-3) Neutrophils # (Auto) 8.9 x10^3uL (1.8-7.7) 11.2 x10^3uL (1.8-7.7) Lymphocytes # (Auto) 4.1 x10^3/uL (1.0-4.8) 6.3 x10^3/uL (1.0-4.8) Monocytes # (Auto) 0.5 x10^3/uL (0.0-1.1) 0.7 x10^3/uL (0.0-1.1) Eosinophils # (Auto) 0.1 x10^3/uL (0.0-0.7) 0.2 x10^3/uL (0.0-0.7) Basophils # (Auto) 0.0 x10^3/uL (0.0-0.2) 0.0 x10^3/uL (0.0-0.2) Urine Collection Type U cath Urine Color Dk yellow Urine Clarity Clear Urine pH 6.0 Urine Specific [place] 1.020 Urine Protein Negative mg/dL (NEG-TRACE) Urine Glucose (UA) Negative mg/dL (NEG) Urine Ketones (Stick) Trace mg/dL (NEG) Urine Blood Small (NEG) Urine Nitrite Negative (NEG) Urine Bilirubin Small (NEG) Urine Urobilinogen Dipstick 1.0 mg/dL (0.2 mg/dL) Urine Leukocyte Esterase Moderate (NEG) Urine RBC 6-10 /HPF (0-2) Urine WBC 11-20 /HPF (0-4) Urine Squamous Epithelial Cells Few /LPF Urine Transitional Epithelial Cells Few /LPF Urine Bacteria Few /HPF (0-FEW) Urine Mucus Marked /LPF Sodium Level 139 mmol/L (136-145) 136 mmol/L (136-145) Potassium Level 3.8 mmol/L (3.5-5.1) 3.7 mmol/L (3.5-5.1) Chloride Level 102 mmol/L (98-107) 103 mmol/L (98-107) Carbon Dioxide Level 24 mmol/L (21-32) 19 mmol/L (21-32) Anion Gap 13 (6-14) 14 (6-14) Blood Urea Nitrogen 18 mg/dL (8-26) 15 mg/dL (8-26) Creatinine 0.7 mg/dL (0.7-1.3) 0.8 mg/dL (0.7-1.3) Estimated GFR (Cockcroft-Gault) 111.2 95.3 BUN/Creatinine Ratio 26 (6-20) Glucose Level 99 mg/dL (70-99) 99 mg/dL (70-99) Calcium Level 8.5 mg/dL (8.5-10.1) 8.2 mg/dL (8.5-10.1) Magnesium Level 2.2 mg/dL (1.8-2.4) Total Bilirubin 0.7 mg/dL (0.2-1.0) Aspartate Amino Transf (AST/SGOT) 46 U/L (15-37) Alanine Aminotransferase (ALT/SGPT) 12 U/L (16-63) Alkaline Phosphatase 421 U/L (46-116) Total Protein 6.2 g/dL (6.4-8.2) Albumin 2.1 g/dL (3.4-5.0) Albumin/Globulin Ratio 0.5 (1.0-1.7) Iron Level 36 ug/dL (65-175) Total Iron Binding Capacity 236 ug/dL (250-450) Iron Saturation 15 % (15-34) Medications Current Medications Sodium Chloride 1,000 ml @ 125 mls/hr 1X ONCE IV Last administered on 21:54; Start 01/17/17 at 21:00; Stop 01/18/17 at 04:59; Status DC Sodium Chloride 1,000 ml @ 1,000 mls/hr 1X ONCE IV Last administered on 01/17 21:00; Start 01/17/17 at 21:00; Stop 01/17/17 at 21:59; Status DC Ondansetron HCl (Zofran) 4 mg PRN Q8HRS PRN IV NAUSEA/VOMITING; Start at 22:15; Stop 01/18/17 at 22:14 Sodium Chloride 1,000 ml @ 125 mls/hr Q8H IV Last administered on 01/18/17 05:18; Start 01/17/17 at 22:15; Stop 01/18/17 at 22:14 Vancomycin HCl (Vanco Per Pharmacy) 1 each PRN DAILY PRN MC SEE COMMENTS Last administered on 01/17/17 23:40; Start 01/17/17 at 22:30 Ceftriaxone Sodium 1 gm/ Dextrose 50 ml @ 100 mls/hr Q24H IV ; Start 01/17/17 at 22:30; Stop 01/17/17 at 22:30; Status DC Ceftriaxone Sodium 1 gm/ Sodium Chloride 50 ml @ 100 mls/hr Q24H IV Last administered on 01/17/17t 23:16; Start 01/17/17 at 22:30 Vancomycin HCl 2 gm/Dextrose 500 ml @ 250 mls/hr 1X ONCE IV Last administered on 01/18/17t 00:04; Start 01/17/17 at 23:00; Stop 01/18/17 at 00 :59; Status DC Vancomycin HCl 1.25 gm/Dextrose 250 ml @ 167 mls/hr Q12H IV ; Start 01/18/17 at 12:00 Vancomycin HCl 1 each 1X ONCE MC ; Start 01/19/17 at 11:30; Stop 01/19/17 at 11:31 Acetaminophen (Tylenol) 650 mg Q4HRS PO ; Start 01/18/17 at 00:00 Atorvastatin Calcium (Lipitor) 20 mg HS PO ; Start 01/18/17 at 21:00 Clopidogrel Bisulfate (Plavix) 75 mg DAILY PO ; Start 01/18/17 at 09:00 Ferrous Sulfate (Feosol) 325 mg DAILYWBKFT PO ; Start 01/18/17 at 08:00 Finasteride (Proscar) 5 mg DAILY PO ; Start 01/18/17 at 09:00 Furosemide (Lasix) 20 mg DAILY PO ; Start 01/18/17 at 09:00 Oxycodone/ Acetaminophen (Percocet 5/325) 1 tab PRN Q4HRS PRN PO pain 5-7; Start 01/17/17 at 23:45 Pramipexole Dihydrochloride (miraPEX) 0.25 mg TID PO ; Start 01/18/17 at 09:00 Tamsulosin HCl (Flomax) 0.8 mg QHS PO ; Start 01/18/17 at 21:00 Atenolol (Tenormin) 100 mg QHS PO ; Start 01/18/17 at 21:00 Carbidopa/Levodopa (Sinemet Cr) 2 tab.sa QID PO ; Start 01/18/17 at 09:00 Gabapentin (Neurontin) 600 mg QHS PO ; Start 01/18/17 at 21:00 Pantoprazole Sodium (Protonix) 40 mg QODAY PO ; Start 01/19/17 at 09:00 Sertraline HCl (Zoloft) 100 mg BID PO ; Start 01/18/17 at 09:00 Active Scripts Active Feosol (Ferrous Sulfate) 325 Mg Tablet 325 Mg PO DAILYWBKFT 30 Days Enoxaparin Sodium 40 Mg/0.4 Ml Disp.syrin 40 Mg SQ Q24H 28 Days Oxycodone-Acetaminophen 5-325 (Oxycodone Hcl/Acetaminophen) 1 Each Tablet 1 Tab PO PRN Q4HRS PRN Reported Gabapentin 300 Mg Capsule 600 Mg PO QHS Sinemet Cr 50-200 Tablet (Carbidopa/Levodopa) 1 Each Tablet.er 1 Tab PO QID Lansoprazole 15 Mg Capsule.dr 15 Mg PO QODAY Pramipexole Dihydrochloride (Pramipexole Di-Hcl) 0.25 Mg Tablet 0.25 Mg PO TID Furosemide 20 Mg Tablet 20 Mg PO DAILY Plavix (Clopidogrel Bisulfate) 75 Mg Tablet 75 Mg PO DAILY Finasteride 5 Mg Tablet 5 Mg PO DAILY Tylenol (Acetaminophen) 325 Mg Tablet 650 Mg PO Q4HRS Tamsulosin Hcl 0.4 Mg Cap.er.24h 0.8 Mg PO QHS Sertraline Hcl 100 Mg Tablet 100 Mg PO BID Atenolol 100 Mg Tablet 100 Mg PO QHS Atorvastatin Calcium 20 Mg Tablet 20 Mg PO DAILY Vitals/I & O Vital Sign - Last 24 Hours 01/17/17 01/17/17 01/17/17 01/17/17 20:10 20:30 21:00 21:30 Temp 98.0 98.0 Pulse 82 82 76 78 Resp 18 26 26 22 B/P (MAP) 120/61 (80) 120/61 (80) 122/62 (82) 131/59 (83) Pulse Ox 96 99 99 98 O2 Delivery Nasal Cannula Nasal Cannula Nasal Cannula Nasal Cannula O2 Flow Rate 2.0 2.0 2.0 2.0 01/17/17 01/17/17 01/18/17 01/18/17 22:00 23:05 00:57 01:35 Temp 98.4 98.4 Pulse 84 79 Resp 24 18 B/P (MAP) 99/63 (75) 133/63 (86) Pulse Ox 98 100 O2 Delivery Nasal Cannula Nasal Cannula Nasal Cannula Nasal Cannula O2 Flow Rate 2.0 2.0 2.0 2.0 01/18/17 01/18/17 01/18/17 01/18/17 03:00 07:00 08:00 10:19 Temp 98.1 97.9 98.1 97.9 Pulse 78 79 Resp 18 20 B/P (MAP) 122/55 (77) 140/60 (86) Pulse Ox 93 94 O2 Delivery Nasal Cannula Nasal Cannula Nasal Cannula Nasal Cannula O2 Flow Rate 2.0 2.0 2.0 2.0 MAXX CASTILLO MD Jan 18, 2017 10:58
[2017-01-18 11:00] VITALS: BP 108/58
--- NOTE | 2017-01-18 12:00 | PDOC ---
Infectious Disease Note Vital Sign Vital Signs Vital Signs Date Time Temp Pulse Resp B/P (MAP) Pulse Ox O2 Delivery O2 Flow Rate FiO2 01/18/17 10:19 Nasal Cannula 2.0 01/18/17 07:00 97.9 79 20 140/60 (86) 94 97.9 Labs Lab Laboratory Tests Test 01/17/17 20:17 01/18/17 04:37 White Blood Count 13.6 x10^3/uL (4.0-11.0) 18.5 x10^3/uL (4.0-11.0) Red Blood Count 2.94 x10^6/uL (4.30-5.70) 3.04 x10^6/uL (4.30-5.70) Hemoglobin 7.5 g/dL (13.0-17.5) 7.8 g/dL (13.0-17.5) Hematocrit 23.7 % (39.0-53.0) 24.8 % (39.0-53.0) Mean Corpuscular Volume 81 fL (79-100) 81 fL (79-100) Mean Corpuscular Hemoglobin 25 pg (25-35) 26 pg (25-35) Mean Corpuscular Hemoglobin Concent 32 g/dL (31-37) 32 g/dL (31-37) Red Cell Distribution Width 17.5 % (11.5-14.5) 17.5 % (11.5-14.5) Platelet Count 272 x10^3/uL (140-400) 336 x10^3/uL (140-400) Neutrophils (%) (Auto) 65 % (31-73) 61 % (31-73) Lymphocytes (%) (Auto) 30 % (24-48) 34 % (24-48) Monocytes (%) (Auto) 3 % (0-9) 4 % (0-9) Eosinophils (%) (Auto) 1 % (0-3) 1 % (0-3) Basophils (%) (Auto) 0 % (0-3) 0 % (0-3) Neutrophils # (Auto) 8.9 x10^3uL (1.8-7.7) 11.2 x10^3uL (1.8-7.7) Lymphocytes # (Auto) 4.1 x10^3/uL (1.0-4.8) 6.3 x10^3/uL (1.0-4.8) Monocytes # (Auto) 0.5 x10^3/uL (0.0-1.1) 0.7 x10^3/uL (0.0-1.1) Eosinophils # (Auto) 0.1 x10^3/uL (0.0-0.7) 0.2 x10^3/uL (0.0-0.7) Basophils # (Auto) 0.0 x10^3/uL (0.0-0.2) 0.0 x10^3/uL (0.0-0.2) Urine Collection Type U cath Urine Color Dk yellow Urine Clarity Clear Urine pH 6.0 Urine Specific [place] 1.020 Urine Protein Negative mg/dL (NEG-TRACE) Urine Glucose (UA) Negative mg/dL (NEG) Urine Ketones (Stick) Trace mg/dL (NEG) Urine Blood Small (NEG) Urine Nitrite Negative (NEG) Urine Bilirubin Small (NEG) Urine Urobilinogen Dipstick 1.0 mg/dL (0.2 mg/dL) Urine Leukocyte Esterase Moderate (NEG) Urine RBC 6-10 /HPF (0-2) Urine WBC 11-20 /HPF (0-4) Urine Squamous Epithelial Cells Few /LPF Urine Transitional Epithelial Cells Few /LPF Urine Bacteria Few /HPF (0-FEW) Urine Mucus Marked /LPF Sodium Level 139 mmol/L (136-145) 136 mmol/L (136-145) Potassium Level 3.8 mmol/L (3.5-5.1) 3.7 mmol/L (3.5-5.1) Chloride Level 102 mmol/L (98-107) 103 mmol/L (98-107) Carbon Dioxide Level 24 mmol/L (21-32) 19 mmol/L (21-32) Anion Gap 13 (6-14) 14 (6-14) Blood Urea Nitrogen 18 mg/dL (8-26) 15 mg/dL (8-26) Creatinine 0.7 mg/dL (0.7-1.3) 0.8 mg/dL (0.7-1.3) Estimated GFR (Cockcroft-Gault) 111.2 95.3 BUN/Creatinine Ratio 26 (6-20) Glucose Level 99 mg/dL (70-99) 99 mg/dL (70-99) Calcium Level 8.5 mg/dL (8.5-10.1) 8.2 mg/dL (8.5-10.1) Magnesium Level 2.2 mg/dL (1.8-2.4) Total Bilirubin 0.7 mg/dL (0.2-1.0) Aspartate Amino Transf (AST/SGOT) 46 U/L (15-37) Alanine Aminotransferase (ALT/SGPT) 12 U/L (16-63) Alkaline Phosphatase 421 U/L (46-116) Total Protein 6.2 g/dL (6.4-8.2) Albumin 2.1 g/dL (3.4-5.0) Albumin/Globulin Ratio 0.5 (1.0-1.7) Iron Level 36 ug/dL (65-175) Total Iron Binding Capacity 236 ug/dL (250-450) Iron Saturation 15 % (15-34) Objective Assessment Sacral wounds - clean Leukocytosis Lactic acidosis Encephalopathy - better Plan Plan of Care Cont Vanc D/c Rocephin begin zosyn F/u labs and cults Cont local wound care and off load Thank you # [phone] CHRISTOPHE BRYANT MD Jan 18, 2017 12:00
[2017-01-18] MEDS: PIPERACILLIN/TAZOBACTAM 3.375 GM in IV DEXTROSE 5% 50 ML IV SCH ×2 (12:34→18:18)
[2017-01-18] MEDS: VANCOMYCIN 1.25 GM in IV DEXTROSE 5% 250 ML IV SCH ×2 (13:12→23:48)
[2017-01-18] MEDS: VANCOMYCIN PER PHARMACY MC PRN (14:31)
[2017-01-18 15:00] VITALS: BP 138/62
--- NOTE | 2017-01-18 15:47 | PDOC2 ---
PALLIATIVE CARE Palliative Care Note Palliative Care Consult requested by Dr. Russo to address plan of care. Patient known from previous admission. Transferred back from with Combative Behavior; UTI, p/c malnutrition, Dehydration, Parkinson Disease; Dementia. Patient alert. Working with PT/OT. Will follow and meet with family as needed. Code Status: DNR/DNI STEPHANY BUSTAMANTE Jan 18, 2017 15:47
--- NOTE | 2017-01-18 16:26 | PDOC2 ---
PALLIATIVE CARE Palliative Care Note Palliative Care Spoke with . Plan family meeting Wednesday. STEPHANY BUSTAMANTE Jan 18, 2017 16:26
--- NOTE | 2017-01-18 17:11 | CONS ---
DATE OF CONSULTATION: 01/18/2017 INFECTIOUS DISEASE CONSULTATION PATIENT ROOM: 538. REQUESTING PHYSICIAN: Dr. Russo. REASON FOR CONSULTATION: Sacral wound. HISTORY OF PRESENT ILLNESS: The patient is a 71-year-old gentleman who is a senior living resident, recently admitted to [facility] with a femur fracture, underwent repair, and also has a history of Parkinson's dementia. He was just discharged on the from [facility] secondary to the femur fracture. He has now returned to the Emergency Room on the secondary to mental status change and combative behavior. On arrival, white blood cell count was 13.6; it was 10.2 roughly around the day of discharge. Chest x-ray was obtained, showed some patchy opacities in bilateral lower lungs, appear slightly increased from prior. He was placed on vancomycin and Rocephin and admitted to the hospital. Today, his white blood cell count increased to 18.5. I cannot find any evidence that he has received any steroids. Currently, the patient is lying in bed, is difficult to understand but appears to be doing fairly well. Denies any pain. PAST MEDICAL HISTORY: Positive for hypertension, hyperlipidemia, dementia, Parkinson's disease, anemia, depression. PAST SURGICAL HISTORY: Positive for the above-mentioned hip fracture repair. REVIEW OF SYSTEMS: Difficult to ascertain. SOCIAL HISTORY: He is a senior living facility resident. No tobacco or alcohol. FAMILY HISTORY: Noncontributory. ALLERGIES: No known drug allergies. MEDICATIONS: Include vancomycin, ceftriaxone, atenolol, Lipitor, Plavix, Lasix, Neurontin, Protonix, Mirapex, Flomax, Zoloft. Other meds are available and reviewed in the chart. PHYSICAL EXAMINATION: VITAL SIGNS: He is afebrile, temperature 97.9, pulse 79, respirations 20, blood pressure 140/60, satting 94% on 2 liters. CONSTITUTIONAL: He is alert, does not appear to be in any acute distress. HEENT: Oral cavity, pharynx is dry. NECK: Supple, no JVD. LUNGS: Clear to auscultation. HEART: S1, S2. ABDOMEN: Soft, nontender, nondistended with positive bowel sounds. EXTREMITIES: No clubbing or cyanosis. No gross edema. His left femur fracture wound is dressed and clean without any complications. He has a skin tear on his right upper buttock cleft area that appears superficial. He has a small packing to his left upper buttock cleft area without any surrounding erythema, edema, purulence, warmth and no odor. SKIN: Warm to touch without signs of generalized rash. NEUROLOGIC: Answers questions, seems to be fairly alert. LABORATORY DATA: White count 18.5, hemoglobin 7.8, platelets of 336 with neutrophils 61, lymphs 34, creatinine 0.8, glucose 99. AST was 46, ALT 12, alkaline phosphatase 421 on arrival. Urinalysis 11-20 wbc's, few squamous, moderate leukocyte esterase, negative nitrite. Chest x-ray reviewed in history of present illness. IMPRESSION: 1. Sacral wound appears to be clean. 2. Leukocytosis. 3. Lactic acidosis was 2.1 at presentation. 4. Encephalopathy appears to be better. RECOMMENDATIONS: For now, continue the vancomycin. We will discontinue Rocephin. Broaden the Zosyn to cover hospital-acquired potential infections. Follow up labs and cultures. Continue local wound care and offload. Thank you for allowing me to participate in the patient's care. If you have any questions, please do not hesitate to contact me. CHRISTOPHE BRYANT MD DR: LEILA/calos JOB#: [id number] / [id number]
[2017-01-18 19:00] VITALS: BP 130/55
[2017-01-18] MEDS: TAMSULOSIN 0.4 MG CAP.ER.24H. PO SCH (20:33)
[2017-01-18] MEDS: GABAPENTIN 300 MG CAPSULE. PO SCH (20:34)
[2017-01-18] MEDS: ATORVASTATIN CALCIUM 20 MG TABLET PO SCH (20:34)
[2017-01-18] MEDS: ATENOLOL 50 MG TABLET. PO SCH (20:34)
[2017-01-18 23:00] VITALS: BP 124/64
[2017-01-19] MEDS: PIPERACILLIN/TAZOBACTAM 3.375 GM in IV DEXTROSE 5% 50 ML IV SCH ×4 (00:26→18:56)
[2017-01-19 03:00] VITALS: BP 136/64
[2017-01-19] MEDS: ACETAMINOPHEN 325 MG TABLET. PO SCH ×6 (04:00→20:00)
[2017-01-19 06:28] LABS: BASO % 0 % (0-3); EOS % 1 % (0-3); HEMOGLOBIN 7.7 g/dL (13.0-17.5); LYMPH # 4.1 x10^3/uL (1.0-4.8); LYMPH % 28 % (24-48); MEAN CORPUSCULAR HEMOGLOBIN 25 pg (25-35); MEAN CORPUSCULAR HGB CONC 31 g/dL (31-37); MEAN CORPUSCULAR VOLUME 82 fL (79-100); MONO % 3 % (0-9); NEUT % 68 % (31-73); PLATELET COUNT 322 x10^3/uL (140-400); RED BLOOD COUNT 3.03 x10^6/uL (4.30-5.70); RED CELL DISTRIBUTION WIDTH 17.7 % (11.5-14.5)
[2017-01-19 06:49] LABS: ALBUMIN 2.1 g/dL (3.4-5.0); ALBUMIN/GLOBULIN RATIO 0.5 (1.0-1.7); CALCIUM 8.2 mg/dL (8.5-10.1); CREATININE 0.7 mg/dL (0.7-1.3); GFR 111.2; POTASSIUM 3.1 mmol/L (3.5-5.1); TOTAL BILIRUBIN 0.7 mg/dL (0.2-1.0); TOTAL PROTEIN 6.4 g/dL (6.4-8.2)
[2017-01-19 07:00] VITALS: BP 116/51
[2017-01-19] MEDS: FUROSEMIDE 20 MG TABLET PO SCH (07:23)
[2017-01-19] MEDS: FERROUS SULFATE 325 MG TABLET. PO SCH (07:23)
[2017-01-19] MEDS: FINASTERIDE 5 MG TABLET. PO SCH (07:24)
[2017-01-19] MEDS: PRAMIPEXOLE 0.25 MG TABLET. PO SCH ×3 (07:24→20:17)
[2017-01-19] MEDS: CLOPIDOGREL BISULFATE 75 MG TABLET PO SCH (07:24)
[2017-01-19] MEDS: CARBIDOPA/LEVODOPA CR 25/100MG TABLET.SA. PO SCH ×4 (07:25→20:17)
[2017-01-19] MEDS: SERTRALINE 50 MG TABLET. PO SCH ×2 (07:25→20:17)
[2017-01-19] MEDS ORDERED: PANTOPRAZOLE 40 MG TABLET.DR. PO SCH (09:00)
--- NOTE | 2017-01-19 10:42 | PDOC ---
PROGRESS NOTES Chief Complaint Chief Complaint sacral ulcer, appears infected , cellulitis, leukocytosis, tachycardia, sespis POA encephalopathy, toxic parkinsons disease, w/ dementia anemia, microcytic, recent disease, poor nutrition, moderate/severe malnutrition recent femur fracture, NWB of Left leg History of Present Illness History of Present Illness wound care to see I was not aware of low PO intake yesterday, now discussed failure of swallow study today, NPO change IV fluid to procalamine insert dobhoff and begin enteral feeds, discussed with patient with his sister present. Pt otherwise will continue to get weaker and temp tube feeds may allow him to have the str to pass the swallow eval tomorrow PT and OT to follow, one leg is NWB, discussed, may sit up and transfer to chair on one leg cont current Vitals Vitals Vital Signs Date Time Temp Pulse Resp B/P (MAP) Pulse Ox O2 Delivery O2 Flow Rate FiO2 01/19/17 07:39 Nasal Cannula 2.0 01/19/17 07:00 98.0 78 18 116/51 (72) 95 98.0 Physical Exam General: Alert, Cooperative, No acute distress, Other (oriented 3/4, ) Lungs: Clear Abdomen: Normal bowel sounds, Soft Extremities: No edema Skin: No rashes Labs LABS Laboratory Tests Test 01/19/17 05:35 White Blood Count 15.0 x10^3/uL (4.0-11.0) Red Blood Count 3.03 x10^6/uL (4.30-5.70) Hemoglobin 7.7 g/dL (13.0-17.5) Hematocrit 25.0 % (39.0-53.0) Mean Corpuscular Volume 82 fL (79-100) Mean Corpuscular Hemoglobin 25 pg (25-35) Mean Corpuscular Hemoglobin Concent 31 g/dL (31-37) Red Cell Distribution Width 17.7 % (11.5-14.5) Platelet Count 322 x10^3/uL (140-400) Neutrophils (%) (Auto) 68 % (31-73) Lymphocytes (%) (Auto) 28 % (24-48) Monocytes (%) (Auto) 3 % (0-9) Eosinophils (%) (Auto) 1 % (0-3) Basophils (%) (Auto) 0 % (0-3) Neutrophils # (Auto) 10.2 x10^3uL (1.8-7.7) Lymphocytes # (Auto) 4.1 x10^3/uL (1.0-4.8) Monocytes # (Auto) 0.5 x10^3/uL (0.0-1.1) Eosinophils # (Auto) 0.1 x10^3/uL (0.0-0.7) Basophils # (Auto) 0.0 x10^3/uL (0.0-0.2) Sodium Level 136 mmol/L (136-145) Potassium Level 3.1 mmol/L (3.5-5.1) Chloride Level 102 mmol/L (98-107) Carbon Dioxide Level 22 mmol/L (21-32) Anion Gap 12 (6-14) Blood Urea Nitrogen 9 mg/dL (8-26) Creatinine 0.7 mg/dL (0.7-1.3) Estimated GFR (Cockcroft-Gault) 111.2 BUN/Creatinine Ratio 13 (6-20) Glucose Level 104 mg/dL (70-99) Calcium Level 8.2 mg/dL (8.5-10.1) Total Bilirubin 0.7 mg/dL (0.2-1.0) Aspartate Amino Transf (AST/SGOT) 72 U/L (15-37) Alanine Aminotransferase (ALT/SGPT) 30 U/L (16-63) Alkaline Phosphatase 487 U/L (46-116) Total Protein 6.4 g/dL (6.4-8.2) Albumin 2.1 g/dL (3.4-5.0) Albumin/Globulin Ratio 0.5 (1.0-1.7) Review of Systems Review of Systems leg pain, restless leg symtoms, no nausea, slept OK Assessment and Plan Assessmemt and Plan Problems Medical Problems: (1) Chronic anemia Status: Acute (2) Combative behavior Status: Acute (3) Dehydration Status: Acute (4) Infected decubitus ulcer Status: Acute (5) Parkinsons disease Status: Acute (6) Severe protein-calorie malnutrition Status: Acute (7) Urinary tract infection Status: Acute Problems: Comment Review of Relevant I have reviewed the following items patricia (where applicable) has been applied. Labs Laboratory Tests Test 01/17/17 20:17 01/18/17 00:01 01/18/17 04:37 01/19/17 05:35 White Blood Count 13.6 x10^3/uL (4.0-11.0) 18.5 x10^3/uL (4.0-11.0) 15.0 x10^3/uL (4.0-11.0) Red Blood Count 2.94 x10^6/uL (4.30-5.70) 3.04 x10^6/uL (4.30-5.70) 3.03 x10^6/uL (4.30-5.70) Hemoglobin 7.5 g/dL (13.0-17.5) 7.8 g/dL (13.0-17.5) 7.7 g/dL (13.0-17.5) Hematocrit 23.7 % (39.0-53.0) 24.8 % (39.0-53.0) 25.0 % (39.0-53.0) Mean Corpuscular Volume 81 fL (79-100) 81 fL (79-100) 82 fL (79-100) Mean Corpuscular Hemoglobin 25 pg (25-35) 26 pg (25-35) 25 pg (25-35) Mean Corpuscular Hemoglobin Concent 32 g/dL (31-37) 32 g/dL (31-37) 31 g/dL (31-37) Red Cell Distribution Width 17.5 % (11.5-14.5) 17.5 % (11.5-14.5) 17.7 % (11.5-14.5) Platelet Count 272 x10^3/uL (140-400) 336 x10^3/uL (140-400) 322 x10^3/uL (140-400) Neutrophils (%) (Auto) 65 % (31-73) 61 % (31-73) 68 % (31-73) Lymphocytes (%) (Auto) 30 % (24-48) 34 % (24-48) 28 % (24-48) Monocytes (%) (Auto) 3 % (0-9) 4 % (0-9) 3 % (0-9) Eosinophils (%) (Auto) 1 % (0-3) 1 % (0-3) 1 % (0-3) Basophils (%) (Auto) 0 % (0-3) 0 % (0-3) 0 % (0-3) Neutrophils # (Auto) 8.9 x10^3uL (1.8-7.7) 11.2 x10^3uL (1.8-7.7) 10.2 x10^3uL (1.8-7.7) Lymphocytes # (Auto) 4.1 x10^3/uL (1.0-4.8) 6.3 x10^3/uL (1.0-4.8) 4.1 x10^3/uL (1.0-4.8) Monocytes # (Auto) 0.5 x10^3/uL (0.0-1.1) 0.7 x10^3/uL (0.0-1.1) 0.5 x10^3/uL (0.0-1.1) Eosinophils # (Auto) 0.1 x10^3/uL (0.0-0.7) 0.2 x10^3/uL (0.0-0.7) 0.1 x10^3/uL (0.0-0.7) Basophils # (Auto) 0.0 x10^3/uL (0.0-0.2) 0.0 x10^3/uL (0.0-0.2) 0.0 x10^3/uL (0.0-0.2) Urine Collection Type U cath Urine Color Dk yellow Urine Clarity Clear Urine pH 6.0 Urine Specific [place] 1.020 Urine Protein Negative mg/dL (NEG-TRACE) Urine Glucose (UA) Negative mg/dL (NEG) Urine Ketones (Stick) Trace mg/dL (NEG) Urine Blood Small (NEG) Urine Nitrite Negative (NEG) Urine Bilirubin Small (NEG) Urine Urobilinogen Dipstick 1.0 mg/dL (0.2 mg/dL) Urine Leukocyte Esterase Moderate (NEG) Urine RBC 6-10 /HPF (0-2) Urine WBC 11-20 /HPF (0-4) Urine Squamous Epithelial Cells Few /LPF Urine Transitional Epithelial Cells Few /LPF Urine Bacteria Few /HPF (0-FEW) Urine Mucus Marked /LPF Sodium Level 139 mmol/L (136-145) 136 mmol/L (136-145) 136 mmol/L (136-145) Potassium Level 3.8 mmol/L (3.5-5.1) 3.7 mmol/L (3.5-5.1) 3.1 mmol/L (3.5-5.1) Chloride Level 102 mmol/L (98-107) 103 mmol/L (98-107) 102 mmol/L (98-107) Carbon Dioxide Level 24 mmol/L (21-32) 19 mmol/L (21-32) 22 mmol/L (21-32) Anion Gap 13 (6-14) 14 (6-14) 12 (6-14) Blood Urea Nitrogen 18 mg/dL (8-26) 15 mg/dL (8-26) 9 mg/dL (8-26) Creatinine 0.7 mg/dL (0.7-1.3) 0.8 mg/dL (0.7-1.3) 0.7 mg/dL (0.7-1.3) Estimated GFR (Cockcroft-Gault) 111.2 95.3 111.2 BUN/Creatinine Ratio 26 (6-20) 13 (6-20) Glucose Level 99 mg/dL (70-99) 99 mg/dL (70-99) 104 mg/dL (70-99) Calcium Level 8.5 mg/dL (8.5-10.1) 8.2 mg/dL (8.5-10.1) 8.2 mg/dL (8.5-10.1) Magnesium Level 2.2 mg/dL (1.8-2.4) Total Bilirubin 0.7 mg/dL (0.2-1.0) 0.7 mg/dL (0.2-1.0) Aspartate Amino Transf (AST/SGOT) 46 U/L (15-37) 72 U/L (15-37) Alanine Aminotransferase (ALT/SGPT) 12 U/L (16-63) 30 U/L (16-63) Alkaline Phosphatase 421 U/L (46-116) 487 U/L (46-116) Total Protein 6.2 g/dL (6.4-8.2) 6.4 g/dL (6.4-8.2) Albumin 2.1 g/dL (3.4-5.0) 2.1 g/dL (3.4-5.0) Albumin/Globulin Ratio 0.5 (1.0-1.7) 0.5 (1.0-1.7) Nasal Screen MRSA (PCR) Negative (Negative) Iron Level 36 ug/dL (65-175) Total Iron Binding Capacity 236 ug/dL (250-450) Iron Saturation 15 % (15-34) Laboratory Tests Test 01/19/17 05:35 White Blood Count 15.0 x10^3/uL (4.0-11.0) Red Blood Count 3.03 x10^6/uL (4.30-5.70) Hemoglobin 7.7 g/dL (13.0-17.5) Hematocrit 25.0 % (39.0-53.0) Mean Corpuscular Volume 82 fL (79-100) Mean Corpuscular Hemoglobin 25 pg (25-35) Mean Corpuscular Hemoglobin Concent 31 g/dL (31-37) Red Cell Distribution Width 17.7 % (11.5-14.5) Platelet Count 322 x10^3/uL (140-400) Neutrophils (%) (Auto) 68 % (31-73) Lymphocytes (%) (Auto) 28 % (24-48) Monocytes (%) (Auto) 3 % (0-9) Eosinophils (%) (Auto) 1 % (0-3) Basophils (%) (Auto) 0 % (0-3) Neutrophils # (Auto) 10.2 x10^3uL (1.8-7.7) Lymphocytes # (Auto) 4.1 x10^3/uL (1.0-4.8) Monocytes # (Auto) 0.5 x10^3/uL (0.0-1.1) Eosinophils # (Auto) 0.1 x10^3/uL (0.0-0.7) Basophils # (Auto) 0.0 x10^3/uL (0.0-0.2) Sodium Level 136 mmol/L (136-145) Potassium Level 3.1 mmol/L (3.5-5.1) Chloride Level 102 mmol/L (98-107) Carbon Dioxide Level 22 mmol/L (21-32) Anion Gap 12 (6-14) Blood Urea Nitrogen 9 mg/dL (8-26) Creatinine 0.7 mg/dL (0.7-1.3) Estimated GFR (Cockcroft-Gault) 111.2 BUN/Creatinine Ratio 13 (6-20) Glucose Level 104 mg/dL (70-99) Calcium Level 8.2 mg/dL (8.5-10.1) Total Bilirubin 0.7 mg/dL (0.2-1.0) Aspartate Amino Transf (AST/SGOT) 72 U/L (15-37) Alanine Aminotransferase (ALT/SGPT) 30 U/L (16-63) Alkaline Phosphatase 487 U/L (46-116) Total Protein 6.4 g/dL (6.4-8.2) Albumin 2.1 g/dL (3.4-5.0) Albumin/Globulin Ratio 0.5 (1.0-1.7) Microbiology 01/17/17 Urine Culture - Preliminary, Resulted 01/17/17 Urine Culture Result 1 (ESTRELLA) - Preliminary, Resulted Medications Current Medications Sodium Chloride 1,000 ml @ 125 mls/hr 1X ONCE IV Last administered on 21:54; Start 01/17/17 at 21:00; Stop 01/18/17 at 04:59; Status DC Sodium Chloride 1,000 ml @ 1,000 mls/hr 1X ONCE IV Last administered on 01/17 21:00; Start 01/17/17 at 21:00; Stop 01/17/17 at 21:59; Status DC Ondansetron HCl (Zofran) 4 mg PRN Q8HRS PRN IV NAUSEA/VOMITING; Start at 22:15; Stop 01/18/17 at 22:14; Status DC Sodium Chloride 1,000 ml @ 125 mls/hr Q8H IV Last administered on 01/18/17 13:31; Start 01/17/17 at 22:15; Stop 01/18/17 at 22:14; Status DC Vancomycin HCl (Vanco Per Pharmacy) 1 each PRN DAILY PRN MC SEE COMMENTS Last administered on 01/18/17 14:31; Start 01/17/17 at 22:30 Ceftriaxone Sodium 1 gm/ Dextrose 50 ml @ 100 mls/hr Q24H IV ; Start 01/17/17 at 22:30; Stop 01/17/17 at 22:30; Status DC Ceftriaxone Sodium 1 gm/ Sodium Chloride 50 ml @ 100 mls/hr Q24H IV Last administered on 01/17/17 23:16; Start 01/17/17 at 22:30; Stop 01/18/17 at 11 :53; Status DC Vancomycin HCl 2 gm/Dextrose 500 ml @ 250 mls/hr 1X ONCE IV Last administered on 01/18/17 00:04; Start 01/17/17 at 23:00; Stop 01/18/17 at 00 :59; Status DC Vancomycin HCl 1.25 gm/Dextrose 250 ml @ 167 mls/hr Q12H IV Last administered on 01/18/17 23:48; Start 01/18/17 at 12:00 Vancomycin HCl 1 each 1X ONCE MC ; Start 01/19/17 at 11:30; Stop 01/19/17 at 11:31 Acetaminophen (Tylenol) 650 mg Q4HRS PO ; Start 01/18/17 at 00:00 Atorvastatin Calcium (Lipitor) 20 mg HS PO ; Start 01/18/17 at 21:00 Clopidogrel Bisulfate (Plavix) 75 mg DAILY PO ; Start 01/18/17 at 09:00 Ferrous Sulfate (Feosol) 325 mg DAILYWBKFT PO ; Start 01/18/17 at 08:00 Finasteride (Proscar) 5 mg DAILY PO ; Start 01/18/17 at 09:00 Furosemide (Lasix) 20 mg DAILY PO ; Start 01/18/17 at 09:00 Oxycodone/ Acetaminophen (Percocet 5/325) 1 tab PRN Q4HRS PRN PO pain 5-7; Start 01/17/17 at 23:45 Pramipexole Dihydrochloride (miraPEX) 0.25 mg TID PO ; Start 01/18/17 at 09:00 Tamsulosin HCl (Flomax) 0.8 mg QHS PO ; Start 01/18/17 at 21:00 Atenolol (Tenormin) 100 mg QHS PO ; Start 01/18/17 at 21:00 Carbidopa/Levodopa (Sinemet Cr) 2 tab.sa QID PO ; Start 01/18/17 at 09:00 Gabapentin (Neurontin) 600 mg QHS PO ; Start 01/18/17 at 21:00 Pantoprazole Sodium (Protonix) 40 mg QODAY PO ; Start 01/19/17 at 09:00 Sertraline HCl (Zoloft) 100 mg BID PO ; Start 01/18/17 at 09:00 Piperacillin Sod/ Tazobactam Sod 3.375 gm/Dextrose 50 ml @ 100 mls/hr Q6HRS IV Last administered on 01/19/17t 05:02; Start 01/18/17 at 12:00 Amino Acids/ Glycerin/ Electrolytes 1,000 ml @ 80 mls/hr [id number] IV ; Start at 10:45 Potassium Chloride 100 ml @ 100 mls/hr Q1H IV ; Start 01/19/17 at 11:00; Stop 01/19/17 at 14:59 Active Scripts Active Feosol (Ferrous Sulfate) 325 Mg Tablet 325 Mg PO DAILYWBKFT 30 Days Enoxaparin Sodium 40 Mg/0.4 Ml Disp.syrin 40 Mg SQ Q24H 28 Days Oxycodone-Acetaminophen 5-325 (Oxycodone Hcl/Acetaminophen) 1 Each Tablet 1 Tab PO PRN Q4HRS PRN Reported Gabapentin 300 Mg Capsule 600 Mg PO QHS Sinemet Cr 50-200 Tablet (Carbidopa/Levodopa) 1 Each Tablet.er 1 Tab PO QID Lansoprazole 15 Mg Capsule.dr 15 Mg PO QODAY Pramipexole Dihydrochloride (Pramipexole Di-Hcl) 0.25 Mg Tablet 0.25 Mg PO TID Furosemide 20 Mg Tablet 20 Mg PO DAILY Plavix (Clopidogrel Bisulfate) 75 Mg Tablet 75 Mg PO DAILY Finasteride 5 Mg Tablet 5 Mg PO DAILY Tylenol (Acetaminophen) 325 Mg Tablet 650 Mg PO Q4HRS Tamsulosin Hcl 0.4 Mg Cap.er.24h 0.8 Mg PO QHS Sertraline Hcl 100 Mg Tablet 100 Mg PO BID Atenolol 100 Mg Tablet 100 Mg PO QHS Atorvastatin Calcium 20 Mg Tablet 20 Mg PO DAILY Vitals/I & O Vital Sign - Last 24 Hours 01/18/17 01/18/17 01/18/17 01/18/17 11:00 15:00 19:00 20:00 Temp 98.0 97.9 97.6 98.0 97.9 97.6 Pulse 89 86 81 Resp 18 18 19 B/P (MAP) 108/58 (75) 138/62 (87) 130/55 (80) Pulse Ox 95 95 97 O2 Delivery Nasal Cannula Nasal Cannula Room Air Nasal Cannula O2 Flow Rate 2.0 2.0 2.0 01/18/17 01/19/17 01/19/17 01/19/17 23:00 03:00 07:00 07:39 Temp 98.9 98.2 98.0 98.9 98.2 98.0 Pulse 80 78 78 Resp 20 20 18 B/P (MAP) 124/64 (84) 136/64 (88) 116/51 (72) Pulse Ox 98 97 95 O2 Delivery Nasal Cannula Nasal Cannula Nasal Cannula Nasal Cannula O2 Flow Rate 2.0 2.0 2.0 2.0 MAXX CASTILLO MD Jan 19, 2017 10:42
[2017-01-19] MEDS ORDERED: AMINO AC 3%/ELECTROLYTE/GLYCER 1,000 ML IV SCH (10:45)
--- NOTE | 2017-01-19 10:59 | PDOC ---
Infectious Disease Note Subjective Subjective Feels better ROS ROS GEN: Denies fevers, chills, sweats HEENT: Denies blurred vision, sore throat CV: Denies chest pain RESP: Denies shortness of air, cough GI: Denies n/v/d NEURO: Denies confusion, dizziness MSK: Denies weakness, joint pain/swelling Vital Sign Vital Signs Vital Signs Date Time Temp Pulse Resp B/P (MAP) Pulse Ox O2 Delivery O2 Flow Rate FiO2 01/19/17 07:39 Nasal Cannula 2.0 01/19/17 07:00 98.0 78 18 116/51 (72) 95 98.0 Physical Exam PHYSICAL EXAM GENERAL: NAD, Alert, on side of bed with therapy HEENT: PERRL, OC/OP - coated tongue NECK: Supple, no JVD, no LN LUNGS: Clear HEART: S1S2, no gallop, no murmur ABD: Soft, NT, no organomegaly, no rebound EXT: No edema, no cyanosis. Dressing to left thigh FRUIT HARVESTER: Alert, oriented x 3, no focal neurologic deficit SKIN: No rash IV: ok Labs Lab Laboratory Tests Test 01/19/17 05:35 White Blood Count 15.0 x10^3/uL (4.0-11.0) Red Blood Count 3.03 x10^6/uL (4.30-5.70) Hemoglobin 7.7 g/dL (13.0-17.5) Hematocrit 25.0 % (39.0-53.0) Mean Corpuscular Volume 82 fL (79-100) Mean Corpuscular Hemoglobin 25 pg (25-35) Mean Corpuscular Hemoglobin Concent 31 g/dL (31-37) Red Cell Distribution Width 17.7 % (11.5-14.5) Platelet Count 322 x10^3/uL (140-400) Neutrophils (%) (Auto) 68 % (31-73) Lymphocytes (%) (Auto) 28 % (24-48) Monocytes (%) (Auto) 3 % (0-9) Eosinophils (%) (Auto) 1 % (0-3) Basophils (%) (Auto) 0 % (0-3) Neutrophils # (Auto) 10.2 x10^3uL (1.8-7.7) Lymphocytes # (Auto) 4.1 x10^3/uL (1.0-4.8) Monocytes # (Auto) 0.5 x10^3/uL (0.0-1.1) Eosinophils # (Auto) 0.1 x10^3/uL (0.0-0.7) Basophils # (Auto) 0.0 x10^3/uL (0.0-0.2) Sodium Level 136 mmol/L (136-145) Potassium Level 3.1 mmol/L (3.5-5.1) Chloride Level 102 mmol/L (98-107) Carbon Dioxide Level 22 mmol/L (21-32) Anion Gap 12 (6-14) Blood Urea Nitrogen 9 mg/dL (8-26) Creatinine 0.7 mg/dL (0.7-1.3) Estimated GFR (Cockcroft-Gault) 111.2 BUN/Creatinine Ratio 13 (6-20) Glucose Level 104 mg/dL (70-99) Calcium Level 8.2 mg/dL (8.5-10.1) Total Bilirubin 0.7 mg/dL (0.2-1.0) Aspartate Amino Transf (AST/SGOT) 72 U/L (15-37) Alanine Aminotransferase (ALT/SGPT) 30 U/L (16-63) Alkaline Phosphatase 487 U/L (46-116) Total Protein 6.4 g/dL (6.4-8.2) Albumin 2.1 g/dL (3.4-5.0) Albumin/Globulin Ratio 0.5 (1.0-1.7) Objective Assessment Sacral wounds - clean Leukocytosis - better Lactic acidosis Encephalopathy - better Plan Plan of Care Cont Vanc/zosyn Franky today F/u labs and cults Cont local wound care and off load CHRISTOPHE BRYANT MD Jan 19, 2017 10:59
[2017-01-19 11:00] VITALS: BP 103/48
[2017-01-19] MEDS ORDERED: IRON SUCROSE COMPLEX 200 MG in IV NORMAL SALINE 100ML 100 ML IV ONE (11:00)
[2017-01-19] MEDS: POTASSIUM CHLORIDE 10MEQ 100 ML IV SCH ×4 (11:23→15:09)
[2017-01-19] MEDS: VANCOMYCIN PER PHARMACY MC PRN (13:18)
--- NOTE | 2017-01-19 13:49 | RAD ---
Portable abdomen, 01/19/2017, 1:06 PM: History: Check Dobbhoff tube placement A supine view of the upper abdomen was obtained. The tip of the Dobbhoff tube is projected over the distal esophagus. The gas pattern in the upper abdomen is unremarkable. There are ongoing patchy infiltrates in both lung bases, similar to those seen on 01/17/2017. Portable abdomen, 01/19/2017, 1:08 PM: The Dobbhoff tube has been advanced and its tip now extends into the fundal region of the stomach. There as been no other interval change. IMPRESSION: The Dobbhoff tip extends into the fundus of the stomach.
--- NOTE | 2017-01-19 14:27 | PDOC2 ---
PALLIATIVE CARE Palliative Care Note Palliative Care Patient awakens to verbal stimuli. Difficult to understands words. Met with Sangita and daughter Tahira. Discussed plan of care and changes in his condition. They would like to take patient home with hospice. Patient has been clear in the past about his end of life wishes. They do not want to prolong any suffering. Family has no preference in hospice agency. Confirmed Code Status; DNR/DNI Rosina will assist with hospice selection and discharge plan Discussed pleasure feeding. They would like to have the Dobbhoff tube removed and allow pleasure feedings. They understand the risk of aspiration--which could cause pneumonia and Home with Hospice when discharged. DME: Hospital Bed with rails Bedside Table oxygen STEPHANY BUSTAMANTE Jan 19, 2017 14:27
[2017-01-19 15:00] VITALS: BP 81/54
[2017-01-19] MEDS: VANCOMYCIN 1.25 GM in IV DEXTROSE 5% 250 ML IV SCH (16:19)
[2017-01-19 19:00] VITALS: BP 119/76
[2017-01-19] MEDS: ATENOLOL 50 MG TABLET. PO SCH (20:17)
[2017-01-19] MEDS: ATORVASTATIN CALCIUM 20 MG TABLET PO SCH (20:17)
[2017-01-19] MEDS: GABAPENTIN 300 MG CAPSULE. PO SCH (20:17)
[2017-01-19] MEDS: TAMSULOSIN 0.4 MG CAP.ER.24H. PO SCH (20:17)
[2017-01-19] MEDS ORDERED: MINERAL OIL/PETROLATUM TOPICAL CREAM 113GM JAR. TP SCH (21:00)
[2017-01-19] MEDS ORDERED: HALOPERIDOL LACTATE 5 MG/ML VIAL. IM PRN (22:45)
--- NOTE | 2017-01-19 22:59 | CONS ---
DATE OF CONSULTATION: LOCATION: Room 538. ATTENDING PHYSICIAN: Dr. Russo. REASON FOR CONSULTATION: The patient was seen at the request of Dr. Russo for rehab evaluation. HISTORY OF PRESENT ILLNESS: This is a 71-year-old male patient with known hypertension, hyperlipidemia, Parkinson disease with some dementia, anemia, depression. The patient was admitted at this medical center in 11/2016 after he sustained fracture of left distal femur. He had open reduction and internal fixation and was transferred to [facility] and fell again, and he was hospitalized and had old hardware removed and he had a plate fixation done as he sustained fracture just below the previous open reduction and internal fixation of left distal femur fracture. The patient was supposed to be nonweightbearing for about 2-3 months. The patient was transferred back to [facility] and admitted on 01/17/2017 with agitation and confusion and combative behavior and altered mental status. He had dysphagia and aspirating, but the family does not want any tube feedings. Also with known coronary artery disease, gastroesophageal reflux disease, carcinoma of skin also with urinary incontinence. The patient had palliative care team meeting today and it was decided for him to go home with hospice on 01/20/2017. The patient admits some pain in his left knee distal femur area. PHYSICAL EXAMINATION: Today, revealed an elderly male. He is awake, oriented to place and person, follows commands appropriately, moves all 4 extremities voluntarily where he had 4+/5 grade muscle strength with relatively increased weakness in left lower extremity. He had flexion contracture of his left knee, difficult to extend his knee. The patient also had some limitation of range of motion at left hip. He had absent knee and ankle jerks and he had equal perception of touch and pinprick sensation bilaterally. He had some tightness of right heel cord. He is receiving blood transfusion at the present time, so I have not tested his transfer skills. The patient was seen by Physical Therapy and they did not try to get him up secondary to his left knee flexion contracture and nonweightbearing status on his left foot. ASSESSMENT: Mobility and self-care limitations in a patient with Parkinson disease with some dementia, sacral ulcer, leukocytosis, tachycardia, sepsis, encephalopathy, but getting better; anemia, receiving blood transfusion; poor nutrition secondary to dysphagia and status post plate fixation of left distal femur fracture done during third week of 12/2016 for fracture of distal femur just below the previous open reduction and internal fixation for a fracture done on 12/25/2016 with flexion contracture of left knee, clinical evidence of peripheral neuropathy. RECOMMENDATIONS: To get him dynamic left knee splint to help ease his flexion contracture, so his care will be easier at home. Agree with the plan for home with hospice and home health services. Dr. Russo, I appreciate asking me to participate in the care of this interesting patient. I will be glad to follow him with you as needed for his rehabilitation. VALERI MERCER MD DR: SHARAN/calos JOB#: [id number] / [id number]
[2017-01-19 23:00] VITALS: BP 112/59
[2017-01-20 03:00] VITALS: BP 132/61
[2017-01-20 05:04] LABS: BASO % 0 % (0-3); EOS % 1 % (0-3); HEMATOCRIT 25.6 % (39.0-53.0); LYMPH # 7.2 x10^3/uL (1.0-4.8); LYMPH % 31 % (24-48); MEAN CORPUSCULAR HEMOGLOBIN 25 pg (25-35); MEAN CORPUSCULAR HGB CONC 31 g/dL (31-37); MEAN CORPUSCULAR VOLUME 81 fL (79-100); MONO % 4 % (0-9); NEUT % 65 % (31-73); PLATELET COUNT 407 x10^3/uL (140-400); RED BLOOD COUNT 3.16 x10^6/uL (4.30-5.70); RED CELL DISTRIBUTION WIDTH 17.6 % (11.5-14.5); WHITE BLOOD COUNT 23.1 x10^3/uL (4.0-11.0)
[2017-01-20 05:25] LABS: ALBUMIN 2.3 g/dL (3.4-5.0); ALBUMIN/GLOBULIN RATIO 0.5 (1.0-1.7); CALCIUM 8.8 mg/dL (8.5-10.1); CREATININE 0.9 mg/dL (0.7-1.3); GFR 83.2; MAGNESIUM 2.2 mg/dL (1.8-2.4); POTASSIUM 3.5 mmol/L (3.5-5.1); TOTAL PROTEIN 6.8 g/dL (6.4-8.2)
[2017-01-20 07:00] VITALS: BP 105/51
[2017-01-20 10:38] LABS: FOLATE 3.85 ng/ml (3.2-20.0)
[2017-01-20 11:00] VITALS: BP 91/51
--- NOTE | 2017-01-20 11:32 | PDOC2 ---
PALLIATIVE CARE Palliative Care Note Palliative Care Plan Home with [facility] today. No family at bedside. Federico from [facility] met with family last evening. DME to be delivered this am and home in afternoon. Rosina working on discharge arrangements. STEPHANY BUSTAMANTE Jan 20, 2017 11:32
[2017-01-20] MEDS ORDERED: oxyCODONE INTENSOL 20 MG/ML ORAL.CONC. SL PRN (11:45)
[2017-01-20] MEDS ORDERED: ATROPINE 1% OPHTH SOLUTION 5ML BOTTLE. SL PRN (11:45)
[2017-01-20] MEDS ORDERED: LORazepam INTENSOL 2 MG/ML ORAL.CONC SL PRN (11:45)
[2017-01-20] MEDS ORDERED: LORA2ORA7 SL (11:47)
[2017-01-20] MEDS ORDERED: METR500T PO (11:47)
[2017-01-20] MEDS ORDERED: ATRO2DRO3 SL (11:47)
[2017-01-20] MEDS ORDERED: OXYC20OR SL (11:47)
[2017-01-20] MEDS ORDERED: CIPR250T30 PO (11:47)
--- NOTE | 2017-01-20 11:51 | PDOC ---
PROGRESS NOTES Subjective Subjective No new complaints. Objective Objective Vital Signs Date Time Temp Pulse Resp B/P (MAP) Pulse Ox O2 Delivery O2 Flow Rate FiO2 01/20/17 07:00 98.1 94 22 105/51 (69) 96 Room Air 98.1 01/19/17 23:00 2.0 Physical Exam Physical Exam He is supine in bed and does not seem to be in any acute distress. He had his left knee and hip in flexion.I spoke to nursing and palliative care and social service. Assessment Assessment Problems Medical Problems: (1) Chronic anemia Status: Acute (2) Combative behavior Status: Acute (3) Dehydration Status: Acute (4) Infected decubitus ulcer Status: Acute (5) Parkinsons disease Status: Acute (6) Severe protein-calorie malnutrition Status: Acute (7) Urinary tract infection Status: Acute Plan Plan of Care [employer] to provide him with left knee brace to help ease flexion contracture at knee. Comment Review of Relevant I have reviewed the following items patricia (where applicable) has been applied. Labs Laboratory Tests Test 01/19/17 05:35 01/19/17 11:55 01/20/17 04:35 White Blood Count 15.0 x10^3/uL (4.0-11.0) 23.1 x10^3/uL (4.0-11.0) Red Blood Count 3.03 x10^6/uL (4.30-5.70) 3.16 x10^6/uL (4.30-5.70) Hemoglobin 7.7 g/dL (13.0-17.5) 8.0 g/dL (13.0-17.5) Hematocrit 25.0 % (39.0-53.0) 25.6 % (39.0-53.0) Mean Corpuscular Volume 82 fL (79-100) 81 fL (79-100) Mean Corpuscular Hemoglobin 25 pg (25-35) 25 pg (25-35) Mean Corpuscular Hemoglobin Concent 31 g/dL (31-37) 31 g/dL (31-37) Red Cell Distribution Width 17.7 % (11.5-14.5) 17.6 % (11.5-14.5) Platelet Count 322 x10^3/uL (140-400) 407 x10^3/uL (140-400) Neutrophils (%) (Auto) 68 % (31-73) 65 % (31-73) Lymphocytes (%) (Auto) 28 % (24-48) 31 % (24-48) Monocytes (%) (Auto) 3 % (0-9) 4 % (0-9) Eosinophils (%) (Auto) 1 % (0-3) 1 % (0-3) Basophils (%) (Auto) 0 % (0-3) 0 % (0-3) Neutrophils # (Auto) 10.2 x10^3uL (1.8-7.7) 14.9 x10^3uL (1.8-7.7) Lymphocytes # (Auto) 4.1 x10^3/uL (1.0-4.8) 7.2 x10^3/uL (1.0-4.8) Monocytes # (Auto) 0.5 x10^3/uL (0.0-1.1) 0.8 x10^3/uL (0.0-1.1) Eosinophils # (Auto) 0.1 x10^3/uL (0.0-0.7) 0.1 x10^3/uL (0.0-0.7) Basophils # (Auto) 0.0 x10^3/uL (0.0-0.2) 0.0 x10^3/uL (0.0-0.2) Sodium Level 136 mmol/L (136-145) 139 mmol/L (136-145) Potassium Level 3.1 mmol/L (3.5-5.1) 3.5 mmol/L (3.5-5.1) Chloride Level 102 mmol/L (98-107) 104 mmol/L (98-107) Carbon Dioxide Level 22 mmol/L (21-32) 17 mmol/L (21-32) Anion Gap 12 (6-14) 18 (6-14) Blood Urea Nitrogen 9 mg/dL (8-26) 8 mg/dL (8-26) Creatinine 0.7 mg/dL (0.7-1.3) 0.9 mg/dL (0.7-1.3) Estimated GFR (Cockcroft-Gault) 111.2 83.2 BUN/Creatinine Ratio 13 (6-20) 9 (6-20) Glucose Level 104 mg/dL (70-99) 115 mg/dL (70-99) Calcium Level 8.2 mg/dL (8.5-10.1) 8.8 mg/dL (8.5-10.1) Total Bilirubin 0.7 mg/dL (0.2-1.0) 1.0 mg/dL (0.2-1.0) Aspartate Amino Transf (AST/SGOT) 72 U/L (15-37) 79 U/L (15-37) Alanine Aminotransferase (ALT/SGPT) 30 U/L (16-63) 39 U/L (16-63) Alkaline Phosphatase 487 U/L (46-116) 604 U/L (46-116) Total Protein 6.4 g/dL (6.4-8.2) 6.8 g/dL (6.4-8.2) Albumin 2.1 g/dL (3.4-5.0) 2.3 g/dL (3.4-5.0) Albumin/Globulin Ratio 0.5 (1.0-1.7) 0.5 (1.0-1.7) Vancomycin Level Trough 14.5 mcg/mL (10.0-20.0) Vancomycin Last Dose Date 01/19/17 Vancomycin Last Dose Time 0000 Reticulocyte Count (auto) 2.1 % (0.5-2.5) Magnesium Level 2.2 mg/dL (1.8-2.4) Lactate Dehydrogenase 303 U/L (85-227) Vitamin B12 Level 1482 pg/mL (247-911) Serum Folate 3.85 ng/ml (3.2-20.0) Laboratory Tests Test 01/19/17 11:55 01/20/17 04:35 Vancomycin Level Trough 14.5 mcg/mL (10.0-20.0) Vancomycin Last Dose Date 01/19/17 Vancomycin Last Dose Time 0000 White Blood Count 23.1 x10^3/uL (4.0-11.0) Red Blood Count 3.16 x10^6/uL (4.30-5.70) Hemoglobin 8.0 g/dL (13.0-17.5) Hematocrit 25.6 % (39.0-53.0) Mean Corpuscular Volume 81 fL (79-100) Mean Corpuscular Hemoglobin 25 pg (25-35) Mean Corpuscular Hemoglobin Concent 31 g/dL (31-37) Red Cell Distribution Width 17.6 % (11.5-14.5) Platelet Count 407 x10^3/uL (140-400) Neutrophils (%) (Auto) 65 % (31-73) Lymphocytes (%) (Auto) 31 % (24-48) Monocytes (%) (Auto) 4 % (0-9) Eosinophils (%) (Auto) 1 % (0-3) Basophils (%) (Auto) 0 % (0-3) Neutrophils # (Auto) 14.9 x10^3uL (1.8-7.7) Lymphocytes # (Auto) 7.2 x10^3/uL (1.0-4.8) Monocytes # (Auto) 0.8 x10^3/uL (0.0-1.1) Eosinophils # (Auto) 0.1 x10^3/uL (0.0-0.7) Basophils # (Auto) 0.0 x10^3/uL (0.0-0.2) Reticulocyte Count (auto) 2.1 % (0.5-2.5) Sodium Level 139 mmol/L (136-145) Potassium Level 3.5 mmol/L (3.5-5.1) Chloride Level 104 mmol/L (98-107) Carbon Dioxide Level 17 mmol/L (21-32) Anion Gap 18 (6-14) Blood Urea Nitrogen 8 mg/dL (8-26) Creatinine 0.9 mg/dL (0.7-1.3) Estimated GFR (Cockcroft-Gault) 83.2 BUN/Creatinine Ratio 9 (6-20) Glucose Level 115 mg/dL (70-99) Calcium Level 8.8 mg/dL (8.5-10.1) Magnesium Level 2.2 mg/dL (1.8-2.4) Total Bilirubin 1.0 mg/dL (0.2-1.0) Aspartate Amino Transf (AST/SGOT) 79 U/L (15-37) Alanine Aminotransferase (ALT/SGPT) 39 U/L (16-63) Alkaline Phosphatase 604 U/L (46-116) Lactate Dehydrogenase 303 U/L (85-227) Total Protein 6.8 g/dL (6.4-8.2) Albumin 2.3 g/dL (3.4-5.0) Albumin/Globulin Ratio 0.5 (1.0-1.7) Vitamin B12 Level 1482 pg/mL (247-911) Serum Folate 3.85 ng/ml (3.2-20.0) Microbiology 01/17/17 Urine Culture - Final, Complete 01/17/17 Urine Culture Result 1 (ESTRELLA) - Final, Complete Medications Current Medications Sodium Chloride 1,000 ml @ 125 mls/hr 1X ONCE IV Last administered on 21:54; Start 01/17/17 at 21:00; Stop 01/18/17 at 04:59; Status DC Sodium Chloride 1,000 ml @ 1,000 mls/hr 1X ONCE IV Last administered on 01/17 21:00; Start 01/17/17 at 21:00; Stop 01/17/17 at 21:59; Status DC Ondansetron HCl (Zofran) 4 mg PRN Q8HRS PRN IV NAUSEA/VOMITING; Start at 22:15; Stop 01/18/17 at 22:14; Status DC Sodium Chloride 1,000 ml @ 125 mls/hr Q8H IV Last administered on 01/18/17 13:31; Start 01/17/17 at 22:15; Stop 01/18/17 at 22:14; Status DC Vancomycin HCl (Vanco Per Pharmacy) 1 each PRN DAILY PRN MC SEE COMMENTS Last administered on 01/19/17 13:18; Start 01/17/17 at 22:30; Stop 01/19/17 at 22 :48; Status DC Ceftriaxone Sodium 1 gm/ Dextrose 50 ml @ 100 mls/hr Q24H IV ; Start 01/17/17 at 22:30; Stop 01/17/17 at 22:30; Status DC Ceftriaxone Sodium 1 gm/ Sodium Chloride 50 ml @ 100 mls/hr Q24H IV Last administered on 01/17/17 23:16; Start 01/17/17 at 22:30; Stop 01/18/17 at 11 :53; Status DC Vancomycin HCl 2 gm/Dextrose 500 ml @ 250 mls/hr 1X ONCE IV Last administered on 01/18/17 00:04; Start 01/17/17 at 23:00; Stop 01/18/17 at 00 :59; Status DC Vancomycin HCl 1.25 gm/Dextrose 250 ml @ 167 mls/hr Q12H IV Last administered on 01/19/17 16:19; Start 01/18/17 at 12:00; Stop 01/19/17 at 22:48; Status DC Vancomycin HCl 1 each 1X ONCE MC Last administered on 01/19/17 11:30; Start 01/19/17 at 11:30; Stop 01/19/17 at 22:48; Status DC Acetaminophen (Tylenol) 650 mg Q4HRS PO ; Start 01/18/17 at 00:00; Stop at 22:49; Status DC Atorvastatin Calcium (Lipitor) 20 mg HS PO ; Start 01/18/17 at 21:00; Stop at 22:49; Status DC Clopidogrel Bisulfate (Plavix) 75 mg DAILY PO ; Start 01/18/17 at 09:00; Stop 01/19/17 at 22:49; Status DC Ferrous Sulfate (Feosol) 325 mg DAILYWBKFT PO ; Start 01/18/17 at 08:00; Stop 01/19/17 at 22:49; Status DC Finasteride (Proscar) 5 mg DAILY PO ; Start 01/18/17 at 09:00; Stop 01/19/17 at 22:49; Status DC Furosemide (Lasix) 20 mg DAILY PO ; Start 01/18/17 at 09:00; Stop 01/19/17 at 22:49; Status DC Oxycodone/ Acetaminophen (Percocet 5/325) 1 tab PRN Q4HRS PRN PO pain 5-7; Start 01/17/17 at 23:45; Stop 01/19/17 at 22:49; Status DC Pramipexole Dihydrochloride (miraPEX) 0.25 mg TID PO ; Start 01/18/17 at 09:00 ; Stop 01/19/17 at 22:49; Status DC Tamsulosin HCl (Flomax) 0.8 mg QHS PO ; Start 01/18/17 at 21:00; Stop at 22:49; Status DC Atenolol (Tenormin) 100 mg QHS PO ; Start 01/18/17 at 21:00; Stop 01/19/17 at 22:49; Status DC Carbidopa/Levodopa (Sinemet Cr) 2 tab.sa QID PO ; Start 01/18/17 at 09:00; Stop 01/19/17 at 22:49; Status DC Gabapentin (Neurontin) 600 mg QHS PO ; Start 01/18/17 at 21:00; Stop 01/19/17 at 22:49; Status DC Pantoprazole Sodium (Protonix) 40 mg QODAY PO ; Start 01/19/17 at 09:00 Sertraline HCl (Zoloft) 100 mg BID PO ; Start 01/18/17 at 09:00; Stop at 23:01; Status DC Piperacillin Sod/ Tazobactam Sod 3.375 gm/Dextrose 50 ml @ 100 mls/hr Q6HRS IV Last administered on 01/19/17 18:56; Start 01/18/17 at 12:00; Stop at 22:49; Status DC Amino Acids/ Glycerin/ Electrolytes 1,000 ml @ 80 mls/hr [id number] IV Last administered on 01/19/17 10:41; Start 01/19/17 at 10:45; Stop 01/19/17 at 22 :49; Status DC Potassium Chloride 100 ml @ 100 mls/hr Q1H IV Last administered on 01/19/17 15:09; Start 01/19/17 at 11:00; Stop 01/19/17 at 14:59; Status DC Iron Sucrose 200 mg/Sodium Chloride 110 ml @ 55 mls/hr 1X ONCE IV Last administered on 01/19/17 16:12; Start 01/19/17 at 11:00; Stop 01/19/17 at 12 :59; Status DC Multi-Ingred Cream/Lotion/Oil/ Oint (Hydrocerin) 1 radha BID TP ; Start 01/19/17 at 21:00; Stop 01/19/17 at 22:49; Status DC Haloperidol Lactate (Haldol) 5 mg PRN Q6HRS PRN IM aggitation Last administered on 01/19/17 23:04; Start 01/19/17 at 22:45 Oxycodone HCl (Roxicodone Conc) 5 mg PRN Q2HR PRN SL PAIN; Start 01/20/17 at 11:45 Lorazepam (Ativan Intensol) 2 mg PRN Q4HRS PRN SL ANXIETY / AGITATION; Start 01/20/17 at 11:45 Atropine Sulfate (Isopto Atropine) 1 drop PRN Q2HR PRN SL SECRETIONS; Start at 11:45 Ciprofloxacin (Cipro) 500 mg BID PO ; Start 01/20/17 at 12:00 Metronidazole (Flagyl) 500 mg Q12HR PO ; Start 01/20/17 at 12:00 Active Scripts Active Oxycodone Hcl 20 Mg/1 Ml Oral.conc 5 Mg SL PRN Q2HR PRN Atropine Sulfate 2 Ml Drops 1 Drop SL PRN Q2HR PRN Flagyl (Metronidazole) 500 Mg Tablet 500 Mg PO Q12HR 7 Days Lorazepam Intensol (Lorazepam) 2 Mg/1 Ml Oral.conc 2 Mg SL PRN Q4HRS PRN Cipro (Ciprofloxacin Hcl) 250 Mg Tablet 500 Mg PO BID 7 Days Reported Sinemet Cr 50-200 Tablet (Carbidopa/Levodopa) 1 Each Tablet.er 1 Tab PO QID Vitals/I & O Vital Sign - Last 24 Hours 01/19/17 01/19/17 01/19/17 01/19/17 15:00 19:00 20:15 23:00 Temp 98.0 97.6 97.4 98.0 97.6 97.4 Pulse 84 82 79 Resp 20 19 19 B/P (MAP) 81/54 (63) 119/76 (90) 112/59 (76) Pulse Ox 99 98 96 O2 Delivery Nasal Cannula Nasal Cannula Nasal Cannula Nasal Cannula O2 Flow Rate 2.0 2.0 2.0 2.0 01/20/17 07:00 Temp 98.1 98.1 Pulse 94 Resp 22 B/P (MAP) 105/51 (69) Pulse Ox 96 O2 Delivery Room Air Nutrition Consultation Dietary Evaluation: Recommendations by RD: Increase Calorie Intake, Protein supplementation Comments: REC Fibersource HN 1.2 @ 20 ml/hr increased by 10 my q 8 hr to goal of 70 ml/hr. flushes: if no ivfs: 110 ml q 4 hr Expected Outcomes/Goals: tolerate TF at goal- dobhoff rec < 30 days REC PEG tf for alf nutrition palliative care meeting tomorrow Interpretation of weight loss: >5% in 1 month Malnutrition Findings: Weight Status: Overweight VALERI MERCER MD Jan 20, 2017 11:51
[2017-01-20] MEDS ORDERED: CIPROFLOXACIN HCL 250 MG TABLET. PO SCH (12:00)
[2017-01-20] MEDS ORDERED: metroNIDAZOLE 500 MG TABLET PO SCH (12:00)
--- NOTE | 2017-01-20 14:33 | PDOC3 ---
Discharge Summary [facility] Date of Admission: Jan 17, 2017 Discharge Date: Jan 20, 2017 Admitting Diagnosis sacral ulcer, appears infected , cellulitis, leukocytosis, tachycardia, sespis POA encephalopathy, toxic parkinsons disease, w/ dementia anemia, microcytic, recent disease, poor nutrition, moderate/severe malnutrition recent femur fracture, NWB of Left leg dysphagia with parkinson dz DNR Problems: Final Diagnosis CONSULTS id Brief Hospital Course Mr. Lund is a 71 old M, with mild dementia with severe parkinson dz, dysphagia , recent hip fx post sx, was sent from SNF for combative behavior. was found sacral ulcer with cellulitis. on zosyn and vanco. PAT consulted, decided home hospice, pleasure feeding. dc home with SL ativan, morphine. also flagyl and cipro for the infection, doubt they can help much given his swallow difficulty and basically is comfort care. dc time 35min General: Alert, Cooperative, No acute distress, Other (oriented 3/4, ) Lungs: Clear Abdomen: Normal bowel sounds, Soft Extremities: No edema Skin: No rashes Patient History: Patient reports no known family medical history. Problems: Disposition home hospice CONDITION AT DISCHARGE: Improved Diet pleasure feeding Scheduled Carbidopa/Levodopa (Sinemet Cr 50-200 Tablet), 1 TAB PO QID, (Reported) Ciprofloxacin Hcl (Cipro), 500 MG PO BID Metronidazole (Flagyl), 500 MG PO Q12HR Scheduled PRN Atropine Sulfate (Atropine Sulfate), 1 DROP SL PRN Q2HR PRN for SECRETIONS Lorazepam (Lorazepam Intensol), 2 MG SL PRN Q4HRS PRN for ANXIETY / AGITATION Discontinued Medications Acetaminophen (Tylenol), 650 MG PO Q4HRS, (Reported) Amlodipine Besylate (Amlodipine Besylate), 10 MG PO DAILY, (Reported) Atenolol (Atenolol), 100 MG PO QHS, (Reported) Atorvastatin Calcium (Atorvastatin Calcium), 20 MG PO DAILY, (Reported) Clopidogrel Bisulfate (Plavix), 75 MG PO DAILY, (Reported) Enoxaparin Sodium (Enoxaparin Sodium), 40 MG SQ Q24H Ferrous Sulfate (Feosol), 325 MG PO DAILYWBKFT Finasteride (Finasteride), 5 MG PO DAILY, (Reported) Furosemide (Furosemide), 20 MG PO DAILY, (Reported) Gabapentin (Gabapentin), 600 MG PO QHS, (Reported) Lansoprazole (Lansoprazole), 15 MG PO QODAY, (Reported) Oxycodone Hcl/Acetaminophen (Oxycodone-Acetaminophen 5-325), 1 TAB PO PRN Q4HRS PRN for pain 5-7 Pramipexole Di-Hcl (Pramipexole Dihydrochloride), 0.25 MG PO TID, (Reported) Sertraline Hcl (Sertraline Hcl), 100 MG PO BID, (Reported) Tamsulosin Hcl (Tamsulosin Hcl), 0.8 MG PO QHS, (Reported) JASWINDER SPICER MD Jan 20, 2017 14:33
== END 2017-01-20 15:28 | disposition hospice, home (50) | DRG 871 ==
LOC: ER 19:57 → 5 NORTH 21:17
PROVIDERS: ADMIT Internal Medicine; ATTEND Internal Medicine
DX: A41.9 Sepsis, unspecified organism (principal); E43 Unspecified severe protein-calorie malnutrition; L89.159 Pressure ulcer of sacral region, unspecified stage; G92 Toxic encephalopathy; F02.80 Dementia in other diseases classified elsewhere, unspecified severity, without behavioral disturbance, psychotic disturbance, mood disturbance, and anxiety; G20 Parkinson's disease; N39.0 Urinary tract infection, site not specified; L03.317 Cellulitis of buttock; E86.0 Dehydration; D50.9 Iron deficiency anemia, unspecified; E78.5 Hyperlipidemia, unspecified; F32.9 Major depressive disorder, single episode, unspecified; M24.562 Contracture, left knee; I10 Essential (primary) hypertension; I25.10 Atherosclerotic heart disease of native coronary artery without angina pectoris; K21.9 Gastro-esophageal reflux disease without esophagitis; R13.10 Dysphagia, unspecified; Z51.5 Encounter for palliative care; Z66 Do not resuscitate; Z82.49 Family history of ischemic heart disease and other diseases of the circulatory system; Z85.828 Personal history of other malignant neoplasm of skin; Z68.28 Body mass index [BMI] 28.0-28.9, adult
CPT/HCPCS: 36415; 51702; 71010; 74000; 80048; 80053; 80202; 81001; 82607; 82746; 83540; 83550; 83615; 83735; 85025; 85045; 87086; 87641; 96360; 96361; J0696; J1630; J1756; J2543; J3370; J3480; J7030; 92526; 92610; 97110; 97535; 99285-25